=== PATIENT | female | born 2000 | race Caucasian/White ===

== ENCOUNTER → 2019-11-07 13:09 | Outpatient (CLI) | payer BC, SELFPAY ==
--- NOTE | 2019-11-07 13:45 | MRI_ITS ---
STUDY: MRI BRAIN WITH AND WITHOUT CONTRAST (ATTENTION INTERNAL AUDITORY CANALS - I.A.C.''s) REASON FOR EXAM: Female, 18 years old. L 6th nerve palsey, diplopia LEFT eye x 2 weeks TECHNIQUE: Standardized multiplanar fat and water weighted pulse sequences were obtained. 22ml Dotarem via IV was administered for the contrast portion of the examination. COMPARISON: None. FINDINGS: Normal bilateral temporal bones. Normal bilateral internal auditory canals. There is no demonstrated intracanalicular or cisternal vestibular schwannoma (acoustic neuroma). There is no enhancement of the bilateral VIIth or VIIIth cranial nerves. Normal bilateral cochlea, vestibules and semicircular canals. Normal size of the ventricles and extra-axial spaces for the patient''s age. There are 3 areas of hyperintensity of the periventricular white matter, 2 in the posterior right parietal lobe and one in the left frontal lobe. There is no evidence for recent intracranial ischemia or other cause of cytotoxic edema on diffusion weighted imaging (DWI). Normal T2* images of the brain without demonstrated susceptibility artifact. There is no demonstrated hemosiderin stain. Normal bilateral basal ganglia. Normal thalami. Normal flow voids within the major intracranial circulation suggesting patency by spin echo criteria. Normal venous enhancement. There is no enhancing intra-axial or extra-axial abnormality. There is no extra-axial fluid accumulation. Normal sella turcica, pituitary gland, infundibular stalk, optic chiasm and hypothalamus. Normal tectal plate and pineal gland. Focal hyperintensity of the anterior aspect of the left side of the brainstem at the level the cerebral peduncle. Findings are worrisome for demyelinating disease (multiple sclerosis). No contrast-enhancing plaque. Normal cerebellum. Normal basal cisterns. No demonstrated orbital abnormality, within the constraints of a routine brain study. Normal visualized paranasal sinuses. Normal calvarium and skull base. Normal visualized soft tissue structures. Normal visualized upper cervical spine. MRI/Brain W/WO Contrast IMPRESSION: Suspect demyelinating disease (multiple sclerosis), no contrast enhancing plaque. Other possibilities include hypercoagulable state including antiphospholipid antibody syndrome, vasculitis, migraine headaches, or Lyme disease. Electronically Signed: Domo Umana MD at 16:53 EDT Tel , Service support ,
[2019-11-11 23:57] LABS: Acetylcholine Receptor Binding < 0.03 nmol/L (0.00-0.24)
[2019-11-13 14:29] LABS: ACHR Recep AB, Blocking 19 % (0-25)
== END ==
PROVIDERS: PCP Pediatrics; Referring Provider Ophthalmology; Visit Provider Ophthalmology
DX: H49.22 Sixth [abducent] nerve palsy, left eye (principal); H53.2 Diplopia; G70.00 Myasthenia gravis without (acute) exacerbation
CPT/HCPCS: 36415; 70553; 83519; 84238; A9575

== ENCOUNTER → 2021-05-13 09:15 | Outpatient (CLI) | payer BC, SELFPAY ==
[2021-05-13 11:29] LABS: Erythrocyte Sedimentation Rate 29 mm/hr (0-30)
[2021-05-13 11:52] LABS: CRP 6.53 mg/L (0.0-3.0)
[2021-05-14 09:45] LABS: CMV Acute Antibody IgM < 30.0 AU/mL (0.0-29.9); CMV Antibody IgG < 0.60 U/mL (0.00-0.59)
== END ==
PROVIDERS: PCP Internal Medicine; Referring Provider Internal Medicine Gastroenterology; Visit Provider Internal Medicine Gastroenterology
DX: G35 Multiple sclerosis (principal)
CPT/HCPCS: 36415; 85652; 86140; 86644; 86645

== ENCOUNTER 2021-05-25 09:24 | Day surgery (SDC) | payer BC, SELFPAY ==
--- NOTE | 2021-05-25 09:36 | PCM.HP.BLA ---
History and Physical Date of Admission: 05/25/21 Intake Visit Reasons: Stomach issues Allergies No Known Allergies Allergy (Unverified 05/13/21 08:12) Medications biotin 5 mg tablet mg PO 05/13/21 [History Confirmed 05/13/21] cholecalciferol (vitamin D3) 50 mcg (2,000 unit) tablet 50 mcg PO DAILY 05/13/21 [History Confirmed 05/13/21] famotidine 10 mg tablet 10 mg PO BID 05/13/21 [History Confirmed 05/13/21] ferrous sulfate 325 mg (65 mg iron) tablet 325 mg PO DAILY 05/13/21 [History Confirmed 05/13/21] ketoconazole 1 % shampoo 1 applic TOPICAL 2XW 05/13/21 [History Confirmed 05/13/21] ocrelizumab 30 mg/mL intravenous solution mg .ROUTE .6m ml 05/13/21 [History Confirmed 05/13/21] ondansetron HCl 4 mg tablet 4 mg PO Q8H PRN 05/13/21 [History Confirmed 05/13/21] pantoprazole 40 mg tablet,delayed release 40 mg PO DAILY #60 tab 05/13/21 [Rx Confirmed 05/13/21] PFSH Medical History (Updated 05/15/21 @ 13:[address] Plata Friend, DO) Abdominal pain Diarrhea Dysphagia Surgical History (Updated 05/13/21 @ 08:43 by Sarah Bull) History of wisdom tooth extraction Family History (Updated 05/13/21 @ 08:16 by Mile Banks) Mother Diabetes Grandmother Cancer melanoma Social History Smoking Status: Never smoker HPI HPI Details: FABIANO AGUILAR, is a 20 F who presents to the office today for Onset 4.5 weeks ago with nausea, diarrhea, difficulty swallowing and upset stomach. Urgent care did blood work and stool studies - reports WBC elevated and stool studies C. diff, bacteria and parasites were all negative; prescribed zofran which has been ineffective. History of multiple sclerosis. MS doctor looked at blood work and felt there was an infection who recommended PCP but visit was several weeks out. No antibiotic started. Returned to urgent care who repeated blood work and they came back as normal. PCP seen Sunday this week who prescribed pepcid once a day and minimally. Mother has a history of GERD. ROS Const Constitutional: Positive for fatigue and weight change ENT ENT: Positive for difficulty swallowing and hoarseness Gastro GI: Positive for bloating, change in bowel habits, diarrhea, heartburn, difficulty swallowing and nausea/dyspepsia Endo Endocrine: Positive for fatigue and weight change Exam Const General: cooperative and comfortable Nutritional Appearance: average body habitus and well nourished [facility] Head: normal to inspection Ears: hearing grossly normal bilaterally Nose: external nose normal Face and sinus: normal facial exam Mouth: oral mucosae normal Throat: posterior oropharynx normal Eyes General: appearance normal, both eyes and all related structures Neck Neck: normal visual inspection Chest Chest palpation & inspection: normal inspection of the chest and normal palpation of entire chest wall Resp Effort & Inspection: normal respiratory effort Auscultation: Bilateral: Clear to Auscultation Cardio Palpation: normal PMI Rate: regular rate Rhythm: regular rhythm GI Inspection: normal to inspection Auscultation: normal bowel sounds Percussion: normal to percussion Palpation: no hepatosplenomegaly Skin General: no rashes or lesions noted Neuro General: patient alert Extrem General: normal to inspection Psych Affect: normal affect Quality Reporting Tobacco Screening ([facility] 138) Smoking Status: Never smoker Assessment and Plan Assessment and Plan (1) MS (multiple sclerosis): Status: Acute Orders: Orders: CRP 05/13/21 Erythrocyte Sed Rate 05/13/21 CMV Antibody IgG 05/13/21 CMV Acute Antibody IgM 05/13/21 Plan - Dr. Plata Friend, DO: With her history of multiple sclerosis and being on immunosuppression I will order CMV IgG and IgM antibodies. I will also order an ESR and CRP. (2) Diarrhea: Status: Acute Plan - Dr. Plata Friend, DO: Diarrhea possibly secondary to unmasking inflammatory bowel disease. She will need to undergo EGD and colonoscopy to evaluate the upper and lower GI tract. (3) Dysphagia: Status: Acute Plan - Dr. Plata Friend, DO: Differential diagnosis for her dysphagia do include esophageal dysmotility, esophageal spasm, eosinophilic esophagitis, gastroesophageal reflux disease. We will perform an upper endoscopy evaluate her upper GI tract. (4) Abdominal pain: Status: Acute Plan - Dr. Boni Tilley, DO: The differential diagnosis for abdominal pain does clued IBS, gastritis, peptic ulcer disease, celiac disease. We will evaluate her upper GI tract and make recommendations accordingly Plan Details Other Medications: New: pantoprazole 40 mg PO DAILY 60 tabs 0RF I have re-examined the patient. There are no clinical changes since date of exam.
[2021-05-25 09:40] VITALS: BP 137/83; PULSE 106; RESP 18; TEMP 36.6; O2SAT 100; BMI 36.6
[2021-05-25] MEDS: Lactated Ringers 1,000 ML 15 ML IV (09:40)
[2021-05-25 09:43] LABS: Internal QC Validated? YES +Cl - CLEAR BKGD
[2021-05-25 09:46] LABS: Pregnancy, Urine Negative Negative
--- NOTE | 2021-05-25 10:30 | IMM_PTH ---
PATIENT: FABIANO ISAACS LOC: EN U#:[id number] AGE/SX: 20/ ROOM: RE05/25/[address]: Dr. Boni Tilley DO : 2000 BED: DIS: 05/25/2021 SPEC #: [id number] RECD: 05/25/21 15:23 STATUS: JOSE MANUEL REQ #: [id number] LIO: 05/25/21 10:[address]: Boni Tilley DEPT: IMMUNOHISTOCHEMISTRY RECD BY: Cookie Cardona ENTERED: 05/25/21 15:23 SP TYPE: IMMUNO OTHR DR: Dr. Tin Mccoy MD Tissues: B - Stomach, NOS Procedures: H Pylori (initial) PHYSICIAN & INSTITUTION [place] [id number] SPECIMEN INFORMATION: Tissue Source: C ? Gastric biopsy Clinical Info: Multiple sclerosis, diarrhea, dysphagia, abdominal pain Specimen Number: [id number] CPT code: 57279 METHODOLOGY: Deparaffinized sections of prefer/formalin-fixed tissue or PAP/DQ stained slides are incubated with monoclonal/polyclonal antibodies/oligonucleotide probes. Localization is made via biotin free immunoperoxidase method. Appropriate controls are performed and reacted as expected. Results on target cell population are indicated in the following table: RESULTS: ANTIBODY / CLONE RESULT Block C H Pylori (polyclonal) negative These tests were developed and their performance characteristics determined by [facility]. They may not have been cleared or approved by the U.S. Food and Drug Administration. The FDA has determined that such clearance or approval is not necessary. INTERPRETATION: C. Gastric, biopsy: Negative for Helicobacter pylori organisms. SJ:peña 05/26/2021
--- NOTE | 2021-05-25 10:30 | EGD_PTH ---
PATIENT: FABIANO ISAACS LOC: EN U#:[id number] AGE/SX: 20/F ROOM: RE05/25/[address]: Dr. Boni Tilley DO : 2000 BED: DIS: 05/25/2021 SPEC #: [id number] RECD: 05/25/21 13:30 STATUS: JOSE MANUEL REMedhat #: [id number] LIO: 05/25/21 10:[address]: Boni Tilley DEPT: SURGICAL PATHOLOGY RECD BY: Ana Lilia Moreau ENTERED: 05/25/21 13:46 SP TYPE: EGD BIOPSY OT DR: Dr. Tin Mccoy MD Tissues: A - Duodenum, NOS B - Gastric mucous membrane C - Gastric mucous membrane D - Esophagus, NOS Procedures: Special Stain Group II Surgery Specimen Level IV Alcian Blue/PAS (control) HEADER OPERATION: EGD PRE-OP DIAGNOSIS: Multiple sclerosis, diarrhea, dysphagia, abdominal pain TISSUE SUBMITTED: A ? Duodenum biopsy, B ? Antrum biopsy for H. pylori and path, C ? Gastric biopsy, D ? Distal esophagus biopsy MICROSCOPIC DIAGNOSIS A. Duodenum, biopsy: Fragments of duodenal mucosa with congestion, hemorrhage and Martine gland hyperplasia. B. Antrum, biopsy: No specimen is present in the container. C. Gastric biopsy: Mild gastritis. See microscopic description and comment. D. Distal esophagus, biopsy: Fragments of gastroesophageal mucosa with mild chronic inflammation. Intestinal metaplasia (goblet cell metaplasia) not identified. See comment. SJ:peña 05/26/2021 COMMENT C. The results of immunohistochemistry for Helicobacter pylori will be reported separately ([id number]). D. Alcian blue/PAS stain with matched control is used in the evaluation of the specimen. MICROSCOPIC DESCRIPTION Slides are reviewed. C. The specimen shows fragments of gastric mucosa with chronic inflammatory cell infiltrates in the lamina propria consisting of lymphocytes and plasma cells, consistent with mild chronic gastritis. GROSS DESCRIPTION A - Received in fixative is one container labeled with the patient's name and designated duodenum biopsy. The specimen consists of multiple irregular fragments of light hernández soft tissue that in aggregate measure 1 x 0.3 x 0.1 cm. The specimen is totally submitted in one cassette. B - Received in fixative is one container labeled with the patient's name and designated antrum biopsy. No specimen is present in the container. C - Received in fixative is one container labeled with the patient's name and designated gastric biopsy. The specimen consists of two irregular fragments of light hernández soft tissue that in aggregate measure 0.6 x 0.3 x 0.1 cm. The specimen is totally submitted in one cassette. D - Received in fixative is one container labeled with the patient's name and designated distal esophagus biopsy. The specimen consists of two irregular fragments of light hernández soft tissue that in aggregate measure 0.6 x 0.3 x 0.1 cm. The specimen is totally submitted in one cassette. / SJ:rg 05/25/21 TC:3 CPT: 42277 x3, 70403
--- NOTE | 2021-05-25 10:52 | OP.EGD_ITS ---
Patient Name: Leela Amos Procedure Date: 05/25/2021 10:24 AM Date of : 2000 Age: 20 Procedure: Upper GI endoscopy Indications: Epigastric abdominal pain, Heartburn Providers: Boni Tilley DO Medicines: See the Anesthesia note for documentation of the administered medications Patient Profile: This is a 20 year old female. Refer to note in patient chart for documentation of history and physical. Patient has symptoms of acute abdominal cramping and acute epigastric abdominal pain. The symptoms first began April. Complications: No immediate complications. Procedure: Pre-Anesthesia Assessment: - Prior to the procedure, a History and Physical was performed, and patient medications and allergies were reviewed. The patient is competent. The risks and benefits of the procedure and the sedation options and risks were discussed with the patient. All questions were answered and informed consent was obtained. Patient identification and proposed procedure were verified by the physician in the pre-procedure area. Mental Status Examination: alert and oriented. Airway Examination: normal oropharyngeal airway and neck mobility. Respiratory Examination: clear to auscultation. CV Examination: normal. Prophylactic Antibiotics: The patient does not require prophylactic antibiotics. Prior Anticoagulants: The patient has taken no previous anticoagulant or antiplatelet agents. ASA Grade Assessment: II - A patient with mild systemic disease. After reviewing the risks and benefits, the patient was deemed in satisfactory condition to undergo the procedure. The anesthesia plan was to use moderate sedation / analgesia (conscious sedation). Immediately prior to administration of medications, the patient was re-assessed for adequacy to receive sedatives. The heart rate, respiratory rate, oxygen saturations, blood pressure, adequacy of pulmonary ventilation, and response to care were monitored throughout the procedure. The physical status of the patient was re-assessed after the procedure. After obtaining informed consent, the endoscope was passed under direct vision. Throughout the procedure, the patient's blood pressure, pulse, and oxygen saturations were monitored continuously. The Endoscope was introduced through the and advanced to the. The gastroscope was introduced through the mouth, and advanced to the second part of duodenum. The upper GI endoscopy was accomplished without difficulty. The patient tolerated the procedure well. Moderate Sedation: Moderate (conscious) sedation was administered by the endoscopy nurse and supervised by the endoscopist. The patient's oxygen saturation, heart rate, blood pressure and response to care were monitored. Total physician intraservice time was 15 minutes. Scope In: 10:39:04 AM Scope Out: 10:47:28 AM Total Procedure Duration Time 0 hours 8 minutes 24 seconds Findings: LA Grade A (one or more mucosal breaks less than 5 mm, not extending between tops of 2 mucosal folds) esophagitis with no bleeding was found 34 to 35 cm from the incisors. Biopsies were taken with a cold forceps for histology. Verification of patient identification for the specimen was done. Estimated blood loss was minimal. Patchy mildly erythematous mucosa without bleeding was found in the gastric body. Biopsies were taken with a cold forceps for histology. Estimated blood loss was minimal. Patchy mildly erythematous mucosa without active bleeding and with no stigmata of bleeding was found in the second portion of the duodenum. Biopsies were taken with a cold forceps for histology. Estimated blood loss was minimal. Impression: - LA Grade A reflux esophagitis. Biopsied. - Erythematous mucosa in the gastric body. Biopsied. - Erythematous duodenopathy. Biopsied. Recommendation: - Discharge patient to home. - Resume previous diet. - Repeat upper endoscopy in 1 year for surveillance based on pathology results. - Return to GI office in 2 weeks. - Continue present medications. Procedure Code(s): --- Professional --- 99830, Esophagogastroduodenoscopy, flexible, transoral; with biopsy, single or multiple G0500, Moderate sedation services provided by the same physician or other qualified health director of career services performing a gastrointestinal endoscopic service that sedation supports, requiring the presence of an independent trained observer to assist in the monitoring of the patient's level of consciousness and physiological status; initial 15 minutes of intra-service time; patient age 5 years or older (additional time may be reported with 78264, as appropriate) CPT copyright 2017 [employer]. All rights reserved. The codes documented in this report are preliminary and upon flight engineer inspector review may be revised to meet current compliance requirements. Boni Tilley DO 05/25/2021 10:52:49 AM This report has been signed electronically. Number of Addenda: 1 Note Initiated On: 05/25/2021 10:24 AM Addendum Number: 1 Addendum Date: 03/01/2022 6:56:55 AM MAC was used instead of moderate sedation for the patient. Boni Tilley DO 03/01/2022 6:57:00 AM This report has been signed electronically.
[2021-05-25 10:55] VITALS: BP 114/67; BP 137/83; PULSE 90; RESP 16; TEMP 36.4; O2SAT 99
[2021-05-25 11:00] VITALS: BP 102/71; BP 137/83; PULSE 87; RESP 16; O2SAT 100
[2021-05-25 11:05] VITALS: BP 108/70; BP 137/83; PULSE 83; RESP 16; O2SAT 99
[2021-05-25 11:12] VITALS: BP 110/74; BP 137/83; PULSE 76; RESP 16; TEMP 36.9; O2SAT 99
[2021-05-25 11:34] VITALS: BP 137/83
== END 2021-05-25 11:36 ==
LOC: EN 09:26 → AC 09:28
PROVIDERS: Anesthesiology; PCP Internal Medicine; Referring Provider Internal Medicine; Visit Provider Internal Medicine Gastroenterology
PROC: (CPT 43239; principal; 2021-05-25 10:25)
DX: K29.70 Gastritis, unspecified, without bleeding (principal); K21.00 Gastro-esophageal reflux disease with esophagitis, without bleeding; G35 Multiple sclerosis; G43.909 Migraine, unspecified, not intractable, without status migrainosus; Z79.899 Other long term (current) drug therapy
CPT/HCPCS: 43239; 81025; 87426; 88305; 88313; 88342; C9803; J7120; J2405

== ENCOUNTER → 2021-06-04 09:43 | Outpatient (CLI) | payer BC, SELFPAY ==
[2021-06-05 14:37] LABS: Immunoglobulin A 96 mg/dL (87-352)
[2021-06-06 14:09] LABS: Endomysial Antibody IgA Negative (Negative)
[2021-06-06 14:46] LABS: Deamidated Gliadin IgA 3 units (0-19); Deamidated Gliadin IgG 1 units (0-19); Immunoglobulin A 98 mg/dL (87-352); t-Transglutaminase IgA <2 U/mL (0-3)
== END ==
PROVIDERS: PCP Internal Medicine; Referring Provider Internal Medicine Gastroenterology; Visit Provider Internal Medicine Gastroenterology
DX: K29.60 Other gastritis without bleeding (principal)
CPT/HCPCS: 36415; 82784; 83516; 86255

== ENCOUNTER → 2021-06-10 | Outpatient (CLI) | payer BC, SELFPAY ==
[2021-06-14 13:20] LABS: H. PYLORI STOOL AG Negative (Negative)
== END | disposition home or self-care (01) ==
LOC: LABSPEC 08:11
PROVIDERS: PCP Internal Medicine; Visit Provider Internal Medicine Gastroenterology
DX: K29.60 Other gastritis without bleeding (principal)

== ENCOUNTER → 2023-06-19 | Outpatient (CLI) | payer BC, SELFPAY | END | disposition home or self-care (01) | LOC: LABSPEC 15:05 | PROVIDERS: PCP Internal Medicine; Referring Provider Otolaryngology Otolaryngology/Facial Plastic Surgery; Visit Provider Otolaryngology Otolaryngology/Facial Plastic Surgery | DX: J01.90 Acute sinusitis, unspecified (principal) | CPT/HCPCS: 87070; 87077; 87205 ==

== ENCOUNTER → 2023-08-06 | Outpatient (CLI) | payer BC, SELFPAY | END | disposition home or self-care (01) | PROVIDERS: PCP Internal Medicine; Visit Provider Otolaryngology Otolaryngology/Facial Plastic Surgery | DX: J32.9 Chronic sinusitis, unspecified (principal) | CPT/HCPCS: 87070; 87077; 87205 ==

== ENCOUNTER 2023-08-19 18:50 | Inpatient (IN) | payer BC, SELFPAY ==
--- OUTSIDE RECORDS SUMMARY | 2023-08-19 18:55 | XMS RPT_ITS | CCD ---
Author Name Unknown Address [address] [place] [address] Organization [facility] Care Team Providers Care Aquarium Tank Attendant Name Role Phone Amilcar MELISSA, Devin Diego Primary Care Provider Abi MELISSA, Tin Diego Primary Care Provider [phone] Abi MELISSA, Tin Diego Primary Care Provider [phone] Unavailable Primary Care Provider UnavailROMERO Townsend Referring Unavailable ALEX, RAMONA Primary Care Unavailable ROMERO CHEEK Referring Unavailable ALEX, RAMONA Primary Care Unavailable TEGAN DELGADO Attending Unavailable ALEX, RAMONA Primary Care Unavailable ROMERO CHEEK Referring Unavailable ROMERO CHEEK Attending Unavailable ALEX, RAMONA Primary Care Unavailable FADI ALEXANDER Attending Unavailable ROMERO CHEEK Referring Unavailable FADI ALVAREZ Attending Unavailable TEGAN DELGADO Attending Unavailable ROMERO CHEEK Attending Unavailable ALEX, RAMONA Primary Care Unavailable LORENZA WHEATLEY Attending Unavailable ROMERO CHEEK Referring Unavailable ROMERO CHEEK Attending Unavailable FADI ALVAREZ Attending Unavailable TEGAN DELGADO Attending Unavailable SINAI SOLIS Referring Unavailable SINAI SOLIS Attending Unavailable ALEX, RAMONA Primary Care Unavailable ROSEANNA WATTS Attending Unavailable FADI ALVAREZ Attending Unavailable ALXE, RAMONA Primary Care Unavailable ROMERO CHEEK Referring Unavailable SINAI SOLIS Attending Unavailable FADI ALVAREZ Attending Unavailable TEGAN DELGADO Attending Unavailable FADI ALVAREZ Attending Unavailable TEGAN DELGADO Referring Unavailable ROSEANNA WATTS Attending Unavailable ABI, RAMONA Primary Care Unavailable ROSEANNA WATTS Attending Unavailable ROSEANNA WATTS Referring Unavailable ALEX, RAMONA Primary Care Unavailable ROMERO CHEEK Attending Unavailable TIN ALEX Primary Care Unavailable ROMERO CHEEK Attending Unavailable TIN ALEX Primary Care Unavailable KIMBERLY CASTRO Attending Unavailable TIN ALEX Primary Care Unavailable Medications Current Medications Medication Drug Class(es) Dates Sig (Normalized) Sig (Original) amoxicillin 875 mg / clavulanate 125 mg oral tablet (4 sources) Penicillin-class Antibacterial Start: 05-28-2023 End: 06-07-2023 take 1 tablet by mouth twice daily amoxicillin-clav ulanate potassium (AUGMENTIN) 875-125 mg per tablet Take 1 tablet by mouth two times a day for 10 days. 20 tablet 0 05/28/2023 06/07/2023 Active Completed/Discontinued Medications Medication Drug Class(es) Dates Sig (Normalized) Sig (Original) amoxicillin 500 mg oral capsule (3 sources) Penicillin-class Antibacterial Start: 08-08-2023 take 1 capsule by mouth three times daily amoxicillin (AMOXIL) 500 mg capsule Take 500 mg by mouth three times a day. 0 08/08/2023 Active Problems Active Problems Problem Classification Problem Date Documented Da te Episodic/Chronic Bacterial infection; unspecified site (3 sources) Bacteria present; Translations: [Streptococcus, group B, as the cause of diseases classified elsewhere] Onset: 07-31-2023 07-31-2023 Episodic Diabetes or abnormal glucose tolerance complicating ; childbirth; or the puerperium (11 sources) Abnormal glucose level; Translations: [Abnormal glucose complicating ] Onset: 05-28-2023 05-28-2023 Episodic Headache; including migraine (20 sources) Migraine without aura, not refractory ; Translations: [Migraine without aura, not intractable, without status migrainosus] Onset: 04-22-2015 04-22-2015 Chronic Multiple sclerosis (20 sources) Multiple sclerosis; Translations: [Multiple sclerosis] Onset: 10-24-2019 Chronic Nutritional deficiencies (1 source) Vitamin D deficiency; Translations: [Vitamin D deficiency, unspecified] Chronic Other aftercare (6 sources) Patient encounter status; Translations: [Other shelter (current) drug therapy] Episodic Other circulatory disease (1 source) Elevated blood-pressure reading without diagnosis of hypertension; Translations: [Elevated blood-pressure reading, without diagnosis of hypertension] 08-03-2023 Episodic Other circulatory disease (1 source) Elevated blood-pressure reading, without diagnosis of hypertension; Translations: [Elevated blood pressure reading without diagnosis of hypertension] Onset: 08-03-2023 Episodic Other complications of (20 sources) Obesity; Translations: [Obesity complicating , unspecified trimester] Onset: 12-28-2022 Chronic Other complications of (4 sources) Maternal obesity complicating , childbirth and the puerperium, antepartum; Translations: [Obesity complicating , second trimester] 03-29-2023 Chronic Other complications of (1 source) Obesity complicating , unspecified trimester; Translations: [Obesity during ] Onset: 12-28-2022 Chronic Other complications of (1 source) Multiple sclerosis; Translations: [Diseases of the nervous system complicating , unspecified trimester] Episodic Other complications of (1 source) Heartburn; Translations: [Other specified related conditions, unspecified trimester] 05-24-2023 Episodic Other complications of (11 sources) High risk ; Translations: [Supervision of high risk , unspecified, second trimester] Onset: 05-25-2023 05-25-2023 Episodic Other lower respiratory disease (2 sources) Postviral cough; Translations: [Post-viral cough syndrome] 04-17-2023 Episodic Other nutritional; endocrine; and metabolic disorders (20 sources) Body mass index 40+ - severely obese; Translations: [Morbid (severe) obesity due to excess calories] Onset: 11-11-2019 11-11-2019 Chronic Other upper respiratory disease (1 source) Seasonal allergy; Translations: [Other seasonal allergic rhinitis] 05-24-2023 Chronic Other upper respiratory infections (2 sources) Upper respiratory infection; Translations: [Acute upper respiratory infection, unspecified] 03-25-2023 Episodic Residual codes; unclassified (1 source) Gestation period, 10 weeks; Translations: [10 weeks gestation of ] 01-31-2023 Episodic Residual codes; unclassified (1 source) Gestation period, 14 weeks; Translations: [14 weeks gestation of ] 02-28-2023 Episodic Residual codes; unclassified (1 source) Gestation period, 19 weeks; Translations: [19 weeks gestation of ] 03-29-2023 Episodic Residual codes; unclassified (1 source) Gestation period, 27 weeks; Translations: [27 weeks gestation of ] 05-25-2023 Episodic Residual codes; unclassified (1 source) Gestation period, 35 weeks; Translations: [35 weeks gestation of ] 07-20-2023 Episodic Residual codes; unclassified (2 sources) Gestation period, 36 weeks; Translations: [36 weeks gestation of ] 07-27-2023 Episodic Residual codes; unclassified (1 source) Gestation period, 37 weeks; Translations: [37 weeks gestation of ] 08-03-2023 Episodic Residual codes; unclassified (1 source) Gestation period, 38 weeks; Translations: [38 weeks gestation of ] 08-13-2023 Episodic Residual codes; unclassified (1 source) 37 weeks gestation of ; Translations: [37 weeks gestation of ] Onset: 08-03-2023 Episodic Residual codes; unclassified (1 source) 27 weeks gestation of ; Translations: [27 weeks gestation of ] Onset: 06-29-2023 Episodic Residual codes; unclassified (1 source) 23 weeks gestation of ; Translations: [23 weeks gestation of ] Onset: 05-25-2023 Episodic Unclassified (1 source) Subacute cough; Translations: [Subacute cough] Onset: 04-24-2023 Past or Other Problems Problem Classification Problem Date Documented Da te Episodic/Chronic Other complications of (20 sources) Nausea and vomiting; Translations: [Vomiting of , unspecified] Onset: 12-28-2022 Episodic Other complications of (1 source) Vomiting of , unspecified; Translations: [Nausea and vomiting in ] Onset: 12-28-2022 Episodic Other complications of (1 source) with inconclusive viability, not applicable or unspecified; Translations: [ of unknown anatomic location] Onset: 01-03-2023 Episodic Other and delivery including normal (10 sources) with uncertain dates; Translations: [Encounter for supervision of normal , unspecified, first trimester] Onset: 01-03-2023 01-02-2023 Episodic Residual codes; unclassified (1 source) 14 weeks gestation of ; Translations: [14 weeks gestation of ] Onset: 03-29-2023 Episodic Results Test Name Value Interpretation Reference Range Facil ity Vital Signs Date Time Vital Sign Value Performing Clinician Teresa levi 08-13-2023 14:23-0500 Body weight 106.14 kg Fadi Alvarez [employer].CNM Work Phone: [facility] 08-13-2023 14:23-0500 Diastolic blood pressure 78 mm[Hg] Fadi Alvarez [employer]CNM Work Phone: [facility] 08-13-2023 14:23-0500 Systolic blood pressure 124 mm[Hg] Fadi Alvarez [employer].CNM Work Phone: [facility] 08-03-2023 09:41-0500 Diastolic blood pressure 81 mm[Hg] Tegan Plotts [employer].CNM Work Phone: [facility] 08-03-2023 09:41-0500 Systolic blood pressure 123 mm[Hg] Tegan Plotts [employer].CNM Work Phone: [facility] 08-03-2023 09:01-0500 Body weight 107.05 kg Tegan Plotts [employer].CNM Work Phone: [facility] 07-27-2023 10:47-0500 Diastolic blood pressure 72 mm[Hg] Tegan Plotts [employer].CNM Work Phone: [facility] 07-27-2023 10:47-0500 Systolic blood pressure 116 mm[Hg] Tegan Plotts [employer].CNM Work Phone: [facility] 07-20-2023 09:01-0500 Body weight 107.5 kg Fadi Alvarez [employer].CNM Work Phone: [facility] 07-20-2023 09:01-0500 Diastolic blood pressure 80 mm[Hg] Fadi Alvarez [employer].CNM Work Phone: [facility] 07-20-2023 09:01-0500 Systolic blood pressure 120 mm[Hg] Fadi Alvarez [employer].CNM Work Phone: [facility] 05-25-2023 09:00-0500 Body weight 102.97 kg Fadi Alvarez [employer].CNM Work Phone: [facility] 05-25-2023 09:00-0500 Diastolic blood pressure 76 mm[Hg] Fadi Alvarez [employer].CNM Work Phone: [facility] 05-25-2023 09:00-0500 Systolic blood pressure 122 mm[Hg] Fadi Alvarez [employer].CNM Work Phone: [facility] 05-24-2023 07:29-0500 Body temperature 98.1 [degF] Roseanna Older [employer] Work Phone: [facility] 05-24-2023 07:29-0500 Body weight 106.14 kg Roseanna Older [employer]ER.[employer] Work Phone: [facility] 05-24-2023 07:29-0500 Diastolic blood pressure 72 mm[Hg] Roseanna Older [employer] Work Phone: [facility] 05-24-2023 07:29-0500 Heart rate 97 /min Roseanna Older [employer] Work Phone: [facility] 05-24-2023 07:29-0500 Respiratory rate 14 /min Roseanna Older [employer] Work Phone: [facility] 05-24-2023 07:29-0500 SaO2% (BldA) [Mass fraction] 100 % Roseanna Older [employer] Work Phone: [facility] 05-24-2023 07:29-0500 Systolic blood pressure 106 mm[Hg] Roseanna Older [employer]ER.[employer] Work Phone: [facility] 03-25-2023 08:09-0400 Body temperature 97.9 [degF] Kimberly Castro [employer]ER.[employer] Work Phone: [facility] 03-25-2023 08:09-0400 Body weight 105.14 kg Kimberly Castro [employer]ER.[employer] Work Phone: [facility] 03-25-2023 08:09-0400 Diastolic blood pressure 75 mm[Hg] Kimberly Castro [employer]ER.[employer] Work Phone: [facility] 03-25-2023 08:09-0400 Heart rate 128 /min Kimberly Castro [employer]ER.[employer] Work Phone: [facility] 03-25-2023 08:09-0400 Respiratory rate 20 /min Kimberly Castro [employer]ER.[employer] Work Phone: [facility] 03-25-2023 08:09-0400 SaO2% (BldA) [Mass fraction] 99 % Kimberly Castro [employer]ER.[employer] Work Phone: [facility] 03-25-2023 08:09-0400 Systolic blood pressure 143 mm[Hg] Kimberly Castro [employer] Work Phone: [facility] 02-28-2023 16:11-0400 Body weight 106.59 kg Romero Cheek MD Work Phone: [facility] 02-28-2023 16:11-0400 Diastolic blood pressure 72 mm[Hg] Romero Cheek MD Work Phone: [facility] 02-28-2023 16:11-0400 Systolic blood pressure 126 mm[Hg] Romero Cheek MD Work Phone: [facility] 01-31-2023 15:31-0400 Body weight 109.32 kg Romero Cheek MD Work Phone: [facility] 01-31-2023 15:31-0400 Diastolic blood pressure 74 mm[Hg] Romero Cheek MD Work Phone: [facility] 01-31-2023 15:31-0400 Systolic blood pressure 136 mm[Hg] Romero Cheek MD Work Phone: [facility] 01-03-2023 12:54-0400 Body height 165.1 cm Romero Cheek MD Work Phone: [facility] 01-03-2023 12:54-0400 Body weight 112.04 kg Romero Cheek MD Work Phone: [facility] 07-12-2023 12:54-0400 Diastolic blood pressure 88 mm[Hg] Romero Cheek MD Work Phone: [facility] 01-03-2023 12:54-0400 Systolic blood pressure 136 mm[Hg] Romero Cheek MD Work Phone: [facility] 08-18-2022 13:30-0500 Body height 165.1 cm Sinai Solis APRN.[employer]ER Work Phone: [facility] 08-18-2022 13:30-0500 Body weight 113.4 kg Sinai Solis APRN.[employer] Work Phone: [facility] 08-18-2022 13:30-0500 Diastolic blood pressure 77 mm[Hg] Sinai Solis APRN.[employer] Work Phone: [facility] 08-18-2022 13:30-0500 Heart rate 100 /min Sinai Solis APRN.[employer] Work Phone: [facility] 08-18-2022 13:30-0500 Systolic blood pressure 134 mm[Hg] Sinai Solis APRN.[employer] Work Phone: [facility] 07-07-2022 10:00-0500 Diastolic blood pressure 75 mm[Hg] Treatment Wstr Work Phone: [facility] 07-07-2022 10:00-0500 Heart rate 80 /min Treatment Wstr Work Phone: [facility] 07-07-2022 10:00-0500 Systolic blood pressure 117 mm[Hg] Treatment Wstr Work Phone: [facility] 07-07-2022 08:27-0500 Body temperature 98.49 [degF] Treatment Wstr Work Phone: [facility] 01-10-2022 07:56-0400 Body temperature 97.5 [degF] Treatment Wstr Work Phone: [facility] 01-10-2022 07:56-0400 Diastolic blood pressure 74 mm[Hg] Treatment Wstr Work Phone: [facility] 01-10-2022 07:56-0400 Heart rate 99 /min Treatment Wstr Work Phone: [facility] 01-10-2022 07:56-0400 Systolic blood pressure 131 mm[Hg] Treatment Wstr Work Phone: [facility] Encounters Encounter Date Encounter Type Care Provider Facility Start: 08-13-2023 End: 08-13-2023 ambulatory FADI ALVAREZ Facility:[facility] Start: 08-13-2023 End: 08-13-2023 Patient encounter procedure Fadierlin Alvarez [employer].CNM Work Phone: OB/Gynecology Procedures Date Procedure Procedure Detail Performing Clinician Start: 08-13-2023 URINE OB DIP B/O Krys Alvarez [employer].CNM Work Phone: Start: 07-27-2023 Us preg uterus after 1st trimest 06/25 gestation Romero Cheek MD Work Phone: Start: 07-20-2023 URINE OB DIP B/O Krys Alvarez [employer].CNM Work Phone: Start: 05-25-2023 URINE OB DIP B/O Krys Alvarez [employer].CNM Work Phone: Start: 03-29-2023 Us preg uterus after 1st trimest 06/25 gestation Romero Cheek MD Work Phone: Start: 02-28-2023 URINE OB DIP B/O Felicity Cheek MD Work Phone: Start: 01-03-2023 Antibody screen ROMERO CHEEK Plan of Treatment Date Care Activity Detail Author Start: 01-03-2026 PAP TESTING PAP TESTING [facility] Start: 01-03-2026 Screening for malign ant neoplasm of cervix Pap Testing [facility] Start: 08-03-2023 End: 11-02-2023 Protein/Creatinine [Mass Ratio] in Urine [facility] Work Phone: Immunizations Immunization Date Immunization Notes Care Provider Fa [facility] 12-18-2019 varicella virus vaccine Bia Solis [employer] Work Phone: [facility] 03-18-2015 meningococcal polysaccharide (groups A, C, Y and W-135) diphtheria toxoid conjugate vaccine (MCV4P) Sinai Solis APRN.[facility] Work Phone: [facility] 01-31-2011 Meningococcal, MCV4, unspecified conjugate formulation(groups A, C, Y and W-135) Sinai Solis APRN.[facility] Work Phone: [facility] Work Phone: 01-31-2011 tetanus toxoid, redu israel diphtheria toxoid, and acellular pertussis vaccine, adsorbed Sinai Solis APRN.[facility] Work Phone: [facility] Work Phone: 08-10-2003 diphtheria, tetanus toxoids and acellular pertussis vaccine Sinai Solis APRN.[facility] Work Phone: [facility] Work Phone: 08-10-2003 measles, mumps and rubella virus vaccine Sinai Solis APRN.[facility] Work Phone: [facility] Work Phone: 08-10-2003 poliovirus vaccine, inactivated Sinai Solis APRN.[facility] Work Phone: [facility] Work Phone: 07-18-2000 pneumococcal conjuga te vaccine, 7 valent Sinai Solis APRN.[facility] Work Phone: [facility] Work Phone: 07-18-2000 varicella virus vaccine Bia Solis APRN.[facility] Work Phone: [facility] Work Phone: 03-28-2000 diphtheria, tetanus toxoids and acellular pertussis vaccine Sinai Solis APRN.[facility] Work Phone: [facility] Work Phone: 03-28-2000 haemophilus influenz ae type b vaccine, HbOC conjugate Sinai Sedlak [employer] B[employer] LAB[employer]ER.[employer] Work Phone: [facility] Work Phone: 03-28-2000 pneumococcal conjuga te vaccine, 7 valent Sinai Morrisk [employer] BARN LABORER.[employer] Work Phone: [facility] Work Phone: 12-21-1999 measles, mumps and rubella virus vaccine Sinai Thienlak [employer]ER.[employer] Work Phone: [facility] Work Phone: 12-21-1999 poliovirus vaccine, inactivated Sinai Thienlak [employer] BARN LABORER.[facility] Work Phone: [facility] Work Phone: 10-12-1999 hepatitis B vaccine, pediatric or pediatric/adolescent dosage Sinai Morrisk [employer] BARN LABORER.[facility] Work Phone: [facility] Work Phone: 07-13-1999 diphtheria, tetanus toxoids and acellular pertussis vaccine Sinai Thienlak [employer] BARN LABORER.[facility] Work Phone: [facility] Work Phone: 07-13-1999 haemophilus influenz ae type b vaccine, HbOC conjugate Sinai Thienlak [employer] BARN LABORER.[facility] Work Phone: [facility] Work Phone: 04-27-1999 diphtheria, tetanus toxoids and acellular pertussis vaccine Sinai Thienlak [employer] B[employer]ER.[employer] Work Phone: [facility] Work Phone: 04-27-1999 haemophilus influenz ae type b vaccine, HbOC conjugate Sinai Thienlak [employer] BARN LABORER.[facility] Work Phone: [facility] Work Phone: 04-27-1999 poliovirus vaccine, inactivated Sinai Sedlak CAR BARN LABORER.[facility] Work Phone: [facility] Work Phone: 02-23-1999 diphtheria, tetanus toxoids and acellular pertussis vaccine Sinai Sedlak CAR BARN LABORER.[facility] Work Phone: [facility] Work Phone: 02-23-1999 haemophilus influenz ae type b vaccine, HbOC conjugate Sinai Irma MOYA.[employer] Work Phone: [facility] Work Phone: 02-23-1999 poliovirus vaccine, inactivated Sinai Solis APRN.[employer] Work Phone: [facility] Work Phone: 01-25-1999 hepatitis B vaccine, pediatric or pediatric/adolescent dosage Sinai Irma [employer] BARN LABORER.[employer] Work Phone: [facility] Work Phone: 1998 hepatitis B vaccine, pediatric or pediatric/adolescent dosage Sinai Irma JOHNSONN.[employer]ATER [employer] P[employer]ER Work Phone: [facility] Work Phone: Payers Date Payer Category Payer Unknown [employer] PPO OOS [id number] 2013-Present [phone] [address] [place] [address] PPO [id number] 2013 Unknown [employer] PPO OOS [id number] 2013-Present [phone] [address] [place] [address] [facility] [id number] 2013 Unknown [id number] Social History Date Type Detail Facility Start: 02-03-2016 End: 08-18-2022 Tobacco smoking status NHIS Never smoked tobacco [facility] Start: 05-09-2021 End: 08-03-2023 Alcohol intake Ex-drinker (finding) [facility] Start: 05-05-2021 History SDOH Alcohol Frequency 1 [facility] Start: 05-05-2021 History SDOH Alcohol Std Drinks 98 [facility] Start: 05-05-2021 History SDOH Social Connections Phone 4 [facility] Start: 05-05-2021 History SDOH Social Connections Get Together 2 [facility] Start: 05-05-2021 History SDOH Social Connections Faith 3 [facility] Start: 02-03-2021 Education 17 [facility] Start: 2000 Sex Assigned At Not on file C [facility] Start: 10-17-2021 End: 10-27-2021 Exposure to SARS-CoV-2 (event) Not sure [facility] Start: 02-03-2016 End: 08-18-2022 Tobacco use and exposure Smokeless tobacco non-user [facility] Start: 11-30-2022 [facility] Start: 05-05-2021 End: 12-28-2022 History of Social function [facility] Start: 05-05-2021 End: 12-28-2022 Social connection and isolation panel [facility] Do you belong to any clubs or organizations such as mu-ism groups, unions, fraternal or athletic groups, or school groups? Yes [facility] Are you now , , , , never or living with a partner? [facility] How often to you hav e a drink containing alcohol? Never [facility] How many standard dr inks containing alcohol do you have on a typical day? Patient refused [facility] How hard is it for y ou to pay for the very basics like food, housing, medical care, and heating Not very hard [facility] Do you feel stress - tense, restless, nervous, or anxious, or unable to sleep at night because your mind is troubled all the time - these days [OSQ] Not at all [facility] (I/We) worried emir er (my/our) food would run out before (I/we) got money to buy more. Never true [facility] In the past 12 month s, was there a time when you were not able to pay the mortgage or rent on time? No [facility] How often to you hav e a drink containing alcohol? Monthly or less [facility] How many standard dr inks containing alcohol do you have on a typical day? 1 or 2 [facility] Do you feel stress - tense, restless, nervous, or anxious, or unable to sleep at night because your mind is troubled all the time - these days [OSQ] Only a little [facility] Goals Date Patient Goal Desired Activity /State Personal health goal Clinical Notes 04-05-2009 to 08-13-2023 Fadi Alvarez APRN.CNM - 08/13/2023 3:08 PM ESTPrenatal Quick Notes - Fadi Alvarez APRN.CNM - 08/13/2023 2:33 PM ESTPatient InstructionsPlotTegan gutierrez APRN.CNM - 08/03/2023 9:38 AM EST Note Date & Type Note Facility 08-13-2023 Note HNO ID: [id number] Author: FADI ALVAREZ APRN.CNM Service: ? Author Type: Primary Care Pediatrician Type: Progress Notes Filed: 08/13/2023 15:10 Note Text: LIZETT-NST SUMMARY PROVIDER ASSESSMENT AND INTERPRETATION Fabiano Isaacs is a 22 year old female, , who is at 38w4d with an NIKA of 08/23/2023, by Last Menstrual Period dating method. Indications for NST: Obesity Baseline: 135 Variability: Moderate Accelerations: Present 15 X 15 Decelerations: None Contractions: TOCO: None Interpretation: Reactive SIGNATURE: Fadi Alvarez APRN.CNM [facility] 08-13-2023 History of Presen t illness Narrative LIZETT-NST SUMMARY PROVIDER ASSESSMENT AND INTERPRETATION Fabiano Isaacs is a 22 year old female, , who is at 38w4d with an NIKA of 08/23/2023, by Last Menstrual Period dating method. Indications for NST: Obesity Baseline: 135 Variability: Moderate Accelerations: Present 15 X 15 Decelerations: None Contractions: TOCO: None Interpretation: Reactive SIGNATURE: Fadi Alvarez APRN.CNM documented in this encounter [facility] 08-13-2023 Miscellaneous Notes LIZETT-S: Fabiano Isaacs is a 22 year old female who presents at 38w4d with NIKA:08/23/2023, by Last Menstrual Period for a routine visit. Denies headache, visual changes, chest pain, shortness of breath, vaginal bleeding, leakage of fluid, or dysuria. Feeling well, no complaints. O: See flow sheet Gen: No apparent distress Abd: Gravid, nontender NST reactive today ASSESSMENT/PLAN: 1. 38 weeks gestation of P: 1) PTL precautions reviewed and when to call 2) RTO for PP visit 3) Elective IOL for Obesity and AC>96th percentile. Consent form reviewed and signed. IOL on 08/16 at 1900, oliveros and cytotec. Fadi Alvarez APRN.CNM documented in this encounter [facility] 08-13-2023 Instructions Bella Plascencia Ma 08/13/2023 2:12 PM EST SEQUENTIAL SCREENINGS The [facility] offers sequential screenings for women who are interested in screenings for chromosomal abnormalities and certain defects during a . The sequential screen combines ultrasound and blood tests to determine the risk of chromosomal abnormalities, including Down's Syndrome (Trisomy 21) and Trisomy 18, as well as open neural tube defects including spina bifida. Ultrasound examination is performed between 11 weeks and 13 weeks gestational age. Blood tests are drawn after the ultrasound and again later in the between 15 and 21 weeks gestational age. Please let your physician know if you are interested in this testing. It will require an appointment with our chemical radiation technician. This is not an ultrasound performed by a physician in our office during a routine visit. SIGNS AND SYMPTOMS OF LABOR 1. Contractions every 10 minutes or more often 2. Clear, pink, or brownish fluid (water) leaking from vagina 3. Feeling that baby is pushing down, pressure 4. Low, dull backache 5. Cramps that feel like a period 6. Cramps with or without diarrhea If you notice any of the above symptoms, contact our office at [phone] and ask to speak with a nurse. After hours, you can call doctors registry at [phone] OR call [facility] at [phone] and ask to have the doctor international organizer paged. If you consider this an emergency, dial or go to your nearest emergency department. NEED HELP? Are you dealing with a violent or abusive relationship? Are you a victim of rape or sexual assult? Call [facility] ([place]) 24 hour Crisis Hotline: 246.590.6739 or 633-291-9011. MANUAL Your Guide to a Healthy manual is now on-line. Visit [email or web address] to download your free copy documented in this encounter [facility] 08-09-2023 Miscellaneous Notes Patient scheduled for visit tomorrow on 08/10/23. She will need this cancelled and rescheduled for Sunday or early next week to discuss induction of labor. Please assist with scheduling. Tegan Delgado APRN.CNM documented in this encounter [facility] 08-03-2023 Note HNO ID: [id number] Author: TEGAN DELGADO APRN.CNM Service: ? Author Type: Primary Care Pediatrician Type: Progress Notes Filed: 08/03/2023 10:05 Note Text: EDGAR BP A-123/81 1-135/81 2-122/81 3-127/82 4-116/80 5-119/81 6-119/81 NST SUMMARY PROVIDER ASSESSMENT AND INTERPRETATION Fabiano Isaacs is a 22 year old female, , who is at 37w1d with an NIKA of 08/23/2023, by Last Menstrual Period dating method. Indications for NST: Obesity Baseline: 130 Variability: Moderate Accelerations: Present 15 X 15 Decelerations: None Contractions: TOCO: None Interpretation: Category I and Non-Reactive SIGNATURE: Tegan Delgado APRN.CNM [facility] 08-03-2023 Miscellaneous Notes Fabiano Isaacs is a 22 year old female who presents at 37w1d for a routine visit with NST. NST reactive. Positive movement. Denies contractions or cramping. Denies headache, visual changes, chest pain, shortness of breath, vaginal bleeding, leakage of fluid, or dysuria. Feeling well, no complaints. Size equal to dates. 0 lbs TWG. Initial BP elevated at 126/84 True BP 123/81 ASSESSMENT/PLAN: 1. Encounter for supervision of normal first in third trimester - ICD9: V22.0, ICD10: Z34.03 (primary diagnosis) 2. Obesity affecting in third trimester, unspecified obesity type - ICD9: 649.13, ICD10: O99.213 3. 37 weeks gestation of - ICD9: V22.2, ICD10: Z3A.37 4. Elevated blood pressure reading without diagnosis of hypertension - ICD9: 796.2, ICD10: R03.0 5. Positive GBS - PCN IV during labor and delivery - Baseline Pre E labs today - Preeclampsia precautions reviewed and when to notify office - Pregravid BMI 41- Discussed recommendation of induction at 39 weeks gestation- patient would like to think about it and discuss at next week's visit - RTO- Next week for NST and JAYDA Delgado APRN.CNM documented in this encounter [facility] 08-03-2023 History of Presen t illness Narrative EDGAR BP A-123/81 1-135/81 2-122/81 3-127/82 4-116/80 5-119/81 6-119/81 NST SUMMARY PROVIDER ASSESSMENT AND INTERPRETATION Fabiano Isaacs is a 22 year old female, , who is at 37w1d with an NIKA of 08/23/2023, by Last Menstrual Period dating method. Indications for NST: Obesity Baseline: 130 Variability: Moderate Accelerations: Present 15 X 15 Decelerations: None Contractions: TOCO: None Interpretation: Category I and Non-Reactive SIGNATURE: Tegan Delgado APRN.CNM documented in this encounter [facility] 08-03-2023 Instructions Stella Wheeler Ma - 08/03/2023 9:02 AM EST SEQUENTIAL SCREENINGS The [facility] offers sequential screenings for women who are interested in screenings for chromosomal abnormalities and certain defects during a . The sequential screen combines ultrasound and blood tests to determine the risk of chromosomal abnormalities, including Down's Syndrome (Trisomy 21) and Trisomy 18, as well as open neural tube defects including spina bifida. Ultrasound examination is performed between 11 weeks and 13 weeks gestational age. Blood tests are drawn after the ultrasound and again later in the between 15 and 21 weeks gestational age. Please let your physician know if you are interested in this testing. It will require an appointment with our chemical radiation technician. This is not an ultrasound performed by a physician in our office during a routine visit. SIGNS AND SYMPTOMS OF LABOR 1. Contractions every 10 minutes or more often 2. Clear, pink, or brownish fluid (water) leaking from vagina 3. Feeling that baby is pushing down, pressure 4. Low, dull backache 5. Cramps that feel like a period 6. Cramps with or without diarrhea If you notice any of the above symptoms, contact our office at [phone] and ask to speak with a nurse. After hours, you can call doctors registry at [phone] OR call [facility] at [phone] and ask to have the doctor international organizer paged. If you consider this an emergency, dial 1-4-8 or go to your nearest emergency department. NEED HELP? Are you dealing with a violent or abusive relationship? Are you a victim of rape or sexual assult? Call [facility] ([place]) 24 hour Crisis Hotline: 808.975.7873 or 942-901-3720. MANUAL Your Guide to a Healthy manual is now on-line. Visit [email or web address] to download your free copy documented in this encounter [facility] 07-27-2023 Miscellaneous Notes Anatomy ultrasound reviewed. No abnormalities identified. Follow up as clinically indicated. Please place copy in ob chart. Romero Cheek MD documented in this encounter [facility] 07-27-2023 Miscellaneous Notes Fabiano Isaacs is a 22 year old female who presents at 36w1d Estimated Date of Delivery: 08/23/23 for a routine visit. Just completed BPP and growth US. BPP 8/8 and EFW 67%, MED 21. Good movement. Denies headache, visual changes, chest pain, shortness of breath, vaginal bleeding, leakage of fluid, or dysuria. Feeling well, no complaints. Size equal to dates. 0 TWG. TAUS confirms vertex ASSESSMENT/PLAN: 1. Obesity during - ICD9: 649.10, ICD10: O99.210 (primary diagnosis) 2. Encounter for supervision of normal first in third trimester - ICD9: V22.0, ICD10: Z34.03 3. 36 weeks gestation of - ICD9: V22.2, ICD10: Z3A.36 - URINE OB DIP B/O - ROUTINE, GROUP B STREP PCR - Pregravid BMI 41- Need to discuss induction of labor at 39 weeks gestation - PTL precautions reviewed. RTC in 1 week for NST/JAYDA Delgado APRN.CNM documented in this encounter [facility] 07-27-2023 Neeraj Azevedo Cma - 07/27/2023 10:46 AM EST SEQUENTIAL SCREENINGS The [facility] offers sequential screenings for women who are interested in screenings for chromosomal abnormalities and certain defects during a . The sequential screen combines ultrasound and blood tests to determine the risk of chromosomal abnormalities, including Down's Syndrome (Trisomy 21) and Trisomy 18, as well as open neural tube defects including spina bifida. Ultrasound examination is performed between 11 weeks and 13 weeks gestational age. Blood tests are drawn after the ultrasound and again later in the between 15 and 21 weeks gestational age. Please let your physician know if you are interested in this testing. It will require an appointment with our chemical radiation technician. This is not an ultrasound performed by a physician in our office during a routine visit. SIGNS AND SYMPTOMS OF LABOR 1. Contractions every 10 minutes or more often 2. Clear, pink, or brownish fluid (water) leaking from vagina 3. Feeling that baby is pushing down, pressure 4. Low, dull backache 5. Cramps that feel like a period 6. Cramps with or without diarrhea If you notice any of the above symptoms, contact our office at [phone] and ask to speak with a nurse. After hours, you can call doctors registry at [phone] OR call [facility] at [phone] and ask to have the doctor international organizer paged. If you consider this an emergency, dial 91-4 or go to your nearest emergency department. NEED HELP? Are you dealing with a violent or abusive relationship? Are you a victim of rape or sexual assult? Call [facility] ([place]) 24 hour Crisis Hotline: 781.420.8350 or 452-157-8540. MANUAL Your Guide to a Healthy manual is now on-line. Visit [email or web address] to download your free copy documented in this encounter [facility] 07-27-2023 Miscellaneous Notes Order linked. Grace Castorena RN Patient is scheduled for growth ultrasound today. Please approve order documented in this encounter [facility] 07-20-2023 Note HNO ID: [id number] Author: FADI ALVAREZ APRN.CNM Service: ? Author Type: Primary Care Pediatrician Type: Progress Notes Filed: 07/22/2023 11:52 Note Text: NST SUMMARY PROVIDER ASSESSMENT AND INTERPRETATION Fabiano Isaacs is a 22 year old female, , who is at 35w1d with an NIKA of 08/23/2023, by Last Menstrual Period dating method. Indications for NST: Obesity Baseline: 150 Variability: Moderate Accelerations: Present 15 X 15 Decelerations: None Contractions: TOCO: Irregular Interpretation: Reactive SIGNATURE: Fadi Alvarez APRN.CNM [facility] 07-20-2023 History of Presen t illness Narrative NST SUMMARY PROVIDER ASSESSMENT AND INTERPRETATION Fabiano Isaacs is a 22 year old female, , who is at 35w1d with an NIKA of 08/23/2023, by Last Menstrual Period dating method. Indications for NST: Obesity Baseline: 150 Variability: Moderate Accelerations: Present 15 X 15 Decelerations: None Contractions: TOCO: Irregular Interpretation: Reactive SIGNATURE: Fadi Alvarez APRN.CNM documented in this encounter [facility] 07-20-2023 Miscellaneous Notes LIZETT-NST only, see progress note. Fadi Alvarez APRN.CNM documented in this encounter [facility] 07-20-2023 Stella Carey Ma - 07/20/2023 9:07 AM EST SEQUENTIAL SCREENINGS The [facility] offers sequential screenings for women who are interested in screenings for chromosomal abnormalities and certain defects during a . The sequential screen combines ultrasound and blood tests to determine the risk of chromosomal abnormalities, including Down's Syndrome (Trisomy 21) and Trisomy 18, as well as open neural tube defects including spina bifida. Ultrasound examination is performed between 11 weeks and 13 weeks gestational age. Blood tests are drawn after the ultrasound and again later in the between 15 and 21 weeks gestational age. Please let your physician know if you are interested in this testing. It will require an appointment with our chemical radiation technician. This is not an ultrasound performed by a physician in our office during a routine visit. SIGNS AND SYMPTOMS OF LABOR 1. Contractions every 10 minutes or more often 2. Clear, pink, or brownish fluid (water) leaking from vagina 3. Feeling that baby is pushing down, pressure 4. Low, dull backache 5. Cramps that feel like a period 6. Cramps with or without diarrhea If you notice any of the above symptoms, contact our office at [phone] and ask to speak with a nurse. After hours, you can call doctors registry at [phone] OR call [facility] at [phone] and ask to have the doctor international organizer paged. If you consider this an emergency, dial 9-1-1 or go to your nearest emergency department. NEED HELP? Are you dealing with a violent or abusive relationship? Are you a victim of rape or sexual assult? Call [facility] ([place]) 24 hour Crisis Hotline: 761.637.1578 or 542-730-0035. MANUAL Your Guide to a Healthy manual is now on-line. Visit [email or web address] to download your free copy documented in this encounter [facility] 07-13-2023 Note HNO ID: [id number] Author: FADI ALEXANDER MD Service: ? Author Type: Physician Type: Progress Notes Filed: 07/13/2023 10:16 Note Text: NST SUMMARY PROVIDER ASSESSMENT AND INTERPRETATION Fabiano Isaacs is a 22 year old female, , who is at 34w1d with an NIKA of 08/23/2023, by Last Menstrual Period dating method. Indications for NST: Obesity Baseline: 145 Variability: Moderate Accelerations: Present 15 X 15 Decelerations: Variable Contractions: TOCO: None Interpretation: Reactive SIGNATURE: Fadi Alexander MD [facility] 07-12-2023 Note HNO ID: [id number] Author: REN GIBSON MD Service: ? Author Type: Physician Type: Progress Notes Filed: 07/12/2023 16:08 Note Text: NST SUMMARY PROVIDER ASSESSMENT AND INTERPRETATION Fabiano Isaacs is a 22 year old female, , who is at 34w0d with an NIKA of 08/23/2023, by Last Menstrual Period dating method. Indications for NST: Obesity Baseline: 135 Variability: Moderate Accelerations: Present 15 X 15 Decelerations: None Contractions: TOCO: None Interpretation: Reactive SIGNATURE: Ren Gibson DO [facility] 06-13-2023 Note HNO ID: [id number] Author: Sinai Solis APRN.CRATER [employer] PACKER Service: ? Author Type: Nurse Practitioner Type: Progress Notes Filed: 06/13/2023 11:19 AM Note Text: [facility] MULTIPLE SCLEROSIS FOLLOWUP/ESTABLISHED PATIENT VISIT VIRTUAL VISIT PRINCIPAL NEUROLOGIC DIAGNOSIS: Multiple sclerosis DISEASE SUMMARY Date of onset: Summer 2018 Date of diagnosis of MS: 11/11/2019 Disease course at onset: Relapsing-Remitting Current disease course: Relapsing-Remitting Previous disease therapies: NA Current disease therapy: Ocrevus started 02/13/2020 AND 02/27/2020. Last q6 month tx 07/07/2022 (cycle 6). Currently on hold for Most recent MRI brain: 11/30/2021 Most recent MRI cervical spine: 11/04/2020 CSF: NA JCV serology result and date: (+) index 2.14 (11/12/2019) VZV 11/12/2019 (-). Varivax pt 1 12/18/2019. CHIEF COMPLAINT: Follow-up on MS disease modifying therapy INTERVAL HISTORY Usual treating team: Larry/Irma The patient's appointment was conducted by virtual visit via [employer] with patient consent, unaccompanied. I have communicated my name and active licensure. The patient's identity and physical location were verified at the time of this visit. Either the patient or their legal sales training representative has been informed of the risks and benefits of -- and alternatives to -- treatment through a remote evaluation and consents to proceed with the evaluation remotely. The patient was last seen 08/18/2022, currently taking Ocrevus though this is on hold due to . Since the patient's last visit the patient reports overall feeling stable. Purpose of today's visit is to discuss plan. Patient with baby girl, NIKA 08/23/2023. has been uneventful, patient feels very well in general and from MS perspective. Denies new or worsening neurologic symptoms. SUBJECTIVE AND REVIEW OF SYSTEMS REVIEW OF SYSTEMS Refer to patient-entered data. Mood: PHQ9 responses reviewed and appear below Pain related to today's visit: None See HPI Neuro-Qol Functions (higher = better functioning) 08/17/2022 12/07/2021 Upper Extremity Domain T Score 57 57 08/17/2022 12/07/2021 Lower Extremity Domain T Score 62 62 08/17/2022 12/07/2021 Cognitive Function Domain T Score 67 63 08/17/2022 12/07/2021 Ability To Participate In Social Roles T Score 63 63 08/17/2022 12/07/2021 Satisfaction With Social Roles T Score 62 62 Neuro-Qol Symptoms (higher = worse symptoms) 08/17/2022 12/07/2021 Sleep Domain T Score 32 32 08/17/2022 12/07/2021 Fatigue Domain T Score 28 35 08/17/2022 12/07/2021 Anxiety Domain T Score 36 44 08/17/2022 12/07/2021 Depression Domain T Score 38 34 08/17/2022 12/07/2021 Stigma Domain T Score 41 40 *NeuroQoL is a multi-domain patient-reported quality of life questionnaire PHQ-9 Flowsheet Row Office Visit from 08[facility]18[facility]20[facility] from 12/08/[address] [facility] PHQ-9 Score 0 0 *PHQ-9 is a questionnaire for depressive symptoms, with scores 0-4 indicating none, 5-9 mild, 10-14 moderate, 15-19 moderately severe, and 20-27 severe symptoms. PROMIS-10 Flowsheet Row Office Visit from 04/11/2023 in [facility] [place] Most recent reading at 04/11/2023 6:16 AM Appointment from 04/11/2023 in [facility] [place] Most recent reading at 04/11/2023 12:33 AM Global Physical Health T Score 54.1 54.1 Global Mental Health T Score 53.3 53.3 0-10 Standard Pain Scale 5 5 *PROMIS-10 is a patient-reported quality of life measure, typically reported as physical and mental domains. Here scores are expressed as percentiles, where the lowest possible score is one, the highest possible score is 99, and 50 is average. PAST HISTORY was reviewed and updated PAST MEDICAL HISTORY Diagnosis Date Anemia Gastritis 2020 Leg fracture, right 2007 Menarche 06/2010 age [age] Years Old Migraine Multiple sclerosis (HCC) 10/2019 NEGATIVE HISTORY OF 2007 normal color vision Psoriasis PAST SURGICAL HISTORY Procedure Laterality Date EGD W/O BRSH SPEC VARICIES INJ EXTRACTION, ERUPTED TOOTH OR EXPOSED ROOT (ELEVATION AND/OR FORCEPS REMOVAL) 2014 NEXPLANON INSERTION 03/06/2016 removed 03/2019 MEDICATIONS and ALLERGIES were reviewed and updated. SOCIAL HISTORY was reviewed and updated: Social History Tobacco Use Smoking status: Never Smokeless tobacco: Never Living situation: Living at home without assistance Employment Status / Disability: Full-time EXAM General Appearance: Well appearing, alert, in no acute distress, well-hydrated, well nourished. Mental status evaluation during the interview and examination showed normal level of consciousness, orientation, language, memory, praxis, and higher intellectual function Affect: Normal Facial movements: Intact bilaterally Speech: normal RESULTS Monitoring labs: CBC + Diff Component Value Date WBC 11.78 (H) 05/25/2023 HB 11.2 (L) 05/25/2023 HC (more content not included)... [facility] 05-25-2023 Miscellaneous Notes LIZETT-S: Fabiano Isaacs is a 22 year old female who presents at 27w1d with NIKA: 08/23/2023, by Last Menstrual Period for a routine visit. Good FM. Denies headache, visual changes, chest pain, shortness of breath, vaginal bleeding, leakage of fluid, or dysuria. Feeling well, no complaints. O: See flow sheet Gen: No apparent distress Abd: Gravid, nontender ASSESSMENT/PLAN: 1. Encounter for supervision of normal first in second trimester 2. 27 weeks gestation of 3. Obesity during P: - 1 hour GCT, CBC, and RPR today - A positive - TDAP declines. Reviewed RSV, planning decline - LARC form reviewed and signed. Patient declines - Depression screen negative - Opioid screen negative - plan form discussed and given to patient. Planning to breastfeed. Planning to take CBE/BF classes - PTL precautions and kick counts reviewed - RTO- 2 weeks or sooner if needed - Weight loss of -20lb during , eating well, no meal skipping, making better choices. -Never started ASA -Protonix for GERD Fadi Alvarez APRN.CNM documented in this encounter [facility] 05-25-2023 Instructions Stella Wheeler Ma 05/25/2023 9:04 AM EST SEQUENTIAL SCREENINGS The [facility] offers sequential screenings for women who are interested in screenings for chromosomal abnormalities and certain defects during a . The sequential screen combines ultrasound and blood tests to determine the risk of chromosomal abnormalities, including Down's Syndrome (Trisomy 21) and Trisomy 18, as well as open neural tube defects including spina bifida. Ultrasound examination is performed between 11 weeks and 13 weeks gestational age. Blood tests are drawn after the ultrasound and again later in the between 15 and 21 weeks gestational age. Please let your physician know if you are interested in this testing. It will require an appointment with our chemical radiation technician. This is not an ultrasound performed by a physician in our office during a routine visit. SIGNS AND SYMPTOMS OF LABOR 1. Contractions every 10 minutes or more often 2. Clear, pink, or brownish fluid (water) leaking from vagina 3. Feeling that baby is pushing down, pressure 4. Low, dull backache 5. Cramps that feel like a period 6. Cramps with or without diarrhea If you notice any of the above symptoms, contact our office at [phone] and ask to speak with a nurse. After hours, you can call doctors registry at [phone] OR call [facility] at [phone] and ask to have the doctor international organizer paged. If you consider this an emergency, dial 9-1-9 or go to your nearest emergency department. NEED HELP? Are you dealing with a violent or abusive relationship? Are you a victim of rape or sexual assult? Call [facility] ([place]) 24 hour Crisis Hotline: 672.649.4191 or 889-861-9872. MANUAL Your Guide to a Healthy manual is now on-line. Visit [email or web address] to download your free copy documented in this encounter [facility] 05-24-2023 Note HNO ID: [id number] Author: Roseanna Nash APRN.CRATER [employer]ER Service: ? Author Type: Nurse Practitioner Type: Progress Notes Filed: 05/24/2023 7:59 AM Note Text: CC: Patient presents with: coughing up green mucus and sinus congestion: X 6 days HPI Fabiano Isaacs is a 22 year old female who presents today for above. Patient has been experiencing respiratory symptoms intermittently since late February. She was felt better for about a week after her most recent URI however cough and congestion became acutely worse again five days ago. Symptoms have actually been improving over the past couple days. 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 PMH: seasonal/environmental allergies OTC meds/remedies that patient has tried: Benardyl, Nasonex, and mucinex Exposures: Sick contacts? Numerous co-workers Family or close contacts with confirmed/probable COVID-19 in last 14 days? No Home COVID test: no She has also been dealing with frequent GERD symptoms despite taking Protonix. She is managing now by avoiding certain foods and symptoms have mostly resolved. Review of Systems See HPI PAST MEDICAL HISTORY Diagnosis Date Anemia Gastritis 2020 Leg fracture, right 2007 Menarche 06/2010 age [age] Years Old Migraine Multiple sclerosis (HCC) 10/2019 NEGATIVE HISTORY OF 2007 normal color vision Psoriasis PAST SURGICAL HISTORY Procedure Laterality Date EGD W/O BRSH SPEC VARICIES INJ EXTRACTION, ERUPTED TOOTH OR EXPOSED ROOT (ELEVATION AND/OR FORCEPS REMOVAL) 2014 NEXPLANON INSERTION 03/06/2016 removed 03/2019 ALLERGIES Patient has no known allergies. MEDICATIONS Ipratropium (ATROVENT HFA) 17 mcg/actuation inhaler Inhale 2 Puffs as instructed four times daily. (Patient not taking: Reported on 04/26/2023) dexAMETHasone 0.1 % ophthalmic solution INSTILL 1 DROP INTO RIGHT EYE FOUR TIMES DAILY sodium chloride (SALINE MIST) 0.65 % nasal spray Use 1 [place] in the nose as needed. pantoprazole DR (PROTONIX) 40 mg tablet Take 1 tablet by mouth once daily. prental multivitamin 27 mg iron- 800 mcg tablet Take 1 tablet by mouth once daily. cholecalciferol (VITAMIN D-3) 5,000 unit tab Take 1 tablet by mouth once daily. iron bisgly,ps-FA-B-C#12-succ 65 mg-65 mg -1,000 mcg (24) tab Take by mouth. FAMILY HISTORY Problem Relation Age of Onset Diabetes Mother Hypertension Mother No Known Problems Father No Known Problems Brother No Known Problems Maternal Grandmother No Known Problems Maternal Grandfather No Known Problems Paternal Grandmother No Known Problems Paternal Grandfather None Other Multiple Sclerosis No Family History Social History Tobacco Use Smoking status: Never Smokeless tobacco: Never Vaping Use Vaping Use: Never used Substance Use Topics Alcohol use: Not Currently Drug use: No BP 106/72 Pulse 97 Temp 36.7 ?C (98.1 ?F) (Temporal) Resp 14 Wt 106.1 kg (234 lb) LMP 11/16/2022 (Exact Date) SpO2 100% BMI 38.94 kg/m? Physical Exam Vitals reviewed. Constitutional: General: She is not in acute distress. Appearance: She is not ill-appearing. HENT: Right Ear: Tympanic membrane normal. Left Ear: Tympanic membrane normal. Nose: No nasal tenderness or mucosal edema. Mouth/Throat: Lips: [place]. Mouth: Mucous membranes are moist. Pharynx: Oropharynx is clear. Eyes: Conjunctiva/sclera: Conjunctivae normal. Cardiovascular: Rate and Rhythm: Normal rate and regular rhythm. Heart sounds: Normal heart sounds. No murmur heard. Pulmonary: Effort: Pulmonary effort is normal. Breath sounds: Normal breath sounds. No wheezing, rhonchi or rales. Musculoskeletal: Cervical back: Neck supple. Lymphadenopathy: Cervical: No cervical adenopathy. Skin: General: Skin is warm and dry. Neurological: Mental Status: She is alert. DATA REVIEWED: Most recent imaging ASSESSMENT/PLAN: 1. Viral URI with cough - ICD9: 465.9, ICD10: J06.9 (primary diagnosis) - Discussed viral etiology and rationale for treatment. - Symptomatic treatment with prn analgesia - Supportive care with fluids and rest - The patient may also continue to use approved OTC treatments. - Follow up in 5 to 7 days if symptoms persist or sooner if worsening of symptoms 2. Seasonal allergies - ICD9: 477.9, ICD10: J30.2 Contributing to ongoing respiratory symptoms. Recommend daily Nasonex since Flonase did not seem to help much 3. Heartburn during , antepartum - ICD9: 646.83, 787.1, ICD10: O26.899, R12 Contributing to cough and sore throat. Continue with (more content not included)... [facility] 05-24-2023 History of Presen t illness Narrative CC: Patient presents with: coughing up green mucus and sinus congestion: X 6 days HPI Fabiano Isaacs is a 22 year old female who presents today for above. Patient has been experiencing respiratory symptoms intermittently since late February. She was felt better for about a week after her most recent URI however cough and congestion became acutely worse again five days ago. Symptoms have actually been improving over the past couple days. 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 PMH: seasonal/environmental allergies OTC meds/remedies that patient has tried: Benardyl, Nasonex, and mucinex Exposures: Sick contacts? Numerous co-workers Family or close contacts with confirmed/probable COVID-19 in last 14 days? No Home COVID test: no She has also been dealing with frequent GERD symptoms despite taking Protonix. She is managing now by avoiding certain foods and symptoms have mostly resolved. Review of Systems See HPI PAST MEDICAL HISTORY Diagnosis Date Anemia Gastritis 2020 Leg fracture, right 2008 Menarche 06/2010 age [age] Years Old Migraine Multiple sclerosis (HCC) 10/2019 NEGATIVE HISTORY OF 2008 normal color vision Psoriasis PAST SURGICAL HISTORY Procedure Laterality Date EGD W/O BRSH SPEC VARICIES INJ EXTRACTION, ERUPTED TOOTH OR EXPOSED ROOT (ELEVATION AND/OR FORCEPS REMOVAL) 2014 NEXPLANON INSERTION 03/06/2016 removed 03/2019 ALLERGIES Patient has no known allergies. MEDICATIONS Ipratropium (ATROVENT HFA) 17 mcg/actuation inhaler Inhale 2 Puffs as instructed four times daily. (Patient not taking: Reported on 04/26/2023) dexAMETHasone 0.1 % ophthalmic solution INSTILL 1 DROP INTO RIGHT EYE FOUR TIMES DAILY sodium chloride (SALINE MIST) 0.65 % nasal spray Use 1 [place] in the nose as needed. pantoprazole DR (PROTONIX) 40 mg tablet Take 1 tablet by mouth once daily. prental multivitamin 27 mg iron- 800 mcg tablet Take 1 tablet by mouth once daily. cholecalciferol (VITAMIN D-3) 5,000 unit tab Take 1 tablet by mouth once daily. iron bisgly,ps-FA-B-C#12-succ 65 mg-65 mg -1,000 mcg (24) tab Take by mouth. FAMILY HISTORY Problem Relation Age of Onset Diabetes Mother Hypertension Mother No Known Problems Father No Known Problems Brother No Known Problems Maternal Grandmother No Known Problems Maternal Grandfather No Known Problems Paternal Grandmother No Known Problems Paternal Grandfather None Other Multiple Sclerosis No Family History Social History Tobacco Use Smoking status: Never Smokeless tobacco: Never Vaping Use Vaping Use: Never used Substance Use Topics Alcohol use: Not Currently Drug use: No BP 106/72 Pulse 97 Temp 36.7 C (98.1 F) (Temporal) Resp 14 Wt 106.1 kg (234 lb) LMP 11/16/2022 (Exact Date) SpO2 100% BMI 38.94 kg/m Physical Exam Vitals reviewed. Constitutional: General: She is not in acute distress. Appearance: She is not ill-appearing. HENT: Right Ear: Tympanic membrane normal. Left Ear: Tympanic membrane normal. Nose: No nasal tenderness or mucosal edema. Mouth/Throat: Lips: [place]. Mouth: Mucous membranes are moist. Pharynx: Oropharynx is clear. Eyes: Conjunctiva/sclera: Conjunctivae normal. Cardiovascular: Rate and Rhythm: Normal rate and regular rhythm. Heart sounds: Normal heart sounds. No murmur heard. Pulmonary: Effort: Pulmonary effort is normal. Breath sounds: Normal breath sounds. No wheezing, rhonchi or rales. Musculoskeletal: Cervical back: Neck supple. Lymphadenopathy: Cervical: No cervical adenopathy. Skin: General: Skin is warm and dry. Neurological: Mental Status: She is alert. DATA REVIEWED: Most recent imaging ASSESSMENT/PLAN: 1. Viral URI with cough - ICD9: 465.9, ICD10: J06.9 (primary diagnosis) - Discussed viral etiology and rationale for treatment. - Symptomatic treatment with prn analgesia - Supportive care with fluids and rest - The patient may also continue to use approved OTC treatments. - Follow up in 5 to 7 days if symptoms persist or sooner if worsening of symptoms 2. Seasonal allergies - ICD9: 477.9, ICD10: J30.2 Contributing to ongoing respiratory symptoms. Recommend daily Nasonex since Flonase did not seem to help much 3. Heartburn during , antepartum - ICD9: 646.83, 787.1, ICD10: O26.899, R12 Contributing to cough and sore throat. Continue with Protonix and avoiding triggers Prescription instructions reviewed with patient as applicable. Potential red flag symptoms discussed with the patient. Reviewed appropriate action plan to take if red flag symptoms occur. Patient agreeable to treatment plan. Roseanna Nash APRN.JONATHAN documented in this encounter [facility] 04-24-2023 Note HNO ID: [id number] Author: Roseanna Nash APRN.JONATHAN Service: ? Author Type: Nurse Practitioner Type: Progress Notes Filed: 04/24/2023 8:39 AM Note Text: CC: Patient presents with: Cough HPI Fabiano Isaacs is a 22 year old female who presents today for above. Patient developed URI symptoms approximately six weeks ago. Since then symptoms have resolved except for the cough. She was last seen for this on 04/11. Cough attributed to post viral cough syndrome, Flonase and Benadryl recommended. There was minimal improvement in cough however for the past 3-4 days cough has been worsening. Coughs very little during the day, significantly worse at night and unable to sleep. Associated with wheezing and post tussive vomiting. Occasionally coughs up clear sputum. She has runny nose with clear mucus. Denies SOB, chest pain, palpitations, edema, fever, chills, night sweats, facial pain/pressure. Previous treatments have included Augmentin, saline nasal spray, Robitussin. Medication options are limited due to patient being 22 weeks . Review of Systems See HPI PAST MEDICAL HISTORY Diagnosis Date Anemia Gastritis 2020 Leg fracture, right 2007 Menarche 06/2010 age [age] Years Old Migraine Multiple sclerosis (HCC) 10/2019 NEGATIVE HISTORY OF 2007 normal color vision Psoriasis PAST SURGICAL HISTORY Procedure Laterality Date EGD W/O [facility] SPEC VARICIES INJ EXTRACTION, ERUPTED TOOTH OR EXPOSED ROOT (ELEVATION AND/OR FORCEPS REMOVAL) 2014 NEXPLANON INSERTION 03/06/2016 removed 03/2019 ALLERGIES Patient has no known allergies. MEDICATIONS dexAMETHasone 0.1 % ophthalmic solution INSTILL 1 DROP INTO RIGHT EYE FOUR TIMES DAILY sodium chloride (SALINE MIST) 0.65 % nasal spray Use 1 [place] in the nose as needed. pantoprazole DR (PROTONIX) 40 mg tablet Take 1 tablet by mouth once daily. prental multivitamin 27 mg iron- 800 mcg tablet Take 1 tablet by mouth once daily. cholecalciferol (VITAMIN D-3) 5,000 unit tab Take 1 tablet by mouth once daily. iron bisgly,ps-FA-B-C#12-succ 65 mg-65 mg -1,000 mcg (24) tab Take by mouth. FAMILY HISTORY Problem Relation Age of Onset Diabetes Mother Hypertension Mother No Known Problems Father No Known Problems Brother No Known Problems Maternal Grandmother No Known Problems Maternal Grandfather No Known Problems Paternal Grandmother No Known Problems Paternal Grandfather None Other Multiple Sclerosis No Family History Social History Tobacco Use Smoking status: Never Smokeless tobacco: Never Vaping Use Vaping Use: Never used Substance Use Topics Alcohol use: Not Currently Drug use: No BP 116/76 Pulse 92 Temp 36.8 ?C (98.3 ?F) (Temporal) Resp 14 Wt 103.9 kg (229 lb) LMP 11/16/2022 (Exact Date) SpO2 99% BMI 38.11 kg/m? Physical Exam Vitals reviewed. Constitutional: General: She is not in acute distress. Appearance: Normal appearance. She is not ill-appearing. HENT: Right Ear: Tympanic membrane, ear canal and external ear normal. Left Ear: Tympanic membrane, ear canal and external ear normal. Nose: Nose normal. Right Sinus: No maxillary sinus tenderness or frontal sinus tenderness. Left Sinus: No maxillary sinus tenderness or frontal sinus tenderness. Mouth/Throat: Lips: [place]. Mouth: Mucous membranes are moist. Pharynx: Oropharynx is clear. Eyes: Conjunctiva/sclera: Conjunctivae normal. Cardiovascular: Rate and Rhythm: Normal rate and regular rhythm. Heart sounds: Normal heart sounds. No murmur heard. Pulmonary: Effort: Pulmonary effort is normal. Breath sounds: Normal breath sounds and air entry. No wheezing, rhonchi or rales. Musculoskeletal: Cervical back: Neck supple. Right lower leg: No edema. Left lower leg: No edema. Lymphadenopathy: Cervical: No cervical adenopathy. Upper Body: Right upper body: No supraclavicular adenopathy. Left upper body: No supraclavicular adenopathy. Neurological: Mental Status: She is alert. ASSESSMENT/PLAN: 1. Subacute cough - ICD9: 786.2, ICD10: R05.2 Post viral cough syndrome remains the most likely cause. - XR CHEST 2V FRONTAL/LAT to rule out pneumonia or acute pathology - if chest x-ray normal will start treatment with Atrovent inhaler - okay to continue with Flonase and Robitussin Prescription instructions reviewed with patient as applicable. Potential red flag symptoms discussed with the patient. Reviewed appropriate action plan to take if red flag symptoms occur. Patient agreeable to treatment plan. Roseanna Nash APRN.[facility] 04-24-2023 Note HNO ID: [id number] Author: Merry Perry RT(R) Service: Radiology Author Type: Technologist Type: Progress Notes Filed: 04/24/2023 8:28 AM Note Text: Radiology Service Progress Note PATIENT NAME: Fabiano Isaacs DATE OF SERVICE: April 24, 2023 TIME: 8:19AM PATIENT IDENTITY VERIFICATION COMPLETED USING TWO (2) IDENTIFIERS: Name and Date of confirmed by patient verbally. FALL SCREENING: Has the patient had 2 falls in the last year or 1 fall with injury or currently using an Ambulatory Assistive Device (Walker, Cane, Wheelchair, Crutches, etc.)? No PATIENT GENDER DATA: Female. status: : Yes. Radiologist notified: not needed per protocol status: NO. PATIENT RELEVANT IMPLANT DATA REVIEWED: Not Applicable RADIOLOGY DEPARTMENT: General X-ray: Exam(s) Completed: Chest X-Ray PERIPHERAL IV DATA: Not applicable SIGNED BY: RT Carmela(R) April 24, 2023 8:26 AM [facility] 04-17-2023 Miscellaneous Notes This patient gave consent to this Medical Advice Message and is aware that it may result in a bill to their insurance, as well as the possibility of receiving a bill for a copay and/or deductible. They are an established patient, but are not seeking information exclusively about a problem treated during an in person or video visit in the last seven days. I did not recommend an in person or video visit within seven days of my reply. See the [facility] message reply for my assessment and plan. I spent a total of 8 minutes reviewing the patient's prior medical records and current request for medical advice, prescribing medications or ordering tests (if applicable), replying to the patient, and documenting the encounter. Roseanna Nash APRN.CNP documented in this encounter [facility] 04-11-2023 Note HNO ID: [id number] Author: Roseanna Nash APRN.CNP Service: ? Author Type: Nurse Practitioner Type: Progress Notes Filed: 04/11/2023 9:02 AM Note Text: CC: Patient presents with: Cough HPI: Fabiano Isaacs is a 22 year old female who presents to the office with complaint of cough, nonproductive for a few weeks. She was seen in [facility] on 03/21 and 03/25 for URI symptoms. Treated with Augmentin on 03/25 and symptoms eventually improved except for the cough. It is now non-productive. Cough is much worse at night, having trouble sleeping. She is fine during the day, doesn't seem to cough much. Associated symptoms includes sore throat, nasal congestion, and rhinorrhea. Denies facial pain/pressure, headache, fever, ear pain, wheezing, dyspnea, fatigue, decreased appetite, vomiting , and diarrhea. Treatments tried include Guaifenesin/Mucinex with no relief of symptoms. She has also been pushing fluids, sleeping with humidifier in her room and using saline nasal spray. She is almost 21 weeks , limited on what she can take for symptom management Sick contacts: numerous co-workers have been ill recently. History of asthma, frequent episodes of bronchitis, chronic bronchitis, bronchiectasis or COPD: No Smoker: No Seasonal/environmental allergies: No The ROS is otherwise negative. The patient's pmh, medications, allergies, and past visits are reviewed. PHYSICAL EXAM: BP 124/80 Pulse 101 Temp 36.7 ?C (98 ?F) (Temporal) Resp 14 Wt 104.8 kg (231 lb) LMP 11/16/2022 (Exact Date) SpO2 98% BMI 38.44 kg/m? General appearance: alert, cooperative, pleasant, in no acute distress Head: Normocephalic Eyes: conjunctiva pink and moist, no icterus, sclera white, non-injected Ears: Right ear: External ear/canal- Normal, TM - clear with good landmarks. Left ear: External ear/canal- Normal, TM - clear with good landmarks Nose: clear, no sinus tenderness. Oropharynx:No erythema, exudates or tonsillar hypertrophy. Neck:supple and no adenopathy Heart: Negative. RRR without obvious murmur, gallop, or rubs. No ectopy. Lungs: clear to auscultation, without rales or wheeze, good air exchange. No coughing noted during exam. ASSESSMENT/PLAN: 1. Post-viral cough syndrome - ICD9: 786.2, ICD10: R05.8 Suspect secondary to post nasal drainage. No alarm symptoms or exam findings. Antibiotics are not indicated at this time. Symptom management recommendations include Benadryl at bedtime which is on the list of medications her OB gave her. Also recommend Flonase or Atrovent nasal spray but patient should check with OB first. Continue with all non-medication symptom management. Follow-up in one week if no improvement or sooner if worsening Prescription instructions reviewed with patient as applicable. Potential red flag symptoms discussed with the patient. Reviewed appropriate action plan to take if red flag symptoms occur. Patient agreeable to treatment plan. Roseanna Nash APRN.[employer] [facility] 03-25-2023 Note HNO ID: [id number] Author: Kimberly Castro APRN.JONATHAN Service: ? Author Type: Nurse Practitioner Type: Progress Notes Filed: 03/25/2023 8:23 AM Note Text: This note was created using Litebiriter. Subjective Fabiano Isaacs is a 22 year old female. HPI by patient: Fabiano Isaacs is a 22 year old presenting to the back to office with the complaint of viral symptoms. Was already seen last week for current viral symptoms. Is . Started approximately 10 days ago . Associated symptoms include cough, green congestion, and ear/facial pressure. Denies gi symptoms, fever, body aches, and fatigue. Covid Immunization Dates Overdue - Covid-19 Vaccine (1) Overdue - never done No completion, postpone, frequency change, or communication history exists for this topic. Sick contacts: none. Smoking history/second hand smoke: none. OTC not helping. No antibiotic use in the last 60 days. ALLERGIES No Known Allergies Family History Reviewed Including Cardiac Diseases, Psychiatric Diseases, AND Substance Abuse Problem: Diabetes Relation: Mother Age of Onset: (Not Specified) Problem: Hypertension Relation: Mother Age of Onset: (Not Specified) Problem: No Known Problems Relation: Father Age of Onset: (Not Specified) Problem: No Known Problems Relation: Brother Age of Onset: (Not Specified) Problem: No Known Problems Relation: Maternal Grandmother Age of Onset: (Not Specified) Problem: No Known Problems Relation: Maternal Grandfather Age of Onset: (Not Specified) Problem: No Known Problems Relation: Paternal Grandmother Age of Onset: (Not Specified) Problem: No Known Problems Relation: Paternal Grandfather Age of Onset: (Not Specified) Problem: None Relation: Other Age of Onset: (Not Specified) Problem: Multiple Sclerosis Relation: No Family History Age of Onset: (Not Specified) Social History Tobacco Use Smoking status: Never Smokeless tobacco: Never Vaping Use Vaping Use: Never used Alcohol use: Not Currently Drug use: No Active Ambulatory Problems Migraine without aura and without status migrainosus, not intractable Date Noted: 04/22/2015 Obesity, Class III, BMI >= 40 Date Noted: 11/11/2019 Multiple sclerosis (HCC) Date Noted: 10/2019 Obesity during Date Noted: 12/28/2022 Nausea in Date Noted: 12/28/2022 Resolved Ambulatory Problems Other joint derangement, not elsewhere classified, lower leg Date Noted: 04/05/2009 Past Medical History: No date: Anemia 2020: Gastritis 2008: Leg fracture, right 06/2010: Menarche No date: Migraine 2008: NEGATIVE HISTORY OF No date: Psoriasis Review of Systems Constitutional: Negative. HENT: Positive for congestion, ear pain and sinus pressure. Negative for sore throat. Eyes: Negative. Respiratory: Positive for cough. Cardiovascular: Negative. Gastrointestinal: Negative. Endocrine: Negative. Genitourinary: Negative. Musculoskeletal: Negative. Skin: Negative. Neurological: Negative. Hematological: Negative. Objective BP 143/75 Pulse (!) 128 Temp 36.6 ?C (97.9 ?F) (Tympanic) Resp 20 Wt 105.1 kg (231 lb 12.8 oz) LMP 11/16/2022 (Exact Date) SpO2 99% BMI 38.57 kg/m? Physical Exam Vitals reviewed. Constitutional: General: She is not in acute distress. Appearance: She is not ill-appearing, toxic-appearing or diaphoretic. HENT: Head: Normocephalic and atraumatic. Right Ear: Tympanic membrane, ear canal and external ear normal. Left Ear: Tympanic membrane, ear canal and external ear normal. Nose: No rhinorrhea. Right Sinus: Maxillary sinus tenderness present. No frontal sinus tenderness. Left Sinus: Maxillary sinus tenderness present. No frontal sinus tenderness. Mouth/Throat: Mouth: Mucous membranes are moist. Pharynx: Oropharynx is clear. No oropharyngeal exudate or posterior oropharyngeal erythema. Cardiovascular: Rate and Rhythm: Normal rate and regular rhythm. Pulmonary: Effort: Pulmonary effort is normal. Breath sounds: Normal breath sounds. Lymphadenopathy: Head: Right side of head: No submandibular or tonsillar adenopathy. Left side of head: No submandibular or tonsillar adenopathy. Cervical: No cervical adenopathy. Psychiatric: Behavior: Behavior is cooperative. Assessment and Plan The patie (J06.9) Upper respiratory infection with cough and congestion (primary encounter diagnosis) Plan: amoxicillin-clavulanic acid (AUGMENTIN) 875-125 mg per tablet, sodium chloride (SALINE MIST) 0.65 % nasal spray Education on viral vs bacterial infections. Most viral infections will last 10 days, sometimes 14. It is possible to have back to back viral infections. An antibiotic will not treat a virus. Again, declines viral testing. Send over Augmentin given reported 10 days of symptoms. -Drink lots of fluids and get plenty of rest. -Vaporizers, cool mist humidifiers, warm showers, an (more content not included)... [facility] 03-25-2023 History of Presen t illness Narrative This note was created using Litebiriter. Subjective Fabiano Isaacs is a 22 year old female. HPI by patient: Fabiano Isaacs is a 22 year old presenting to the back to office with the complaint of viral symptoms. Was already seen last week for current viral symptoms. Is . Started approximately 10 days ago . Associated symptoms include cough, green congestion, and ear/facial pressure. Denies gi symptoms, fever, body aches, and fatigue. Covid Immunization Dates Overdue - Covid-19 Vaccine (1) Overdue - never done No completion, postpone, frequency change, or communication history exists for this topic. Sick contacts: none. Smoking history/second hand smoke: none. OTC not helping. No antibiotic use in the last 60 days. ALLERGIES No Known Allergies Family History Reviewed Including Cardiac Diseases, Psychiatric Diseases, & Substance Abuse Problem: Diabetes Relation: Mother Age of Onset: (Not Specified) Problem: Hypertension Relation: Mother Age of Onset: (Not Specified) Problem: No Known Problems Relation: Father Age of Onset: (Not Specified) Problem: No Known Problems Relation: Brother Age of Onset: (Not Specified) Problem: No Known Problems Relation: Maternal Grandmother Age of Onset: (Not Specified) Problem: No Known Problems Relation: Maternal Grandfather Age of Onset: (Not Specified) Problem: No Known Problems Relation: Paternal Grandmother Age of Onset: (Not Specified) Problem: No Known Problems Relation: Paternal Grandfather Age of Onset: (Not Specified) Problem: None Relation: Other Age of Onset: (Not Specified) Problem: Multiple Sclerosis Relation: No Family History Age of Onset: (Not Specified) Social History Tobacco Use Smoking status: Never Smokeless tobacco: Never Vaping Use Vaping Use: Never used Alcohol use: Not Currently Drug use: No Active Ambulatory Problems Migraine without aura and without status migrainosus, not intractable Date Noted: 04/22/2015 Obesity, Class III, BMI >= 40 Date Noted: 11/11/2019 Multiple sclerosis (HCC) Date Noted: 10/2019 Obesity during Date Noted: 12/28/2022 Nausea in Date Noted: 12/28/2022 Resolved Ambulatory Problems Other joint derangement, not elsewhere classified, lower leg Date Noted: 04/05/2009 Past Medical History: No date: Anemia 2020: Gastritis 2007: Leg fracture, right 06/2010: Menarche No date: Migraine 2008: NEGATIVE HISTORY OF No date: Psoriasis Review of Systems Constitutional: Negative. HENT: Positive for congestion, ear pain and sinus pressure. Negative for sore throat. Eyes: Negative. Respiratory: Positive for cough. Cardiovascular: Negative. Gastrointestinal: Negative. Endocrine: Negative. Genitourinary: Negative. Musculoskeletal: Negative. Skin: Negative. Neurological: Negative. Hematological: Negative. Objective BP 143/75 Pulse (!) 128 Temp 36.6 C (97.9 F) (Tympanic) Resp 20 Wt 105.1 kg (231 lb 12.8 oz) LMP 11/16/2022 (Exact Date) SpO2 99% BMI 38.57 kg/m Physical Exam Vitals reviewed. Constitutional: General: She is not in acute distress. Appearance: She is not ill-appearing, toxic-appearing or diaphoretic. HENT: Head: Normocephalic and atraumatic. Right Ear: Tympanic membrane, ear canal and external ear normal. Left Ear: Tympanic membrane, ear canal and external ear normal. Nose: No rhinorrhea. Right Sinus: Maxillary sinus tenderness present. No frontal sinus tenderness. Left Sinus: Maxillary sinus tenderness present. No frontal sinus tenderness. Mouth/Throat: Mouth: Mucous membranes are moist. Pharynx: Oropharynx is clear. No oropharyngeal exudate or posterior oropharyngeal erythema. Cardiovascular: Rate and Rhythm: Normal rate and regular rhythm. Pulmonary: Effort: Pulmonary effort is normal. Breath sounds: Normal breath sounds. Lymphadenopathy: Head: Right side of head: No submandibular or tonsillar adenopathy. Left side of head: No submandibular or tonsillar adenopathy. Cervical: No cervical adenopathy. Psychiatric: Behavior: Behavior is cooperative. Assessment and Plan The patie (J06.9) Upper respiratory infection with cough and congestion (primary encounter diagnosis) Plan: amoxicillin-clavulanic acid (AUGMENTIN) 875-125 mg per tablet, sodium chloride (SALINE MIST) 0.65 % nasal spray Education on viral vs bacterial infections. Most viral infections will last 10 days, sometimes 14. It is possible to have back to back viral infections. An antibiotic will not treat a virus. Again, declines viral testing. Send over Augmentin given reported 10 days of symptoms. -Drink lots of fluids and get plenty of rest. -Vaporizers, cool mist humidifiers, warm showers, and warm fluids help open respiratory and sinus passages. Clean humidifiers daily. -OTC tylenol as directed on the bottle. -Saline nasal spray as needed. -Cough/deep breathing education, promote clearing of the airways and good lung expansion. -Make follow up with primary care for monitoring and resolution in symptoms. -Signs that warrant an ER evaluation: Sudden change/worsening in condition, lethargy, signs of dehydration, fever greater than 102 F that is not responding to Tylenol or ibuprofen (Motrin, Advil), drooling, difficulty swallowing, difficulty breathing, shortness of breath, chest pain, evidence of airway compromise (tripod position, neck extension, retractions), seizures, changes in mental status, or other concerns.nt will pursue further outpatient evaluation with the primary care physician or another Urgent Care/Express Care as outlined in the after visit summary. The patient is agreeable to this plan of care and follow-up instructions have been explained in detail. The patient has received these instructions in written format and have expressed an understanding of the after visit summary. Medical Decision Making: Level: 4 - Moderate I spent a total of 20 minutes on the date of the service which included preparing to see the patient, [id number] patient care, completing clinical documentation, obtaining and/or reviewing separately obtained history, performing a medically appropriate examination, counseling and educating the patient/family/caregiver, and ordering medications, tests, or procedures. This patient encounter involved the screening or treatment of novel coronavirus infection (COVID-19). documented in this encounter [facility] 03-25-2023 Instructions Kimberly Castro APRN.CNP - 03/25/2023 8:00 AM EDT (J06.9) Upper respiratory infection with cough and congestion (primary encounter diagnosis) Plan: amoxicillin-clavulanic acid (AUGMENTIN) 875-125 mg per tablet, sodium chloride (SALINE MIST) 0.65 % nasal spray Education on viral vs bacterial infections. Most viral infections will last 10 days, sometimes 14. It is possible to have back to back viral infections. An antibiotic will not treat a virus. -Drink lots of fluids and get plenty of rest. -Vaporizers, cool mist humidifiers, warm showers, and warm fluids help open respiratory and sinus passages. Clean humidifiers daily. -OTC tylenol as directed on the bottle. -Saline nasal spray as needed. -Cough/deep breathing education, promote clearing of the airways and good lung expansion. -Make follow up with primary care for monitoring and resolution in symptoms. -Signs that warrant an ER evaluation: Sudden change/worsening in condition, lethargy, signs of dehydration, fever greater than 102 F that is not responding to Tylenol or ibuprofen (Motrin, Advil), drooling, difficulty swallowing, difficulty breathing, shortness of breath, chest pain, evidence of airway compromise (tripod position, neck extension, retractions), seizures, changes in mental status, or other concerns. Clear. You re in the normal range. Straight mucus is mostly water, with proteins, antibodies and dissolved salts. Your nasal tissues produce it 24/. Most of it flows down the back of your throat to be dissolved in the stomach. White. You re congested. Swollen, inflamed tissues in your nose are slowing the flow of mucus, causing it to lose moisture and become thick and cloudy. This can be a sign of a nasal infection or cold. Yellow. Your cold or infection is progressing. Infection-fighting cells might be rushing to the site of the microbial infection. White blood cells are among them as well. Once exhausted, they re carried off on the mucosal tide, lending it a yellowish tinge. Colds inevitably last 10 to 14 days. [place] down and wait it out. Green. Your immune system is really fighting back. The mucus is thick with white cells and other wreckage from the herrera. If you re still sick after about 12 days, you may want to see a doctor. It could be sinusitis, a bacterial infection. If you re feverish or nauseated, see a doctor soon. [place] or red. This is blood. Your nasal tissue in the nose has somehow become broken -- perhaps because it s dry, irritated or suffered some kind of impact. Brown. This shade could be blood, but likely it s something inhaled, like dirt, snuff or paprika. MEDICATION LIST These medications may be taken during ; however, try to avoid taking any medications in general, especially in the first three (3) months of . The following medications are listed in alphabetical order, not in order of preference. Please call if you have any questions about these or any other medications. COUGH PREPARATIONS: Delsym, Robitussin, Robitussin CF, Robitussin PE LOZENGES: Cepecol, Ceptestat, [employer] Mdl, Robitussin Cough Calmer Lozenges NASAL SPRAYS: [place] Mist Nasal [place], Afrin (use no longer than three (3) days), Afrin Saline Mist HEADACHE/MILD PAIN RELIEVERS: Datril, Tylenol documented in this encounter [facility] 03-21-2023 Note HNO ID: [id number] Author: Kimberly Castro APRN.[employer] Service: ? Author Type: Nurse Practitioner Type: Progress Notes Filed: 03/21/2023 3:21 PM Note Text: This note was created using [employer]. Subjective Fabiano Isaacs is a 22 year old female. HPI by patient: Fabiano Isaacs is a 22 year old presenting to the office with the complaint of viral symptoms. Started approximately 5-6 days prior. Associated symptoms include cough, congestion, headache, and sore throat. Denies fever, chills, body aches, fatigue, and gi symptoms. Covid Immunization Dates Overdue - Covid-19 Vaccine (1) Overdue - never done No completion, postpone, frequency change, or communication history exists for this topic. Sick contacts: none. Smoking history/second hand smoke: none. OTC not helping. No antibiotic use in the last 60 days. ALLERGIES No Known Allergies Family History Reviewed Including Cardiac Diseases, Psychiatric Diseases, AND Substance Abuse Problem: Diabetes Relation: Mother Age of Onset: (Not Specified) Problem: Hypertension Relation: Mother Age of Onset: (Not Specified) Problem: No Known Problems Relation: Father Age of Onset: (Not Specified) Problem: No Known Problems Relation: Brother Age of Onset: (Not Specified) Problem: No Known Problems Relation: Maternal Grandmother Age of Onset: (Not Specified) Problem: No Known Problems Relation: Maternal Grandfather Age of Onset: (Not Specified) Problem: No Known Problems Relation: Paternal Grandmother Age of Onset: (Not Specified) Problem: No Known Problems Relation: Paternal Grandfather Age of Onset: (Not Specified) Problem: None Relation: Other Age of Onset: (Not Specified) Problem: Multiple Sclerosis Relation: No Family History Age of Onset: (Not Specified) Social History Tobacco Use Smoking status: Never Smokeless tobacco: Never Vaping Use Vaping Use: Never used Alcohol use: Not Currently Drug use: No Active Ambulatory Problems Migraine without aura and without status migrainosus, not intractable Date Noted: 04/22/2015 Obesity, Class III, BMI >= 40 Date Noted: 11/11/2019 Multiple sclerosis (HCC) Date Noted: 10/2019 Obesity during Date Noted: 12/28/2022 Nausea in Date Noted: 12/28/2022 Resolved Ambulatory Problems Other joint derangement, not elsewhere classified, lower leg Date Noted: 04/05/2009 Past Medical History: No date: Anemia 2020: Gastritis 2008: Leg fracture, right 06/2010: Menarche No date: Migraine 2007: NEGATIVE HISTORY OF No date: Psoriasis Review of Systems Constitutional: Negative. HENT: Positive for congestion and sore throat. Negative for ear pain. Eyes: Negative. Respiratory: Positive for cough. Cardiovascular: Negative. Gastrointestinal: Negative. Endocrine: Negative. Genitourinary: Negative. Musculoskeletal: Negative. Skin: Negative. Neurological: Positive for headaches. Hematological: Negative. Objective BP 132/84 (BP Site: Right Arm, BP Position: Sitting, BP Cuff Size: Regular Adult) Pulse 111 Temp 36.5 ?C (97.7 ?F) (Left Tympanic) Resp 18 Ht 165.1 cm (5' 5 ) Wt 105 kg (231 lb 6.4 oz) LMP 11/16/2022 (Exact Date) SpO2 99% BMI 38.51 kg/m? Physical Exam Vitals reviewed. Constitutional: General: She is not in acute distress. Appearance: She is not ill-appearing, toxic-appearing or diaphoretic. HENT: Head: Normocephalic and atraumatic. Right Ear: Tympanic membrane, ear canal and external ear normal. Left Ear: Tympanic membrane, ear canal and external ear normal. Nose: Nose normal. Right Sinus: No maxillary sinus tenderness or frontal sinus tenderness. Left Sinus: No maxillary sinus tenderness or frontal sinus tenderness. Mouth/Throat: Mouth: Mucous membranes are moist. Dentition: Abnormal dentition. Pharynx: Oropharynx is clear. No oropharyngeal exudate or posterior oropharyngeal erythema. Cardiovascular: Rate and Rhythm: Regular rhythm. Tachycardia present. Pulmonary: Effort: Pulmonary effort is normal. Breath sounds: Normal breath sounds. Lymphadenopathy: Head: Right side of head: No submandibular or tonsillar adenopathy. Left side of head: No submandibular or tonsillar adenopathy. Cervical: No cervical adenopathy. Psychiatric: Behavior: Behavior is cooperative. Assessment and Plan (J02.9) Pharyngitis, unspecified etiology (primary encounter diagnosis) Plan: STREP A MOLECULAR (POC) (J06.9) Viral upper respiratory tract infection with cough Plan: Education on viral vs bacterial infections. Most viral infections will last 10 days, sometimes 14. It is possible to have back to back viral infections. An antibiotic will not treat a virus. -Negative strep culture in office. Refused viral testing today. -May try an OTC antihistamine. -Drink lots of fluids and get plenty of rest. Gargle with salt water 3 times/day. -Vaporizers, cool mist humidifie (more content not included)... [facility] 02-28-2023 Miscellaneous Notes RR- No flutters yet. Still nausea but rare emesis. Heartburn better now. Anatomy US ordered. Romero Cheek MD documented in this encounter [facility] 02-28-2023 Instructions Stella Wheeler Ma - 02/28/2023 4:11 PM EDT SEQUENTIAL SCREENINGS The [facility] offers sequential screenings for women who are interested in screenings for chromosomal abnormalities and certain defects during a . The sequential screen combines ultrasound and blood tests to determine the risk of chromosomal abnormalities, including Down's Syndrome (Trisomy 21) and Trisomy 18, as well as open neural tube defects including spina bifida. Ultrasound examination is performed between 11 weeks and 13 weeks gestational age. Blood tests are drawn after the ultrasound and again later in the between 15 and 21 weeks gestational age. Please let your physician know if you are interested in this testing. It will require an appointment with our chemical radiation technician. This is not an ultrasound performed by a physician in our office during a routine visit. SIGNS AND SYMPTOMS OF LABOR 1. Contractions every 10 minutes or more often 2. Clear, pink, or brownish fluid (water) leaking from vagina 3. Feeling that baby is pushing down, pressure 4. Low, dull backache 5. Cramps that feel like a period 6. Cramps with or without diarrhea If you notice any of the above symptoms, contact our office at [phone] and ask to speak with a nurse. After hours, you can call doctors registry at [phone] OR call [facility] at [phone] and ask to have the doctor international organizer paged. If you consider this an emergency, dial 9--0 or go to your nearest emergency department. NEED HELP? Are you dealing with a violent or abusive relationship? Are you a victim of rape or sexual assult? Call [facility] ([place]) 24 hour Crisis Hotline: 977.852.2422 or 875-492-7429. MANUAL Your Guide to a Healthy manual is now on-line. Visit [email or web address] to download your free copy documented in this encounter [facility] 02-16-2023 Miscellaneous Notes Typically protonix is given once daily Fadi Alexander MD Please see pt's mychart message with medication question. Please advise in RR absence. Laura Carranza LPN documented in this encounter [facility] 01-31-2023 Miscellaneous Notes RR- VB No. LOF No. CTXS No. Movement: present. Other c/o: nauseated a lot and trouble eating b/c of it and lots of heartburn despite protonix. Medication list reviewed. Physical Exam See Flow Sheet Abd: soft, nontender, A/P 10w6d Estimated Date of Delivery: 08/23/23 declines aneupoidy screening nausea w/o vomiting and heartburn.-trial unisom and vit b 6 if not satisfactory contact office f/u in 4 weeks or prn labs reviewed Romero Cheek M.D. documented in this encounter [facility] 01-31-2023 Instructions Romero Cheek MD - 01/31/2023 3:32 PM EDT Unisom 1/2 tablet every 8 hours as needed for nausea, 1/2 to one tablet at bedtime as needed. Vitamin b 6 10-25 mg tablets one every 6 hours as needed for nausea. SEQUENTIAL SCREENINGS The [facility] offers sequential screenings for women who are interested in screenings for chromosomal abnormalities and certain defects during a . The sequential screen combines ultrasound and blood tests to determine the risk of chromosomal abnormalities, including Down's Syndrome (Trisomy 21) and Trisomy 18, as well as open neural tube defects including spina bifida. Ultrasound examination is performed between 11 weeks and 13 weeks gestational age. Blood tests are drawn after the ultrasound and again later in the between 15 and 21 weeks gestational age. Please let your physician know if you are interested in this testing. It will require an appointment with our chemical radiation technician. This is not an ultrasound performed by a physician in our office during a routine visit. SIGNS AND SYMPTOMS OF LABOR 1. Contractions every 10 minutes or more often 2. Clear, pink, or brownish fluid (water) leaking from vagina 3. Feeling that baby is pushing down, pressure 4. Low, dull backache 5. Cramps that feel like a period 6. Cramps with or without diarrhea If you notice any of the above symptoms, contact our office at [phone] and ask to speak with a nurse. After hours, you can call doctors registry at [phone] OR call [facility] at [phone] and ask to have the doctor international organizer paged. If you consider this an emergency, dial or go to your nearest emergency department. NEED HELP? Are you dealing with a violent or abusive relationship? Are you a victim of rape or sexual assult? Call [facility] ([place]) 24 hour Crisis Hotline: 154.938.3244 or 205-682-3767. MANUAL Your Guide to a Healthy manual is now on-line. Visit [email or web address] to download your free copy documented in this encounter [facility] 01-03-2023 Note HNO ID: [id number] Author: Romero Cheek MD Service: ? Author Type: Physician Type: Progress Notes Filed: 01/03/2023 1:29 PM Note Text: OB point of care ultrasound was performed. See imaging tab for details. Stella Wheeler Ma INITIAL OB ASSESSMENT OB Provider: Romero Cheek MD HPI: Fabiano is a 22 year old White here to establish Obstetrical Care. Patient's last menstrual period was 11/16/2022 (exact date). from OB Dating Form. Cycles regular was planned Complaints: nausea without vomiting and acid in her throat, protonix helping OB History T0 L0 SAB0 IAB0 Ectopic0 Multiple0 Live Births0 Patient's Risk Screening for delivery: MEDICAL/PSYCHOSOCIAL HISTORY: History of hemorrhage or bleeding concerns: No Thyroid Disease: No History of chronic hypertension: No History of pre-existing diabetes: No No results found for: ABORHD No weight on file for this encounter. History of abnormal pap: No Prior treatment for cervical dysplasia: none. History of STDs: None Tobacco use: No Caffeine use: No Drug use: No Alcohol use: No Multivitamin with Folic acid: No Pentecostal or heritage: No Would refuse blood transfusion if medically necessary: No Are you currently employed? Yes, Occupation: [email or web address] Do you have any history of depression, anxiety, PTSD, eating disorders or other mood problems: No Do you have any safety concerns or history of traumatic events that you would like to discuss with your provider: No How OB Depression and Anxiety Screening- This Encounter (since 01/02/2023) None GENETIC SCREENING: Partner present: Yes Patient verbalized knowledge of partner family health history: NA Do you or your partner have any personal or family history of defects not previously discussed: No Do you have history of a complicated by anomaly, genetic condition, or demise: No Marital Status: Partner: Name: Ray Age: 22 Occupation: [employer] employee, works for [employer] Gender: Male History of STDs: None PAST MEDICAL HISTORY Diagnosis Date Anemia Gastritis 2020 Leg fracture, right 2008 Menarche 06/2010 age [age] Years Old Migraine Multiple sclerosis (HCC) 10/2019 NEGATIVE HISTORY OF 2008 normal color vision Psoriasis PAST SURGICAL HISTORY Procedure Laterality Date EGD W/O [facility] SPEC VARICIES INJ EXTRACTION, ERUPTED TOOTH OR EXPOSED ROOT (ELEVATION AND/OR FORCEPS REMOVAL) 2014 NEXPLANON INSERTION 03/06/2016 removed 03/2019 Current Outpatient Medications Medication Sig Dispense Refill pantoprazole DR (PROTONIX) 20 mg tablet Take 1 tablet by mouth once daily. 30 tablet 1 cholecalciferol (VITAMIN D3) 5,000 unit tab DAILY prental multivitamin 27 mg iron- 800 mcg tablet Take 1 tablet by mouth once daily. cholecalciferol (VITAMIN D-3) 5,000 unit tab Take 1 tablet by mouth once daily. 30 tablet 11 ketoconazole (NIZORAL) 2 % shampoo iron bisgly,ps-FA-B-C#12-succ 65 mg-65 mg -1,000 mcg (24) tab Take by mouth. biotin 1 mg cap Take by mouth. No current facility-administered medications for this visit. Allergies As of Date: 01/03/2023 (No Known Allergies) Fully Assessed 12/28/2022 Does patient have penicillin allergy: No REVIEW OF SYSTEMS: GENERAL: Negative for: Fever or Chills HEENT: Negative for: Headache, Impaired Vision, Ringing in Ears, Nosebleeds NECK: Negative for: Swelling, Pain, Stiffness RESPIRATORY: Negative for: Cough, Shortness of breath, Wheezing GASTROINTESTINAL: Negative for: Heartburn, Constipation, Diarrhea, Blood in stool, Vomiting and Positive for: Heartburn MUSCULOSKELETAL: Negative for: Muscle or joint pain, stiffness, Joint swelling NEUROLOGIC/PSYCHIATRIC: Negative for: Weakness, Paralysis, Numbness, Tingling, Tremor, Anxiety, Depression, Memory loss SKIN: Negative for: Rash, Itching GENITOURINARY: Negative for: vaginal itching, vaginal discharge, hematuria or dysuria PHYSICAL EXAM: LMP 11/16/2022 GENERAL: pleasant in no apparent distress DERMATOLOGY: Normal, without lesions, non-icteric, and non-hirsute NECK: Supple, full range of motion, no adenopathy, and thyroid normal CHEST: Normal inspiratory effort BREAST: soft, non-tender, symmetric, no dominant mass, normal nipple-areolar complex, no lymphadenopathy, and no nipple discharge ABDOMEN: soft, non-tender, and no masses NEURO: alert and oriented x3,exam grossly non-focal PELVIS: External genitalia normal without lesions. Perineal body intact. No vaginal or cervical lesions. Cervix closed. Uterus 6 week size. No adnexal masses or tenderness. Clinical Pelvimetry: Pelvimetry clinically assessed as adequate Limited OB ultrasound exam: single intrauterine and positive cardiac activity OB Risk Screening: Completed, no positive findings documented. ASSESSMENT: 22 year old at 6w6d wks (more content not included)... [facility] 01-03-2023 History of Presen t illness Narrative OB point of care ultrasound was performed. See imaging tab for details. Stella Wheeler Ma INITIAL OB ASSESSMENT OB Provider: Romero Cheek MD HPI: Fabiano is a 22 year old White here to establish Obstetrical Care. Patient's last menstrual period was 11/16/2022 (exact date). from OB Dating Form. Cycles regular was planned Complaints: nausea without vomiting and acid in her throat, protonix helping OB History T0 L0 SAB0 IAB0 Ectopic0 Multiple0 Live Births0 Patient's Risk Screening for delivery: MEDICAL/PSYCHOSOCIAL HISTORY: History of hemorrhage or bleeding concerns: No Thyroid Disease: No History of chronic hypertension: No History of pre-existing diabetes: No No results found for: ABORHD No weight on file for this encounter. History of abnormal pap: No Prior treatment for cervical dysplasia: none. History of STDs: None Tobacco use: No Caffeine use: No Drug use: No Alcohol use: No Multivitamin with Folic acid: No Pentecostal or heritage: No Would refuse blood transfusion if medically necessary: No Are you currently employed? Yes, Occupation: [email or web address] Do you have any history of depression, anxiety, PTSD, eating disorders or other mood problems: No Do you have any safety concerns or history of traumatic events that you would like to discuss with your provider: No How OB Depression and Anxiety Screening- This Encounter (since 01/02/2023) None GENETIC SCREENING: Partner present: Yes Patient verbalized knowledge of partner family health history: NA Do you or your partner have any personal or family history of defects not previously discussed: No Do you have history of a complicated by anomaly, genetic condition, or demise: No Marital Status: Partner: Name: Ray Age: 24 Occupation: [employer] employee, works for [employer] Gender: Male History of STDs: None PAST MEDICAL HISTORY Diagnosis Date Anemia Gastritis 2020 Leg fracture, right 2007 Menarche 06/2010 age [age] Years Old Migraine Multiple sclerosis (HCC) 10/2019 NEGATIVE HISTORY OF 2007 normal color vision Psoriasis PAST SURGICAL HISTORY Procedure Laterality Date EGD W/O BRSH SPEC VARICIES INJ EXTRACTION, ERUPTED TOOTH OR EXPOSED ROOT (ELEVATION AND/OR FORCEPS REMOVAL) 2014 NEXPLANON INSERTION 03/06/2016 removed 03/2019 Current Outpatient Medications Medication Sig Dispense Refill pantoprazole DR (PROTONIX) 20 mg tablet Take 1 tablet by mouth once daily. 30 tablet 1 cholecalciferol (VITAMIN D3) 5,000 unit tab DAILY prental multivitamin 27 mg iron- 800 mcg tablet Take 1 tablet by mouth once daily. cholecalciferol (VITAMIN D-3) 5,000 unit tab Take 1 tablet by mouth once daily. 30 tablet 11 ketoconazole (NIZORAL) 2 % shampoo iron bisgly,ps-FA-B-C#12-succ 65 mg-65 mg -1,000 mcg (24) tab Take by mouth. biotin 1 mg cap Take by mouth. No current facility-administered medications for this visit. Allergies As of Date: 01/03/2023 (No Known Allergies) Fully Assessed 12/28/2022 Does patient have penicillin allergy: No REVIEW OF SYSTEMS: GENERAL: Negative for: Fever or Chills HEENT: Negative for: Headache, Impaired Vision, Ringing in Ears, Nosebleeds NECK: Negative for: Swelling, Pain, Stiffness RESPIRATORY: Negative for: Cough, Shortness of breath, Wheezing GASTROINTESTINAL: Negative for: Heartburn, Constipation, Diarrhea, Blood in stool, Vomiting and Positive for: Heartburn MUSCULOSKELETAL: Negative for: Muscle or joint pain, stiffness, Joint swelling NEUROLOGIC/PSYCHIATRIC: Negative for: Weakness, Paralysis, Numbness, Tingling, Tremor, Anxiety, Depression, Memory loss SKIN: Negative for: Rash, Itching GENITOURINARY: Negative for: vaginal itching, vaginal discharge, hematuria or dysuria PHYSICAL EXAM: LMP 11/16/2022 GENERAL: pleasant in no apparent distress DERMATOLOGY: Normal, without lesions, non-icteric, and non-hirsute NECK: Supple, full range of motion, no adenopathy, and thyroid normal CHEST: Normal inspiratory effort BREAST: soft, non-tender, symmetric, no dominant mass, normal nipple-areolar complex, no lymphadenopathy, and no nipple discharge ABDOMEN: soft, non-tender, and no masses NEURO: alert and oriented x3,exam grossly non-focal PELVIS: External genitalia normal without lesions. Perineal body intact. No vaginal or cervical lesions. Cervix closed. Uterus 6 week size. No adnexal masses or tenderness. Clinical Pelvimetry: Pelvimetry clinically assessed as adequate Limited OB ultrasound exam: single intrauterine and positive cardiac activity OB Risk Screening: Completed, no positive findings documented. ASSESSMENT: 22 year old at 6w6d wks gestational age PLAN: 1) Patient oriented to practice. Discussed nutrition, folic acid supplementation, dietary guidelines, exercise, smoking, alcohol, caffeine, and drug use. Discussed gestational weight gain guidelines. Discussed routine OB labs including STD/HIV. Discussed how to access Your guide to a health and the [employer]. Discussed aneuploidy and carrier screening. Regarding aneuploidy screening, nuchal translucency/first trimester early anatomy ultrasound and NIPT were discussed. Regarding carrier screening, the myriad screen was discussed. The risks/benefits and limitations of NIPT/aneuploidy screening were reviewed including the potential for false negative and false positive results. We discussed the availability of professional-society guided carrier screening and reviewed the conditions screened and limitations of screening. The availability of genetic counseling was reviewed. Information on aneuploidy/carrier screening was provided. The patient chooses: Aneuploidy screening: declines screening and Carrier screening: Declines Discussed hemoglobin electrophoresis. Patient: Declines 2) hgba1 c screen 3) ASA candidate 4) MS- did not get last infusion last week and had d/w her physician that she would not be on meds during the unless symptomatic then plans MRI after delivery. She will let neurology know she is . Follow up in 4 weeks or sooner prn. Romero Cheek MD documented in this encounter [facility] 01-03-2023 Instructions Stella Wheeler Ma 01/03/2023 12:43 PM EDT Please select the following link to access the [facility] Your Guide to a Healthy . [email or web address] documented in this encounter [facility] 01-01-2023 Miscellaneous Notes Patient is scheduled for new ob appointment on 01/03/2023 documented in this encounter [facility] 12-28-2022 Miscellaneous Notes DISTANCE HEALTH VISIT This Team Access Model visit is a phone encounter. It required patient-provider interaction for the medical decision making as documented below. I have communicated my name and active licensure. The patient's identity and physical location were verified at the time of this visit. Patient was diagnosed with multiple sclerosis in October 2019. Onset of her symptoms appeared in 2018. She last saw Sinai Solis in neurology on August 18, 2022. Last MRI November 30, 2021 patient is obese. We will plan on early hemoglobin A1c.Patient is complaining of nausea in . Denies any vomiting. Dietary considerations discussed . Vitamin B6 recommended. Advised patient to call/come in if she is unable to keep any food or fluids down in a 24-hour period. Patient declines aneuploidy screening. Considering genetic carrier screening testing.Merry Hayes RN documented in this encounter [facility] 12-15-2022 Miscellaneous Notes Patient scheduled Left message for patient to return phone call. Patient has an appointment with Dr Cheek for NOB appointment. Please schedule PNOB appointment for 60 minutes. documented in this encounter [facility] 09-29-2022 Miscellaneous Notes IRB [id number]. 7T Early Onset MS Performance Improvement Analyst: Dr. Russ Thibodeaux (phone: [phone] and pager: [phone]) Testing Projects Administrator: Ana Lilia Hsu (phone: [phone] and pager: [phone]) Called patient in regards to study eligibility. Left voicemail with coordinator contact information to call back if interested in learning more about the study. Ana Lilia Hsu, Research Coordinator documented in this encounter [facility] 09-08-2022 Miscellaneous Notes This is a 1st-time treatment report for this patient. The patient is active with [employer] and has a $ 500.00 deductible, with an Xjb-Mj-Euxica of $ 2000.00 OOP and has $ 2000.00 remaining. An estimate shows patient's financial responsibility is $ 0.00 for each treatment in 2022 until the Slj-Fi-Ybmllx max is reached. The reference number for this estimate is [id number]. This patient is receiveing treatment for a Non-Chemo treatment. I will look for assistance for Ocrevus from the Ocrevus Co-Pay Program. The patient currently has a self pay balance of $ 2508.00. EC Hardship letter sent not yet. documented in this encounter [facility] 08-18-2022 Note HNO ID: [id number] Author: Sinai Solis APRN.[employer] Service: ? Author Type: Nurse Practitioner Type: Progress Notes Filed: 08/18/2022 2:24 PM Note Text: [facility] MULTIPLE SCLEROSIS FOLLOWUP/ESTABLISHED PATIENT VISIT PRINCIPAL NEUROLOGIC DIAGNOSIS: Multiple sclerosis DISEASE SUMMARY Date of onset: Summer 2018 Date of diagnosis of MS: 11/11/2019 Disease course at onset: Relapsing-Remitting Current disease course: Relapsing-Remitting Previous disease therapies: NA Current disease therapy: Ocrevus started 02/13/2020 AND 02/27/2020. Last q6 month tx 07/07/2022 (cycle 6) Most recent MRI brain: 11/30/2021 Most recent MRI cervical spine: 11/04/2020 CSF: NA JCV serology result and date: (+) index 2.14 (11/12/2019) VZV 11/12/2019 (-). Varivax pt 1 12/18/2019. CHIEF COMPLAINT: Follow-up on MS disease modifying therapy INTERVAL HISTORY Usual treating team: Larry/Irma The patient is accompanied by spouse. The patient was last seen 12/08/2021 by virtual visit, currently taking Ocrevus. Since the patient's last visit the patient reports overall feeling stable. Issues with current MS therapy: Tolerating medication without side effects. Patient denies any new or worsening neurologic symptoms. No infections, no illness. No falls, no vision problems. Headaches remain resolved. Recently moved into home the renovated 03/2022. She would like to try to become 3 months after this Ocrevus cycle. SUBJECTIVE AND REVIEW OF SYSTEMS REVIEW OF SYSTEMS Refer to patient-entered data. Mood: PHQ9 responses reviewed and appear below Spasticity: None Bladder: Normal Bowel: Normal Pain related to today's visit:reviewed on nursing intake documentation Fatigue: None Sleep: No problem/well Memory/Concentration: Normal Neuro-Qol Functions (higher = better functioning) 08/17/2022 12/07/2021 Upper Extremity Domain T Score 57 57 08/17/2022 12/07/2021 Lower Extremity Domain T Score 62 62 08/17/2022 12/07/2021 Cognitive Function Domain T Score 67 63 08/17/2022 12/07/2021 Ability To Participate In Social Roles T Score 63 63 08/17/2022 12/07/2021 Satisfaction With Social Roles T Score 62 62 Neuro-Qol Symptoms (higher = worse symptoms) 08/17/2022 12/07/2021 Sleep Domain T Score 32 32 08/17/2022 12/07/2021 Fatigue Domain T Score 28 35 08/17/2022 12/07/2021 Anxiety Domain T Score 36 44 08/17/2022 12/07/2021 Depression Domain T Score 38 34 08/17/2022 12/07/2021 Stigma Domain T Score 41 40 *NeuroQoL is a multi-domain patient-reported quality of life questionnaire PHQ-9 Flowsheet Row Appointment from 08/18/2022 in [facility] from 12/08/[address] [facility] PHQ-9 Score 0 0 *PHQ-9 is a questionnaire for depressive symptoms, with scores 0-4 indicating none, 5-9 mild, 10-14 moderate, 15-19 moderately severe, and 20-27 severe symptoms. PROMIS-10 Flowsheet Row Appointment from 08/18/2022 in [facility] from 12/08/[address] [facility] Global Physical Health T Score 61.9 61.9 Global Mental Health T Score 67.6 62.5 0-10 Standard Pain Scale 5 5 *PROMIS-10 is a patient-reported quality of life measure, typically reported as physical and mental domains. Here scores are expressed as percentiles, where the lowest possible score is one, the highest possible score is 99, and 50 is average. PAST HISTORY was reviewed and updated PAST MEDICAL HISTORY Diagnosis Date Leg fracture, right 2008 Menarche 1-2010 age [age] Years Old Migraine Multiple sclerosis (HCC) 10/2019 NEGATIVE HISTORY OF 2007 normal color vision NEGATIVE MEDICAL HISTORY Psoriasis PAST SURGICAL HISTORY Procedure Laterality Date EXTRACTION, ERUPTED TOOTH OR EXPOSED ROOT (ELEVATION AND/OR FORCEPS REMOVAL) 2015 NEXPLANON INSERTION 03/06/2016 removed 03/2019 MEDICATIONS and ALLERGIES were reviewed and updated. SOCIAL HISTORY was reviewed and updated: Social History Tobacco Use Smoking status: Never Smokeless tobacco: Never No Data Recorded VITALS AND WELLNESS LMP 04/25/2021 (Exact Date) EXAM General Appearance: Well appearing, alert, in no acute distress, well-hydrated, well nourished. Mental status evaluation during the interview and examination showed normal level of consciousness, orientation, language, memory, praxis, and higher intellectual function Affect: Normal Visual acuity: OD 20/20 OS 20/20 Correction: Without Extraocular movements: full, without ELO Facial movements: Intact bilaterally Speech: normal Shoulder shru/5 b/l Muscle tone: Right arm spasticity: None Right leg spasticity: None Left arm spasticity: None Left leg spasticity: None Muscle strength (#/5): Right Left Upper Extremity: Deltoids 5 5 Biceps 5 5 Triceps 5 5 Cad Application Support Specialist 5 5 Dorsal interossei 5 5 Lower extremity: Iliopsoas 5 5 Quadriceps 5 5 Hamstrings 5 5 Tibialis anterior 5 5 Gastrocnemius 5 5 Coordination: Upper extremity dexterity and r (more content not included)... [facility] 08-18-2022 Instructions Sinai Solis APRN.JONATHAN - 08/18/2022 2:12 PM EST PLAN - Continue Ocrevus - MRI brain w/wo Gd 09/2022 documented in this encounter [facility] 08-18-2022 History of Presen t illness Narrative [facility] MULTIPLE SCLEROSIS FOLLOWUP/ESTABLISHED PATIENT VISIT PRINCIPAL NEUROLOGIC DIAGNOSIS: Multiple sclerosis DISEASE SUMMARY Date of onset: Summer 2018 Date of diagnosis of MS: 11/11/2019 Disease course at onset: Relapsing-Remitting Current disease course: Relapsing-Remitting Previous disease therapies: NA Current disease therapy: Ocrevus started 02/13/2020 & 02/27/2020. Last q6 month tx 07/07/2022 (cycle 6) Most recent MRI brain: 11/30/2021 Most recent MRI cervical spine: 11/04/2020 CSF: NA JCV serology result and date: (+) index 2.14 (11/12/2019) VZV 11/12/2019 (-). Varivax pt 1 12/18/2019. CHIEF COMPLAINT: Follow-up on MS disease modifying therapy INTERVAL HISTORY Usual treating team: Larry/Irma The patient is accompanied by spouse. The patient was last seen 12/08/2021 by virtual visit, currently taking Ocrevus. Since the patient's last visit the patient reports overall feeling stable. Issues with current MS therapy: Tolerating medication without side effects. Patient denies any new or worsening neurologic symptoms. No infections, no illness. No falls, no vision problems. Headaches remain resolved. Recently moved into home the renovated 03/2022. She would like to try to become 3 months after this Ocrevus cycle. SUBJECTIVE & REVIEW OF SYSTEMS REVIEW OF SYSTEMS Refer to patient-entered data. Mood: PHQ9 responses reviewed and appear below Spasticity: None Bladder: Normal Bowel: Normal Pain related to today's visit:reviewed on nursing intake documentation Fatigue: None Sleep: No problem/well Memory/Concentration: Normal Neuro-Qol Functions (higher = better functioning) 08/17/2022 12/07/2021 Upper Extremity Domain T Score 57 57 08/17/2022 12/07/2021 Lower Extremity Domain T Score 62 62 08/17/2022 12/07/2021 Cognitive Function Domain T Score 67 63 08/17/2022 12/07/2021 Ability To Participate In Social Roles T Score 63 63 08/17/2022 12/07/2021 Satisfaction With Social Roles T Score 62 62 Neuro-Qol Symptoms (higher = worse symptoms) 08/17/2022 12/07/2021 Sleep Domain T Score 32 32 08/17/2022 12/07/2021 Fatigue Domain T Score 28 35 08/17/2022 12/07/2021 Anxiety Domain T Score 36 44 08/17/2022 12/07/2021 Depression Domain T Score 38 34 08/17/2022 12/07/2021 Stigma Domain T Score 41 40 *NeuroQoL is a multi-domain patient-reported quality of life questionnaire PHQ-9 Flowsheet Row Appointment from 08/18/2022 in [facility] from 12/08/[address] [facility] PHQ-9 Score 0 0 *PHQ-9 is a questionnaire for depressive symptoms, with scores 0-4 indicating none, 5-9 mild, 10-14 moderate, 15-19 moderately severe, and 20-27 severe symptoms. PROMIS-10 Flowsheet Row Appointment from 08/18/2022 in [facility] from 12/08/[address] [facility] Global Physical Health T Score 61.9 61.9 Global Mental Health T Score 67.6 62.5 0-10 Standard Pain Scale 5 5 *PROMIS-10 is a patient-reported quality of life measure, typically reported as physical and mental domains. Here scores are expressed as percentiles, where the lowest possible score is one, the highest possible score is 99, and 50 is average. PAST HISTORY was reviewed and updated PAST MEDICAL HISTORY Diagnosis Date Leg fracture, right 2008 Menarche 1-2010 age [age] Years Old Migraine Multiple sclerosis (HCC) 10/2019 NEGATIVE HISTORY OF 2008 normal color vision NEGATIVE MEDICAL HISTORY Psoriasis PAST SURGICAL HISTORY Procedure Laterality Date EXTRACTION, ERUPTED TOOTH OR EXPOSED ROOT (ELEVATION AND/OR FORCEPS REMOVAL) 2015 NEXPLANON INSERTION 03/06/2016 removed 03/2019 MEDICATIONS and ALLERGIES were reviewed and updated. SOCIAL HISTORY was reviewed and updated: Social History Tobacco Use Smoking status: Never Smokeless tobacco: Never No Data Recorded VITALS & WELLNESS LMP 04/25/2021 (Exact Date) EXAM General Appearance: Well appearing, alert, in no acute distress, well-hydrated, well nourished. Mental status evaluation during the interview and examination showed normal level of consciousness, orientation, language, memory, praxis, and higher intellectual function Affect: Normal Visual acuity: OD 20/20 OS 20/20 Correction: Without Extraocular movements: full, without ELO Facial movements: Intact bilaterally Speech: normal Shoulder shru/5 b/l Muscle tone: Right arm spasticity: None Right leg spasticity: None Left arm spasticity: None Left leg spasticity: None Muscle strength (#/5): Right Left Upper Extremity: Deltoids 5 5 Biceps 5 5 Triceps 5 5 Cad Application Support Specialist 5 5 Dorsal interossei 5 5 Lower extremity: Iliopsoas 5 5 Quadriceps 5 5 Hamstrings 5 5 Tibialis anterior 5 5 Gastrocnemius 5 5 Coordination: Upper extremity dexterity and rapid movements: Normal bilaterally Finger-nose: no dysmetria; coordination intact Heel-yo: no dysmetria; coordination intact Standing balance: Normal Standard gait: normal. Assistive device: independent Tandem walking: Normal Toe walking: Normal Heel walking: Normal Balancing on 1 foot, right: Normal Balancing on 1 foot, left: Normal RESULTS Monitoring labs: CBC + Diff Component Value Date WBC 11.62 (H) 07/07/2022 HB 13.2 07/07/2022 HCT 40.4 07/07/2022 PLT 270 07/07/2022 ABSLYMPH 2.61 07/07/2022 No results found for: VITD25 CMP Component Value Date AST 14 07/07/2022 GLUC 97 07/07/2022 BUN 13 07/07/2022 CREAT 0.80 07/07/2022 NA 138 07/07/2022 K 3.7 07/07/2022 CHLOR 102 07/07/2022 ALT 17 07/07/2022 No results found for: JCVIND, JCVAB IgG Date Value Ref Range Status 07/07/2022 707 700 - 1,600 mg/dL Final IgM Date Value Ref Range Status 07/07/2022 74 40 - 230 mg/dL Final CD3-CD19+ B Cell # Date Value Ref Range Status 07/07/2022 0 (L) 75 - 660 cells/uL Final Discrete MRI Results Component Value Date Brain New T2 Lesions None 11/30/2021 Brain Enhancing Lesions None 11/30/2021 Cervical Spine New T2 Lesions None 11/04/2020 Cervical Spine New T2 Lesions None 11/04/2020 Cervical spine enhancing lesions None 11/04/2020 Cervical spine enhancing lesions None 11/04/2020 ASSESSMENT Fabiano Isaacs is a 21 year old woman with Multiple Sclerosis. Exam is Stable, continue with current IMDT. The prescribed disease modifying therapy for MS is having the expected benefit in this patient based on imaging and clinical criteria, and will be continued or refilled, with planned follow-up at approximately 6-month intervals to continue to assess response on an ongoing basis. No infections, no hypogammaglobulinemia. Patient would like to become 3 months after her last Ocrevus infusion which was infused 06/2022. Extensive discussion at last visit, no additional questions. Patient is taking vitamin. We will repeat imaging 09/2022 which will be just short of 1 year since last MRI and will serve as new baseline should she need to stop Ocrevus due to soon after. Few to no MS symptoms. Feels well. PLAN - Continue Ocrevus - MRI brain w/wo Gd 09/2022 Patient Health Education Discussed at Visit: Risks and Common side effects of MS medications Follow-up: In 6 months at [facility] I spent a total of 35 minutes on the date of the service which included preparing to see the patient, hjyw-gv-zvil patient care, completing clinical documentation, obtaining and/or reviewing separately obtained history, performing a medically appropriate examination, counseling and educating the patient/family/caregiver, and ordering medications, tests, or procedures. Sinai SOLIS APRN.JONATHAN documented in this encounter [facility] 06-27-2022 Miscellaneous Notes IGG, IGM, CMP, CBC diff, and CD19 count are signed for upcoming infusion, scheduled 07/07/22. Saritha Shipley APRN.CNP June 27, 2022 10:16 AM documented in this encounter [facility] 06-10-2022 Miscellaneous Notes LVM to inform patient about appointment per staff message documented in this encounter [facility] 01-03-2022 Miscellaneous Notes Spoke with patient and rescheduled. Sarah Rodriguez Patient wants to reschedule 01/06 appt @ 9:30am. Please assist with scheduling. documented in this encounter [facility] 12-08-2021 History of Presen t illness Narrative [facility] MULTIPLE SCLEROSIS FOLLOWUP/ESTABLISHED PATIENT VISIT VIRTUAL VISIT PRINCIPAL NEUROLOGIC DIAGNOSIS: Multiple sclerosis DISEASE SUMMARY Date of onset: Summer 2018 Date of diagnosis of MS: 11/11/2019 Disease course at onset: Relapsing-Remitting Current disease course: Relapsing-Remitting Previous disease therapies: NA Current disease therapy: Ocrevus started 02/13/2020 & 02/27/2020. Last q6 month tx 08/18/2020 (cycle 4) Most recent MRI brain: 11/30/2021 Most recent MRI cervical spine: 11/04/2020 CSF: NA JCV serology result and date: (+) index 2.14 (11/12/2019) VZV 11/12/2019 (-). Varivax pt 1 12/18/2019. CHIEF COMPLAINT: Follow-up on MS disease modifying therapy INTERVAL HISTORY Usual treating team: Larry/Irma The patient's appointment was conducted by virtual visit via [employer] with patient consent, unaccompanied. The patient was last seen 11/11/2020 by virtual visit, currently taking Ocrevus. Since the patient's last visit the patient reports overall feeling stable. Issues with current MS therapy: Tolerating medication without side effects. Patient denies any new or worsening neurologic symptoms. Hand shaking she was having previously have resolved. Feels very well, recently ran 5K. Had gastritis a few months ago. GI thought this was 2/2 virus initially, back to baseline now. Overall, headaches much better than a few years ago. Thinks heat tolerance a bit better than it used to be. SUBJECTIVE & REVIEW OF SYSTEMS REVIEW OF SYSTEMS Refer to patient-entered data. Mood: PHQ9 responses reviewed and appear below, Good/bright Spasticity: None Bladder: Normal Bowel: Normal Pain related to today's visit: No pain Fatigue: minimal Sleep: No problem/well Memory/Concentration: Normal Neuro-Qol Functions (higher = better functioning) 12/07/2021 11/11/2020 Upper Extremity Domain T Score 57 57 12/07/2021 11/11/2020 Lower Extremity Domain T Score 62 62 12/07/2021 11/11/2020 Cognitive Function Domain T Score 63 67 12/07/2021 11/11/2020 Ability To Participate In Social Roles T Score 63 54 12/07/2021 11/11/2020 Satisfaction With Social Roles T Score 62 62 Neuro-Qol Symptoms (higher = worse symptoms) 12/07/2021 11/11/2020 Sleep Domain T Score 32 32 12/07/2021 11/11/2020 Fatigue Domain T Score 35 28 12/07/2021 11/11/2020 Anxiety Domain T Score 44 32 12/07/2021 11/11/2020 Depression Domain T Score 34 34 12/07/2021 11/11/2020 Stigma Domain T Score 40 37 *NeuroQoL is a multi-domain patient-reported quality of life questionnaire PHQ-9 Appointment from 12/08/2021 in [facility] from 11/11/[address] [facility] PHQ-9 Score 0 0 *PHQ-9 is a questionnaire for depressive symptoms, with scores 0-4 indicating none, 5-9 mild, 10-14 moderate, 15-19 moderately severe, and 20-27 severe symptoms. PROMIS-10 Appointment from 12/08/[address] [facility] Appointment from 05/05/2021 in [facility] [place] [facility] Physical Health T Score 61.9 50.8 Global Mental Health T Score 62.5 53.3 0-10 Standard Pain Scale 5 5 *PROMIS-10 is a patient-reported quality of life measure, typically reported as physical and mental domains. Here scores are expressed as percentiles, where the lowest possible score is one, the highest possible score is 99, and 50 is average. PAST HISTORY was reviewed and updated PAST MEDICAL HISTORY Diagnosis Date Leg fracture, right 2007 Menarche 1-2010 age [age] Years Old Migraine Multiple sclerosis (HCC) 10/2019 NEGATIVE HISTORY OF 2007 normal color vision NEGATIVE MEDICAL HISTORY Psoriasis PAST SURGICAL HISTORY Procedure Laterality Date EXTRACTION, ERUPTED TOOTH OR EXPOSED ROOT (ELEVATION AND/OR FORCEPS REMOVAL) 2014 NEXPLANON INSERTION 03/06/2016 removed 03/2019 MEDICATIONS and ALLERGIES were reviewed and updated. SOCIAL HISTORY was reviewed and updated: Social History Tobacco Use Smoking status: Never Smoker Smokeless tobacco: Never Used No Data Recorded EXAM General Appearance: Well appearing, alert, in no acute distress, well-hydrated, well nourished. Mental status evaluation during the interview and examination showed normal level of consciousness, orientation, language, memory, praxis, and higher intellectual function Affect: Normal Facial movements: Intact bilaterally Speech: normal RESULTS Monitoring labs: CBC + Diff Component Value Date WBC 9.86 05/06/2021 HB 13.4 05/06/2021 HCT 42.9 05/06/2021 PLT 236 05/06/2021 ABSLYMPH 1.13 05/06/2021 No results found for: VITD25 CMP Component Value Date AST 16 04/27/2021 GLUC 89 04/27/2021 BUN 7 04/27/2021 CREAT 0.92 04/27/2021 NA 142 04/27/2021 K 4.0 04/27/2021 CHLOR 104 04/27/2021 ALT 26 04/27/2021 No results found for: JCVIND, JCVAB IgG Date Value Ref Range Status 12/25/2020 675 (L) 700 - 1,600 mg/dL Final IgM Date Value Ref Range Status 12/25/2020 78 40 - 230 mg/dL Final CD19+ B Cell # Date Value Ref Range Status 08/18/2020 17 (L) 75 - 660 Cells/uL Final Comment: This test was developed and its performance characteristics determined by [facility]'s [facility] [place] ( [facility]). It has not been cleared or approved by the FDA. [facility] is regulated under CLIA as qualified to perform high complexity testing. This test is used for clinical purposes. It should not be regarded as investigational or for research. Discrete MRI Results Component Value Date Brain New T2 Lesions None 11/30/2021 Brain Enhancing Lesions None 11/30/2021 Cervical Spine New T2 Lesions None 11/04/2020 Cervical Spine New T2 Lesions None 11/04/2020 Cervical spine enhancing lesions None 11/04/2020 Cervical spine enhancing lesions None 11/04/2020 Covid Immunization Dates Overdue - COVID-19 VACCINE (1) Overdue - never done No completion, postpone, frequency change, or communication history exists for this topic. ASSESSMENT Fabiano Isaacs is a 20 year old female with Multiple Sclerosis. Limited exam per virtual visit is stable, subjectively patient is stable, and imaging completed 11/30/2021 indicates MS is radiographically Stable, continue with current IMDT. The prescribed disease modifying therapy for MS is having the expected benefit in this patient based on imaging and clinical criteria, and will be continued or refilled, with planned follow-up at approximately 6-month intervals to continue to assess response on an ongoing basis. Feels very well with few to no sx 2/2 MS. One infection, gastritis, since last visit. IgG mildly low last year, will repeat with next tx plan. Recently stopped control, would like to get following next Ocrevus infusion (scheduled for mid-December). We discussed and multiple sclerosis. Reviewed there are lower rates of MS relapse during though relapse remains a risk as we do not continue MS treatment during . Discussed that there is an increased risk of relapse in the 3-month period so developing a post- plan for MRI monitoring, DMT resumption and general follow up are important. Reviewed we recommend not trying to conceive until 3 months after last Ocrevus cycle so if she wants to wait until after the following cycle, she should continue to use control through Mid-March. Patient voiced understanding. Advised her to start taking vitamin w/folic acid 400mcg now in order to prevent spina bifida. She is established with [facility] though [facility]. Discussed next visit should be in person. PLAN - Continue Ocrevus - Start vitamin w/folic acid - Labs: IgG, IgM, urine hCG added to infusion tx plan Patient Health Education Discussed at Visit: Risks and Common side effects of MS medications Follow-up: In 6 months at [facility] I spent a total of 30 minutes on the date of the service which included preparing to see the patient, [id number] patient care, completing clinical documentation, obtaining and/or reviewing separately obtained history, performing a medically appropriate examination, counseling and educating the patient/family/caregiver, ordering medications, tests, or procedures and communicating results to the patient/family/caregiver. Sinai SOLIS APRN.CNP documented in this encounter [facility] 11-30-2021 History of Presen t illness Narrative Radiology Service Progress Note DATE OF SERVICE: November 30, 2021 TIME: 12:59 PM PATIENT IDENTITY VERIFICATION COMPLETED USING TWO (2) STANDARD IDENTIFIERS: Name and Date of confirmed by patient verbally. FALL SCREENING: Has the patient had 2 falls in the last year or 1 fall with injury or currently using an Ambulatory Assistive Device (Walker, Cane, Wheelchair, Crutches, etc.)? No PATIENT GENDER DATA: Female. status: : No status: NO. PATIENT RELEVANT IMPLANT DATA REVIEWED: Yes ALLERGIES: Reviewed and unchanged CONTRAST ALLERGY: NO. EXAM: MRI - CONTRAST TYPE: GROUP II PERIPHERAL IV DATA: Ambulatory: A peripheral IV was started in the Right antecubital site with a Angio cath: 22 gauge. RADIOLOGY DEPARTMENT: MR; Exam(s) Completed: Head: Multiple Sclerosis SIGNATURE: RT Angela(R) PATIENT NAME: Fabiano Isaacs DATE: November 30, 2021 TIME: 12:59 PM documented in this encounter [facility] 11-09-2021 Miscellaneous Notes PaTiEnT cOnFiRmEd Left message for patient to confirm appointment. MyChart message also sent. Sarah Rodriguez Patient scheduled on 01/06 for next infusion. Please inform patient of date/time of treatment, document and close encounter. Left message for patient to return call. When she calls, please warm transfer to [facility] to schedule 5 hr Q6MO OCREVUS on or after 01/06 per [facility] Orders. Also send out Chemo Start email as [facility] Referral was not generated. Sarah Rodriguez Please call patient to schedule 6 mo Ocrevus transfussion. Patient states she is due in November, previous was 07/23/21. Patient aware she will be called. Thank you documented in this encounter [facility] 10-26-2021 Miscellaneous Notes Sent Twillionhart message to patient advising due for appt and MRI Advised would send to scheduling documented in this encounter [facility] documented as of this encounter (statuses as of 10/26/2021) [facility]10-[facility]2009 History of Past illness Narrative* Problem Noted Date Resolved Date Other joint derangement, not elsewhere classifie d, lower leg 04/05/2009 02/10/2013 documented as of this encounter (statuses as of 11/09/2021) [facility] History of Past illness Narrative* Problem Noted Date Resolved Date Other joint derangement, not elsewhere classifie d, lower leg 04/05/2009 02/10/2013 documented as of this encounter (statuses as of 12/01/2021) [facility] History of Past illness Narrative* Problem Noted Date Resolved Date Other joint derangement, not elsewhere classifie d, lower leg 04/05/2009 02/10/2013 documented as of this encounter (statuses as of 12/08/2021) [address]12-2009 History of Past illness Narrative* Problem Noted Date Resolved Date Other joint derangement, not elsewhere classifie d, lower leg 04/05/2009 02/10/2013 documented as of this encounter (statuses as of 01/03/2022) [address]12-2009 History of Past illness Narrative* Problem Noted Date Resolved Date Other joint derangement, not elsewhere classifie d, lower leg 04/05/2009 02/10/2013 documented as of this encounter (statuses as of 01/10/2022) [address]-2009 History of Past illness Narrative* Problem Noted Date Resolved Date Other joint derangement, not elsewhere classifie d, lower leg 04/05/2009 02/10/2013 documented as of this encounter (statuses as of 05/31/2022) [facility] History of Past illness Narrative* Problem Noted Date Resolved Date Other joint derangement, not elsewhere classifie d, lower leg 04/05/2009 02/10/2013 documented as of this encounter (statuses as of 06/10/2022) [facility] History of Past illness Narrative* Problem Noted Date Resolved Date Other joint derangement, not elsewhere classifie d, lower leg 04/05/2009 02/10/2013 documented as of this encounter (statuses as of 06/29/2022) [facility] History of Past illness Narrative* Problem Noted Date Resolved Date Other joint derangement, not elsewhere classifie d, lower leg 04/05/2009 02/10/2013 documented as of this encounter (statuses as of 07/07/2022) [facility] History of Past illness Narrative* Problem Noted Date Resolved Date Other joint derangement, not elsewhere classifie d, lower leg 04/05/2009 02/10/2013 documented as of this encounter (statuses as of 08/18/2022) [facility] History of Past illness Narrative* Problem Noted Date Resolved Date Other joint derangement, not elsewhere classifie d, lower leg 04/05/2009 02/10/2013 documented as of this encounter (statuses as of 09/08/2022) [facility] History of Past illness Narrative* Problem Noted Date Resolved Date Other joint derangement, not elsewhere classifie d, lower leg 04/05/2009 02/10/2013 documented as of this encounter (statuses as of 09/29/2022) [facility] History of Past illness Narrative* Problem Noted Date Resolved Date Other joint derangement, not elsewhere classifie d, lower leg 04/05/2009 02/10/2013 documented as of this encounter (statuses as of 12/15/2022) [facility] History of Past illness Narrative* Problem Noted Date Resolved Date Other joint derangement, not elsewhere classifie d, lower leg 04/05/2009 02/10/2013 documented as of this encounter (statuses as of 12/29/2022) [facility] History of Past illness Narrative* Problem Noted Date Diagnosed Date Resolved Date Other joint derangement, not elsewhere classified, lower leg 04/05/2009 02/10/2013 documented as of this encounter (statuses as of 01/01/2023) [facility] History of Past illness Narrative* Problem Noted Date Diagnosed Date Resolved Date Other joint derangement, not elsewhere classified, lower leg 04/05/2009 02/10/2013 documented as of this encounter (statuses as of 01/04/2023) [facility] History of Past illness Narrative* Problem Noted Date Diagnosed Date Resolved Date Other joint derangement, not elsewhere classified, lower leg 04/05/2009 02/10/2013 documented as of this encounter (statuses as of 02/01/2023) [facility] History of Past illness Narrative* Problem Noted Date Diagnosed Date Resolved Date Other joint derangement, not elsewhere classified, lower leg 04/05/2009 02/10/2013 documented as of this encounter (statuses as of 02/17/2023) [facility] History of Past illness Narrative* Problem Noted Date Diagnosed Date Resolved Date Other joint derangement, not elsewhere classified, lower leg 04/05/2009 02/10/2013 documented as of this encounter (statuses as of 03/01/2023) [facility] History of Past illness Narrative* Problem Noted Date Diagnosed Date Resolved Date Other joint derangement, not elsewhere classified, lower leg 04/05/2009 02/10/2013 documented as of this encounter (statuses as of 03/20/2023) [facility] History of Past illness Narrative* Problem Noted Date Diagnosed Date Resolved Date Other joint derangement, not elsewhere classified, lower leg 04/05/2009 02/10/2013 documented as of this encounter (statuses as of 03/25/2023) [facility] History of Past illness Narrative* Problem Noted Date Diagnosed Date Resolved Date Other joint derangement, not elsewhere classified, lower leg 04/05/2009 02/10/2013 documented as of this encounter (statuses as of 03/31/2023) [facility] History of Past illness Narrative* Problem Noted Date Diagnosed Date Resolved Date Other joint derangement, not elsewhere classified, lower leg 04/05/2009 02/10/2013 documented as of this encounter (statuses as of 04/11/2023) [facility] History of Past illness Narrative* Problem Noted Date Diagnosed Date Resolved Date Other joint derangement, not elsewhere classified, lower leg 04/05/2009 02/10/2013 documented as of this encounter (statuses as of 04/17/2023) [facility] History of Past illness Narrative* Problem Noted Date Diagnosed Date Resolved Date Other joint derangement, not elsewhere classified, lower leg 04/05/2009 02/10/2013 documented as of this encounter (statuses as of 04/24/2023) [facility] History of Past illness Narrative* Problem Noted Date Diagnosed Date Resolved Date Other joint derangement, not elsewhere classified, lower leg 04/05/2009 02/10/2013 documented as of this encounter (statuses as of 05/01/2023) [facility] History of Past illness Narrative* Problem Noted Date Diagnosed Date Resolved Date Other joint derangement, not elsewhere classified, lower leg 04/05/2009 02/10/2013 documented as of this encounter (statuses as of 05/09/2023) [facility] History of Past illness Narrative* Problem Noted Date Diagnosed Date Resolved Date Other joint derangement, not elsewhere classified, lower leg 04/05/2009 02/10/2013 documented as of this encounter (statuses as of 05/18/2023) [address] History of Past illness Narrative* Problem Noted Date Diagnosed Date Resolved Date Other joint derangement, not elsewhere classified, lower leg 04/05/2009 02/10/2013 documented as of this encounter (statuses as of 05/21/2023) [facility] History of Past illness Narrative* Problem Noted Date Diagnosed Date Resolved Date Other joint derangement, not elsewhere classified, lower leg 04/05/2009 02/10/2013 documented as of this encounter (statuses as of 05/23/2023) [facility] History of Past illness Narrative* Problem Noted Date Diagnosed Date Resolved Date Other joint derangement, not elsewhere classified, lower leg 04/05/2009 02/10/2013 documented as of this encounter (statuses as of 05/24/2023) [facility] History of Past illness Narrative* Problem Noted Date Diagnosed Date Resolved Date Other joint derangement, not elsewhere classified, lower leg 04/05/2009 02/10/2013 documented as of this encounter (statuses as of 05/25/2023) [facility] History of Past illness Narrative* Problem Noted Date Diagnosed Date Resolved Date Other joint derangement, not elsewhere classified, lower leg 04/05/2009 02/10/2013 documented as of this encounter (statuses as of 05/29/2023) [facility] History of Past illness Narrative* Problem Noted Date Diagnosed Date Resolved Date Other joint derangement, not elsewhere classified, lower leg 04/05/2009 02/10/2013 documented as of this encounter (statuses as of 06/05/2023) [facility] History of Past illness Narrative* Problem Noted Date Diagnosed Date Resolved Date Other joint derangement, not elsewhere classified, lower leg 04/05/2009 02/10/2013 documented as of this encounter (statuses as of 07/22/2023) [facility] History of Past illness Narrative* Problem Noted Date Diagnosed Date Resolved Date Other joint derangement, not elsewhere classified, lower leg 04/05/2009 02/10/2013 documented as of this encounter (statuses as of 07/27/2023) [facility] History of Past illness Narrative* Problem Noted Date Diagnosed Date Resolved Date Other joint derangement, not elsewhere classified, lower leg 04/05/2009 02/10/2013 documented as of this encounter (statuses as of 07/27/2023) [address] History of Past illness Narrative* Problem Noted Date Diagnosed Date Resolved Date Other joint derangement, not elsewhere classified, lower leg 04/05/2009 02/10/2013 documented as of this encounter (statuses as of 07/27/2023) [address] History of Past illness Narrative* Problem Noted Date Diagnosed Date Resolved Date Other joint derangement, not elsewhere classified, lower leg 04/05/2009 02/10/2013 documented as of this encounter (statuses as of 08/03/2023) [address]12-2009 History of Past illness Narrative* Problem Noted Date Diagnosed Date Resolved Date Other joint derangement, not elsewhere classified, lower leg 04/05/2009 02/10/2013 documented as of this encounter (statuses as of 08/09/2023) [address] History of Past illness Narrative* Problem Noted Date Diagnosed Date Resolved Date Other joint derangement, not elsewhere classified, lower leg 04/05/2009 02/10/2013 documented as of this encounter (statuses as of 08/13/2023) [facility]* Diagnosis Multiple sclerosis (HCC)- Primary Multiple sclerosis Encounter for long-term (current) use of medications Encounter for long-term (current) use of other medications [facility]* Diagnosis Multiple sclerosis (HCC) Multiple sclerosis Encounter for long-term (current) use of medications Encounter for long-term (current) use of other medications [facility]* Diagnosis Multiple sclerosis (HCC)- Primary Multiple sclerosis Encounter for long-term (current) use of medications Encounter for long-term (current) use of other medications documented [facility]* Diagnosis Multiple sclerosis (HCC)- Primary Multiple sclerosis [facility] Diagnosis Multiple sclerosis (HCC)- Primary Multiple sclerosis [facility]* Diagnosis Multiple sclerosis (HCC)- Primary Multiple sclerosis Vitamin D deficiency Unspecified vitamin D deficiency Encounter for long-term (current) use of medications Encounter for long-term (current) use of other medications documented [facility]* Diagnosis Multiple sclerosis affecting , antepartum (HCC)- Primary Multiple sclerosis (HCC) Multiple sclerosis Obesity during Nausea in Unspecified vomiting of , unspecified as to episode of care [facility]* Diagnosis Multiple sclerosis (HCC)- Primary Multiple sclerosis Obesity during Nausea and vomiting in Unspecified vomiting of , unspecified as to episode of care with uncertain dates in first trimester [facility]* Diagnosis 10 weeks gestation of - Primary state, incidental Encounter for supervision of normal first in first trimester Supervision of normal first [facility] Diagnosis 14 weeks gestation of - Primary state, incidental Encounter for supervision of normal first in second trimester Supervision of normal first [facility] Diagnosis Upper respiratory infection with cough and congestion- Primary Acute upper respiratory infections of unspecified site [facility] Diagnosis Encounter for anatomic survey- Primary Obesity affecting in second trimester, unspecified obesity type 19 weeks gestation of state, incidental [facility]* Diagnosis Post-viral cough syndrome- Primary Cough [facility]* Diagnosis Post-viral cough syndrome- Primary Cough [facility]* Diagnosis Viral URI with cough- Primary Acute upper respiratory infections of unspecified site Seasonal allergies Allergic rhinitis, cause unspecified Heartburn during , antepartum [facility]* Diagnosis Encounter for supervision of normal first in second trimester- Primary Supervision of normal first 27 weeks gestation of state, incidental Obesity during Supervision of high risk in second trimester Unspecified high-risk [facility]* Diagnosis Abnormal glucose affecting - Primary [facility]* Diagnosis Obesity during - Primary Encounter for supervision of normal first in third trimester Supervision of normal first 35 weeks gestation of state, incidental [facility]* Diagnosis Obesity affecting in third trimester, unspecified obesity type- Primary Encounter for supervision of normal first in third trimester Supervision of normal first [facility]* Diagnosis Obesity during - Primary Encounter for supervision of normal first in third trimester Supervision of normal first 36 weeks gestation of state, incidental [facility]* Diagnosis Encounter for ultrasound to check growth- Primary Encounter for routine screening for malformation using ultrasonics Obesity affecting in third trimester, unspecified obesity type 36 weeks gestation of state, incidental documented in this encounter [facility]* Diagnosis Encounter for supervision of normal first in third trimester- Primary Supervision of normal first Obesity affecting in third trimester, unspecified obesity type 37 weeks gestation of state, incidental Elevated blood pressure reading without diagnosis of hypertension documented in this encounter [facility]* Diagnosis 38 weeks gestation of - Primary state, incidental documented in this encounter [facility] for referral (narrative)* Diagnostic Procedure Only (Routine) - Pending Review Specialty Diagnoses / Procedures Referred By Magali canales Referred To Contact [facility] Diagnoses 14 weeks gestation of Encounter for supervision of normal first in second trimester Procedures OBSTETRIC ULTRASOUND WHI US PREG UTERUS AFTER 1ST TRIMEST GESTATION Romero Cheek MD [address] [place] [address] [facility]ly [facility] [address] [place] [address] Referral ID Status Reason Start Date Expiration Date Visits Requested Visits Authorized [id number] Pending Review Auto-Generat ed Referral 02/28/2023 02/28/2024 1 1 [facility] for referral (narrative)* Outpatient Procedure (Routine) - Pending Review Specialty Diagnoses / Procedures Referred By Magali canales Referred To Contact [facility] Diagnoses 27 weeks gestation of Obesity during Procedures NON-STRESS TEST NON-STRESS TEST Fadi Alvarez APRN.[facility] [address] [place] [address] [facility] [address] [place] [address] Referral ID Status Reason Start Date Expiration Date Visits Requested Visits Authorized [id number] Pending Review Auto-Generat ed Referral 05/25/2023 05/24/2024 1 1 * Diagnostic Procedure Only (Routine) - Pending Review Specialty Diagnoses / Procedures Referred By Magali canales Referred To Contact [facility] Diagnoses 27 weeks gestation of Obesity during Procedures OBSTETRIC ULTRASOUND WHI US PREG UTERUS AFTER 1ST TRIMEST GESTATION Fadi Alvarez APRN.CNM [address] [place] [address] [address] Referral ID Status Reason Start Date Expiration Date Visits Requested Visits Authorized [id number] Pending Review Auto-Generat ed Referral 05/25/2023 05/24/2024 1 1 [facility] Diagnostic Procedure Only (Routine) - Closed Specialty Diagnoses / Procedures Referred By Magali canales Referred To Contact [facility] Diagnoses Obesity affecting in third trimester, unspecified obesity type Encounter for supervision of normal first in third trimester Procedures OBSTETRIC ULTRASOUND WHI US PREG UTERUS AFTER 1ST TRIMEST GESTATION Romero Cheek MD [address] [place] [place] [address] [address] Referral ID Status Reason Start Date Expiration Date V isits Requested Visits Authorized [id number] Closed Auto-Generate d Referral 07/27/2023 07/27/2023 1 1 [facility] Reason for Referral Specialty Diagnoses / Procedures Referred By Magali canales Referred To Contact [facility] Diagnoses Multiple sclerosis (HCC) Encounter for long-term (current) use of medications Procedures MRI BRAIN WO/W IVCON MRI BRAIN BRAIN STEM W/O W/CONTRAST MATERIAL Sinai Solis APRN.CNP [address] [place] [id number] [facility] Referral ID Status Reason Start Date Expiration Date Visits Requested Visits Authorized [id number] Pending Review Auto-Generat ed Referral 10/26/2021 11/25/2022 1 1 Referral ID Status Reason Start Date Expiration Date V isits Requested Visits Authorized [id number] Closed Auto-Generate d Referral 10/26/2021 06/24/2022 1 1 Specialty Diagnoses / Procedures Referred By Contac t Referred To Contact [facility] Diagnoses Encounter for long-term (current) use of medications Multiple sclerosis (HCC) Procedures MRI BRAIN WO/W IVCON MRI BRAIN BRAIN STEM W/O W/CONTRAST MATERIAL Sinai Solis, [employer] [address] [facility] [address] [place] [address] Mr Imaging Referral ID Status Reason Start Date Expiration Date Visits Requested Visits Authorized [id number] Pending Review Auto-Generat ed Referral 08/18/2022 09/17/2023 1 1 Medications Administered Section Inactive Administered Medications - up to 3 most recent administrations Medication Order MAR Action Action Date Dose Rate Site acetaminophen 1,000 mg tab(s) (TYLENOL) 1,000 mg, ORAL, ONCE, 1 dose, On Sun01/10/22 at 0800, No more than 4000 mg of acetaminophen should be given per day (FROM ALL SOURCES) Given 01/10/2022 8:09 AM EDT 1,000 mg diphenhydrAMINE 50 mg (BENADRYL) 50 mg, ORAL, ONCE, 1 dose, On Sun01/10/22 at 0800 Given 01/10/2022 8:09 AM EDT 50 mg methylPREDNISolone sod succinate(PF) 100 mg injection (SOLU-Medrol) 100 mg, INTRAVENOUS, ONCE, 1 dose, On Sun01/10/22 at 0800 Given 01/10/2022 8:10 AM EDT 100 mg ocrelizumab 600 mg in NaCl 0.9% 500 mL (OCREVUS) 600 mg, INTRAVENOUS, ONCE, 1 dose, On Sun01/10/22 at 0800, Subsequent infusion. Start infusion at 100 mL/hour for 15 minutes, then increase to 200 mL/hour for 15 minutes, then increase to 250 mL/hour for 30 minutes, then increase to 300 mL/hour for remainder of infusion. Maximum rate = 300mL/hour. APPROXIMATE TOTAL VOLUME: 560 mL Administer with 0.2 micron filter. Refrigerate - Protect From Light. Exp: (24 HR) Rate/Dose Change 01/10/2022 9:08 AM EDT 300 mL/hr Inactive Administered Medications - up to 3 most recent administrations Medication Order MAR Action Action Date Dose Rate Site acetaminophen 1,000 mg tab(s) (TYLENOL) 1,000 mg, ORAL, ONCE, 1 dose, On Sun07/07/22 at 0830, No more than 4000 mg of acetaminophen should be given per day (FROM ALL SOURCES) Given 07/07/2022 8:38 AM EST 1,000 mg diphenhydrAMINE 50 mg (BENADRYL) 50 mg, ORAL, ONCE, 1 dose, On Sun07/07/22 at 0830 Given 07/07/2022 8:37 AM EST 50 mg methylPREDNISolone sod succinate(PF) 100 mg injection (SOLU-Medrol) 100 mg, INTRAVENOUS, ONCE, 1 dose, On Sun07/07/22 at 0830 Given 07/07/2022 8:38 AM EST 125 mg ocrelizumab 600 mg in NaCl 0.9% 500 mL (OCREVUS) 600 mg, INTRAVENOUS, ONCE, 1 dose, On Sun07/07/22 at 0830, Subsequent infusion. Start infusion at 100 mL/hour for 15 minutes, then increase to 200 mL/hour for 15 minutes, then increase to 250 mL/hour for 30 minutes, then increase to 300 mL/hour for remainder of infusion. Maximum rate = 300mL/hour. APPROXIMATE TOTAL VOLUME: 560 mL Administer with 0.2 micron filter. Refrigerate - Protect From Light. Exp: (24 HR) New Bag/Syringe/Bottle 07/07/2022 8:54 AM EST 600 mg Health Concerns Problem Noted Date Diagnosed Date [facility] - [facility] 01/03/2023 [facility] - [place] 01/03/2023 Problem Noted Date Diagnosed Date [facility] - [facility] 01/03/2023 [facility] - [place] 01/03/2023 Problem Noted Date Diagnosed Date [facility] - [facility] 01/03/2023 [facility] - [place] 01/03/2023 Problem Noted Date Diagnosed Date [facility] 01/03/2023 [facility] - [place] 01/03/2023 Problem Noted Date Diagnosed Date [facility] 01/03/2023 [facility] - [place] 01/03/2023 Problem Noted Date Diagnosed Date [facility] 01/03/2023 [facility] - [place] 01/03/2023 Problem Noted Date Diagnosed Date [facility] 01/03/2023 [facility] - [place] 01/03/2023 Problem Noted Date Diagnosed Date [facility] 01/03/2023 [facility] - [place] 01/03/2023 Problem Noted Date Diagnosed Date [facility] 01/03/2023 [facility] - [place] 01/03/2023 Problem Noted Date Diagnosed Date [facility] 01/03/2023 [facility] - [place] 01/03/2023 Problem Noted Date Diagnosed Date [facility] 01/03/2023 [facility] - [place] 01/03/2023 Problem Noted Date Diagnosed Date [facility] 01/03/2023 [facility] - [place] 01/03/2023 Problem Noted Date Diagnosed Date [facility] 01/03/2023 [facility] - [place] 01/03/2023 Problem Noted Date Diagnosed Date [facility] 01/03/2023 [facility] - [place] 01/03/2023 Problem Noted Date Diagnosed Date [facility] 01/03/2023 [facility] - [place] 01/03/2023 Problem Noted Date Diagnosed Date [facility] 01/03/2023 [facility] - [place] 01/03/2023 Problem Noted Date Diagnosed Date [facility] 01/03/2023 [facility] - [place] 01/03/2023 Problem Noted Date Diagnosed Date [facility] 01/03/2023 [facility] - [place] 01/03/2023 Problem Noted Date Diagnosed Date [facility] [place] 01/03/2023 [facility] - [place] 01/03/2023 Problem Noted Date Diagnosed Date [facility] 01/03/2023 [facility] - [place] 01/03/2023 Summary Purpose Family History No Family History Records Found Advance Directives No Advanced Directives Records Found Additional Source Comments Source Comments (unrecognize d section and content) In the event this informatio n is protected by the Federal Confidentiality of Alcohol and Drug Abuse Patient Records regulations: The Federal rules restrict any use of the information to criminally investigate or prosecute any alcohol or drug abuse patient.[facility] the event this information is protected by the Federal Confidentiality of Alcohol and Drug Abuse Patient Records regulations: The Federal rules restrict any use of the information to criminally investigate or prosecute any alcohol or drug abuse patient.[facility] the event this information is protected by the Federal Confidentiality of Alcohol and Drug Abuse Patient Records regulations: The Federal rules restrict any use of the information to criminally investigate or prosecute any alcohol or drug abuse patient.[facility] the event this information is protected by the Federal Confidentiality of Alcohol and Drug Abuse Patient Records regulations: The Federal rules restrict any use of the information to criminally investigate or prosecute any alcohol or drug abuse patient.[facility] the event this information is protected by the Federal Confidentiality of Alcohol and Drug Abuse Patient Records regulations: The Federal rules restrict any use of the information to criminally investigate or prosecute any alcohol or drug abuse patient.[facility] the event this information is protected by the Federal Confidentiality of Alcohol and Drug Abuse Patient Records regulations: The Federal rules restrict any use of the information to criminally investigate or prosecute any alcohol or drug abuse patient.[facility] the event this information is protected by the Federal Confidentiality of Alcohol and Drug Abuse Patient Records regulations: The Federal rules restrict any use of the information to criminally investigate or prosecute any alcohol or drug abuse patient.[facility] the event this information is protected by the Federal Confidentiality of Alcohol and Drug Abuse Patient Records regulations: The Federal rules restrict any use of the information to criminally investigate or prosecute any alcohol or drug abuse patient.[facility]In the event this information is protected by the Federal Confidentiality of Alcohol and Drug Abuse Patient Records regulations: The Federal rules restrict any use of the information to criminally investigate or prosecute any alcohol or drug abuse patient.[facility]In the event this information is protected by the Federal Confidentiality of Alcohol and Drug Abuse Patient Records regulations: The Federal rules restrict any use of the information to criminally investigate or prosecute any alcohol or drug abuse patient.[facility]In the event this information is protected by the Federal Confidentiality of Alcohol and Drug Abuse Patient Records regulations: The Federal rules restrict any use of the information to criminally investigate or prosecute any alcohol or drug abuse patient.[facility] the event this information is protected by the Federal Confidentiality of Alcohol and Drug Abuse Patient Records regulations: The Federal rules restrict any use of the information to criminally investigate or prosecute any alcohol or drug abuse patient.[facility] HospitalIn the event this information is protected by the Federal Confidentiality of Alcohol and Drug Abuse Patient Records regulations: The Federal rules restrict any use of the information to criminally investigate or prosecute any alcohol or drug abuse patient.[facility] HospitalIn the event this information is protected by the Federal Confidentiality of Alcohol and Drug Abuse Patient Records regulations: The Federal rules restrict any use of the information to criminally investigate or prosecute any alcohol or drug abuse patient.[facility] HospitalIn the event this information is protected by the Federal Confidentiality of Alcohol and Drug Abuse Patient Records regulations: The Federal rules restrict any use of the information to criminally investigate or prosecute any alcohol or drug abuse patient.[facility]In the event this information is protected by the Federal Confidentiality of Alcohol and Drug Abuse Patient Records regulations: The Federal rules restrict any use of the information to criminally investigate or prosecute any alcohol or drug abuse patient.[facility] HospitalIn the event this information is protected by the Federal Confidentiality of Alcohol and Drug Abuse Patient Records regulations: The Federal rules restrict any use of the information to criminally investigate or prosecute any alcohol or drug abuse patient.[facility]In the event this information is protected by the Federal Confidentiality of Alcohol and Drug Abuse Patient Records regulations: The Federal rules restrict any use of the information to criminally investigate or prosecute any alcohol or drug abuse patient.[facility] HospitalIn the event this information is protected by the Federal Confidentiality of Alcohol and Drug Abuse Patient Records regulations: The Federal rules restrict any use of the information to criminally investigate or prosecute any alcohol or drug abuse patient.[facility] HospitalIn the event this information is protected by the Federal Confidentiality of Alcohol and Drug Abuse Patient Records regulations: The Federal rules restrict any use of the information to criminally investigate or prosecute any alcohol or drug abuse patient.[facility] HospitalIn the event this information is protected by the Federal Confidentiality of Alcohol and Drug Abuse Patient Records regulations: The Federal rules restrict any use of the information to criminally investigate or prosecute any alcohol or drug abuse patient.[facility] HospitalIn the event this information is protected by the Federal Confidentiality of Alcohol and Drug Abuse Patient Records regulations: The Federal rules restrict any use of the information to criminally investigate or prosecute any alcohol or drug abuse patient.[facility] HospitalIn the event this information is protected by the Federal Confidentiality of Alcohol and Drug Abuse Patient Records regulations: The Federal rules restrict any use of the information to criminally investigate or prosecute any alcohol or drug abuse patient.[facility] HospitalIn the event this information is protected by the Federal Confidentiality of Alcohol and Drug Abuse Patient Records regulations: The Federal rules restrict any use of the information to criminally investigate or prosecute any alcohol or drug abuse patient.[facility] HospitalIn the event this information is protected by the Federal Confidentiality of Alcohol and Drug Abuse Patient Records regulations: The Federal rules restrict any use of the information to criminally investigate or prosecute any alcohol or drug abuse patient.[facility] HospitalIn the event this information is protected by the Federal Confidentiality of Alcohol and Drug Abuse Patient Records regulations: The Federal rules restrict any use of the information to criminally investigate or prosecute any alcohol or drug abuse patient.[facility] HospitalIn the event this information is protected by the Federal Confidentiality of Alcohol and Drug Abuse Patient Records regulations: The Federal rules restrict any use of the information to criminally investigate or prosecute any alcohol or drug abuse patient.[facility] HospitalIn the event this information is protected by the Federal Confidentiality of Alcohol and Drug Abuse Patient Records regulations: The Federal rules restrict any use of the information to criminally investigate or prosecute any alcohol or drug abuse patient.[facility] HospitalIn the event this information is protected by the Federal Confidentiality of Alcohol and Drug Abuse Patient Records regulations: The Federal rules restrict any use of the information to criminally investigate or prosecute any alcohol or drug abuse patient.[facility] HospitalIn the event this information is protected by the Federal Confidentiality of Alcohol and Drug Abuse Patient Records regulations: The Federal rules restrict any use of the information to criminally investigate or prosecute any alcohol or drug abuse patient.[facility] HospitalIn the event this information is protected by the Federal Confidentiality of Alcohol and Drug Abuse Patient Records regulations: The Federal rules restrict any use of the information to criminally investigate or prosecute any alcohol or drug abuse patient.[facility] HospitalIn the event this information is protected by the Federal Confidentiality of Alcohol and Drug Abuse Patient Records regulations: The Federal rules restrict any use of the information to criminally investigate or prosecute any alcohol or drug abuse patient.[facility] HospitalIn the event this information is protected by the Federal Confidentiality of Alcohol and Drug Abuse Patient Records regulations: The Federal rules restrict any use of the information to criminally investigate or prosecute any alcohol or drug abuse patient.[facility] HospitalIn the event this information is protected by the Federal Confidentiality of Alcohol and Drug Abuse Patient Records regulations: The Federal rules restrict any use of the information to criminally investigate or prosecute any alcohol or drug abuse patient.[facility] HospitalIn the event this information is protected by the Federal Confidentiality of Alcohol and Drug Abuse Patient Records regulations: The Federal rules restrict any use of the information to criminally investigate or prosecute any alcohol or drug abuse patient.[facility] HospitalIn the event this information is protected by the Federal Confidentiality of Alcohol and Drug Abuse Patient Records regulations: The Federal rules restrict any use of the information to criminally investigate or prosecute any alcohol or drug abuse patient.[facility] HospitalIn the event this information is protected by the Federal Confidentiality of Alcohol and Drug Abuse Patient Records regulations: The Federal rules restrict any use of the information to criminally investigate or prosecute any alcohol or drug abuse patient.[facility] HospitalIn the event this information is protected by the Federal Confidentiality of Alcohol and Drug Abuse Patient Records regulations: The Federal rules restrict any use of the information to criminally investigate or prosecute any alcohol or drug abuse patient.[facility] HospitalIn the event this information is protected by the Federal Confidentiality of Alcohol and Drug Abuse Patient Records regulations: The Federal rules restrict any use of the information to criminally investigate or prosecute any alcohol or drug abuse patient.[facility] HospitalIn the event this information is protected by the Federal Confidentiality of Alcohol and Drug Abuse Patient Records regulations: The Federal rules restrict any use of the information to criminally investigate or prosecute any alcohol or drug abuse patient.[facility] HospitalIn the event this information is protected by the Federal Confidentiality of Alcohol and Drug Abuse Patient Records regulations: The Federal rules restrict any use of the information to criminally investigate or prosecute any alcohol or drug abuse patient.[facility] HospitalIn the event this information is protected by the Federal Confidentiality of Alcohol and Drug Abuse Patient Records regulations: The Federal rules restrict any use of the information to criminally investigate or prosecute any alcohol or drug abuse patient.[facility] Care Teams (unrecognized sec tion and content) Aquarium Tank Attendant Relationship Specialty Start Date End Date Tin Alex MD [address] [place] [address] PCP - General Internal Medicine 10/27/21 Aquarium Tank Attendant Relationship Specialty Start Date End Date Tin Alex MD [address] [place] [address] PCP - General Internal Medicine 10/27/21 Aquarium Tank Attendant Relationship Specialty Start Date End Date Tin Alex MD [address] [place] [address] PCP - General Internal Medicine 10/27/21 Aquarium Tank Attendant Relationship Specialty Start Date End Date Tin Alex MD [address] [place] [address] PCP - General Internal Medicine 10/27/21 Aquarium Tank Attendant Relationship Specialty Start Date End Date Tin Alex MD [address] [place] [address] PCP - General Internal Medicine 10/27/21 Aquarium Tank Attendant Relationship Specialty Start Date End Date Tin Alex MD [address] [place] [address] PCP - General Internal Medicine 10/27/21 Aquarium Tank Attendant Relationship Specialty Start Date End Date Tin Alex MD [address] [place] [address] PCP - General Internal Medicine 10/27/21 Aquarium Tank Attendant Relationship Specialty Start Date End Date Tin Alex MD [address] [place] [address] PCP - General Internal Medicine 10/27/21 Aquarium Tank Attendant Relationship Specialty Start Date End Date Tin Alex MD [address] [place] [address] PCP - General Internal Medicine 10/27/21 Aquarium Tank Attendant Relationship Specialty Start Date End Date Tin Alex MD [address] [place] [address] PCP - General Internal Medicine 10/27/21 Aquarium Tank Attendant Relationship Specialty Start Date End Date Tin Alex MD [address] [place] [address] PCP - General Internal Medicine 10/27/21 Aquarium Tank Attendant Relationship Specialty Start Date End Date Tin Alex MD [address] [place] [address] PCP - General Internal Medicine 10/27/21 Aquarium Tank Attendant Relationship Specialty Start Date End Date Tin Alex MD [address] [place] [address] PCP - General Internal Medicine 10/27/21 Aquarium Tank Attendant Relationship Specialty Start Date End Date Tin Alex MD [address] [place] [address] PCP - General Internal Medicine 10/27/21 Aquarium Tank Attendant Relationship Specialty Start Date End Date Tin Alex MD [address] [place] [address] PCP - General Internal Medicine 10/27/21 Aquarium Tank Attendant Relationship Specialty Start Date End Date Tin Alex MD [address] [place] [address] PCP - General Internal Medicine 10/27/21 Aquarium Tank Attendant Relationship Specialty Start Date End Date Tin Alex MD [address] [facility], [place] [id number] PCP - General Internal Medicine 10/27/21 Reason for Visit (unrecogniz ed section and content) Specialty Diagnoses / Procedures Referred By Magali t Referred To Contact MR IMAGING Diagnoses Multiple sclerosis (HCC) Encounter for long-term (current) use of medications Procedures MRI BRAIN WO/W IVCON MRI BRAIN BRAIN STEM W/O W/CONTRAST MATERIAL Sinai Solis APRN.[employer] [address] [place] [address] Mr Imaging Referral ID Status Reason Start Date Expiration Date V isits Requested Visits Authorized [id number] Closed Auto-Generate d Referral 10/26/2021 06/24/2022 1 1 Reason Comments Established Patient Follow-Up Reason Comments Appointment Rescheduled Reason Comments Non-Chemotherapy Treatment Specialty Diagnoses / Procedures Referred By Magali canales Referred To Contact HEMATOLOGY/ONCOLOGY Diagnoses Multiple sclerosis (HCC) G35 (ICD-10-CM) - Multiple sclerosis (HCC) Procedures INJECTION, OCRELIZUMAB, 1 MG OCRELIZUMAB 300 MG D1,15 - THEN 600 MG D1 Q168D Marvin Juarez MD [address] [place] [address] [facility] [address] [place] [address] Referral ID Status Reason Start Date Expiration Date V isits Requested Visits Authorized [id number] Authorized 04/16/2020 12/23/2022 4 4 Reason Comments Appointment LVM to inform ramya t about appointment per staff message Referral ID Status Reason Start Date Expiration Date V isits Requested Visits Authorized [id number] Authorized 04/16/2020 12/23/2022 6 6 Reason Comments Established Patient Follow-Up Reason Comments Benefits Investigation Reason Comments Research F/U Reason Comments Future Appointment Reason Comments Care Reason Comments Initial OB Visit Reason Onset Date Comments Care 01/31/2023 Reason Onset Date Comments Care 02/28/2023 Reason Comments Sinus Infection,frequent/recurring Cold, sinus infection coughing green mucus Reason Comments US Specialty Diagnoses / Procedures Referred By Contac t Referred To Contact [facility] Diagnoses 14 weeks gestation of Encounter for supervision of normal first in second trimester Procedures OBSTETRIC ULTRASOUND WHI US PREG UTERUS AFTER 1ST TRIMEST GESTATION Romero Cheek MD [address] [place] [address] [address] Referral ID Status Reason Start Date Expiration Date Visits Requested Visits Authorized [id number] Authorized Auto-Generat ed Referral 03/14/2023 06/24/2023 20 20 Reason Comments coughing up green mucus and sinus conges tion X 6 days Reason Onset Date Comments Care 05/25/2023 Reason Onset Date Comments Care 07/20/2023 Reason Onset Date Comments Care 07/27/2023 Specialty Diagnoses / Procedures Referred By Contac t Referred To Contact [facility] Diagnoses Obesity affecting in third trimester, unspecified obesity type Encounter for supervision of normal first in third trimester Procedures OBSTETRIC ULTRASOUND WHI US PREG UTERUS AFTER 1ST TRIMEST GESTATION Romero Cheek MD [address] [place] [address] [address] Referral ID Status Reason Start Date Expiration Date V isits Requested Visits Authorized [id number] Closed Auto-Generate d Referral 07/27/2023 07/27/2023 1 1 Reason Onset Date Comments Care 08/03/2023 Reason Onset Date Comments Care 08/13/2023 INFORMATION SOURCE (unrecogn ized section and content) FOR RECORDS PERTAINING TO PATIENTS WHO ARE OR HAVE BEEN ENROLLED IN A CHEMICAL DEPENDENCY/SUBSTANCEABUSE PROGRAM, SOME INFORMATION MAY BE OMITTED. This clinical summary was aggregated from multiple sources. Caution should be exercised in using it in the provision of clinical care. This summary normalizes information from multiple sources, and as a consequence, information in this document may materially change the coding, format and clinical context of patient data. In addition, data may be omitted in some cases. CLINICAL DECISIONS SHOULD BE BASED ON THE PRIMARY CLINICAL RECORDS. [facility] [email or web address] [facility]. provides no warranty or guarantee of the accuracy or completeness of information in this document.
[2023-08-19 19:22] VITALS: BMI 38.9
[2023-08-19] MEDS: Lactated Ringers 1,000 ML 50 ML IV (19:25)
[2023-08-19 19:42] VITALS: TEMP 36.9
[2023-08-19 19:43] VITALS: PULSE 72; O2SAT 98
[2023-08-19 19:47] VITALS: BP 124/82; PULSE 71
[2023-08-19 19:50] LABS: Absolute Lymphocyte Count 2.39 X10^3/uL (0.83-4.51); Absolute Neutrophil Count 7.3 X10^3/uL (2.0-7.7); Basophil# 0.05 X10^3/uL; Basophil% 0.5 % (0-1); Eosinophil# 0.29 X10^3/uL; Eosinophils% 2.7 % (0-5); Hematocrit 35.2 % (37-47); Hemoglobin 11.1 g/dL (12.0-15.0); Lymphocyte # 2.39 X10^3/ul (0.83-4.51); Lymphocyte % 22.2 % (19-41); Mean Corp Hgb Conc 31.5 g/dL (32-36); Mean Corpuscular Hgb 26.3 pg (27.0-32.0); Mean Corpuscular Volume 83.4 fL (81-99); Mean Platelet Vol. 13.4 fl (6.2-12.0); Monocyte# 0.71 X10^3/uL; Monocyte% 6.6 % (0-10); NRBC Flagged by Analyzer 0 % (0-5); Neutrophil # 7.26 X10^3/uL (2.7-7.7); Neutrophil % 67.3 % (47-70); Platelet Count 212 K/mm3 (150-450); RBC Distribution Width CV 13.7 % (11.6-14.6); RBC Distribution Width SD 41.2 fl (35.1-43.9); Red Blood Count 4.22 M/mm3 (4.2-5.4); White Blood Count 10.8 K/mm3 (4.4-11.0)
[2023-08-19] MEDS: 0.9% Normal Saline Single 100 ML IV.SOLN. INTRA-UTER (20:02)
--- NOTE | 2023-08-19 20:14 | PCM.HP.OB ---
HPI - General General Date of Admission: 08/19/23 Date of Service: 08/19/23 Chief Complaint: induction of labor HPI Narrative FABIANO ISAACS, is a 22 F who presents at 39w3d for a scheduled induction of labor. No pain, vb, lof. Good FM. She offers no complaints. PFSH PFSH Medical History Gastric reflux Low iron Migraine headache Multiple sclerosis Non-smoker Home Medications biotin 5 mg tablet 5 mg PO DAILY hair loss 05/13/21 [History Last Taken Unknown] ferrous sulfate 325 mg (65 mg iron) tablet (Feosol) 325 mg PO DAILY hair loss 05/13/21 [History Last Taken Unknown] ketoconazole 1 % shampoo 1 applic topical 2XW psoriasis 05/13/21 [History Last Taken Unknown] ocrelizumab 30 mg/mL intravenous solution (Ocrevus) 30 mg .Route .6m Multiple sclerosis 05/13/21 [History Last Taken Unknown] cholecalciferol (vitamin D3) 125 mcg (5,000 unit) tablet (Vitamin D3) 125 mcg PO DAILY multiple sclerosis 05/23/21 [History Last Taken Unknown] pantoprazole 40 mg tablet,delayed release 40 mg PO DAILY acid reflux #60 tabs 06/01/21 [Rx Last Taken 08/19/23 07:00 40 mg] sucralfate 1 gram tablet (Carafate) 1 g PO BID #60 tabs 06/01/21 [Rx Last Taken Unknown] pantoprazole 40 mg tablet,delayed release 40 mg PO DAILY acid reflux #60 tabs 06/10/21 [Rx Last Taken Unknown] Allergy/AdvReac Type Severity Reaction Status Date / Time No Known Allergies Allergy Verified 08/19/23 19:23 Family History Mother Diabetes Grandmother Cancer melanoma Surgical History History of wisdom tooth extraction Social History Smoking Status: Never smoker History Elective abortions Hx Para 0 Spontaneous abortions Hx # Term Pregnancies Ectopic pregnancies Hx # Pregnancies Multiple births # of living children Addt'l History: History of MS diagnosed in 2019. History of abnormal 1 hour GTT with normal 3 hr GTT. Obesity in . NST FHR Rate Baby A Baseline: 130 Variability:: Moderate Accelerations:: 15 x 15 Decelerations:: None NST Reactive:: Yes FHR Category:: Category I Uterine Activity:: no ctx's Vital Signs Vital Signs Vital Signs: 08/19/23 19:42 08/19/23 19:43 08/19/23 19:43 Temperature Temperature Source Temporal Pulse Rate 72 Blood Pressure BP Systolic BP Diastolic Pulse Ox 98 08/19/23 19:42 08/19/23 19:47 08/19/23 19:47 Temperature 98.4 F Temperature Source Pulse Rate 71 Blood Pressure 124/82 H BP Systolic 124 BP Diastolic 82 Pulse Ox Weight Weight: 234 lb 6 oz Body Mass Index (BMI) 38.9 Physical Exam Const alert and no apparent distress General Appearance: comfortable HEENT normocephalic Resp normal respiratory effort GI GI Narrative: Gravid Narrative: Cvx 1/80/-2, vertex Labs Labs Labs: Blood Type Pending Antibody Screen Pending Hct 35.2 % (37-47) L Hgb 11.1 g/dL (12.0-15.0) L Syphilis Total Ab Pending Miscellaneous Test COMMENT Assessment & Plan (1) 39 weeks gestation of : PLAN: Patient presents for a scheduled elective IOL. Pre BMI was > 40. Reviewed induction process with patient and she desires to proceed. PCN for GBS positive. Epidural PRN. Intracervical oliveros placed in usual fashion and filled with 30 cc. Cytotec ordered. EFW 67% at 36 weeks and pelvis adequate. (2) Obesity affecting : (3) Abnormal glucose affecting : (4) Positive GBS test: (5) MS (multiple sclerosis):
[2023-08-19] MEDS: miSOPROStol 25 MCG TABLET PO (20:34)
[2023-08-19 20:45] VITALS: BP 117/66; PULSE 68; TEMP 36.6; O2SAT 98
[2023-08-19 21:13] LABS: Syphilis Antibodies Non-reactive
[2023-08-19 22:19] VITALS: BP 124/68; PULSE 69; TEMP 37; O2SAT 95
[2023-08-20] VITALS (49 sets, daily range): BP systolic 68–141; BP diastolic 49–84; PULSE 61–122; RESP 16–18; TEMP 36.2–37.4; O2SAT 83–100
[2023-08-20] MEDS: LACTATED RINGERS 500 ML 999 ML IV ×2 (00:09→12:31)
[2023-08-20] MEDS: fentaNYL-bupivacaine (epidural) 100 ML BAG EPIDURAL (01:21)
[2023-08-20] MEDS: Oxytocin 15 Units/NS 250ml 15 UNITS/250 ML IV.SOLN 2 UNITS IV (01:57)
[2023-08-20 02:03] LABS: ROM Internal Control Test YES-OK TO RESULT pt. (Internal QC)
[2023-08-20] MEDS: Penicillin G Pot 5,000,000 UNITS in 0.9% Normal Saline (100mL MB+) 100 ML 150 UNITS IV (02:03)
[2023-08-20 02:04] LABS: ROM Patient Test POSITIVE (Negative)
[2023-08-20] MEDS: Lactated Ringers 1,000 ML 200 ML IV (04:15)
[2023-08-20] MEDS: 0.9% Saline Lock 10 ML Syringe IV ×2 (04:36→09:27)
[2023-08-20] MEDS: Ondansetron 4 MG/2 ML Vial IV (04:36)
[2023-08-20] MEDS: Oxytocin 15 Units/NS 250ml 15 UNITS/250 ML IV.SOLN 83 UNITS IV (06:16)
--- NOTE | 2023-08-20 06:25 | PCM.OPRPT ---
Problems Associated Problem List Diagnoses (1) 39 weeks gestation of : (2) Positive GBS test: (3) Abnormal glucose affecting : (4) Obesity affecting : Report of Operation Date of Procedure: 08/20/23 Pre-Operative Diagnosis: 39 week gestation, single IUP, obesity in , elective IOL Post-Operative Diagnosis: As above Surgery/Procedure Performed:: Repair of second degree perineal laceration and left vaginal wall laceration Description of Surgical Findings:: VFI in JAMAR position with loose nuchal cord x 1. Apgars 9, 9. Surgeon: Reema Gibson tester wafer substrate: None Type of Anesthesia: Epidural Special Medications: None Specimen's removed: Placenta Drains: None Estimated Blood Loss (mL): 100 Fluids Replaced: N/A Description of Procedure: I was called for delivery. Within 5 minutes I received a second call reporting the baby was born, so upon walking into the room a VFI was on maternal abdomen and the cord was clamped and cut. Per nursing staff, a vigorous VFI delivered in JAMAR position with a loose nuchal cord x 1. I checked the patient and the placenta was in the upper vagina and Pitocin infusing. The placenta delivered spontaneously and was noted to be intact and normal appearing with a 3 VC. Upon inspection, a second degree perineal laceration was noted and a small left vaginal wall laceration. 3-0 [address] was used to place a figure of eight suture for hemostasis of the small left vaginal wall laceration that was briskly bleeding. 3-0 Vicryl was then used to repair the second degree perineal laceration in usual fashion. Fundus was firm and bleeding hemostatic. Sharp and sponge counts were correct. A vaginal sweep was performed. Grafts/Implants Used: None Complications None Admit VTE Documentation VTE Present on Admission: No
[2023-08-20] MEDS: Methylergonovine 0.2 MG/ML Ampul 0.200000000000000011 MG IM (12:24)
[2023-08-20] MEDS: Oxytocin 15 Units/NS 250ml 15 UNITS/250 ML IV.SOLN 334 UNITS IV (12:31)
[2023-08-20] MEDS: miSOPROStol 200 MCG Tablet 1000 MCG RC (12:35)
[2023-08-20 12:37] LABS: Absolute Lymphocyte Count 2.21 X10^3/uL (0.83-4.51); Absolute Neutrophil Count 14.1 X10^3/uL (2.0-7.7); Basophil# 0.05 X10^3/uL; Basophil% 0.3 % (0-1); Eosinophil# 0.09 X10^3/uL; Eosinophils% 0.5 % (0-5); Hematocrit 28.9 % (37-47); Hemoglobin 9.2 g/dL (12.0-15.0); Lymphocyte # 2.21 X10^3/ul (0.83-4.51); Lymphocyte % 12.3 % (19-41); Mean Corp Hgb Conc 31.8 g/dL (32-36); Mean Corpuscular Hgb 26.7 pg (27.0-32.0); Mean Corpuscular Volume 83.8 fL (81-99); Mean Platelet Vol. 12.9 fl (6.2-12.0); Monocyte% 7.3 % (0-10); NRBC Flagged by Analyzer 0 % (0-5); Neutrophil # 14.11 X10^3/uL (2.7-7.7); Neutrophil % 78.8 % (47-70); Platelet Count 269 K/mm3 (150-450); RBC Distribution Width CV 13.9 % (11.6-14.6); Red Blood Count 3.45 M/mm3 (4.2-5.4); White Blood Count 17.9 K/mm3 (4.4-11.0)
[2023-08-20] MEDS: Lidocaine 1% (20 ml mdv) 20 ML Vial INFILT (12:45)
[2023-08-20] MEDS: Lidocaine 1% (30 ml sdv) 30 ML Vial INFILT (12:45)
[2023-08-20 12:47] LABS: Partial Thromboplast Time 23.9 Seconds (24.1-36.2)
[2023-08-20] MEDS: Acetaminophen 500 MG Tablet 1000 MG PO ×2 (12:53→22:18)
[2023-08-20] MEDS: Lactated Ringers 1,000 ML 999 ML IV (13:04)
--- NOTE | 2023-08-20 13:34 | PCM.PN.BLA ---
Progress Note I was called by RN- pt with clots and hypotension. Upon my arrival BP 60s/40s, normal HR in 70s. bedside ultrasound reveals heterogenous appearing endometrium. Bladder was drained prior to my arrival for 350cc urine. I counseled patient about uterine exploration and removal of clots- at this time I was able to expel several large clots, lower uterine segment atony noted- total EBL 1713cc. second IV was started, 1 L IVF bolus was initiated and Anesthesia was notified.IV pitocin was continued along with giving- Methergine IM given and 1000mcg CYTOTEC given per rectum. Uterine fundal massage was continued. Uterus firmed slightly deviated to right. Bleeding slowed, pt color improving and reports she was feeling better. Las were drawn- hg down to 9.8. Will repeat labs at 3pm and again in the AM. 2nd degree laceration sutures were noted to be loose and may have been disrupted during exam, no active bleeding. decision to reapproximate. at this time 10cc of 1% lidocaine was injected and 2-0 Vicryl was used to reapproximate lacerate- pt tolerated well. Excellent hemostasis was noted.
--- NOTE | 2023-08-20 14:04 | NURSING ---
1215 RN to pt room for reports of heavy bleeding. Peripad noted to be saturated and blood on gown and bed pad. BP 100/73 FF but shifted up and to the right. Assisted to sitting position to attempt to go to bathroom to empty bladder but pt. c/o feeling lightheaded upon being upright. Assisted back into bed and hemorrhage cart to room. Pad weighed for [address] VE and no clots expelled but pt reports nausea at this time. BP rechecked and 64/38. Dr. Joyce called and requested to come to hospital at 1219. Additional staff to room. 1224 Methergine given IM and FOB holding baby at bedside. Emotional support given. 1228 Second IV inserted and straight cath for 350 ml. Pt. placed in trendelenberg and warm blanket given. 1230 Dr. Joyce in room and bedside ultrasound performed. St VE per her for pad full of large clots. Weighed for 1224 gm for total EBL 1713 ml. BP 68/59, hr 78, pulse ox 100%, uterus firming. [address] Joyce. Uterus remains firm. BP 89/59, 78, 100%. Pt. reports feeling less dizzy and nauseated. 1245 Repair of 2nd degree lac. stitches per Dr. Joyce with lidocaine. Pt. ariella. without difficulty. 1255 Dr. Joyce out of room. BP 104/62, 76, pulseox 100%.
[2023-08-20 15:25] LABS: Hematocrit 28.2 % (37-47); Mean Corp Hgb Conc 31.9 g/dL (32-36); Mean Corpuscular Hgb 26.2 pg (27.0-32.0); Mean Platelet Vol. 12.7 fl (6.2-12.0); Platelet Count 208 K/mm3 (150-450); RBC Distribution Width CV 13.8 % (11.6-14.6); Red Blood Count 3.44 M/mm3 (4.2-5.4); White Blood Count 19.4 K/mm3 (4.4-11.0)
[2023-08-21 00:54] VITALS: BP 106/65; PULSE 99; RESP 16; TEMP 36.6; O2SAT 99
[2023-08-21 03:40] VITALS: BP 110/45; PULSE 85; RESP 16; TEMP 36.5; O2SAT 98
[2023-08-21 05:35] LABS: Hematocrit 22.5 % (37-47); Mean Corp Hgb Conc 31.1 g/dL (32-36); Mean Corpuscular Volume 83.6 fL (81-99); Mean Platelet Vol. 12.7 fl (6.2-12.0); Platelet Count 193 K/mm3 (150-450); RBC Distribution Width CV 13.9 % (11.6-14.6); RBC Distribution Width SD 42.2 fl (35.1-43.9); Red Blood Count 2.69 M/mm3 (4.2-5.4); White Blood Count 11.1 K/mm3 (4.4-11.0)
[2023-08-21] MEDS: Acetaminophen 500 MG Tablet 1000 MG PO ×2 (06:57→22:27)
--- NOTE | 2023-08-21 08:20 | PN.OBGYN_ITS ---
Subjective Subjective Patient feels well. Denies dizziness, CP or SOB. Objective Data Objective Data Vital Signs: Vital Signs Temp Pulse Resp BP Pulse Ox O2 Del Method 97.7 F L 85 16 110/45 L 98 Room Air 08/21/23 03:40 08/21/23 03:40 08/21/23 03:40 08/21/23 03:40 08/21/23 03:40 08/21/23 03:40 Oxygen Delivery Method Room Air Weight: 234 lb 6 oz Body Mass Index (BMI) 38.9 Intake & Output: Intake and Output for Last 24 Hours 08/19/23 08/20/23 08/21/23 23:59 23:59 23:59 Intake Total 4114.17 / 4114.17 Output Total 2163 / 2163 Balance 195.17 / 1950.17 Lab / Micro Data 08/21/23 05:20 Labs: Laboratory Results - last 24 hr 08/20/23 12:28: WBC 17.9 H, RBC 3.45 L, Hgb 9.2 L, Hct 28.9 L, MCV 83.8, MCH 26.7 L, MCHC 31.8 L, RDW Std Deviation 42.0, RDW Coeff of Alexus 13.9, Plt Count 269, MPV 12.9 H, Immature Gran % (Auto) 0.800, Neut % (Auto) 78.8 H, Lymph % (Auto) 12.3 L, [place] % (Auto) 7.3, Eos % (Auto) 0.5, Baso % (Auto) 0.3, Absolute Neuts (auto) 14.1 H, Absolute Lymphs (auto) 2.21, Nucleated RBC % 0, PT 13.0, INR 1.0, APTT 23.9 L 08/20/23 15:10: WBC 19.4 H, RBC 3.44 L, Hgb 9.0 L, Hct 28.2 L, MCV 82.0, MCH 26.2 L, MCHC 31.9 L, RDW Std Deviation 41.0, RDW Coeff of Alexus 13.8, Plt Count 208, MPV 12.7 H 08/21/23 05:20: WBC 11.1 H, RBC 2.69 L, Hgb 7.0 L, Hct 22.5 L, MCV 83.6, MCH 26.0 L, MCHC 31.1 L, RDW Std Deviation 42.2, RDW Coeff of Alexus 13.9, Plt Count 193, MPV 12.7 H Physical Exam Const alert, oriented x3 and no apparent distress HEENT normocephalic GI soft to palpation, non-tender and non-distended GI Narrative: fundus firm, mid & below umbilicus Extremity normal to inspection and no calf tenderness Assessment & Plan (1) care following vaginal delivery: COMMENT: PPD#1 (2) Anemia due to blood loss, acute: PLAN: Plan Heme - patient is anemic. Plan for IV iron. Repeat CBC tomorrow AM. Routine care
[2023-08-21 08:40] VITALS: BP 102/62; PULSE 74; RESP 16; TEMP 36.2; O2SAT 98
[2023-08-21] MEDS: Iron Sucrose Complex 200 MG in 0.9% Normal Saline (100mL Bag) 100 ML 220 MG IV (09:21)
[2023-08-21] MEDS: 0.9% Saline Lock 10 ML Syringe IV ×2 (09:34→22:27)
[2023-08-21 14:00] VITALS: BP 113/70; PULSE 74; RESP 20; TEMP 36.1
[2023-08-21 20:00] VITALS: BP 118/78; PULSE 73; RESP 16; TEMP 36.3; O2SAT 100
[2023-08-22 02:00] VITALS: BP 115/78; PULSE 87; RESP 16; TEMP 36.4; O2SAT 100
[2023-08-22 06:30] LABS: Absolute Lymphocyte Count 2.22 X10^3/uL (0.83-4.51); Absolute Neutrophil Count 9.9 X10^3/uL (2.0-7.7); Basophil# 0.07 X10^3/uL; Basophil% 0.5 % (0-1); Hematocrit 25.5 % (37-47); Hemoglobin 7.8 g/dL (12.0-15.0); Lymphocyte # 2.22 X10^3/ul (0.83-4.51); Lymphocyte % 16.5 % (19-41); Mean Corp Hgb Conc 30.6 g/dL (32-36); Mean Corpuscular Hgb 25.9 pg (27.0-32.0); Mean Corpuscular Volume 84.7 fL (81-99); Mean Platelet Vol. 12.2 fl (6.2-12.0); Monocyte# 0.63 X10^3/uL; Monocyte% 4.7 % (0-10); NRBC Flagged by Analyzer 0 % (0-5); Neutrophil # 9.85 X10^3/uL (2.7-7.7); Neutrophil % 73.4 % (47-70); Platelet Count 254 K/mm3 (150-450); Red Blood Count 3.01 M/mm3 (4.2-5.4); White Blood Count 13.4 K/mm3 (4.4-11.0)
--- NOTE | 2023-08-22 09:02 | PCM.PN.OB ---
Subjective Subjective pain well controlled, average lochia. . Denies SOB/lightheaded or dizziness w/ ambulation and showering. Objective Data Objective Data Vital Signs: Vital Signs Temp Pulse Resp BP Pulse Ox O2 Del Method 97.6 F L 87 16 115/78 100 Room Air 08/22/23 02:00 08/22/23 02:00 08/22/23 02:00 08/22/23 02:00 08/22/23 02:00 08/22/23 02:00 Oxygen Delivery Method Room Air Weight: 106.311 kg Body Mass Index (BMI) 38.9 Intake & Output: Intake and Output for Last 24 Hours 08/20/23 08/21/23 08/22/23 23:59 23:59 23:59 Intake Total 4114.17 / 4114.17 110 / 110 Output Total 2163 / 2163 Balance 195.17 / 1950.17 110 / 110 Lab / Micro Data 08/22/23 06:11 Labs: Laboratory Results - last 24 hr 08/22/23 06:11: WBC 13.4 H, RBC 3.01 L, Hgb 7.8 L, Hct 25.5 L, MCV 84.7, MCH 25.9 L, MCHC 30.6 L, RDW Std Deviation 43.0, RDW Coeff of Alexus 14.0, Plt Count 254, MPV 12.2 H, Immature Gran % (Auto) 1.900 H, Neut % (Auto) 73.4 H, Lymph % (Auto) 16.5 L, [place] % (Auto) 4.7, Eos % (Auto) 3.0, Baso % (Auto) 0.5, Absolute Neuts (auto) 9.9 H, Absolute Lymphs (auto) 2.22, Nucleated RBC % 0 Physical Exam Narrative pale, skin warm, dry and intact Const alert and no apparent distress Narrative: Fundus firm, below umbilicus. Assessment & Plan (1) Anemia due to blood loss, acute: (2) care following vaginal delivery: COMMENT: PPD#2 PLAN: Blood count stable. Received 1 dose of IV iron. Discharged home with vitamins and p.o. iron and follow-up in the office as needed or as scheduled. Tolerating the anemia well, comfortable going home.
--- NOTE | 2023-08-22 09:07 | PCM.DC.SUM ---
Providers Date of Admission: 08/19/23 Primary Care Physician: Dr. Tin Mccoy MD Reason For Visit: INDUCTION Diagnosis Discharge Diagnosis (1) Anemia due to blood loss, acute: Status: Acute Code(s): D62 - Acute posthemorrhagic anemia (2) care following vaginal delivery: Status: Acute Code(s): Z39.2 - Encounter for routine follow-up Plan: Blood count stable. Received 1 dose of IV iron. Discharged home with vitamins and p.o. iron and follow-up in the office as needed or as scheduled. Tolerating the anemia well, comfortable going home. Medications at Discharge Home Medications ferrous sulfate 325 mg (65 mg iron) tablet (FeroSul) 325 mg PO QODAY 60 days #15 tabs 08/22/23 ibuprofen 600 mg tablet 600 mg PO Q6H PRN Pain 30 days #30 TABLETS 08/22/23 Hospital Course Operations - (Vaginal delivery with atony and PP hemorrhage on 08/20/23) Procedures None Summary of Care Provided Minutes Spent on Discharge: 18 Hospital Course: 23-year-old 1 para 0 admitted at 39+ weeks on 08/19/2023 for elective induction of labor. She has a history of MS and esophagitis and gastritis. She had a spontaneous vaginal delivery on the morning of 08/20/2023. Later that morning she had a delayed hemorrhage. She did not require transfusion. Hemorrhage was controlled with conservative measures. She was given a dose of IV iron on 08/21/2023. On 08/22/2023 she was ambulating, urinating tolerating regular diet without difficulty. She was breast-feeding her . She was discharged home to follow-up in the office in 1-2 in 6 weeks or as needed. She was given a prescription for oral iron and ibuprofen. Weight / BMI Weight Weight: 106.311 kg Body Mass Index (BMI) 38.9 ABG / Lab / Microbiology Data 08/22/23 06:11 Laboratory: Laboratory Results - last 24 hr 08/22/23 06:11: WBC 13.4 H, RBC 3.01 L, Hgb 7.8 L, Hct 25.5 L, MCV 84.7, MCH 25.9 L, MCHC 30.6 L, RDW Std Deviation 43.0, RDW Coeff of Alexus 14.0, Plt Count 254, MPV 12.2 H, Immature Gran % (Auto) 1.900 H, Neut % (Auto) 73.4 H, Lymph % (Auto) 16.5 L, [place] % (Auto) 4.7, Eos % (Auto) 3.0, Baso % (Auto) 0.5, Absolute Neuts (auto) 9.9 H, Absolute Lymphs (auto) 2.22, Nucleated RBC % 0 D/C Instructions May resume sexual activity in: 6 weeks Please Follow Up With: Reema Gibson DO When: Follow up with our office in 1-2 and 6 weeks or as needed. [phone] Meaningful Use Info Meaningful Use Diagnoses (Choose all that apply): None applicable Discharge Plan Admission Admit Date/Time: 08/19/23 18:50 Primary Reason for Your Visit: vaginal delivery Attending Provider: Reema Gibson Primary Care Provider: Tin Mccoy Discharge Orders/Prescriptions Prescriptions: New ferrous sulfate [FeroSul] 325 MG tablet 325 mg PO QODAY 60 Days Qty: 15 1RF ibuprofen [ibuprofen] 600 MG tablet 600 mg PO Q6H PRN (Reason: Pain) 30 Days Qty: 30 1RF Discontinued biotin 5 mg tablet 5 mg PO DAILY ferrous sulfate [Feosol] 325 mg (65 mg iron) tablet 325 mg PO DAILY ketoconazole 1 % shampoo 1 applic topical 2XW Ocrevus 30 mg/mL solution 30 mg .Route .6m Rx Instructions: every 6 months pantoprazole 40 mg tablet,delayed release (DR/EC) 40 mg PO DAILY Qty: 60 2RF Rx Instructions: take twice a day for 8 weeks total, then once a day for 8 weeks cholecalciferol (vitamin D3) [Vitamin D3] 125 mcg (5,000 unit) Tablet 125 mcg PO DAILY sucralfate [Carafate] 1 gram tablet 1 g PO BID Qty: 60 0RF Rx Instructions: take two times a day for thirty days pantoprazole 40 mg tablet,delayed release (DR/EC) 40 mg PO DAILY Qty: 60 0RF Rx Instructions: take two times a day for eight weeks then once a day for eight weeks Referrals / Follow Up: Tin Mccoy MD [Primary Care Provider] - Disposition Disposition (needs filled in before D/C Order can be placed): Home, Self Care
[2023-08-22 10:00] VITALS: BP 119/68; PULSE 102; RESP 18; TEMP 36.4; O2SAT 96
--- NOTE | 2023-08-27 13:33 | NURSING ---
08/27/23 0848: IBCLC calling patient to return voicemail left on line to schedule visit and ask follow up questions. Unit phone number given for patient to return call when able. 08/27/23 1254: Patient returned call to department. Telehealth visit scheduled for tomorrow at 1500. Patient did not report any s+s during phone call, and denied questions. States is going well so far.
== END 2023-08-22 12:05 | disposition home or self-care (01) | DRG 806 ==
PROVIDERS: Obstetrics & Gynecology; Admitting Provider Obstetrics & Gynecology; PCP Internal Medicine; Referring Provider Obstetrics & Gynecology; Visit Provider Obstetrics & Gynecology
DX: O99.214 Obesity complicating childbirth (principal); Z37.0 Single live birth; D62 Acute posthemorrhagic anemia; O99.354 Diseases of the nervous system complicating childbirth; E66.8 Other obesity; O99.814 Abnormal glucose complicating childbirth; G35 Multiple sclerosis; O72.1 Other immediate postpartum hemorrhage; O70.1 Second degree perineal laceration during delivery; O99.824 Streptococcus B carrier state complicating childbirth; O69.81X0 Labor and delivery complicated by cord around neck, without compression, not applicable or unspecified; Z3A.39 39 weeks gestation of pregnancy; B95.1 Streptococcus, group B, as the cause of diseases classified elsewhere; O90.81 Anemia of the puerperium
CPT/HCPCS: 59025; 59050; 84112; 85025; 85027; 85610; 85730; 86780; 86850; 86900; 86901; 99221; J1756; J7120; A4216; G0378; J2405

== ENCOUNTER → 2025-04-18 | Outpatient (CLI) | payer OTHER, SELFPAY ==
--- OUTSIDE RECORDS SUMMARY | 2025-04-18 09:53 | XMS RPT_ITS | CCD ---
Author Organization [facility] Care Team Providers Care Cellular Equipment Installer Name Role Phone Amilcar MELISSA, Devin Diego Primary Care Provider Darius MELISSA, Tin Diego Primary Care Provider [phone] Darius MELISSA, Tin Diego Primary Care Provider [phone] Unavailable Primary Care Provider Unavailabl e Unavailable Primary Care Provider Unavailabl e [facility] Referring Unavailable JACK GARCIA Attending Unavailable TEGAN HAMILTON Attending Unavailable JACK GARCIA Attending Unavailable SEDLAK, [facility] Hay Referring Unavailable SEDLAK, [facility] Hay Referring Unavailable SEDLAK, [facility] Hay Referring Unavailable LAMIN NEGRETE Attending Unavailable RIANNA ANNE Attending Unavail able JACK GARCIA Attending Unavailable Tin Mccoy Referring Unavailable Tin Mccoy Primary Care Unavailable Etta Mcclain Attending Unavailable Medications Current Medications Medication Drug Class(es) Dates Sig (Normalized) Sig (Original) amoxicillin 500 mg oral capsule (4 sources) Penicillin-class Antibacterial Start: 08-08-2023 End: 08-31-2023 take 1 capsule by mouth three times daily amoxicillin (AMOXIL) 500 mg capsule Take 500 mg by mouth three times a day. 0 08/08/2023 08/31/2023 Discontinued Start: 06-22-2023 End: 07-27-2023 take 1 capsule by mouth three times daily amoxicillin (AMOXIL) 500 mg capsule Take 500 mg by mouth three times a day. 0 06/22/2023 07/27/2023 Discontinued Comment on above: Take 500 mg by mouth three times a day. amoxicillin 875 mg / clavulanate 125 mg oral tablet (8 sources) Penicillin-class Antibacterial Start: 5 End: take 1 tablet by mouth twice daily at mealtime amoxicillin-clavu lanate potassium (AUGMENTIN) 875-125 mg per tablet Indications: Non-recurrent acute serous otitis media of left ear Take 1 tablet by mouth two times a day for 7 days. Take with food 14 tablet 01/06/2025 01/13/2025 Active Start: 07-28-2024 End: 08-07-2024 take 1 tablet by mouth twice daily amoxicillin-clavulanate potassium (AUGMENTIN) 875-125 mg per tablet Indications: Sinobronchitis Take 1 tablet by mouth two times a day for 10 days. 20 tablet 07/28/2024 08/07/2024 Active Start: 05-28-2023 End: 06-07-2023 take 1 tablet by mouth twice daily amoxicillin-clavulanate potassium (AUGMENTIN) 875-125 mg per tablet Take 1 tablet by mouth two times a day for 10 days. 20 tablet 0 05/28/2023 06/07/2023 Active Start: 03-25-2023 End: 04-01-2023 take 1 tablet by mouth twice daily amoxicillin-clavulanic acid (AUGMENTIN) 875-125 mg per tablet Indications: Upper respiratory infection with cough and congestion Take 1 tablet by mouth two times a day for 7 days. 14 tablet 0 03/25/2023 04/01/2023 Active Comment on above: Take 1 tablet by julio th two times a day for 7 days. Take 1 tablet by julio th two times a day for 10 days. azithromycin 250 mg oral tablet (2 sources) Macrolide Antimicrobial Start: 11-04-19 End: 11-09-19 take 2 tablets by mouth once daily, then take 1 tablet by mouth once daily azithromycin (ZITHROMAX) 250 mg tablet Indications: Sinobronchitis Take 2 tablets by mouth once daily for 1 day, THEN 1 tablet once daily for 4 days. 6 tablet 11/03/2024 11/08/2024 Active clobetasol propionate 0.5 mg/ml topical cream (20 sources) Corticosteroid Start: 10-15-19 clobetasol (TEMOVATE) 0.05 % cream Apply to affected area two times a day. 10/14/2024 Active Start: 01-11-2021 End: 01-01-2023 Clobetasol Propionate (TEMOV ATE) 0.05 % external solution ferrous sulfate 325 mg oral tablet (4 sources) Start: 08-22-2023 take 1 tablet by mouth every other day Ferrous Sulfate (Ferosul) 325 MG tablet Active 325 MG PO EVERY OTHER DAY 15 60 August 22, 2023 12:00am Start: 05-13-2021 End: 08-22-2023 take 1 tablet by mouth once daily Ferrous Sulfate (Feosol) 325 mg (65 mg iron) tablet Discontinued 325 MG PO DAILY May 13, 2021 12:00am August 22, 2023 9:04am fluticasone propionate 0.05 mg/actuat metered dose nasal spray (5 sources) Corticosteroid Start: 11-03-2024 take 2 spray(s) by mouth once daily fluticasone (FLONASE) 50 mcg/actuation nasal spray Indications: Sinobronchitis , Postnasal drip Use 2 sprays in each nostril once daily. Rinse mouth after use. 1 each 11/03/2024 Active ibuprofen 600 mg oral tablet (1 source) Nonsteroidal Anti-inflammatory Drug Start: 08-22-2023 take 600 mg by mouth every six hours Ibuprofen Active 600 MG PO EVERY 6 HOURS August 22, 2023 12:00am 200 actuat ipratropium bromide 0.017 mg/actuat metered dose inhaler (6 sources) Anticholinergic Start: 04-24-2023 End: 05-24-2023 take 2 puff(s) by inhalation four times daily Ipratropium (ATROVENT HFA) 17 mcg/actuation inhaler Indications: Post-viral cough syndrome Inhale 2 Puffs as instructed four times daily. 12.9 g 0 04/24/2023 05/24/2023 Discontinued (Discontinued by Patient) Comment on above: Inhale 2 Puffs as instructed four times daily. iv contrast (will be provided with radiology test) (20 sources) Start: 03-06-2024 End: 10-23-2024 inject 1 dose intravenously once iv contrast (will be provided with radiology test) MRI Brain Inject, intravenously, once for 1 dose.No IV access, insert saline lock prior to beginning of sedation, infusion, injection of imaging exam.Discontinue saline lock post exam. If Pt. has a central line or IVAD, may access for administration according to line specific nursing protocol.Once exam is complete flush line and de-access according to line specific nursing protocol in the MR contrast administration guidelines link 1 Each 03/06/2024 10/23/2024 Discontinued (Discontinued by Patient) Start: 03-06-2024 inject 1 dose intravenously on ce iv contrast (will be provided with radiology test) MRI Brain Inject, intravenously, once for 1 dose.No IV access, insert saline lock prior to beginning of sedation, infusion, injection of imaging exam.Discontinue saline lock post exam. If Pt. has a central line or IVAD, may access for administration according to line specific nursing protocol.Once exam is complete flush line and de-access according to line specific nursing protocol in the MR contrast administration guidelines link 1 Each 03/06/2024 Active Start: 10-29-2023 End: 03-06-2024 inject 1 dose intravenously once iv contrast (will be provided with radiology test) Indications: Multiple sclerosis (HCC) MRI Brain Inject, intravenously, once for 1 dose.No IV access, insert saline lock prior to beginning of sedation, infusion, injection of imaging exam.Discontinue saline lock post exam. If Pt. has a central line or IVAD, may access for administration according to line specific nursing protocol.Once exam is complete flush line and de-access according to line specific nursing protocol in the MR contrast administration guidelines link 1 Each 10/29/2023 03/06/2024 Discontinued (Course of therapy completed) Start: 10-29-2023 inject 1 dose intravenously on ce iv contrast (will be provided with radiology test) Indications: Multiple sclerosis (HCC) MRI Brain Inject, intravenously, once for 1 dose.No IV access, insert saline lock prior to beginning of sedation, infusion, injection of imaging exam.Discontinue saline lock post exam. If Pt. has a central line or IVAD, may access for administration according to line specific nursing protocol.Once exam is complete flush line and de-access according to line specific nursing protocol in the MR contrast administration guidelines link 1 Each 10/29/2023 Active Start: 10-29-2023 inject 1 dose intravenously on ce iv contrast (will be provided with radiology test) Indications: Multiple sclerosis (HCC) MRI Brain Inject, intravenously, once for 1 dose.No IV access, insert saline lock prior to beginning of sedation, infusion, injection of imaging exam.Discontinue saline lock post exam. If Pt. has a central line or IVAD, may access for administration according to line specific nursing protocol.Once exam is complete flush line and de-access according to line specific nursing protocol in the MR contrast administration guidelines link 1 Each 0 10/29/2023 Active Start: 06-13-2023 End: 03-06-2024 inject 1 dose intravenously once iv contrast (will be provided with radiology test) Indications: Multiple sclerosis (HCC) , Encounter for long-term (current) use of medications MRI Brain Inject, intravenously, once for 1 dose.No IV access, insert saline lock prior to beginning of sedation, infusion, injection of imaging exam.Discontinue saline lock post exam. If Pt. has a central line or IVAD, may access for administration according to line specific nursing protocol.Once exam is complete flush line and de-access according to line specific nursing protocol in the MR contrast administration guidelines link 1 Each 06/13/2023 03/06/2024 Discontinued (Course of therapy completed) Start: 06-13-2023 inject 1 dose intravenously on ce iv contrast (will be provided with radiology test) Indications: Multiple sclerosis (HCC) , Encounter for long-term (current) use of medications MRI Brain Inject, intravenously, once for 1 dose.No IV access, insert saline lock prior to beginning of sedation, infusion, injection of imaging exam.Discontinue saline lock post exam. If Pt. has a central line or IVAD, may access for administration according to line specific nursing protocol.Once exam is complete flush line and de-access according to line specific nursing protocol in the MR contrast administration guidelines link 1 Each 06/13/2023 Active Start: 06-13-2023 inject 1 dose intravenously on ce iv contrast (will be provided with radiology test) Indications: Multiple sclerosis (HCC) , Encounter for long-term (current) use of medications MRI Brain Inject, intravenously, once for 1 dose.No IV access, insert saline lock prior to beginning of sedation, infusion, injection of imaging exam.Discontinue saline lock post exam. If Pt. has a central line or IVAD, may access for administration according to line specific nursing protocol.Once exam is complete flush line and de-access according to line specific nursing protocol in the MR contrast administration guidelines link 1 Each 0 06/13/2023 Active Start: 08-18-2022 End: 01-01-2023 inject 1 dose intravenously once iv contrast (will be provided with radiology test) MRI Brain Inject, intravenously, once for 1 dose.No IV access, insert saline lock prior to beginning of sedation, infusion, injection of imaging exam.Discontinue saline lock post exam. If Pt. has a central line or IVAD, may access for administration according to line specific nursing protocol.Once exam is complete flush line and de-access according to line specific nursing protocol in the MR contrast administration guidelines link 1 Each 0 08/18/2022 01/01/2023 Discontinued Start: 08-18-2022 inject 1 dose intravenously on ce iv contrast (will be provided with radiology test) MRI Brain Inject, intravenously, once for 1 dose.No IV access, insert saline lock prior to beginning of sedation, infusion, injection of imaging exam.Discontinue saline lock post exam. If Pt. has a central line or IVAD, may access for administration according to line specific nursing protocol.Once exam is complete flush line and de-access according to line specific nursing protocol in the MR contrast administration guidelines link 1 Each 0 08/18/2022 Active Start: 10-26-2021 End: 12-08-2021 inject 1 dose intravenously once iv contrast (will be provided with radiology test) MRI Brain Inject, intravenously, once for 1 dose.No IV access, insert saline lock prior to beginning of sedation, infusion, injection of imaging exam.Discontinue saline lock post exam. If Pt. has a central line or IVAD, may access for administration according to line specific nursing protocol.Once exam is complete flush line and de-access according to line specific nursing protocol in the MR contrast administration guidelines link 1 Each 0 10/26/2021 12/08/2021 Discontinued (Course of therapy completed) Start: 10-26-2021 inject 1 dose intravenously on ce iv contrast (will be provided with radiology test) MRI Brain Inject, intravenously, once for 1 dose.No IV access, insert saline lock prior to beginning of sedation, infusion, injection of imaging exam.Discontinue saline lock post exam. If Pt. has a central line or IVAD, may access for administration according to line specific nursing protocol.Once exam is complete flush line and de-access according to line specific nursing protocol in the MR contrast administration guidelines link 1 Each 0 10/26/2021 Active Comment on above: MRI Brain Inject, in travenously, once for 1 dose.No IV access, insert saline lock prior to beginning of sedation, infusion, injection of imaging exam.Discontinue saline lock post exam. If Pt. has a central line or IVAD, may access for administration according to line specific nursing protocol.Once exam is complete flush line and de-access according to line specific nursing protocol in the MR contrast administration guidelines link ketoconazole 20 mg/ml medicated shampoo (20 sources) Azole Antifungal Start: 10-14-2024 ketoconazole (NIZORAL) 2 % shampoo Apply to affected area once daily as needed. 10/14/2024 Active Start: 05-13-2021 End: 08-22-2023 Ketoconazole Discontinued 1 APPLIC TOPICAL TWICE A WEEK May 13, 2021 12:00am August 22, 2023 9:04am Start: 01-11-2021 End: 01-03-2023 ketoconazole (NIZORAL) 2 % s hampoo NaCl 0.9% solp 500 mL with ocrelizumab 30 mg/mL soln 600 mg (7 sources) NaCl 0.9% solp 5 00 mL with ocrelizumab 30 mg/mL soln 600 mg Inject 600 mg intravenously one time only. Active predniSONE 20 mg oral tablet (4 sources) Start: 11-03-2024 End: 11-07-2024 take 1 tablet by mouth once daily at mealtime predniSONE (DELTASONE) 20 mg tablet Indications: Sinobronchitis Take 1 tablet by mouth once daily for 4 days. Take with food 4 tablet 11/03/2024 11/07/2024 Active Start: 07-28-2024 End: 08-01-2024 take 1 tablet by mouth once daily at mealtime predniSONE (DELTASONE) 20 mg tablet Indications: Sinobronchitis Take 1 tablet by mouth once daily for 4 days. Take with food 4 tablet 07/28/2024 07/28/2024 Discontinued prental multivitamin 27 mg iron- 800 mcg tablet (20 sources) End: 10-23-2024 take 1 tablet by mouth once daily prental multivitamin 27 mg iron- 800 mcg tablet Take 1 tablet by mouth once daily. 10/23/2024 Discontinued (Discontinued by Patient) take 1 tablet by mouth once carl y prental multivitamin 27 mg iron- 800 mcg tablet Take 1 tablet by mouth once daily. Active take 1 tablet by mouth once carl y prental multivitamin 27 mg iron- 800 mcg tablet Take 1 tablet by mouth once daily. 0 Active Comment on above: Take 1 tablet by julio th once daily. Completed/Discontinued Medications Medication Drug Class(es) Dates Sig (Normalized) Sig (Original) acetaminophen 500 mg oral tablet (2 sources) Start: 05-23-2024 End: 05-23-2024 take 1 dose by mouth once, then take 4000 mg by mouth once daily 1,000 mg, ORAL, ONCE, 1 dose, On 05/23/24 at 0900, No more than 4000 mg of acetaminophen should be given per day (FROM ALL SOURCES) Start: 05-15-2024 End: 05-15-2024 take 1 dose by mouth once, then take 4000 mg by mouth once daily 1,000 mg, ORAL, ONCE, 1 dose, On Crista 05/15/24 at 0900, No more than 4000 mg of acetaminophen should be given per day (FROM ALL SOURCES) ascorbic acid / biotin / ferrous bisglycinate / folic acid / formic acid / iron-dextran complex / niacin / pantothenate / pyridoxine / riboflavin / thiamine / vitamin B12 (20 sources) Nicotinic Acid, Vitamin B12, Vitamin C End: 03-06-2024 iron bisgly,ps-FA-B-C#12-suc c 65 mg-65 mg -1,000 mcg (24) tab Take by mouth. 03/06/2024 Discontinued (Course of therapy completed) iron bisgly,ps-F A-B-C#12-succ 65 mg-65 mg -1,000 mcg (24) tab Take by mouth. Active iron bisgly,ps-F A-B-C#12-succ 65 mg-65 mg -1,000 mcg (24) tab Take by mouth. 0 Active Comment on above: Take by mouth. benzonatate 100 mg oral capsule (5 sources) Non-narcotic Antitussive Start: 11-04-19 End: 12-31-19 take 1 capsule by mouth three times daily as needed benzonatate (TESSALON PERLE) 100 mg capsule Indications: Sinobronchitis Take 1-2 capsules by mouth three times a day as needed. 60 capsule 1 11/03/2024 12/30/2024 Discontinued Start: 07-28-2024 End: 10-23-2024 take 1 capsule by mouth three times daily as needed benzonatate (TESSALON PERLE) 100 mg capsule Indications: Sinobronchitis Take 1-2 capsules by mouth three times a day as needed. 60 capsule 1 07/28/2024 10/23/2024 Discontinued (Discontinued by Patient) biotin 5 mg oral tablet (20 sources) Start: 05-13-2021 End: 08-22-2023 take 5 mg by mouth once daily Biotin Discontinued 5 MG PO DAILY May 13, 2021 12:00am August 22, 2023 9:04am End: 01-03-2023 biotin 1 mg cap Take by mout h. 0 01/03/2023 Discontinued (Other) Comment on above: Take by mouth. cholecalciferol 0.125 mg oral tablet (20 sources) Vitamin D Start: End: take 1 tablet by mouth once daily Cholecalciferol (Vitamin D3) (Vitamin D3) 125 mcg (5,000 unit) Tablet Discontinued 125 MCG PO DAILY May 23, 2021 12:00am August 22, 2023 9:04am Start: 11-11-2020 End: 08-31-2023 take 1 tablet by mouth once daily cholecalciferol (VITAMIN D-3) 5,000 unit tab Indications: Vitamin D deficiency Take 1 tablet by mouth once daily. 30 tablet 11 08/18/2022 08/31/2023 Discontinued Comment on above: Take 1 tablet by julio once daily. DAILY dexamethasone phosphate 1 mg/ml ophthalmic solution (14 sources) Corticosteroid Start: 07-30-19 End: 08-13-19 take 1 drop(s) into the eye(s) three times daily dexAMETHasone 0.1 % ophthalmic solution instill 1 drop into both eyes three times a day for 1 week 0 07/30/2023 08/13/2023 Discontinued Start: 04-05-2023 End: 05-25-2023 take 1 drop(s) into the eye(s) four times daily dexAMETHasone 0.1 % ophthalmic solution INSTILL 1 DROP INTO RIGHT EYE FOUR TIMES DAILY 04/05/2023 05/25/2023 Discontinued (Course of therapy completed) Comment on above: INSTILL 1 DROP INTO RIGHT EYE FOUR TIMES DAILY instill 1 drop into both eyes three times a day for 1 week diphenhydrAMINE hydrochloride 25 mg oral capsule (2 sources) Histamine-1 Receptor Antagonist Start: 05-23-2024 End: 05-23-2024 take 1 dose by mouth once 50 mg, ORAL, ONCE, 1 dose, On Sun05/23/24 at 0900 Start: 05-15-2024 End: 05-15-2024 take 1 dose by mouth once 50 mg, ORAL, ONCE, 1 dose, O n Crista 05/15/24 at 0900 famotidine 20 mg oral tablet (4 sources) Histamine-2 Receptor Antagonist Start: 05-09-2021 End: 12-08-2021 take 1 tablet by mouth twice daily famotidine (PEPCID) 20 mg tablet Indications: Dyspepsia Take 1 tablet by mouth twice daily. 0 05/09/2021 12/08/2021 Discontinued (Course of therapy completed) Comment on above: Take 1 tablet by [facility] twice daily. methylPREDNISolone 125 mg injection (2 sources) Corticosteroid Start: 05-23-2024 End: 05-23-2024 100 mg, INTRAVENOUS, ONCE, 1 dose, On Sun05/23/24 at 0900 Start: 05-15-2024 End: 05-15-2024 100 mg, INTRAVENOUS, ONCE, 1 dose, On Crista 05/15/24 at 0900 10 ml ocrelizumab 30 mg/ml injection (19 sources) Start: 05-13-2021 End: 08-22-2023 Ocrelizumab (Ocrevus) 30 mg/ mL solution Discontinued 30 MG .Route .6m May 13, 2021 12:00am August 22, 2023 9:04am every 6 months End: 01-01-2023 inject 30 mg intravenously once ocrelizumab (OCREVUS) 30 mg/mL soln injection Inject intravenously one time only. 0 01/01/2023 Discontinued Comment on above: Inject intravenously one time only. ocrelizumab 300 mg in NaCl 0.9% 250 mL (OCREVUS) (2 sources) Start: 05-23-2024 End: 05-23-2024 300 mg, INTRAVENOUS, ONCE, 1 dose, On Sun05/23/24 at 0900, Initial infusion. Start infusion at 30 mL/hr, Increase by 30 mL/hr every 30 minutes. Maximum rate = 180 mL/hr APPROXIMATE TOTAL VOLUME: 285 mL Administer with 0.2 micron filter. Refrigerate - EXP: (24 HR) Start: 05-15-2024 End: 05-15-2024 300 mg, INTRAVENOUS, ONCE, 1 dose, On Crista 05/15/24 at 0900, Initial infusion. Start infusion at 30 mL/hr, Increase by 30 mL/hr every 30 minutes. Maximum rate = 180 mL/hr APPROXIMATE TOTAL VOLUME: 285 mL Administer with 0.2 micron filter. Refrigerate - EXP: (24 HR) ondansetron 4 mg disintegrating oral tablet (4 sources) Serotonin-3 Receptor Antagonist Start: 04-27-2021 End: 12-08-2021 take 1 tablet by mouth every eight hours as needed ondansetron orally disintegrating (ZOFRAN ODT) 4 mg disintegrating tablet Take 1 tablet by mouth every 8 hours as needed. 12 tablet 0 04/27/2021 12/08/2021 Discontinued (Course of therapy completed) Comment on above: Take 1 tablet by julio th every 8 hours as needed. pantoprazole 40 mg delayed release oral tablet (20 sources) Proton Pump Inhibitor Start: 01-16-2023 End: 08-31-2023 take 1 tablet by mouth once daily pantoprazole DR (PROTONIX) 40 mg tablet Take 1 tablet by mouth once daily. 30 tablet 6 01/16/2023 08/31/2023 Discontinued Start: 01-01-2023 take 1 tablet by julio th once daily pantoprazole DR (PROTONIX) 20 mg tablet Take 1 tablet by mouth once daily. 30 tablet 1 01/01/2023 Active Start: 06-01-2021 End: 08-22-2023 Pantoprazole Discontinued 40 MG PO DAILY 60 June 10, 2021 12:00am August 22, 2023 9:04am take twice a day for 8 weeks total, then once a day for 8 weeks Start: 05-13-2021 End: 06-01-2021 take 40 mg by mouth once daily Pantoprazole Discontinu ed 40 MG PO DAILY 60 May 13, 2021 12:00am June 01, 2021 3:31pm Comment on above: Take 40 mg by mouth twice daily. Take 1 tablet by julio once daily. sodium chloride 0.111 meq/ml nasal spray (20 sources) Start: 03-25-2023 End: 08-13-2023 sodium chloride (SALINE MIST) 0.65 % nasal spray Indications: Upper respiratory infection with cough and congestion Use 1 Primrose in the nose as needed. 15 mL 03/25/2023 08/13/2023 Discontinued (Course of therapy completed) Comment on above: Use 1 Primrose in the n ose as needed. sucralfate 1000 mg oral tablet (3 sources) Aluminum Complex Start: 06-01-2021 End: 08-22-2023 take 1 tablet by mouth twice daily Sucralfate (Carafate) 1 gram tablet Discontinued 1 GM PO TWICE A DAY 60 June 01, 2021 12:00am August 22, 2023 9:05am take two times a day for thirty days Problems Active Problems Problem Classification Problem Date Documented Da te Episodic/Chronic Abdominal pain (3 sources) Abdominal pain; Translations: [Unspecified abdominal pain] 05-15-2021 Episodic Acute posthemorrhagic anemia (2 sources) Acute posthemorrhagic anemia; Translations: [Acute posthemorrhagic anemia] 08-21-2023 Episodic Esophageal disorders (3 sources) Gastroesophageal reflux disease; Translations: [Gastro-esophageal reflux disease without esophagitis] 06-10-2021 Chronic Esophageal disorders (3 sources) Esophagitis; Translations: [Esophagitis determined by endoscopy] 06-10-2021 Episodic Gastritis and duodenitis (6 sources) Lymphocytic gastritis; Translations: [Other gastritis without bleeding] 06-01-2021 Episodic Headache; including migraine (20 sources) Migraine without aura, not refractory ; Translations: [Migraine without aura, not intractable, without status migrainosus] Onset: 5 04-22-2015 Chronic Immunizations and screening for infectious disease (1 source) Encounter for screening for infections with a predominantly sexual mode of transmission; Translations: [Screen for STD (sexually transmitted disease)] Onset: 5 Episodic Multiple sclerosis (20 sources) Multiple sclerosis; Translations: [Multiple sclerosis] Onset: 0 Chronic Nutritional deficiencies (1 source) Vitamin D deficiency; Translations: [Vitamin D deficiency, unspecified] Chronic Other aftercare (9 sources) Patient encounter status; Translations: [Other group home (current) drug therapy] Episodic Other aftercare (1 source) Long-term current use of drug therapy; Translations: [Other group home (current) drug therapy] 04-11-2024 Episodic Other circulatory disease (1 source) Elevated blood-pressure reading without diagnosis of hypertension; Translations: [Elevated blood-pressure reading, without diagnosis of hypertension] 08-03-2023 Episodic Other complications of (5 sources) Maternal obesity complicating , childbirth and the puerperium, antepartum; Translations: [Obesity complicating , second trimester] 03-29-2023 Chronic Other complications of (1 source) Obesity complicating , unspecified trimester; Translations: [Obesity complicating , childbirth, or the puerperium, unspecified as to episode of care or not applicable] 08-22-2023 Chronic Other complications of (1 source) Multiple sclerosis; Translations: [Diseases of the nervous system complicating , unspecified trimester] Episodic Other complications of (1 source) Heartburn; Translations: [Other specified related conditions, unspecified trimester] 05-24-2023 Episodic Other complications of (1 source) Supervision of high risk , unspecified, unspecified trimester; Translations: [Supervision of high risk , antepartum (HCC)] Onset: Episodic Other complications of (1 source) Spotting complicating , unspecified trimester; Translations: [Spotting in early (HCC)] Onset: Episodic Other ear and sense organ disorders (1 source) Bilateral earache; Translations: [Otalgia, bilateral] 12-30-2024 Episodic Other gastrointestinal disorders (3 sources) Dysphagia; Translations: [Dysphagia, unspecified] 05-15-2021 Episodic Other gastrointestinal disorders (3 sources) Diarrhea; Translations: [Diarrhea, unspecified] 05-15-2021 Episodic Other lower respiratory disease (2 sources) Postviral cough; Translations: [Post-viral cough syndrome] 04-17-2023 Episodic Other lower respiratory disease (1 source) Cough; Translations: [Subacute cough] 04-24-2023 Episodic Other nutritional; endocrine; and metabolic disorders (20 sources) Body mass index 40+ - severely obese; Translations: [Morbid (severe) obesity due to excess calories] Onset: 0 11-11-2019 Chronic Other nutritional; endocrine; and metabolic disorders (1 source) Body mass index (BMI) 40.0-44.9, adult; Translations: [BMI 40.0-44.9, adult ([facility])] Onset: Chronic Other and delivery including normal (10 sources) with uncertain dates; Translations: [Encounter for supervision of normal , unspecified, first trimester] 01-02-2023 Episodic Other upper respiratory disease (1 source) Seasonal allergy; Translations: [Other seasonal allergic rhinitis] 05-24-2023 Chronic Other upper respiratory infections (3 sources) Chronic sinusitis; Translations: [Chronic sinusitis, unspecified] Onset: 5 07-28-2024 Chronic Residual codes; unclassified (1 source) Gestation period, [...] 08-13-2023 Episodic Residual codes; unclassified (1 source) Gestation period, 39 weeks; Translations: [39 weeks gestation of ] 08-19-2023 Episodic Residual codes; unclassified (1 source) 39 weeks gestation of ; Translations: [ state, incidental] 08-22-2023 Episodic Residual codes; unclassified (1 source) Less than 8 weeks gestation of ; Translations: [7 weeks gestation of (HCC)] Onset: Episodic Past or Other Problems Problem Classification Problem Date Documented Da te Episodic/Chronic Bacterial infection; unspecified site (20 sources) Bacteria present; Translations: [Streptococcus, group B, as the cause of diseases classified elsewhere] Onset: 07-31-2023 Resolved: 08-31-2023 07-31-2023 Episodic Chronic obstructive pulmonary disease and bronchiectasis (1 source) Bronchitis, not specified as acute or chronic; Translations: [Sinobronchitis] Onset: 11-03-2024 Episodic Diabetes or abnormal glucose tolerance complicating ; childbirth; or the puerperium (20 sources) Abnormal glucose level; Translations: [Abnormal glucose complicating ] Onset: 05-28-2023 Resolved: 08-31-2023 05-28-2023 Episodic Joint disorders and dislocations; trauma-related (20 sources) Joint derangement; Translations: [Other internal derangements of unspecified knee] Onset: 04-05-2009 Resolved: 02-10-2013 02-10-2013 Chronic Other aftercare (1 source) Other group home (current) drug therapy; Translations: [Encounter for long-term (current) use of medications] Onset: 04-12-2024 Episodic Other complications of (20 sources) Obesity; Translations: [Obesity complicating , unspecified trimester] Onset: 12-28-2022 Resolved: 08-31-2023 Chronic Other complications of (20 sources) Nausea and vomiting; Translations: [Vomiting of , unspecified] Onset: 12-28-2022 Resolved: 08-31-2023 Episodic Other complications of (20 sources) High risk ; Translations: [Supervision of high risk , unspecified, second trimester] Onset: 05-25-2023 Resolved: 08-31-2023 05-25-2023 Episodic Other complications of (20 sources) Vomiting of , unspecified; Translations: [Unspecified vomiting of , unspecified as to episode of care or not applicable] Onset: 12-28-2022 Resolved: 08-31-2023 08-31-2023 Episodic Other ear and sense organ disorders (1 source) Otalgia, bilateral; Translations: [Otalgia of both ears] Onset: 12-30-2024 Episodic Other upper respiratory infections (4 sources) Upper respiratory infection; Translations: [Acute upper respiratory infection, unspecified] Onset: 11-03-2024 03-25-2023 Episodic Otitis media and related conditions (3 sources) Acute non-suppurative otitis media - serous; Translations: [Acute serous otitis media, left ear] Onset: 12-30-2024 12-30-2024 Episodic Results Test Name Value Interpretation Reference Range Facility Internal Medicine Office [facility] 04-13-2025 Internal Medicine Office Visit [facility] [address] [place] [address] [place] [address] OFFICE VISIT Date of Service: 04/13/25 MR#: [id number] Acct: [id number] Name: LEELA ISAACS Rep #: [id number] 20 : 2000 Provider: Dr. 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 Etta Mcclain MD) History of hemorrhage Encounter to establish care Preventative health care Psoriasis Head ache History of UTI Seasonal allergies Anemia due to blood loss, acute Gastritis and duodenitis GERD (gastroesophageal reflux disease) Lymphocytic gastritis Multiple sclerosis Low iron Migraine headache Gastric reflux Non-smoker MS (multiple sclerosis) Surgical History History of wisdom tooth extraction Family History Mother Diabetes Endometrial hyperplasia High cholesterol Hypertension Grandmother Cancer melanoma, uterine Anxiety Diabetes High cholesterol Grandfather Alcohol abuse Myocardial infarction, Onset Age: 60 Father Hypertension Cancer skin Aunt Cancer melanoma Brother Severe allergy Grandmother Cancer breast Social History (Updated 04/13/25 @ 13:37 by Patti Arora MA) household members: spouse and children housing: house current occupational status: employed Smoking Status: Never smoker alcohol intake: never substance use type: does not use what type of physical activity do you participate in: walking frequency: 3-4 times per week seatbelt use: always do you feel safe at home: Yes HPI HPI Chief Complaint: est care Details: LEELA ISAACS, is a 24-year-old female, , presenting for a new patient visit. She is currently 9 weeks with her second child. The patient is currently receiving care at [facility] and is rotating through different OB providers. Her first was 19 months ago, during which she experienced significant hemorrhage. She has not had any lab work done since her last delivery in July of last year. Her menstrual periods resumed 8-9 months and were described as normal, lasting about 5 days with a couple of sanitary pad changes per day. She was taking multivitamins at that time. She reports some nausea with this but notes it is much better than her previous . She denies hematochezia, melena, or urinary issues. She is staying active and sleeping well. She plans to use [facility] for her OB care again and states this will be her last . Blood pressure slightly elevated, initial and repeat. Family of hypertension but no known history of hypertension. No tobacco or alcohol use. She works at a [employer] in [facility] Constitutional: No body ache, chills, excessive sweating, fatigue, fever(s), frequent falls, headache(s), snoring, weakness, weight change or change in appetite Eyes Eyes: No blurry vision, change in vision, eye pain or Light sensitivity ENT ENT: No abnormal hearing, ear or mastoid pain, tinnitus, nasal congestion, headache(s), neck pain or sore throat Resp Respiratory: No cough, shortness of breath, snoring or wheezing Cardio Cardiology: No chest pain at rest, chest pain with exertion, excessive sweating, dyspnea on exertion, lightheadedness, orthopnea or palpitations Gastro GI: No abdominal pain, change in bowel habits, constipation, cramping, diarrhea, nausea/dyspepsia or vomiting Genitourinary-Female: No burning urination, painful urination, urinary incontinence or urinary frequency Musc Musculoskeletal: No abnormal gait, joint pain, back pain, limited range of motion, muscle weakness, neck pain or numbness Skin Skin: No dry skin, redness, lesions, itchy eyes, rash or wounds Neuro Neurology: No abnormal gait, abnormal hearing, weakness, frequent falls, headache(s), memory loss or numbness Psych Psychiatric: (more content not included)... Normal [facility] Bacteria Ur Culton Bacteria identified Cx Nom (U) ORGANISM ID: 1 50,000-<100,000 CFU/ml Mixed microbiota No further workup. Mixed microbiota can be due to???urine???contamin ation with skin bacteria at time of collection or presence of a long-term urinary catheter. If a new culture is needed, please consider re-education of the patient on proper midstream collection technique or straight catheterization for???urine???collect ion. Normal [facility] Comment on above: Performed By: #### 6 30-4 ####[facility] LABCLIA [id number] [place] [address] [place] C. trachomatis+N. gonorrhoea e DNA NAY+probe Ql (Unsp spec)on 03-31-2025 C. trachomatis rRNA NAY+probe Ql (Unsp spec) Not detected Normal Not detected [facility] Comment on above: Order Comment: Speci men Type: SWABOrdering Facility: [facility] Address: [address] [place] [address] Performed By: #### T RVAMP, 10935-6 ####[facility] LABIA [id number] [place] [address] [place] N. gonorrhoeae rRNA NAY+probe Ql (Unsp spec) Not detected Normal Not detected [facility] Comment on above: Order Comment: Speci men Type: SWABOrdering Facility: [facility] Address: [address] [place] [address] Performed By: #### T RVAMP, 71287-2 ####[facility] LABIA [id number] [address] [place] VAGINALIS NAATon 03-31-2025 T. vaginalis DNA NAY+probe Ql (Unsp spec) Not detected Normal Not detected [facility] Comment on above: Order Comment: Speci men Type: SWABOrdering Facility: [facility] Address: [address] [place] [address] Performed By: #### T RVAMP, 85770-7 ####[facility] LABIA [id number] [address] [place] CNPEmiliana 03-18-2025 CNPN Telephone (OBGYWM) LEELA ISAACS ([id number]) 2000 F Date Time Provider Department 03/18/25 RIANNA ANNE OBVIVEK During your visit today, we recorded the following information about you: Brittanie Caruso RN 03/18/2025 8:11 AM Signed LMP 01/28/2025 ega 7w Started spotting last evening only when wiping, whitish/pink/brown in color. Placed panty liner on. Woke up this morning, still noted mainly when wiping, but a little on panty liner/still oxewwuz-aelp-fwdol in color. Denies abdominal pain, denies vaginal itching/increased vaginal discharge. No recent sexual intercourse Advised Pt likely implantation bleeding,but to continue to monitor and if bleeding increases/changes to call office or if she begins with abdominal pain to call the office. Pt notified that message will be routed to o/c provider and if additional recommendations are to be given we will call her. Otherwise, continue to monitor at this time. NOB appt scheduled 03/31/25. DENISHA Don Deidre, MD 03/18/2025 8:36 AM Signed Agree with advice- if she is concerned I am happy to add her in today - 20min spot with POCUS. Valerie Prince RN 03/18/2025 8:50 AM Signed Patient notified. She does prefer to be seen today. Appointment scheduled. Valerie Prince RN Allergies As of Date: 03/18/2025 (No Known Allergies) Date Reviewed: 12/30/2024 Reviewed by: Mary Hernandez MA - Fully Assessed Reason for Visit: Spotting in early [Other] Prescriptions as of 03/18/2025 - fluticasone (FLONASE) 50 mcg/actuation nasal spray Use 2 sprays in each nostril once daily. Rinse mouth after use. - ketoconazole (NIZORAL) 2 % shampoo Apply to affected area once daily as needed. - clobetasol (TEMOVATE) 0.05 % cream Apply to affected area two times a day. - NaCl 0.9% solp 500 mL with ocrelizumab 30 mg/mL soln 600 mg Inject 600 mg intravenously one time only. Problem List As Of Date 03/18/2025 Noted Resolved Other joint derangement, not elsewhere classifi*04/05/2009 02/10/2013 Migraine without aura and without status migrai*04/22/2015 Obesity, Class III, BMI >= 40 [E66.813] 11/11/2019 Multiple sclerosis (HCC) [G35] 10/2019 Obesity during [O99.210] 12/28/2022 08/31/2023 Nausea in [O21.9] 12/28/2022 08/31/2023 Supervision of high risk in second tr*05/25/2023 08/31/2023 Abnormal glucose affecting [O99.810] 05/28/2023 08/31/2023 Positive GBS test [B95.1] 07/31/2023 08/31/2023 Encounter Status:Closed by VALERIE PRINCE on 03/18/25 [facility] CNOVon 12-30-2024 CNOV Office Visit (INTMWS ) ISAACSLEELA A ([id number]) 2000 F Date Time Provider Department 12/30/24 3:40 PM JACK GARCIA INTMWS During your visit today, we recorded the following information about you: Pulse Blood pressure Weight 98/minute 126/74 119 kg Jack Garcia, RELIEF DOCKING MASTER.AIR CONDITIONING ENGINEER 12/30/2024 4:11 PM Signed SUBJECTIVE Leela Almazan Dandre is a 24-year-old female presenting with bilateral otalgia, left greater than right, and URI symptoms. Otalgia: - Bilateral otalgia x2 days, left ear more affected than right. - Describes a painful kind of feeling without crackling. - Denies recent antibiotic use or allergies to antibiotics. URI Symptoms: - Recent URI symptoms x1.5 weeks. - Initially had significant nasal congestion and rhinorrhea, now improved. - Mild cough, also improved. - Denies sore throat, dyspnea, or fever. - Not using any OTC medications, including nasal drops or antihistamines. - Has used Flonase in the past and still has some available. She reports that she has never smoked. She has never used smokeless tobacco. ROS Constitutional: (-) fever Ears/Nose/Mouth/Throa t: (+) left greater than right ear pain, (+) ear fullness, (+) rhinorrhea, (-) ear crackling, (-) nasal congestion, (-) sore throat Respiratory: (+) cough, (-) dyspnea OBJECTIVE PHYSICAL EXAM: BP 126/74 Pulse 98 Wt 119 kg (262 lb 5.6 oz) LMP 09/29/2024 (Exact Date) BMI 43.66 kg/m? General appearance: alert, cooperative, pleasant, in no acute distress Head: Normocephalic Eyes: conjunctiva/corneas normal Ears: R TM - clear with good landmarks, nl light reflex, L TM - nl light reflex, erythematous Nose: clear rhinorrhea, mucosa erythematous and swollen Oropharynx: moist without lesions, no exudate Neck: supple and small, benign anterior cervical nodes bilaterally Heart: regular rate and rhythm, without murmur Lungs: clear to auscultation, without rales or wheeze, good air exchange 1. Non-recurrent acute serous otitis media of left ear (H65.02) 2. Otalgia of both ears (H92.03) - Left ear more affected than right; no fever, nasal congestion, or sore throat reported. Mild rhinorrhea and cough present, but improving. - Otoscopic examination reveals signs of infection in the left ear. - Prescribed Augmentin; advised to take with food to minimize gastrointestinal side effects. - Recommended resuming Flonase to alleviate eustachian tube congestion and reduce pressure. - Prescriptions sent to [facility] pharmacy. - Advised to monitor symptoms and report if no improvement within a few days. Jack Garcia APRN.AIR CONDITIONING ENGINEER Medical Decision Making: Problems: Low: Acute, uncomplicated illness or injury Risk: Moderate: Drug management Medical Decision Making Level: 3 - Low Allergies As of Date: 12/30/2024 (No Known Allergies) Date Reviewed: 12/30/2024 Reviewed by: Mary Hernandez MA - Fully Assessed Reason for Visit: Ear Problem [38] Cmt: Pain and pressure in ears X 2 days Primary Visit Diagnosis:Non-recurre nt acute serous otitis media of left ear [H65.02] Other Visit Diagnosis:Otalgia of both ears [H92.03] Order(s):amoxicillin- clavulanate potassium (AUGMENTIN) 875-125 mg per tabletTake 1 tablet by mouth two times a day for 7 days. Take with foodDisp: 14 tabletRfl: 0 Prescriptions as of 12/30/2024 - amoxicillin-clavulana te potassium (AUGMENTIN) 875-125 mg per tablet Take 1 tablet by mouth two times a day for 7 days. Take with food - fluticasone (FLONASE) 50 mcg/actuation nasal spray Use 2 sprays in each nostril once daily. Rinse mouth after use. - ketoconazole (NIZORAL) 2 % shampoo Apply to affected area once daily as needed. - clobetasol (TEMOVATE) 0.05 % cream Apply to affected area two times a day. - NaCl 0.9% solp 500 mL with ocrelizumab 30 mg/mL soln 600 mg Inject 600 mg intravenously one time only. Problem List As Of Date 12/30/2024 Noted Resolved Other joint derangement, not elsewhere classifi*04/05/2009 02/10/2013 Migraine without aura and without status migrai*04/22/2015 Obesity, Class III, BMI >= 40 [E66.813] 11/11/2019 Multiple sclerosis (HCC) [G35] 10/2019 Obesity during [O99.210] 12/28/2022 08/31/2023 Nausea in [O21.9] 12/28/2022 08/31/2023 Supervision of high risk in second tr*05/25/2023 08/31/2023 Abnormal glucose affecting [O99.810] 05/28/2023 08/31/2023 Positive GBS test [B95.1] 07/31/2023 08/31/2023 Prescriptions ordered this encounter Disp Refills Start End AMOXICILLIN 875 MG-POTASSIUM CLAVULA* 14 t* 0 12/30/2024 01/06/2025 Route: PO Sig: Take 1 tablet by mouth two times a day for 7 days. Take with food Medications Discontinued During This Encounter Prescriptions - benzonatate (TESSALON PERLE) 100 mg capsule (Discontinued) Take 1-2 capsules by mouth three times a day as needed. - amoxicillin-clavulana te potassium (AUGMENTIN) 875-1 (more content not included)... Normal [facility] CD19 ABSOLUTE COUNTon 2024 CD3-CD19+ cells (Bld) [#/Vol] 0 cells/uL Low 75-660 [facility] Comment on above: Order Comment: Speci men Type: BLOOD SPECIMENOrdering Facility: [facility] Address: [address] [place] [address] Performed By: #### A BS19 ####[facility] LABCLIA [id number] [place] [id number] [place] CD3-CD19+ cells/100 cells (Bld) 0 % Low 5-22 [facility] Comment on above: Order Comment: Speci men Type: BLOOD SPECIMENOrdering Facility: [facility] Address: [address] [place] [address] Performed By: #### A BS19 ####[facility] LABCLIA [id number] [place] [address] [place] Lymphocytes/100 WBC FC (Bld) Normal [facility] Comment on above: Order Comment: Speci men Type: BLOOD SPECIMENOrdering Facility: [facility] Address: [address] [place] [address] Performed By: #### A BS19 ####[facility] LABIA [id number] [place] [address] [place] IgG SerPl-mCncon 11-13-2024 IgG [Mass/Vol] 609 mg/dL Low 700-1600 [facility] Comment on above: Order Comment: Speci men Type: BLOOD SPECIMENOrdering Facility: [facility] Address: [address] [place] [address] Performed By: #### 2 472-9, 2465-3 ####[facility] LABIA [id number] [place] [id number] [place] IgM SerPl-mCncon 11-13-2024 IgM [Mass/Vol] 47 mg/dL Normal 40-230 [facility] Comment on above: Order Comment: Speci men Type: BLOOD SPECIMENOrdering Facility: [facility] Address: [address] [place] [address] Performed By: #### 2 472-9, 2465-3 ####[facility] DAGO [id number] [address] [place] CNOVon 11-03-2024 CNOV Office Visit (INTMWS ) LEELA ISAACS ([id number]) 2000 F Date Time Provider Department 11/03/24 7:20 AM JACK GARCIA INTMWS During your visit today, we recorded the following information about you: Temperature Pulse Respiration Blood pressure 98 degrees 100/minute 16/minute 118/80 Weight 116.3 kg Jack Garcia APRN.[facility] 11/03/2024 7:40 AM Signed SUBJECTIVE Leela Tha Dandre is a 23 year old female who presents with 7 days of symptoms that are stable. Symptoms include: Fever (>=100.4F): No or Chills: No Cough: Yes productive Shortness of breath: No or Difficulty breathing: No Fatigue: Yes Muscle aches: No Headache: No New loss of smell or taste: No Sore throat: Yes Nasal congestion: No or Rhinorrhea: Yes and PND Nausea: No or Vomiting: No Diarrhea: No Cough: - Onset: Over a week ago. - Progression: Worsening over time. - Character: Productive cough with phlegm. - Timing: More severe at night, disrupting sleep. - Associated symptoms: - Postnasal drip. - Sore throat from coughing. - Mild fatigue. - Denies fever, dyspnea, congestion, nausea, emesis, or diarrhea. - Tried Claritin for the past 2 days with slight improvement; has a history of mild allergies. - Took cough medicine a few days ago but not since. - No recent illness in close contacts. OTC meds/remedies that patient has tried: OTC cough syrup and OTC cold medicine. High risk category assessment No high risk factors Exposures: Sick contacts? No Family or close contacts with confirmed/probable COVID-19 in last 14 days? No She reports that she has never smoked. She has never used smokeless tobacco. OBJECTIVE VIDEO EXAM (if available) PHYSICAL EXAM: BP 118/80 (BP Site: Right Arm, BP Position: Sitting, BP Cuff Size: Large Adult) Pulse 100 Temp 36.7 ?C (98 ?F) (Tympanic) Resp 16 Wt 116.3 kg (256 lb 6.3 oz) LMP 09/29/2024 (Exact Date) BMI 42.67 kg/m? General appearance: tired/ill appearing, alert, cooperative, pleasant, in no acute distress Head: Normocephalic Eyes: conjunctiva/corneas normal Ears: R TM - clear with good landmarks, nl light reflex, L TM - clear with good landmarks, nl light reflex Nose: clear rhinorrhea, mucosa erythematous and swollen, no sinus tenderness Oropharynx: moist without lesions, mild erythema to GPA, no exudate Neck: supple and small, benign anterior cervical nodes bilaterally Heart: regular rate and rhythm, without murmur Lungs: clear to auscultation, without rales or wheeze, good air exchange ASSESSMENT/PLAN (J32.9, J40) Sinobronchitis (R09.82) Postnasal drip ASSESSMENT/PLAN: 1. Sinobronchitis - ICD9: 473.9, 490, ICD10: J32.9, J40 - Will begin treatment as written, see orders - Supportive care with plenty of fluids, rest, and analgesia prn. - Follow up in 2-5 days if symptoms persist or worsen. - FLUTICASONE PROPIONATE 50 MCG/ACTUATION NASAL SPRAY,SUSPENSION - PREDNISONE 20 MG TABLET - BENZONATATE 100 MG CAPSULE - AZITHROMYCIN 250 MG TABLET- start this in a couple daysif not improved on symptomatic treatment 2. Postnasal drip - ICD9: 784.91, ICD10: R09.82 - FLUTICASONE PROPIONATE 50 MCG/ACTUATION NASAL SPRAY,SUSPENSION Jack Garcia APRN.AIR CONDITIONING ENGINEER Medical Decision Making: Problems: Low: Acute, uncomplicated illness or injury Risk: Moderate: Drug management Medical Decision Making Level: 3 - Low Allergies As of Date: 11/03/2024 (No Known Allergies) Date Reviewed: 11/03/2024 Reviewed by: Jack Garcia APRN.AIR CONDITIONING ENGINEER - Fully Assessed Reason for Visit: Cough [28] Cmt: Post nasal drainage, scratchy throat. Hx of allergies Visit Diagnoses:Sinobronchi tis [J32.9, J40] Postnasal drip [R09.82] Order(s):fluticasone (FLONASE) 50 mcg/actuation nasal sprayUse 2 sprays in each nostril once daily. Rinse mouth after use.Disp: 1 eachRfl: 0 predniSONE (DELTASONE) 20 mg tabletTake 1 tablet by mouth once daily for 4 days. Take with foodDisp: 4 tabletRfl: 0 benzonatate (TESSALON PERLE) 100 mg capsuleTake 1-2 capsules by mouth three times a day as needed.Disp: 60 capsuleRfl: 1 azithromycin (ZITHROMAX) 250 mg tabletTake 2 tablets by mouth once daily for 1 day, THEN 1 tablet once daily for 4 days.Disp: 6 tabletRfl: 0 Prescriptions as of 11/03/2024 - fluticasone (FLONASE) 50 mcg/actuation nasal spray Use 2 sprays in each nostril once daily. Rinse mouth after use. - predniSONE (DELTASONE) 20 mg tablet Take 1 tablet by mouth once daily for 4 days. Take with food - benzonatate (TESSALON PERLE) 100 mg capsule Take 1-2 capsules by mouth three times a day as needed. - azithromycin (ZITHROMAX) 250 mg tablet Take 2 tablets by mouth once daily for 1 day, THEN 1 tablet once daily for 4 days. - ketoconazole (NIZORAL) 2 % shampoo Apply to affected area once daily as needed. - clobetasol (TEMOVATE) 0.05 % cream Apply to affected area two times a day. - NaCl (more content not included)... Normal [facility] CNOVon 10-23-2024 CNOV Office Visit (OBGYWM ) LEELA ISAACS ([id number]) 2000 F Date Time Provider Department 5/1/25 8:15 AM TEGAN HAMILTON OBGYWM During your visit today, we recorded the following information about you: Blood pressure Weight Height Last Period 120/74 117.5 kg 1.651 m 09/29/24 Tegan Hamilton APRN.CNM 10/23/2024 8:37 AM Signed Leela is a 23 year old who presents for an annual gynecologic exam without complaints. Still get period: Yes Bleeding amount bothersome: No Bleeding between periods: No Period symptoms: Acne; Breast tenderness; Cramps; Mood change Time with current partner: 8 years Number of lifetime partners: 2 control frequency: Always- condoms HPV vaccine: No HPV: N/A Last pap smear: 01/03/2023 normal History of abnormal pap: No, all prior PAP smears have been normal Bothersome pelvic pain: No Last mammogram: never OB History Gravida1 Para1 Term1 Preterm0 AB0 Living1 SAB0 IAB0 Ectopic0 Multiple0 Live Births1 Janitorial Supervisor History LMP: 09/29/2024 (Exact Date), Having periods Age at Menarche: 10 Age at First : Age at Menopause: Janitorial Supervisor History Comments: Sexual Activity: Yes; Male Contraception: Condom Menstrual Tracking History Flowsheet Row Office Visit from 10/23/2024 in OB/Gynecology Period Cycle (Days) 28 Period Duration (Days) 5 Menstrual Flow Moderate FAMILY HISTORY Problem Relation Age of Onset Diabetes Mother Hypertension Mother No Known Problems Father No Known Problems Brother No Known Problems Maternal Grandmother Uterine Cancer Maternal Grandfather No Known Problems Paternal Grandmother No Known Problems Paternal Grandfather None Other Multiple Sclerosis No Family History SOCIAL HISTORY Social History Tobacco Use Smoking status: Never Smokeless tobacco: Never Vaping Use Vaping status: Never Used Substance Use Topics Alcohol use: Not Currently Drug use: No REVIEW OF SYSTEMS Abdomen: No abdominal pain, nausea, vomiting, diarrhea, or constipation. No bloating, early satiety, indigestion, or increased flatulence. Bladder: No dysuria, gross hematuria, urinary frequency, urinary urgency, or incontinence. Breast: No breast lumps, nipple d/c, overlying skin changes, redness or skin retraction. Allergies and current medication updated:Yes SENSITIVE EXAM: The sensitive examination was discussed with the Patient or Patient's Authorized Shroudman. As applicable, any other physician, advance practice provider, medical student, or other health professional student that will be observing or involved in the sensitive examination for educational or training purposes was discussed with the Patient or Authorized Shroudman. The Patient or Authorized Shroudman has agreed to proceed with the sensitive examination. (Sensitive examination includes inspection and/or palpation of the breasts, pelvis, prostate and anorectal regions). EXAM: BP 120/74 Ht 5' 5 (1.65m) Wt 259 lb (117.5kg) LMP 09/29/2024 BMI 43.10 kg/(m2). GENERAL: pleasant, female in no apparent distress HEENT: Normocephalic, atraumatic, and mucus membranes moist NECK: Supple and full range of motion DERMATOLOGY: Normal and without lesions BREAST: soft, non-tender, symmetric, no dominant mass, normal nipple-areolar complex, no lymphadenopathy, and no nipple discharge CHEST: Normal inspiratory effort ABDOMEN: soft, non-tender, and no masses PELVIC: external genitalia normal, normal Bartholin's glands, urethra, Scotia's glands, no vulvar lesions, no cervical lesions, good vaginal support, physiologic discharge present, normal appearing perineal body and perianal region, Labia minora bilaterally erythematous BIMANUAL: uterus normal size, shape and consistency, no adnexal masses, and non-tender RECTOVAGINAL: deferred. NEURO: alert and oriented x3,exam grossly non-focal EXTREMITIES: normal ASSESSMENT/PLAN: 1) Health maintenance: Pap/HPV up to date. 2) Contraception: condoms. Contraceptive options reviewed and information provided. 3) STD screening: Declined STD check. 4) Vulvar hygiene reviewed- possible contract dermatitis vaginally- using goat soap to wash area- stated has very sensitive skin. Recommended Dove free and clear, cotton underwear, no yoga pants for long amounts of time Follow up one year or sooner as needed Tegan Hamilton APRN.CNM Allergies As of Date: 10/23/2024 (No Known Allergies) Date Reviewed: 10/23/2024 Reviewed by: Neeraj Lane MA - Fully Assessed Primary Visit Diagnosis:Encounter for gynecological examination (general) (routine) without abnormal findings [Z01.419] Prescriptions as of 10/23/2024 - ketoconazole (NIZORAL) 2 % shampoo Apply to affected area once daily as needed. - clobetasol (TEMOVATE) 0.05 % cream Apply to affected area two times a day. - NaCl 0.9% solp 500 mL with (more content not included)... Normal [facility] CNOVon 07-28-2024 CNOV Office Visit (INTMWS ) ISAACSLEELA PERSON ([id number]) 2000 F Date Time Provider Department 07/28/24 7:20 AM JACK GARCIA INTMWS During your visit today, we recorded the following information about you: Temperature Pulse Respiration Blood pressure 99.1 degrees 111/minute 16/minute 118/81 Weight 110 kg Jack Garcia, GRIFFIN.[facility] 07/28/2024 7:54 AM Signed SUBJECTIVE Leela Almazan Dandre is a 23 year old female who presents with 2.5 weeks of symptoms of symptoms that initially improved now recurred for 2-3 days. Body aches and GI upset initially with cough and sinus congestion and drainage. Now with cough and sinus congestion and drainaage. Symptoms include: Fever (>=100.4F): No or Chills: No Cough: Yes productive and purulent, difficult to control Shortness of breath: No or Difficulty breathing: No Fatigue: Yes Muscle aches: No Headache: No New loss of smell or taste: No Sore throat: Yes Nasal congestion: Yes or Rhinorrhea: Yes Nausea: No or Vomiting: No Diarrhea: No Bilateral ear discomfort No longer . Last ocrevus infusion was in April. OTC meds/remedies that patient has tried: nothing. She reports that she has never smoked. She has never used smokeless tobacco. OBJECTIVE PHYSICAL EXAM: BP 118/81 Pulse 111 Temp 37.3 ?C (99.1 ?F) Resp 16 Wt 110 kg (242 lb 8.1 oz) LMP 11/16/2022 (Exact Date) BMI 40.36 kg/m? General appearance: tired/ill appearing, alert, cooperative, pleasant, in no acute distress Head: Normocephalic Eyes: conjunctiva/corneas normal Ears: R TM - clear with good landmarks, nl light reflex, L TM - clear with good landmarks, nl light reflex Nose: purulent rhinorrhea, mucosa erythematous and swollen Oropharynx: moist without lesions, maxillary tender to palpation Neck: supple and small, benign anterior cervical nodes bilaterally Heart: regular rate and rhythm, without murmur Lungs: clear to auscultation, without rales or wheeze, good air exchange ASSESSMENT/PLAN (J32.9, J40) Sinobronchitis (primary encounter diagnosis) ASSESSMENT/PLAN: 1. Sinobronchitis - ICD9: 473.9, 490, ICD10: J32.9, J40 - Will begin treatment with as per antibiotic as written, see orders - Supportive care with plenty of fluids, rest, and analgesia prn. - Follow up in 3-5 days if symptoms persist or worsen. - AMOXICILLIN 875 MG-POTASSIUM CLAVULANATE 125 MG TABLET - BENZONATATE 100 MG CAPSULE - PREDNISONE 20 MG TABLET Jack Garcia APRN.AIR CONDITIONING ENGINEER Medical Decision Making: Problems: Low: Acute, uncomplicated illness or injury Risk: Moderate: Drug management Medical Decision Making Level: 3 - Low Allergies As of Date: 07/28/2024 (No Known Allergies) Date Reviewed: 07/28/2024 Reviewed by: Altagracia Mccain LPN - Fully Assessed Reason for Visit: Cough [28] Nasal Congestion [235] Primary Visit Diagnosis:Sinobronchi tis [J32.9, J40] Order(s):amoxicillin- clavulanate potassium (AUGMENTIN) 875-125 mg per tabletTake 1 tablet by mouth two times a day for 10 days.Disp: 20 tabletRfl: 0 benzonatate (TESSALON PERLE) 100 mg capsuleTake 1-2 capsules by mouth three times a day as needed.Disp: 60 capsuleRfl: 1 predniSONE (DELTASONE) 20 mg tabletTake 1 tablet by mouth once daily for 4 days. Take daily with food.Disp: 4 tabletRfl: 0 Prescriptions as of 07/28/2024 - NaCl 0.9% solp 500 mL with ocrelizumab 30 mg/mL soln 600 mg Inject 600 mg intravenously one time only. - amoxicillin-clavulana te potassium (AUGMENTIN) 875-125 mg per tablet Take 1 tablet by mouth two times a day for 10 days. - benzonatate (TESSALON PERLE) 100 mg capsule Take 1-2 capsules by mouth three times a day as needed. - predniSONE (DELTASONE) 20 mg tablet Take 1 tablet by mouth once daily for 4 days. Take daily with food. - iv contrast (will be provided with radiology test) MRI Brain Inject, intravenously, once for 1 dose.No IV access, insert saline lock prior to beginning of sedation, infusion, injection of imaging exam.Discontinue saline lock post exam. If Pt. has a central line or IVAD, may access for administration according to line specific nursing protocol.Once exam is complete flush line and de-access according to line specific nursing protocol in the MR contrast administration guidelines link - prental multivitamin 27 mg iron- 800 mcg tablet Take 1 tablet by mouth once daily. Problem List As Of Date 07/28/2024 Noted Resolved Other joint derangement, not elsewhere classifi*04/05/2009 02/10/2013 Migraine without aura and without status migrai*04/22/2015 Obesity, Class III, BMI >= 40 [E66.01] 11/11/2019 Multiple sclerosis (HCC) [G35] 10/2019 Obesity during [O99.210] 12/28/2022 08/31/2023 Nausea in [O21.9] 12/28/2022 08/31/2023 Supervision of high risk in second tr*05/25/2023 08/31/2023 Abnormal glucose affecting [O99.810] 05/28/2023more content not included)... 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 Solis referring. Please review and advise. Marylin Pérez 05/06/2024 9:21 AM Signed Scheduled with patient Start email sent Allergies As of Date: 05/05/2024 (No Known Allergies) Date Reviewed: 03/06/2024 Reviewed by: Sinai Solis APRN.SHIPPER/RECEIVER - Fully Assessed Reason for Visit: Appointment [186] Prescriptions as of 05/06/2024 - iv contrast (will be provided with radiology test) MRI Brain Inject, intravenously, once for 1 dose.No IV access, insert saline lock prior to beginning of sedation, infusion, injection of imaging exam.Discontinue saline lock post exam. If Pt. has a central line or IVAD, may access for administration according to line specific nursing protocol.Once exam is complete flush line and de-access according to line specific nursing protocol in the MR contrast administration guidelines link - prental multivitamin 27 mg iron- 800 mcg tablet Take 1 tablet by mouth once daily. Problem List As Of Date 05/05/2024 Noted Resolved Other joint derangement, not elsewhere classifi*04/05/2009 02/10/2013 Migraine without aura and without status migrai*04/22/2015 Obesity, Class III, BMI >= 40 [E66.01] 11/11/2019 Multiple sclerosis (HCC) [G35] 10/2019 Obesity during [O99.210] 12/28/2022 08/31/2023 Nausea in [O21.9] 12/28/2022 08/31/2023 Supervision of high risk in second tr*05/25/2023 08/31/2023 Abnormal glucose affecting [O99.810] 05/28/2023 08/31/2023 Positive GBS test [B95.1] 07/31/2023 08/31/2023 Encounter Status:Closed by [facility]F [facility] LEEL[facility] ([id number]) 2000 F Date Time Provider Department 05/05/24 SINAI SOLISDomingo During your visit today, we recorded the following information about you: Holley Milner 05/05/2024 2:03 PM Signed lvm for patient to call so we can get her scheduled for her start up dose of her infusiona= and a 3 month follow up Allergies As of Date: 05/05/2024 (No Known Allergies) Date Reviewed: 03/06/2024 Reviewed by: Sinai Solis APRN.SHIPPER/RECEIVER - Fully Assessed Reason for Visit: Appointment [186] Cmt: lvm for patient to call so we can get her scheduled for her start up dose of her infusiona= and a 3 month follow up Prescriptions as of 05/05/2024 - iv contrast (will be provided with radiology test) MRI Brain Inject, intravenously, once for 1 dose.No IV access, insert saline lock prior to beginning of sedation, infusion, injection of imaging exam.Discontinue saline lock post exam. If Pt. has a central line or IVAD, may access for administration according to line specific nursing protocol.Once exam is complete flush line and de-access according to line specific nursing protocol in the MR contrast administration guidelines link - prental multivitamin 27 mg iron- 800 mcg tablet Take 1 tablet by mouth once daily. Problem List As Of Date 05/05/2024 Noted Resolved Other joint derangement, not elsewhere classifi*04/05/2009 02/10/2013 Migraine without aura and without status migrai*04/22/2015 Obesity, Class III, BMI >= 40 [E66.01] 11/11/2019 Multiple sclerosis (HCC) [G35] 10/2019 Obesity during [O99.210] 12/28/2022 08/31/2023 Nausea in [O21.9] 12/28/2022 08/31/2023 Supervision of high risk in second tr*05/25/2023 08/31/2023 Abnormal glucose affecting [O99.810] 05/28/2023 08/31/2023 Positive GBS test [B95.1] 07/31/2023 08/31/2023 Encounter Status:Closed by HOLLEY MILNER on 05/05/24 Normal [facility] CBC W Auto Differential pane l (Bld)on 04-12-2024 Basophils (Bld) [#/Vol] 0.04 10*3/uL Normal <0.11 [facility] Comment on above: Order Comment: Speci men Type: BLOOD SPECIMENOrdering Facility: [facility] Address: [address] [place] [address] Performed By: #### 5 7021-8 ####[facility] LABIA [id number] [place] [address] [place] Basophils/100 WBC (Bld) 0.5 % Normal [facility] Comment on above: Order Comment: Speci men Type: BLOOD SPECIMENOrdering Facility: [facility] Address: [address] [place] [address] Performed By: #### 5 7021-8 ####[facility] LABIA [id number] [place] [address] [place] Differential cell count method Nom (Bld) Auto Normal [facility] Comment on above: Order Comment: Speci men Type: BLOOD SPECIMENOrdering Facility: [facility] Address: [address] [place] [address] Performed By: #### 5 7021-8 ####[facility] LABCLIA [id number] [place] [address] [place] Eosinophils (Bld) [#/Vol] 0.08 10*3/uL Normal <0.46 [facility] Comment on above: Order Comment: Speci men Type: BLOOD SPECIMENOrdering Facility: [facility] Address: [address] [place] [address] Performed By: #### 5 7021-8 ####[facility] LABCLIA [id number] [place] [address] [place] Eosinophils/100 WBC (Bld) 1.0 % Normal [facility] Comment on above: Order Comment: Speci men Type: BLOOD SPECIMENOrdering Facility: [facility] Address: [address] [place] [address] Performed By: #### 5 7021-8 ####[facility] LABCLIA [id number] [place] [address] [place] Erythrocyte distribution width (RBC) [Ratio] 13.3 % Normal 11.5-15.0 [facility] Comment on above: Order Comment: Speci men Type: BLOOD SPECIMENOrdering Facility: [facility] Address: [address] [place] [address] Performed By: #### 5 7021-8 ####[facility] LABCLIA [id number] [place] [address] [place] Hematocrit (Bld) [Volume fraction] 39.1 % Normal 36.0-46.0 [facility] Comment on above: Order Comment: Speci men Type: BLOOD SPECIMENOrdering Facility: [facility] Address: [address] [place] [address] Performed By: #### 5 7021-8 ####[facility] LABCLIA [id number] [place] [address] [place] Hemoglobin (Bld) [Mass/Vol] 12.1 g/dL Normal 11.5-15.5 [facility] Comment on above: Order Comment: Speci men Type: BLOOD SPECIMENOrdering Facility: [facility] Address: [address] [place] [address] Performed By: #### 5 7021-8 ####[facility] LABCLIA [id number] [place] [address] [place] Immature granulocytes (Bld) [#/Vol] 0.04 10*3/uL Normal <0.10 [facility] Comment on above: Order Comment: Speci men Type: BLOOD SPECIMENOrdering Facility: [facility] Address: [address] [place] [address] Performed By: #### 5 7021-8 ####[facility] LABCLIA [id number] [place] [address] [place] Immature granulocytes/100 WBC (Bld) 0.5 % Normal [facility] Comment on above: Order Comment: Speci men Type: BLOOD SPECIMENOrdering Facility: [facility] Address: [address] [place] [address] Performed By: #### 5 7021-8 ####[facility] LABCLIA [id number] [place] [address] [place] Lymphocytes (Bld) [#/Vol] 2.00 10*3/uL Normal 1.00-4.00 [facility] Comment on above: Order Comment: Speci men Type: BLOOD SPECIMENOrdering Facility: [facility] Address: [address] [place] [address] Performed By: #### 5 7021-8 ####[facility] LABCLIA [id number] [place] [address] [place] Lymphocytes/100 WBC (Bld) 26.0 % Normal [facility] Comment on above: Order Comment: Speci men Type: BLOOD SPECIMENOrdering Facility: [facility] Address: [address] [place] [address] Performed By: #### 5 7021-8 ####[facility] LABIA [id number] [address] [place] MCH (RBC) [Entitic mass] 26.4 pg Normal 26.0-34.0 [facility] Comment on above: Order Comment: Speci men Type: BLOOD SPECIMENOrdering Facility: [facility] Address: [address] [place] [address] Performed By: #### 5 7021-8 ####[facility] [id number] [place] [address] [place] MCHC (RBC) [Mass/Vol] 30.9 g/dL Normal 30.5-36.0 [facility] Comment on above: Order Comment: Speci men Type: BLOOD SPECIMENOrdering Facility: [facility] Address: [address] [place] [address] Performed By: #### 5 7021-8 ####[facility] [id number] [place] [address] [place] MCV (RBC) [Entitic vol] 85.4 fL Normal 80.0-100.0 [facility] Comment on above: Order Comment: Speci men Type: BLOOD SPECIMENOrdering Facility: [facility] Address: [address] [place] [address] Performed By: #### 5 7021-8 ####[facility] [id number] [place] [address] [place] Monocytes (Bld) [#/Vol] 0.48 10*3/uL Normal <0.87 [facility] Comment on above: Order Comment: Speci men Type: BLOOD SPECIMENOrdering Facility: [facility] Address: [address] [place] [address] Performed By: #### 5 7021-8 ####[facility] [id number] [place] [address] [place] Monocytes/100 WBC (Bld) 6.2 % Normal [facility] Comment on above: Order Comment: Speci men Type: BLOOD SPECIMENOrdering Facility: [facility] Address: [address] [place] [address] Performed By: #### 5 7021-8 ####[facility] LABCLIA [id number] [place] [address] [place] Neutrophils (Bld) [#/Vol] 5.05 10*3/uL Normal 1.45-7.50 [facility] Comment on above: Order Comment: Speci men Type: BLOOD SPECIMENOrdering Facility: [facility] Address: [address] [place] [address] Performed By: #### 5 7021-8 ####[facility] LABCLIA [id number] [place] [address] [place] Neutrophils/100 WBC (Bld) 65.8 % Normal [facility] Comment on above: Order Comment: Speci men Type: BLOOD SPECIMENOrdering Facility: [facility] Address: [address] [place] [address] Performed By: #### 5 7021-8 ####[facility] LABCLIA [id number] [place] [address] [place] Nucleated RBC (Bld) [#/Vol] 10*3/uL Normal <0.01 [facility] Comment on above: Order Comment: Speci men Type: BLOOD SPECIMENOrdering Facility: [facility] Address: [address] [place] [address] Performed By: #### 5 7021-8 ####[facility] LABCLIA [id number] [place] [address] [place] Nucleated RBC/100 WBC (Bld) [Ratio] 0.0 /100 WBC Normal [facility] Comment on above: Order Comment: Speci men Type: BLOOD SPECIMENOrdering Facility: [facility] Address: [address] [place] [address] Performed By: #### 5 7021-8 ####[facility] LABCLIA [id number] [place] [address] [place] Platelet mean volume (Bld) [Entitic vol] 12.9 fL High 9.0-12.7 [facility] Comment on above: Order Comment: Speci men Type: BLOOD SPECIMENOrdering Facility: [facility] Address: [address] [place] [address] Performed By: #### 5 7021-8 ####[facility] LABCLIA [id number] [place] [address] [place] Platelets (Bld) [#/Vol] 250 10*3/uL Normal 150-400 [facility] Comment on above: Order Comment: Speci men Type: BLOOD SPECIMENOrdering Facility: [facility] Address: [address] [place] [address] Performed By: #### 5 7021-8 ####[facility] LABCLIA [id number] [place] [address] [place] RBC (Bld) [#/Vol] 4.58 10*6/uL Normal 3.90-5.20 [facility] Comment on above: Order Comment: Speci men Type: BLOOD SPECIMENOrdering Facility: [facility] Address: [address] [place] [address] Performed By: #### 5 7021-8 ####[facility] LABCLIA [id number] [place] [address] [place] WBC (Bld) [#/Vol] 7.69 10*3/uL Normal 3.70-11.00 [facility] Comment on above: Order Comment: Speci men Type: BLOOD SPECIMENOrdering Facility: [facility] Address: [address] [place] [address] Performed By: #### 5 7021-8 ####[facility] LABCLIA [id number] [place] [address] [place] CD19 ABSOLUTE COUNTon 2023 CD3-CD19+ cells (Bld) [#/Vol] 75 cells/uL Normal 75-660 [facility] Comment on above: Order Comment: Speci men Type: BLOOD SPECIMENOrdering Facility: [facility] Address: [address] [place] [address] Performed By: #### A BS19 ####[facility] LABCLIA [id number] [place] [address] [place] CD3-CD19+ cells/100 cells (Bld) 3 % Low 5-22 [facility] Comment on above: Order Comment: Speci men Type: BLOOD SPECIMENOrdering Facility: [facility] Address: [address] [place] [address] Performed By: #### A BS19 ####[facility] LABCLIA [id number] [place] [address] [place] Lymphocytes/100 WBC FC (Bld) Normal [facility] Comment on above: Order Comment: Speci men Type: BLOOD SPECIMENOrdering Facility: [facility] Address: [address] [place] [address] Performed By: #### A BS19 ####[facility] LABCLIA [id number] [place] [address] [place] Comprehensive metabolic 2000 panelon 04-12-2024 Albumin [Mass/Vol] 4.3 g/dL Normal 3.9-4.9 [facility] Comment on above: Order Comment: Speci men Type: BLOOD SPECIMENOrdering Facility: [facility] Address: [address] [place] [address] Performed By: #### 2 4323-8 ####[facility] LABCLIA [id number] [place] [id number] [place] ALP [Catalytic activity/Vol] 129 U/L High 34-123 [facility] Comment on above: Order Comment: Speci men Type: BLOOD SPECIMENOrdering Facility: [facility] Address: [address] [place] [address] Performed By: #### 2 4323-8 ####[facility] LABCLIA [id number] [place] [address] [place] ALT [Catalytic activity/Vol] 14 U/L Normal 7-38 [facility] Comment on above: Order Comment: Speci men Type: BLOOD SPECIMENOrdering Facility: [facility] Address: [address] [place] [address] Performed By: #### 2 4323-8 ####[facility] LABCLIA [id number] [place] [address] [place] Anion gap [Moles/Vol] 11 mmol/L Normal 8-15 [facility] Comment on above: Order Comment: Speci men Type: BLOOD SPECIMENOrdering Facility: [facility] Address: [address] [place] [address] Performed By: #### 2 4323-8 ####[facility] LABCLIA [id number] [place] [address] [place] AST [Catalytic activity/Vol] 19 U/L Normal 13-35 [facility] Comment on above: Order Comment: Speci men Type: BLOOD SPECIMENOrdering Facility: [facility] Address: [address] [place] [address] Performed By: #### 2 4323-8 ####[facility] LABCLIA [id number] [place] [id number] [place] Bilirubin [Mass/Vol] 0.3 mg/dL Normal 0.2-1.3 [facility] Comment on above: Order Comment: Speci men Type: BLOOD SPECIMENOrdering Facility: [facility] Address: [address] [place], [place] [address] Performed By: #### 2 4323-8 ####[facility] LABCLIA [id number] [place] [address] [place] Calcium [Mass/Vol] 9.1 mg/dL Normal 8.5-10.2 [facility] Comment on above: Order Comment: Speci men Type: BLOOD SPECIMENOrdering Facility: [facility] Address: [address] [place] [address] Performed By: #### 2 4323-8 ####[facility] LABCLIA [id number] [place] [address] [place] Chloride [Moles/Vol] 103 mmol/L Normal 98-107 [facility] Comment on above: Order Comment: Speci men Type: BLOOD SPECIMENOrdering Facility: [facility] Address: [address] [place] [address] Performed By: #### 2 4323-8 ####[facility] LABCLIA [id number] [place] [address] [place] CO2 [Moles/Vol] 26 mmol/L Normal 22-30 [facility] Comment on above: Order Comment: Speci men Type: BLOOD SPECIMENOrdering Facility: [facility] Address: [address] [place] [address] Performed By: #### 2 4323-8 ####[facility] LABCLIA [id number] [place] [address] [place] Creatinine [Mass/Vol] 0.84 mg/dL Normal 0.58-0.96 [facility] Comment on above: Order Comment: Speci men Type: BLOOD SPECIMENOrdering Facility: [facility] Address: [address] [place], [place] [id number] Performed By: #### 2 4323-8 ####[facility] LABCLIA [id number] [place] [address] [place] Creatinine and Glomerular filtration rate.predicted panel (S/P/Bld) 99 mL/min/1.73m??? Normal >=60 [facility] Comment on above: Order Comment: Nathanael moore Type: BLOOD SPECIMENOrdering Facility: [facility] Address: [address] [place] [address] Result Comment: Jessica mated Glomerular Filtration Rate (eGFR) is calculated using the 2020 CKD-EPI creatinine equation. This equation utilizes serum creatinine, sex, and age as parameters. The creatinine assay has traceable calibration to isotope dilution-mass spectrometry. Refer to KDIGO guidelines for clinical interpretation. In patients with unstable renal function, e.g. those with acute kidney injury, the eGFR may not accurately reflect actual GFR. Performed By: #### 2 4323-8 ####[facility] LABIA [id number] [place] [address] [place] Glucose [Mass/Vol] 89 mg/dL Normal 74-99 [facility] Comment on above: Order Comment: Nathanael moore Type: BLOOD SPECIMENOrdering Facility: [facility] Address: [address] [place] [address] Result Comment: The [place] Diabetes [employer] (ADA) provides guidance for cutoff values for fasting glucose and random glucose. The ADA defines fasting as no caloric intake for at least 8 hours. Fasting plasma glucose results between 100 to 125 mg/dL indicate increased risk for diabetes (prediabetes). Fasting plasma glucose results greater than or equal to 126 mg/dL meet the criteria for diagnosis of diabetes. In the absence of unequivocal hyperglycemia, results should be confirmed by repeat testing. In a patient with classic symptoms of hyperglycemia or hyperglycemic crisis, random plasma glucose results greater than or equal to 200 mg/dL meet the criteria for diagnosis of diabetes. Reference: Standards of Medical Care in Diabetes 2016, [place] [employer]. Diabetes Care. 2016.39(Suppl 1). Performed By: #### 2 4323-8 ####[facility] [id number] [place] [address] [place] Potassium [Moles/Vol] 4.0 mmol/L Normal 3.7-5.1 [facility] Comment on above: Order Comment: Nathanael moore Type: BLOOD SPECIMENOrdering Facility: [facility] Address: [address] [place] [address] Performed By: #### 2 4323-8 ####[facility] LABCLIA [id number] [place] [address] [place] Protein [Mass/Vol] 6.7 g/dL Normal 6.3-8.0 [facility] Comment on above: Order Comment: Speci men Type: BLOOD SPECIMENOrdering Facility: [facility] Address: [address] [place] [address] Performed By: #### 2 4323-8 ####[facility] LABCLIA [id number] [place] [address] [place] Sodium [Moles/Vol] 140 mmol/L Normal 136-144 [facility] Comment on above: Order Comment: Speci men Type: BLOOD SPECIMENOrdering Facility: [facility] Address: [address] [place] [address] Performed By: #### 2 4323-8 ####[facility] LABCLIA [id number] [place] [address] [place] Urea nitrogen [Mass/Vol] 10 mg/dL Normal 7-21 [facility] Comment on above: Order Comment: Speci men Type: BLOOD SPECIMENOrdering Facility: [facility] Address: [address] [place] [address] Performed By: #### 2 4323-8 ####[facility] LABCLIA [id number] [place] [address] [place] HBV core Ab Ser Qlon -19-2 024 HBV core Ab Ql (S) Negative Normal Negative [facility] Comment on above: Order Comment: Speci men Type: BLOOD SPECIMENOrdering Facility: [facility] Address: [address] [place] [address] Result Comment: No e vidence of current or past infection with Hepatitis B virus. Should recent infection be suspected, repeat testing may be considered 3-4 weeks after this draw. Performed By: #### 5 195-3, 54013-0, ####[facility] LABCLIA [id number] [place] [address] [place] HBV surface Ab Ql (S)on 03-25 HBV surface Ab Qn (S) <8.00 Normal [facility] Comment on above: Order Comment: Speci men Type: BLOOD SPECIMENOrdering Facility: [facility] Address: [address] [place] [address] Result Comment: <8 m IU/mL: No serological evidence of immunity to Hepatitis B Virus. >/= 8 to <12 mIU/mL: No serological evidence of immunity to Hepatitis B Virus. >/= 12 mIU/mL: Consistent with serological evidence of immunity to Hepatitis B Virus. Performed By: #### 5 195-3, 06515-9, ####[facility] LABCLIA [id number] [address] [place] HBV surface Ab Ser Qlon 03-25 HBV surface Ab Ql (S) Negative Normal [facility] Comment on above: Order Comment: Speci men Type: BLOOD SPECIMENOrdering Facility: [facility] Address: [address] [place] [address] Result Comment: No s erological evidence of immunity to Hepatitis B Virus. Performed By: #### 5 195-3, 35897-1, 10174-8 ####[facility] LABCLIA [id number] [place] [address] [place] HBV surface Ag Ser Qlon 03-25 HBV surface Ag Ql (S) Negative Normal Negative [facility] Comment on above: Order Comment: Speci men Type: BLOOD SPECIMENOrdering Facility: [facility] Address: [address] [place] [address] Performed By: #### 5 195-3, 29378-7, 10541-1 ####[facility] LABCLIA [id number] [place] [address] [place] HCV Ab Ser Qlon 04-12-2024 HCV Ab Ql (S) Negative Normal Negative [facility] Comment on above: Order Comment: Speci men Type: BLOOD SPECIMENOrdering Facility: [facility] Address: [address] [place] [address] Result Comment: The result suggests no evidence of active infection with Hepatitis C virus. Should recent infection be suspected, repeat testing may be considered 4-6 weeks after this draw. Performed By: #### 1 6128-1 ####[facility] LABCLIA [id number] [facility] [address] [place] [facility] MR Brain WO and W contrast I Von 02-27-2024 IMPRESSION: No substantial interval change in size, number, or distribution of multiple T2 FLAIR hyperintense lesions throughout the bilateral cerebral white matter compatible with sequelae of demyelinating disease. No new or enhancing lesions are identified. Wire Hanger: MAHSA Transcribe Date/Time: Feb 27 2024 11:37A Dictated by : ROSALEE ESPINOZA MD This examination was interpreted and the report reviewed and electronically signed by: ROSALEE ESPINOZA MD on Feb 27 2024 11:43AM [facility] DIVISION OF RADIOLOGY * * *Final Report* * * DATE OF EXAM: Feb 27 2024 11:10AM [facility] 0295 - MRI BRAIN WO/W IVCON / PROCEDURE REASON: Multiple sclerosis (HCC) * * * * Physician Interpretation * * * * EXAMINATION: MRI BRAIN WO/W IVCON CLINICAL HISTORY: Multiple sclerosis TECHNIQUE: Routine brain MRI protocol without and with contrast including diffusion images. MQ: MRBWOW_2 Contrast: 20 mL Dotarem IV COMPARISON: MRI brain 10/29/2023 RESULT: Acute Change: There is no evidence of restricted diffusion to suggest an acute infarct. Hemorrhage: No evidence of space-occupying intracranial hemorrhage. Mass Lesion/ Mass Effect: No evidence of an intracranial mass or extra-axial fluid collection. No abnormal parenchymal or leptomeningeal enhancement is noted following contrast administration. No mass effect. Chronic Change: No substantial interval change in size, number, or distribution of multiple T2 FLAIR hyperintense lesions throughout the bilateral cerebral white matter. Parenchyma: No significant volume loss for age. Ventricles: Normal caliber and morphology. Skull Base: Hypothalamic and pituitary region are grossly normal. Craniocervical junction is normal. No significant marrow replacement process. Vasculature: Major intracranial arterial structures, and dural venous sinuses show typical flow void, suggesting patency by spin echo criteria. Other: Mucosal thickening is present in the right ethmoid and left maxillary sinuses. The orbits and extracranial soft tissues are unremarkable. DIVISION OF RADIOLOGY Provider, Mini Arguellojakob [facility] - 02/27/2024 * * *Final Report* * * DATE OF EXAM: Feb 27 2024 11:10AM [facility] 0295 - MRI BRAIN WO/W IVCON / PROCEDURE REASON: Multiple sclerosis (HCC) * * * * Physician Interpretation * * * * EXAMINATION: MRI BRAIN WO/W IVCON CLINICAL HISTORY: Multiple sclerosis TECHNIQUE: Routine brain MRI protocol without and with contrast including diffusion images. MQ: MRBWOW_2 Contrast: 20 mL Dotarem IV COMPARISON: MRI brain 10/29/2023 RESULT: Acute Change: There is no evidence of restricted diffusion to suggest an acute infarct. Hemorrhage: No evidence of space-occupying intracranial hemorrhage. Mass Lesion/ Mass Effect: No evidence of an intracranial mass or extra-axial fluid collection. No abnormal parenchymal or leptomeningeal enhancement is noted following contrast administration. No mass effect. Chronic Change: No substantial interval change in size, number, or distribution of multiple T2 FLAIR hyperintense lesions throughout the bilateral cerebral white matter. Parenchyma: No significant volume loss for age. Ventricles: Normal caliber and morphology. Skull Base: Hypothalamic and pituitary region are grossly normal. Craniocervical junction is normal. No significant marrow replacement process. Vasculature: Major intracranial arterial structures, and dural venous sinuses show typical flow void, suggesting patency by spin echo criteria. Other: Mucosal thickening is present in the right ethmoid and left maxillary sinuses. The orbits and extracranial soft tissues are unremarkable. IMPRESSION IMPRESSION: No substantial interval change in size, number, or distribution of multiple T2 FLAIR hyperintense lesions throughout the bilateral cerebral white matter compatible with sequelae of demyelinating disease. No new or enhancing lesions are identified. Wire Hanger: MAHSA Transcribe Date/Time: Feb 27 2024 11:37A Dictated by : ROSALEE ESPINOZA MD This examination was interpreted and the report reviewed and electronically signed by: ROSALEE ESPINOZA MD on Feb 27 2024 11:43AM [facility] Radiology Study observation (narrative) [facility] MR Brain WO and W contrast I VOrdered By: Mini Provider on 02-27-2024 [facility] MR Brain WO and W contrast I Von 10-29-2023 IMPRESSION: Allowing for differences in technique, there is no evidence of significant interval change in size, number, or distribution of multiple bilateral supratentorial and infratentorial T2 FLAIR hyperintense white matter lesions compatible with sequelae of demyelinating disease. No restricted diffusion or abnormal enhancement identified. Wire Hanger: MAHSA Transcribe Date/Time: Oct 29 2023 9:01A Dictated by : ROSALEE ESPINOZA MD This examination was interpreted and the report reviewed and electronically signed by: ROSALEE ESPINOZA MD on Oct 29 2023 9:07AM [facility] DIVISION OF RADIOLOGY * * *Final Report* * * DATE OF EXAM: Oct 29 2023 8:43AM [facility] 0295 - MRI BRAIN WO/W IVCON / PROCEDURE REASON: multiple diagnoses * * * * Physician Interpretation * * * * EXAMINATION: MRI BRAIN WO/W IVCON CLINICAL HISTORY: Multiple sclerosis TECHNIQUE: Routine brain MRI protocol without and with contrast including diffusion images. MQ: MRBWOW_2 Contrast: 20 mL IV COMPARISON: MRI brain 11/30/2021 RESULT: Acute Change: There is no evidence of restricted diffusion to suggest an acute infarct. Hemorrhage: No evidence of space-occupying intracranial hemorrhage. Mass Lesion/ Mass Effect: No evidence of an intracranial mass or extra-axial fluid collection. No abnormal parenchymal or leptomeningeal enhancement is noted following contrast administration. No mass effect. Chronic Change: Allowing for differences in technique, there is no evidence of significant interval change in size, number, or distribution of multiple bilateral supratentorial and infratentorial T2 FLAIR hyperintense white matter lesions. Parenchyma: No significant volume loss for age. Ventricles: Normal caliber and morphology. Skull Base: Hypothalamic and pituitary region are grossly normal. Craniocervical junction is normal. No significant marrow replacement process. Vasculature: Major intracranial arterial structures, and dural venous sinuses show typical flow void, suggesting patency by spin echo criteria. Other: Mucosal thickening is present in the left maxillary sinus. The orbits and extracranial soft tissues are unremarkable. Partially imaged T2 FLAIR hyperintense lesion in the right aspect of the cervical cord at the level of C1-C2 appears similar to prior MRI performed in 2020. DIVISION OF RADIOLOGY Provider, Mini Villaseñor - 10/29/2023 * * *Final Report* * * DATE OF EXAM: Oct 29 2023 8:43AM [facility] 0295 - MRI BRAIN WO/W IVCON / PROCEDURE REASON: multiple diagnoses * * * * Physician Interpretation * * * * EXAMINATION: MRI BRAIN WO/W IVCON CLINICAL HISTORY: Multiple sclerosis TECHNIQUE: Routine brain MRI protocol without and with contrast including diffusion images. MQ: MRBWOW_2 Contrast: 20 mL IV COMPARISON: MRI brain 11/30/2021 RESULT: Acute Change: There is no evidence of restricted diffusion to suggest an acute infarct. Hemorrhage: No evidence of space-occupying intracranial hemorrhage. Mass Lesion/ Mass Effect: No evidence of an intracranial mass or extra-axial fluid collection. No abnormal parenchymal or leptomeningeal enhancement is noted following contrast administration. No mass effect. Chronic Change: Allowing for differences in technique, there is no evidence of significant interval change in size, number, or distribution of multiple bilateral supratentorial and infratentorial T2 FLAIR hyperintense white matter lesions. Parenchyma: No significant volume loss for age. Ventricles: Normal caliber and morphology. Skull Base: Hypothalamic and pituitary region are grossly normal. Craniocervical junction is normal. No significant marrow replacement process. Vasculature: Major intracranial arterial structures, and dural venous sinuses show typical flow void, suggesting patency by spin echo criteria. Other: Mucosal thickening is present in the left maxillary sinus. The orbits and extracranial soft tissues are unremarkable. Partially imaged T2 FLAIR hyperintense lesion in the right aspect of the cervical cord at the level of C1-C2 appears similar to prior MRI performed in 2020. IMPRESSION IMPRESSION: Allowing for differences in technique, there is no evidence of significant interval change in size, number, or distribution of multiple bilateral supratentorial and infratentorial T2 FLAIR hyperintense white matter lesions compatible with sequelae of demyelinating disease. No restricted diffusion or abnormal enhancement identified. Wire Hanger: PSCB Transcribe Date/Time: Oct 29 2023 9:01A Dictated by : ROSALEE ESPINOZA MD This examination was interpreted and the report reviewed and electronically signed by: ROSALEE ESPINOZA MD on Oct 29 2023 9:07AM [facility] Radiology Study observation (narrative) Delicia page [facility] MR Brain WO and W contrast I VOrdered By: Ccf Provider on 10-29-2023 [facility] Absolute lymphocyte countOrd ered By: Mindy Mccormick on 08-22-2023 Lymphocytes Auto (Unsp spec) [#/Vol] 2.22 10*3/uL 0.83-4.51 [facility] Automated lymphocyte count a s percentage of total leukocytesOrdered By: Mindy Mccormick on 08-22-2023 Lymphocytes/100 WBC Auto (Unsp spec) 16.5 % 19-41 [facility] Basophil percentageOrdered B y: Mindy Mccormick on 08-22-2023 Basophils/100 WBC (Bld) 0.5 % 0-1 [facility] Eosinophils/100 WBC (Bld) 3.0 % 0-5 [facility] Hemoglobin (Bld) [Mass/Vol] 7.8 g/dL 12.0-15.0 [facility] Monocytes/100 WBC (Bld) 4.7 % 0-10 [facility] Neutrophils (Bld) [#/Vol] 9.9 10*3/uL 2.0-7.7 [facility] Neutrophils/100 WBC (Bld) 73.4 % 47-70 [facility] WBC (Bld) [#/Vol] 13.4 10*3/uL 4.4-11.0 [facility] Determination of erythrocyte mean corpuscular volume (MCV)Ordered By: Mindy Mccormick on 08-22-2023 MCV (RBC) [Entitic vol] 84.7 fL 81-99 [facility] Erythrocyte distribution wid th ratioOrdered By: Mindy Mccormick on 08-22-2023 Erythrocyte distribution width (RBC) [Ratio] 14.0 % 11.6-14.6 [facility] Erythrocyte distribution wid th standard deviationOrdered By: Mindy Mccormick on 08-22-2023 Erythrocyte distribution width (RBC) [Entitic vol] 43.0 fL 35.1-43.9 [facility] Hematocrit Auto (Bld) [Volum e fraction]Ordered By: Mindy Mccormick on 08-22-2023 Hematocrit (Bld) [Volume fraction] 25.5 % 37-47 [facility] Immature granulocytes/100 WB C Auto (Bld)Ordered By: Mindy Mccormick on 08-22-2023 Immature granulocytes/100 WBC (Bld) 1.900 % 0.0-0.9 [facility] Comment on above: IG% - Immature Granu locytes (promyelocytes, myelocytes and metamyelocytes) > 1% indicates that a LEFT SHIFT is Present. Laboratory - Hematology and Cell countsOrdered By: Mindy Mccormick on 08-22-2023 MCH (RBC) [Entitic mass] 25.9 pg 27.0-32.0 [facility] MCHC (RBC) [Mass/Vol] 30.6 g/dL 32-36 [facility] Nucleated RBC/100 WBC (Bld) [Ratio] 0 % 0-5 [facility] Platelet mean volume (Bld) [Entitic vol] 12.2 fL 6.2-12.0 [facility] Platelets (Bld) [#/Vol] 254 10*3/uL 150-450 [facility] RBC Auto (Bld) [#/Vol]Ordere d By: Mindy Mccormick on 08-22-2023 RBC (Bld) [#/Vol] 3.01 10*6/uL 4.2-5.4 [facility] Activated partial thrombopla stin time (aPTT) in platelet poor plasma by coagulation aOrdered By: Reema Gibson on 08-20-2023 aPTT Coag (PPP) [Time] 23.9 s 24.1-36.2 [facility] Laboratory - CoagulationOrde red By: Reema Gibson on 08-20-2023 INR Coag (Bld) [Relative time] 1.0 {INR} [facility] PT Coag (PPP) [Time] 13.0 s 11.7-14.9 [facility] No Panel InformationOrdered By: Reema Gibson on 08-20-2023 Vaginal Amniotic Fluid Detection Positive Negative [facility] Comment on above: Amniotic fluid prese nt indicates rupture of Membranes. RESULTS CALLED TO Calvin IVAN 08/20/23 0203 Sydney Duarte.REPORT READ BACK BY SAME . Serum Treponema species anti body detectionOrdered By: Reema Gibson on 08-19-2023 Treponema sp Ab Ql (S) Non-Reactive [facility] URINE OB DIP B/Oon Glucose Ql (U) Negative Neg mg/dL [facility] Protein.monoclonal (U) [Mass/Vol] Negative Neg mg/dL [facility] Gram stain for investigation of transfusion reactionOrdered By: Preston Leija on 08-06-2023 Microscopic observation Gram stain Nom (Unsp spec) [facility] No Panel InformationOrdered By: Preston Leija on 08-06-2023 Nasopharyngeal Culture Haemophilus influenzae [facility] CBC panel Auto (Bld)on 08-03 Erythrocyte distribution width (RBC) [Ratio] 13.6 % 11.5 - 15.0 % [facility] Hematocrit (Bld) [Volume fraction] 32.8 % Low 36.0 - 46.0 % [facility] Hemoglobin (Bld) [Mass/Vol] 10.8 g/dL Low 11.5 - 15.5 g/dL [facility] [facility] MCH (RBC) [Entitic mass] 27.5 pg 26.0 - 34.0 pg [facility] MCHC (RBC) [Mass/Vol] 32.9 g/dL 30.5 - 36.0 g/dL [facility] MCV (RBC) [Entitic vol] 83.5 fL 80.0 - 100.0 fL [facility] Nucleated RBC (Bld) [#/Vol] <0.01 k/uL [facility] Platelet mean volume (Bld) [Entitic vol] 12.3 fL 9.0 - 12.7 fL [facility] Platelets (Bld) [#/Vol] 189 10*3/uL 150 - 400 k/uL [facility] RBC (Bld) [#/Vol] 3.93 10*6/uL 3.90 - 5.2 0 m/uL [facility] WBC (Bld) [#/Vol] 10.57 10*3/uL 3.70 - 11 .00 k/uL [facility] Comprehensive metabolic 2000 panelon 08-03-2023 Albumin [Mass/Vol] 3.3 g/dL Low 3.9 - 4.9 g/dL [facility] ALP [Catalytic activity/Vol] 223 U/L High 34 - 123 U/L [facility] ALT [Catalytic activity/Vol] 8 U/L 7 - 38 U/L [facility] Anion gap [Moles/Vol] 9 mmol/L 9 - 18 mmol/L [facility] AST [Catalytic activity/Vol] 13 U/L 13 - 35 U/L [facility] Bilirubin [Mass/Vol] 0.3 mg/dL 0.2 - 1 .3 mg/dL [facility] Calcium [Mass/Vol] 9.4 mg/dL 8.5 - 10. 2 mg/dL [facility] Chloride [Moles/Vol] 104 mmol/L 97 - 10 5 mmol/L [facility] CO2 [Moles/Vol] 24 mmol/L 22 - 30 mmol/L [facility] Creatinine [Mass/Vol] 0.78 mg/dL 0.58 - 0.96 mg/dL [facility] Estimated Glomerular Filtration Rate 109 mL/min/1.73m >=60 mL/min/1.73m [facility] Glucose [Mass/Vol] 102 mg/dL High 74 - 99 mg/dL [facility] Potassium [Moles/Vol] 3.8 mmol/L 3.7 - 5.1 mmol/L [facility] Protein [Mass/Vol] 5.9 g/dL Low 6.3 - 8.0 g/dL [facility] Sodium [Moles/Vol] 137 mmol/L 136 - 144 mmol/L [facility] Urea nitrogen [Mass/Vol] 10 mg/dL 7 - 21 mg/dL [facility] URIC ACID BLOODon 08-03-2023 Urate [Mass/Vol] 4.8 mg/dL 2.5 - 6.6 mg/dL [facility] No Panel Informationon 07-27 [facility] URINE OB DIP B/Oon 4 Glucose Ql (U) Negative Neg mg/dL [facility] Protein.monoclonal (U) [Mass/Vol] Negative Neg mg/dL [facility] Gram stain for investigation of transfusion reactionOrdered By: Preston Leija on 06-19-2023 Microscopic observation Gram stain Nom (Unsp spec) [facility] No Panel InformationOrdered By: Preston Leija on 06-19-2023 Nasopharyngeal Culture Haemophilus influenzae [facility] URINE OB DIP B/Oon 3 Glucose Ql (U) Negative Neg mg/dL [facility] Protein.monoclonal (U) [Mass/Vol] Negative Neg mg/dL [facility] XR Chest PA and Lateralon IMPRESSION: No acute radiographic abnormality. Wire Hanger: MAHSA Transcribe Date/Time: Apr 24 2023 8:28A Dictated by : MAGGIE DUGGAN MD This examination was interpreted and the report reviewed and electronically signed by: MAGGIE DUGGAN MD on Apr 24 2023 8:29AM [facility] DIVISION OF RADIOLOGY * * *Final Report* * * DATE OF EXAM: Apr 24 2023 8:26AM WOX [id number] - XR CHEST 2V FRONTAL/LAT / PROCEDURE REASON: Subacute cough * * * * Physician Interpretation * * * * EXAMINATION: CHEST RADIOGRAPH (2 VIEW FRONTAL & LATERAL) CLINICAL HISTORY: Subacute cough MQ: XC2_6 EXAM DATE/TIME: 04/24/2023 8:26 AM COMPARISON: No relevant prior studies available. RESULT: Lines, tubes, and devices: None. Lungs and pleura: No consolidation. No lung mass. No pleural effusion. No pneumothorax. Cardiomediastinal silhouette: Normal cardiomediastinal silhouette. Bones and soft tissues: Unremarkable. DIVISION OF RADIOLOGY Provider, [facility] - 04/24/2023 * * *Final Report* * * DATE OF EXAM: Apr 24 2023 8:26AM WOX [id number] - XR CHEST 2V FRONTAL/LAT / PROCEDURE REASON: Subacute cough * * * * Physician Interpretation * * * * EXAMINATION: CHEST RADIOGRAPH (2 VIEW FRONTAL & LATERAL) CLINICAL HISTORY: Subacute cough MQ: XC2_6 EXAM DATE/TIME: 04/24/2023 8:26 AM COMPARISON: No relevant prior studies available. RESULT: Lines, tubes, and devices: None. Lungs and pleura: No consolidation. No lung mass. No pleural effusion. No pneumothorax. Cardiomediastinal silhouette: Normal cardiomediastinal silhouette. Bones and soft tissues: Unremarkable. IMPRESSION IMPRESSION: No acute radiographic abnormality. Wire Hanger: PSCB Transcribe Date/Time: Apr 24 2023 8:28A Dictated by : MAGGIE DUGGAN MD This examination was interpreted and the report reviewed and electronically signed by: MAGGIE DUGGAN MD on Apr 24 2023 8:29AM [facility] Radiology Study observation (narrative) Delicia page [facility] XR Chest PA and LateralOrder ed By: Cc Provider on 04-24-2023 [facility] OBSTETRIC ULTRASOUND WHIon 1 [facility] URINE OB DIP B/Oon 3 Glucose Ql (U) Negative Neg mg/dL [facility] Protein.monoclonal (U) [Mass/Vol] Negative Neg mg/dL [facility] CBC panel Auto (Bld)on 01-03 Erythrocyte distribution width (RBC) [Ratio] 14.0 % 11.5 - 15.0 % [facility] Hematocrit (Bld) [Volume fraction] 38.8 % 36.0 - 46.0 % [facility] Hemoglobin (Bld) [Mass/Vol] 12.5 g/dL 11.5 - 15.5 g/dL [facility] MCH (RBC) [Entitic mass] 27.5 pg 26.0 - 34.0 pg [facility] MCHC (RBC) [Mass/Vol] 32.2 g/dL 30.5 - 36.0 g/dL [facility] MCV (RBC) [Entitic vol] 85.5 fL 80.0 - 100.0 fL [facility] Nucleated RBC (Bld) [#/Vol] <0.01 k/uL [facility] Platelet mean volume (Bld) [Entitic vol] 13.0 fL High 9.0 - 12.7 fL [facility] Platelets (Bld) [#/Vol] 239 10*3/uL 150 - 400 k/uL [facility] RBC (Bld) [#/Vol] 4.54 10*6/uL 3.90 - 5.2 0 m/uL [facility] WBC (Bld) [#/Vol] 12.08 10*3/uL High 3.70 - 11 .00 k/uL [facility] HbA1c (Bld)on 01-03-2023 Average glucose Estimated from glycated hemoglobin (Bld) [Mass/Vol] 94 mg/dL [facility] HbA1c (Bld) [Mass fraction] 4.9 % 4.3 - 5.6 % [facility] POC REAL ESTATE DIRECTOR ULTRASOUNDon 01-04-20 [facility] CBC W Auto Differential pane l (Bld)on 07-07-2022 Basophils (Bld) [#/Vol] 0.04 10*3/uL <0.11 k/uL [facility] Basophils/100 WBC (Bld) 0.3 % C [facility] Differential cell count method Nom (Bld) Auto [facility] Eosinophils (Bld) [#/Vol] 0.10 10*3/uL <0.46 k/uL [facility] Eosinophils/100 WBC (Bld) 0.9 % [facility] Erythrocyte distribution width (RBC) [Ratio] 13.1 % 11.5 - 15.0 % [facility] Hematocrit (Bld) [Volume fraction] 40.4 % 36.0 - 46.0 % [facility] Hemoglobin (Bld) [Mass/Vol] 13.2 g/dL 11.5 - 15.5 g/dL [facility] Immature granulocytes (Bld) [#/Vol] 0.03 10*3/uL <0.10 k/uL [facility] Immature granulocytes/100 WBC (Bld) 0.3 % [facility] Lymphocytes (Bld) [#/Vol] 2.61 10*3/uL 1.00 - 4.00 k/uL [facility] Lymphocytes/100 WBC (Bld) 22.5 % [facility] MCH (RBC) [Entitic mass] 27.6 pg 26.0 - 34.0 pg [facility] MCHC (RBC) [Mass/Vol] 32.7 g/dL 30.5 - 36.0 g/dL [facility] MCV (RBC) [Entitic vol] 84.5 fL 80.0 - 100.0 fL [facility] Monocytes (Bld) [#/Vol] 0.93 10*3/uL High <0.87 k/uL [facility] Monocytes/100 WBC (Bld) 8.0 % [facility] Neutrophils (Bld) [#/Vol] 7.91 10*3/uL High 1.45 - 7.50 k/uL [facility] Neutrophils/100 WBC (Bld) 68.0 % [facility] Nucleated RBC (Bld) [#/Vol] <0.01 k/uL [facility] Nucleated RBC/100 WBC (Bld) [Ratio] 0.0 /100 WBC [facility] Platelet mean volume (Bld) [Entitic vol] 11.8 fL 9.0 - 12.7 fL [facility] Platelets (Bld) [#/Vol] 270 10*3/uL 150 - 400 k/uL [facility] RBC (Bld) [#/Vol] 4.78 10*6/uL 3.90 - 5.2 0 m/uL [facility] WBC (Bld) [#/Vol] 11.62 10*3/uL High 3.70 - 11 .00 k/uL [facility] Comprehensive metabolic 2000 panelon 07-07-2022 Albumin [Mass/Vol] 4.6 g/dL 3.9 - 4.9 g/dL [facility] ALP [Catalytic activity/Vol] 115 U/L 34 - 123 U/L [facility] ALT [Catalytic activity/Vol] 17 U/L 7 - 38 U/L [facility] Anion gap [Moles/Vol] 12 mmol/L 9 - 18 mmol/L [facility] AST [Catalytic activity/Vol] 14 U/L 13 - 35 U/L [facility] Bilirubin [Mass/Vol] 0.3 mg/dL 0.2 - 1 .3 mg/dL [facility] Calcium [Mass/Vol] 10.3 mg/dL High 8.5 - 10. 2 mg/dL [facility] Chloride [Moles/Vol] 102 mmol/L 97 - 10 5 mmol/L [facility] CO2 [Moles/Vol] 24 mmol/L 22 - 30 mmol/L [facility] Creatinine [Mass/Vol] 0.80 mg/dL 0.58 - 0.96 mg/dL [facility] Estimated Glomerular Filtration Rate 106 mL/min/1.73m >=60 mL/min/1.73m [facility] Glucose [Mass/Vol] 97 mg/dL 74 - 99 mg/dL [facility] Potassium [Moles/Vol] 3.7 mmol/L 3.7 - 5.1 mmol/L [facility] Protein [Mass/Vol] 7.1 g/dL 6.3 - 8.0 g/dL [facility] Sodium [Moles/Vol] 138 mmol/L 136 - 144 mmol/L [facility] Urea nitrogen [Mass/Vol] 13 mg/dL 7 - 21 mg/dL [facility] BRAIN & CERVICAL SPINE MRI D ISCRETE DATAon 11-30-2021 Brain Enhancing Lesions None C [facility] Brain Interval Improvement None [facility] Brain New T2 Lesions None [facility] Brain Other Significant MRI Findings None. [facility] Brain Parenchymal Volume Loss None [facility] Brain T2 Say[place] of Disease Mild [facility] MRI BRAIN WO/W IVCONon 11-30 [facility] Vital Signs Date Time Vital Sign Value Performing Clinician Facility 12-30-2024 15:16-0400 Body mass index (BMI) [Ratio] 43.66 kg/m2 Jack Garcia RELIEF DOCKING MASTER.AIR CONDITIONING ENGINEER Work Phone: [facility] 12-30-2024 15:16-0400 Body weight 119 kg Jack Garcia RELIEF DOCKING MASTER.AIR CONDITIONING ENGINEER Work Phone: [facility] 12-30-2024 15:16-0400 Diastolic blood pressure 74 mm[Hg] Jack Garcia RELIEF DOCKING MASTER.AIR CONDITIONING ENGINEER Work Phone: [facility] 12-30-2024 15:16-0400 Heart rate 98 /min Jack Garcia RELIEF DOCKING MASTER.AIR CONDITIONING ENGINEER Work Phone: [facility] 12-30-2024 15:16-0400 Systolic blood pressure 126 mm[Hg] Jack Garcia RELIEF DOCKING MASTER.AIR CONDITIONING ENGINEER Work Phone: [facility] 11-03-2024 07:11-0400 Body mass index (BMI) [Ratio] 42.67 kg/m2 Jack Garcia RELIEF DOCKING MASTER.AIR CONDITIONING ENGINEER Work Phone: [facility] 11-03-2024 07:11-0400 Body temperature 98.01 [degF] Jack Garcia RELIEF DOCKING MASTER.AIR CONDITIONING ENGINEER Work Phone: [facility] 11-03-2024 07:11-0400 Body weight 116.3 kg Jack Garcia RELIEF DOCKING MASTER.AIR CONDITIONING ENGINEER Work Phone: [facility] 11-03-2024 07:11-0400 Diastolic blood pressure 80 mm[Hg] Jack Garcia RELIEF DOCKING MASTER.AIR CONDITIONING ENGINEER Work Phone: [facility] 11-03-2024 07:11-0400 Heart rate 100 /min Jack Garcia RELIEF DOCKING MASTER.AIR CONDITIONING ENGINEER Work Phone: [facility] 11-03-2024 07:11-0400 Respiratory rate 16 /min Jack Garcia RELIEF DOCKING MASTER.AIR CONDITIONING ENGINEER Work Phone: [facility] 11-03-2024 07:11-0400 Systolic blood pressure 118 mm[Hg] Jack Garcia RELIEF DOCKING MASTER.AIR CONDITIONING ENGINEER Work Phone: [facility] 10-23-2024 08:07-0400 Body height 165.1 cm Tegan Plotts RELIEF DOCKING MASTER.CNM Work Phone: [facility] 10-23-2024 08:07-0400 Body mass index (BMI) [Ratio] 43.1 kg/m2 Tegan Plotts RELIEF DOCKING MASTER.CNM Work Phone: [facility] 10-23-2024 08:07-0400 Body weight 117.48 kg Tegan Plotts RELIEF DOCKING MASTER.CNM Work Phone: [facility] 10-23-2024 08:07-0400 Diastolic blood pressure 74 mm[Hg] Tegan Plotts RELIEF DOCKING MASTER.CNM Work Phone: [facility] 10-23-2024 08:07-0400 Systolic blood pressure 120 mm[Hg] Tegan Plotts RELIEF DOCKING MASTER.CNM Work Phone: [facility] 07-28-2024 07:21-0500 Body mass index (BMI) [Ratio] 40.36 kg/m2 Jack Garcia RELIEF DOCKING MASTER.AIR CONDITIONING ENGINEER Work Phone: [facility] 07-28-2024 07:21-0500 Body temperature 99.1 [degF] Jack Garcia RELIEF DOCKING MASTER.AIR CONDITIONING ENGINEER Work Phone: [facility] 07-28-2024 07:21-0500 Body weight 110 kg Jack Garcia RELIEF DOCKING MASTER.AIR CONDITIONING ENGINEER Work Phone: [facility] 07-28-2024 07:21-0500 Diastolic blood pressure 81 mm[Hg] Jack Garcia RELIEF DOCKING MASTER.AIR CONDITIONING ENGINEER Work Phone: [facility] 07-28-2024 07:21-0500 Heart rate 111 /min Jack Garcia RELIEF DOCKING MASTER.AIR CONDITIONING ENGINEER Work Phone: [facility] 07-28-2024 07:21-0500 Respiratory rate 16 /min Jack Garcia RELIEF DOCKING MASTER.AIR CONDITIONING ENGINEER Work Phone: [facility] 07-28-2024 07:21-0500 Systolic blood pressure 118 mm[Hg] Jack Garcia RELIEF DOCKING MASTER.AIR CONDITIONING ENGINEER Work Phone: [facility] 05-23-2024 08:47-0500 Body mass index (BMI) [Ratio] 39.25 kg/m2 Treatment Wstr Work Phone: [facility] 05-23-2024 08:47-0500 Body temperature 97.3 [degF] Treatment Wstr Work Phone: [facility] 05-23-2024 08:47-0500 Body weight 107 kg Treatment Wstr Work Phone: [facility] 05-23-2024 08:47-0500 Diastolic blood pressure 85 mm[Hg] Treatment Wstr Work Phone: [facility] 05-23-2024 08:47-0500 Heart rate 102 /min Treatment Wstr Work Phone: [facility] 05-23-2024 08:47-0500 Respiratory rate 18 /min Treatment Wstr Work Phone: [facility] 05-23-2024 08:47-0500 SaO2% (BldA) [Mass fraction] 99 % Treatment Wstr Work Phone: [facility] 05-23-2024 08:47-0500 Systolic blood pressure 129 mm[Hg] Treatment Wstr Work Phone: [facility] 05-15-2024 08:48-0500 Body temperature 97.7 [degF] Treatment Wstr Work Phone: [facility] 05-15-2024 08:48-0500 Diastolic blood pressure 78 mm[Hg] Treatment Wstr Work Phone: [facility] 05-15-2024 08:48-0500 Heart rate 89 /min Treatment Wstr Work Phone: [facility] 05-15-2024 08:48-0500 SaO2% (BldA) [Mass fraction] 100 % Treatment Wstr Work Phone: [facility] 05-15-2024 08:48-0500 Systolic blood pressure 118 mm[Hg] Treatment Wstr Work Phone: [facility] 10-05-2023 08:42-0400 Body weight 94.53 kg Radha Mcnamara APRN.SHIPPER/RECEIVER Work Phone: [facility] 10-05-2023 08:42-0400 Diastolic blood pressure 60 mm[Hg] Radha Mcnamara RELIEF DOCKING MASTER.SHIPPER/RECEIVER Work Phone: [facility] 10-05-2023 08:42-0400 Systolic blood pressure 110 mm[Hg] Radha Mcnamara RELIEF DOCKING MASTER.SHIPPER/RECEIVER Work Phone: [facility] 08-31-2023 09:13-0500 Body weight 96.16 kg Mindy Mccormick MD Work Phone: [facility] 08-31-2023 09:13-0500 Diastolic blood pressure 74 mm[Hg] Mindy Mccormick MD Work Phone: [facility] 08-31-2023 09:13-0500 Systolic blood pressure 120 mm[Hg] Mindy Mccormick MD Work Phone: [facility] 08-22-2023 10:00-0500 Body temperature 97.5 [degF] [facility] 08-22-2023 10:00-0500 Diastolic blood pressure 68 mm[Hg] [facility] 08-22-2023 10:00-0500 Heart rate 102 /min [facility] 08-22-2023 10:00-0500 Respiratory rate 18 /min [facility] 08-22-2023 10:00-0500 SaO2% (BldA) [Mass fraction] 96 % [facility] 08-22-2023 10:00-0500 Systolic blood pressure 119 mm[Hg] [facility] 08-19-2023 19:22-0500 Body height 165.1 cm [facility] 08-19-2023 19:22-0500 Body mass index (BMI) [Ratio] 38.9 kg/m2 [facility] 08-19-2023 19:22-0500 Body weight 106.31 kg [facility] 08-13-2023 14:23-0500 Body weight 106.14 kg Anayeli Alvarez RELIEF DOCKING MASTER.CNM Work Phone: [facility] 08-13-2023 14:23-0500 Diastolic blood pressure 78 mm[Hg] Anayeli Alvarez RELIEF DOCKING MASTER.CNM Work Phone: [facility] 08-13-2023 14:23-0500 Systolic blood pressure 124 mm[Hg] Anayeli Alvarez RELIEF DOCKING MASTER.CNM Work Phone: [facility] 08-03-2023 09:41-0500 Diastolic blood pressure 81 mm[Hg] Tegan Plotts RELIEF DOCKING MASTER.CNM Work Phone: [facility] 08-03-2023 09:41-0500 Systolic blood pressure 123 mm[Hg] Tegan Plotts RELIEF DOCKING MASTER.CNM Work Phone: [facility] 08-03-2023 09:01-0500 Body weight 107.05 kg Tegan Plotts RELIEF DOCKING MASTER.CNM Work Phone: [facility] 07-27-2023 10:47-0500 Diastolic blood pressure 72 mm[Hg] Tegan Plotts RELIEF DOCKING MASTER.CNM Work Phone: [facility] 07-27-2023 10:47-0500 Systolic blood pressure 116 mm[Hg] Tegan Plotts RELIEF DOCKING MASTER.CNM Work Phone: [facility] 07-20-2023 09:01-0500 Body weight 107.5 kg Anayeli Alvarez RELIEF DOCKING MASTER.CNM Work Phone: [facility] 07-20-2023 09:01-0500 Diastolic blood pressure 80 mm[Hg] Anayeli Alvarez RELIEF DOCKING MASTER.CNM Work Phone: [facility] 07-20-2023 09:01-0500 Systolic blood pressure 120 mm[Hg] Anayeli Alvarez RELIEF DOCKING MASTER.CNM Work Phone: [facility] 05-25-2023 09:00-0500 Body weight 102.97 kg Anayeli Alvarez RELIEF DOCKING MASTER.CNM Work Phone: [facility] 05-25-2023 09:00-0500 Diastolic blood pressure 76 mm[Hg] Anayeli Alvarez RELIEF DOCKING MASTER.CNM Work Phone: [facility] 05-25-2023 09:00-0500 Systolic blood pressure 122 mm[Hg] Anayeli Alvarez RELIEF DOCKING MASTER.CNM Work Phone: [facility] 05-24-2023 07:29-0500 Body temperature 98.1 [degF] Roseanna Older RELIEF DOCKING MASTER.SHIPPER/RECEIVER Work Phone: [facility] 05-24-2023 07:29-0500 Body weight 106.14 kg Roseanna Older RELIEF DOCKING MASTER.SHIPPER/RECEIVER Work Phone: [facility] 05-24-2023 07:29-0500 Diastolic blood pressure 72 mm[Hg] Roseanna Older RELIEF DOCKING MASTER.SHIPPER/RECEIVER Work Phone: [facility] 05-24-2023 07:29-0500 Heart rate 97 /min Roseanna Older RELIEF DOCKING MASTER.SHIPPER/RECEIVER Work Phone: [facility] 05-24-2023 07:29-0500 Respiratory rate 14 /min Roseanna Older RELIEF DOCKING MASTER.SHIPPER/RECEIVER Work Phone: [facility] 05-24-2023 07:29-0500 SaO2% (BldA) [Mass fraction] 100 % Roseanna Older RELIEF DOCKING MASTER.SHIPPER/RECEIVER Work Phone: [facility] 05-24-2023 07:29-0500 Systolic blood pressure 106 mm[Hg] Roseanna Older RELIEF DOCKING MASTER.SHIPPER/RECEIVER Work Phone: [facility] 03-25-2023 08:09-0400 Body temperature 97.9 [degF] Kimberly Castro RELIEF DOCKING MASTER.SHIPPER/RECEIVER Work Phone: [facility] 03-25-2023 08:09-0400 Body weight 105.14 kg Kimberly Castro RELIEF DOCKING MASTER.SHIPPER/RECEIVER Work Phone: [facility] 03-25-2023 08:09-0400 Diastolic blood pressure 75 mm[Hg] Kimberly Castro RELIEF DOCKING MASTER.SHIPPER/RECEIVER Work Phone: [facility] 03-25-2023 08:09-0400 Heart rate 128 /min Kimberly Castro RELIEF DOCKING MASTER.SHIPPER/RECEIVER Work Phone: [facility] 03-25-2023 08:09-0400 Respiratory rate 20 /min Kimberly Castro RELIEF DOCKING MASTER.SHIPPER/RECEIVER Work Phone: [facility] 03-25-2023 08:09-0400 SaO2% (BldA) [Mass fraction] 99 % Kimberly Castro RELIEF DOCKING MASTER.SHIPPER/RECEIVER Work Phone: [facility] 03-25-2023 08:09-0400 Systolic blood pressure 143 mm[Hg] Kimberly Castro RELIEF DOCKING MASTER.SHIPPER/RECEIVER Work Phone: [facility] 02-28-2023 16:11-0400 Body weight 106.59 kg Emma Palm MD Work Phone: [facility] 02-28-2023 16:11-0400 Diastolic blood pressure 72 mm[Hg] Emma Palm MD Work Phone: [facility] 02-28-2023 16:11-0400 Systolic blood pressure 126 mm[Hg] Emma Palm MD Work Phone: [facility] 01-31-2023 15:31-0400 Body weight 109.32 kg Emma Palm MD Work Phone: [facility] 01-31-2023 15:31-0400 Diastolic blood pressure 74 mm[Hg] Emma Palm MD Work Phone: [facility] 01-31-2023 15:31-0400 Systolic blood pressure 136 mm[Hg] Emma Palm MD Work Phone: [facility] 01-03-2023 12:54-0400 Body height 165.1 cm Emma Palm MD Work Phone: [facility] 01-03-2023 12:54-0400 Body weight 112.04 kg Emma Palm MD Work Phone: [facility] 01-03-2023 12:54-0400 Diastolic blood pressure 88 mm[Hg] Emma Palm MD Work Phone: [facility] 01-03-2023 12:54-0400 Systolic blood pressure 136 mm[Hg] Emma Palm MD Work Phone: [facility] 08-18-2022 13:30-0500 Body height 165.1 cm Sinai Solis APRN.SHIPPER/RECEIVER Work Phone: [facility] 08-18-2022 13:30-0500 Body weight 113.4 kg Sinai Solis APRN.SHIPPER/RECEIVER Work Phone: [facility] 08-18-2022 13:30-0500 Diastolic blood pressure 77 mm[Hg] Sinai Solis APRN.SHIPPER/RECEIVER Work Phone: [facility] 08-18-2022 13:30-0500 Heart rate 100 /min Sinai Solis APRN.SHIPPER/RECEIVER Work Phone: [facility] 08-18-2022 13:30-0500 Systolic blood pressure 134 mm[Hg] Sinai Solis APRN.SHIPPER/RECEIVER Work Phone: [facility] 07-07-2022 10:00-0500 Diastolic blood pressure 75 mm[Hg] Treatment Wstr Work Phone: [facility] 07-07-2022 10:00-0500 Heart rate 80 /min Treatment Wstr Work Phone: [facility] 07-07-2022 10:00-0500 Systolic blood pressure 117 mm[Hg] Treatment Wstr Work Phone: [facility] 07-07-2022 08:27-0500 Body temperature 98.49 [degF] Treatment Wstr Work Phone: [facility] 01-10-2022 07:56-0400 Body temperature 97.5 [degF] Treatment Wstr Work Phone: [facility] 01-10-2022 07:56-0400 Diastolic blood pressure 74 mm[Hg] Treatment Wstr Work Phone: [facility] 01-10-2022 07:56-0400 Heart rate 99 /min Treatment Wstr Work Phone: [facility] 01-10-2022 07:56-0400 Systolic blood pressure 131 mm[Hg] Treatment Wstr Work Phone: [facility] Encounters Encounter Date Encounter Type Care Provider Facility Start: 04-13-2025 Encounter for blade l adult medical examination without abnormal findings Etta Mcclain [facility] Start: 04-13-2025 End: 04-13-2025 ambulatory Tin Mccoy Facility[facility] Start: 03-31-2025 End: 03-31-2025 ambulatory LAMIN NEGRETE Facility:[facility] Start: 03-18-2025 End: 03-18-2025 ambulatory RIANNA MERCEDES REYNANTOSH Facility:[facility] Start: 01-05-2025 End: 01-06-2025 ambulatory Jack Garcia RELIEF DOCKING MASTER.AIR CONDITIONING ENGINEER Work Phone: [facility] [place] Comment on above: Ear Infection Start: 12-30-2024 End: 12-30-2024 Office outpatient visit 15 minutes Jack Garcia RELIEF DOCKING MASTER.AIR CONDITIONING ENGINEER Work Phone: [facility] [place] Comment on above: Non-recurrent acute serous otitis media of left ear (Primary Dx); Otalgia of both ears Start: 12-30-2024 End: 12-30-2024 [facility] Facility:[facility] Start: 11-14-2024 End: 01-14-2025 Follow-up encounter Sinai Solis APRN.SHIPPER/RECEIVER Work Phone: [facility] Start: 11-13-2024 End: 11-13-2024 ambulatory SINAI SOLIS Facility:[facility] Start: 11-06-2024 End: 11-06-2024 Orders Only Sinai Solis RELIEF DOCKING MASTER.SHIPPER/RECEIVER Work Phone: [facility] Start: 11-03-2024 End: 11-03-2024 Office outpatient visit 15 minutes Jack Garcia RELIEF DOCKING MASTER.AIR CONDITIONING ENGINEER Work Phone: [facility] [place] Comment on above: Sinobronchitis; Postnasal drip Start: 11-03-2024 End: 11-03-2024 ambulatory [facility] Facility:[facility] Start: 10-23-2024 End: 10-23-2024 Patient encounter procedure Tegan Hamilton RELIEF DOCKING MASTER.CNM Work Phone: OB/Gynecology Comment on above: Encounter for gyneco logical examination (general) (routine) without abnormal findings (Primary Dx) Start: 10-23-2024 End: 10-23-2024 Patient encounter status Tegan Hamilton RELIEF DOCKING MASTER.CNM Work Phone: [facility] Start: 10-23-2024 ambulatory TEGAN HAMILTON Facilit y:[facility] Start: 07-28-2024 End: 07-28-2024 ambulatory [facility] Facility:[facility] Start: 07-28-2024 End: 07-28-2024 Office outpatient visit 15 minutes Jack Garcia RELIEF DOCKING MASTER.AIR CONDITIONING ENGINEER Work Phone: [facility] Comment on above: Sinobronchitis (Prim eric Dx) Start: 05-23-2024 End: 05-23-2024 ambulatory Treatment Rm 18 Levar [facility] Work Phone: Hematology/Oncology Comment on above: Multiple sclerosis ( HCC) (Primary Dx) Start: 05-19-2024 End: 05-19-2024 Orders Only Sinai Solis APRN.SHIPPER/RECEIVER Work Phone: [facility] Start: 05-15-2024 End: 05-15-2024 ambulatory Treatment Rm 18 Levar [facility] Work Phone: Hematology/Oncology Comment on above: Multiple sclerosis ( HCC) (Primary Dx) Start: 05-05-2024 End: 05-06-2024 Orders Only Sinai Solis RELIEF DOCKING MASTER.SHIPPER/RECEIVER Work Phone: [facility] Comment on above: Appointment ([facility] for patient to call so we can get her scheduled for her start up dose of her infusiona= and a 3 month follow up) Appointment Start: 04-15-2024 End: 04-15-2024 Orders Only Sinai Solis RELIEF DOCKING MASTER.SHIPPER/RECEIVER Work Phone: [facility] Start: 04-14-2024 End: 04-15-2024 ambulatory Sinai Solis RELIEF DOCKING MASTER.SHIPPER/RECEIVER Work Phone: [facility] Comment on above: Labs Start: 04-14-2024 End: 04-15-2024 E-mail encounter from caregiver Sinai Solis APRN.SHIPPER/RECEIVER Work Phone: [facility] Start: 04-12-2024 End: 04-12-2024 ambulatory SINAI SOLIS Facility:[facility] Start: 04-10-2024 End: 04-11-2024 ambulatory Sinai Solis RELIEF DOCKING MASTER.SHIPPER/RECEIVER Work Phone: [facility] Comment on above: Ocrevus Start: 03-06-2024 End: 03-06-2024 ambulatory Sinai Solis RELIEF DOCKING MASTER.SHIPPER/RECEIVER Work Phone: [facility] Comment on above: Multiple sclerosis ( HCC) (Primary Dx) Start: 03-06-2024 End: 03-06-2024 Telemedicine consultation with patient Sinai Solis APRN.SHIPPER/RECEIVER Work Phone: [facility] Start: 02-27-2024 End: 02-27-2024 Subsequent hospital visit by physician Mri Radio [facility] (I-Stat/1.5t) Work Phone: Radiology Comment on above: Multiple sclerosis ( HCC) [G35] Start: 02-09-2024 End: 02-09-2024 Telephone encounter Sinai Solis GRIFFIN.SHIPPER/RECEIVER Work Phone: Neurology Comment on above: Appointment (02/09/24 - LVM / reminder mailed for Irma FU./- GL /) Start: 10-29-2023 ambulatory Sinai mcmahan GRIFFIN.SHIPPER/RECEIVER Work Phone: [facility] Comment on above: MRI stable Start: 10-29-2023 E-mail encounter fro m caregiver Sinai Solis GRIFFIN.SHIPPER/RECEIVER Work Phone: [facility] Start: 10-29-2023 End: 10-29-2023 Subsequent hospital visit by physician Mri Radio [facility] (I-Stat/1.5t) Work Phone: Radiology Comment on above: Multiple sclerosis ( HCC) [G35] Start: 10-24-2023 End: 10-24-2023 Subsequent hospital visit by physician Mri [facility] (I-Stat/1.5t) Work Phone: Radiology Comment on above: Canceled (CC cx: Equ ipment, Prep, Appropriateness) Start: 10-10-2023 ambulatory Radha CURIEL RN.SHIPPER/RECEIVER Work Phone: OB/Gynecology Comment on above: Cleared for work Start: 10-05-2023 End: 10-05-2023 Patient encounter procedure Radha Mcnamara APRN.SHIPPER/RECEIVER Work Phone: OB/Gynecology Comment on above: care and examination of lactating mother (Primary Dx) Start: 08-31-2023 End: 08-31-2023 Patient encounter procedure Mindy cMcormick MD Work Phone: OB/Gynecology Comment on above: care and examination of lactating mother (Primary Dx) Start: 08-19-2023 End: 08-22-2023 Evaluation and management of inpatient [facility] Work Phone: Start: 08-13-2023 End: 08-13-2023 Patient encounter procedure Anayeli Alvarez APRN.CNM Work Phone: OB/Gynecology Comment on above: 38 weeks gestation o f (Primary Dx) Start: 08-08-2023 ambulatory Tegan linares RELIEF DOCKING MASTER.CNM Work Phone: OB/Gynecology Comment on above: Induction Start: 08-06-2023 End: 08-06-2023 ambulatory [facility] Work Phone: Start: 08-06-2023 End: 08-06-2023 Patient encounter procedure [facility] Work Phone: Start: 08-03-2023 End: 08-03-2023 Patient encounter procedure Tegan Hamilton APRN.CNM Work Phone: OB/Gynecology Comment on above: Encounter for superv ision of normal first in third trimester (Primary Dx); Obesity affecting in third trimester, unspecified obesity type; 37 weeks gestation of ; Elevated blood pressure reading without diagnosis of hypertension Start: 07-27-2023 Telephone encounter Emma Palm MD Work Phone: OB/Gynecology Start: 07-27-2023 End: 07-27-2023 Patient encounter procedure Tegan Hamilton APRN.CNM Work Phone: OB/Gynecology Comment on above: Obesity during pregn ninoska (Primary Dx); Encounter for supervision of normal first in third trimester; 36 weeks gestation of Encounter for ultras ound to check growth (Primary Dx); Obesity affecting in third trimester, unspecified obesity type; 36 weeks gestation of Start: 07-20-2023 End: 07-20-2023 Patient encounter procedure Anayeli Alvarez APRN.CNM Work Phone: OB/Gynecology Comment on above: Obesity during pregn ninoska (Primary Dx); Encounter for supervision of normal first in third trimester; 35 weeks gestation of Start: 06-19-2023 End: 06-19-2023 ambulatory [facility] Work Phone: Start: 06-19-2023 End: 06-19-2023 Patient encounter procedure [facility] Work Phone: Start: 06-04-2023 ambulatory Emma lovett MD Work Phone: OB/Gynecology Comment on above: Antibiotics Start: 05-28-2023 Orders Only Emma lovett MD Work Phone: [place] Provider Adult Comment on above: Abnormal glucose aff ecting (Primary Dx) Start: 05-25-2023 End: 05-25-2023 Patient encounter procedure Anayeli Alvarez APRN.CNM Work Phone: OB/Gynecology Comment on above: Encounter for superv ision of normal first in second trimester (Primary Dx); 27 weeks gestation of ; Obesity during ; Supervision of high risk in second trimester Start: 05-24-2023 End: 05-24-2023 Patient encounter procedure Roseanna Older RELIEF DOCKING MASTER.SHIPPER/RECEIVER Work Phone: [facility] [place] Comment on above: Viral URI with cough (Primary Dx); Seasonal allergies; Heartburn during , antepartum Start: 05-22-2023 ambulatory Sinai mcmahan RELIEF DOCKING MASTER.SHIPPER/RECEIVER Work Phone: [facility] Comment on above: Start: 05-19-2023 ambulatory Emma lovett MD Work Phone: OB/Gynecology Comment on above: Acid Reflux Start: 05-17-2023 ambulatory Roseanna Older RELIEF DOCKING MASTER .SHIPPER/RECEIVER Work Phone: [facility] [place] Comment on above: Cough Start: 05-08-2023 ambulatory Emma lovett MD Work Phone: OB/Gynecology Comment on above: Mucus Start: 04-24-2023 ambulatory Roseanna Older RELIEF DOCKING MASTER .SHIPPER/RECEIVER Work Phone: [facility] [place] Comment on above: chest x-ray results Start: 04-24-2023 E-mail encounter fro m caregiver Roseanna Older RELIEF DOCKING MASTER.SHIPPER/RECEIVER Work Phone: [facility] Start: 04-24-2023 End: 04-24-2023 Subsequent hospital visit by physician Xr [facility] Work Phone: Radiology Comment on above: Subacute cough [R05. 2] Start: 04-23-2023 ambulatory Emma lovett MD Work Phone: OB/Gynecology Comment on above: Coughing Start: 04-16-2023 ambulatory Roseanna Older RELIEF DOCKING MASTER .SHIPPER/RECEIVER Work Phone: [facility] Start: 04-16-2023 Follow-up encounter Roseanna Older RELIEF DOCKING MASTER.SHIPPER/RECEIVER Work Phone: [facility] [place] Comment on above: Follow up Start: 04-11-2023 ambulatory Emma lovett MD Work Phone: OB/Gynecology Comment on above: Cold and Cough Start: 03-29-2023 End: 03-29-2023 Patient encounter procedure Vice Principal [facility] Ultrasound Work Phone: OB/Gynecology Comment on above: Encounter for anatomic survey (Primary Dx); Obesity affecting in second trimester, unspecified obesity type; 19 weeks gestation of Start: 03-25-2023 End: 03-25-2023 Patient encounter procedure Kimberly Gloria PRINCESHIPPER/RECEIVER Work Phone: [facility] Comment on above: Upper respiratory in fection with cough and congestion (Primary Dx) Start: 03-19-2023 ambulatory Emma lovett MD Work Phone: OB/Gynecology Comment on above: Feeling unwell Start: 02-28-2023 End: 02-28-2023 Patient encounter procedure Emma Palm MD Work Phone: OB/Gynecology Comment on above: 14 weeks gestation o f (Primary Dx); Encounter for supervision of normal first in second trimester Start: 02-16-2023 ambulatory Emma lovett MD Work Phone: OB/Gynecology Comment on above: Medication change Start: 01-31-2023 End: 01-31-2023 Patient encounter procedure Emma Palm MD Work Phone: OB/Gynecology Comment on above: 10 weeks gestation o f (Primary Dx); Encounter for supervision of normal first in first trimester Start: 01-03-2023 End: 01-03-2023 Patient encounter procedure Emma Palm MD Work Phone: OB/Gynecology Comment on above: Multiple sclerosis ( HCC) (Primary Dx); Obesity during ; Nausea and vomiting in ; with uncertain dates in first trimester Start: 01-01-2023 ambulatory Emma lovett MD Work Phone: [facility] Start: 01-01-2023 Patient encounter procedure Emma Palm MD Work Phone: OB/Gynecology Comment on above: Upcoming Appointment Start: 12-28-2022 End: 12-28-2022 Nursing evaluation of patient and report Nurse Pnob [facility] Work Phone: OB/Gynecology Comment on above: Multiple sclerosis a ffecting , antepartum (HCC) (Primary Dx); Multiple sclerosis (HCC); Obesity during ; Nausea in Start: 12-14-2022 Telephone encounter Emma Palm MD Work Phone: OB/Gynecology Comment on above: Future Appointment Start: 09-29-2022 Telephone encounter Ana Lilia lopez Research Coordinator [facility] Comment on above: Research F/U Start: 09-08-2022 Telephone encounter Financial Navigator Levar Work Phone: Financial Services Comment on above: Benefits Investigati on Start: 08-18-2022 End: 08-18-2022 Patient encounter procedure Sinai Solis APRN.SHIPPER/RECEIVER Work Phone: [facility] Comment on above: Multiple sclerosis ( HCC) (Primary Dx); Vitamin D deficiency; Encounter for long-term (current) use of medications Start: 07-07-2022 End: 07-07-2022 ambulatory Treatment Rm 4 Levar [facility] Work Phone: Hematology/Oncology Comment on above: Multiple sclerosis ( HCC) (Primary Dx) Start: 06-24-2022 ambulatory Sinai mcmahan RELIEF DOCKING MASTER.SHIPPER/RECEIVER Work Phone: [facility] Comment on above: Tests Start: 06-10-2022 Telephone encounter Shannon Funk [facility] Comment on above: Appointment (LVM to inform patient about appointment per staff message ) Start: 05-31-2022 Orders Only Marvin lane MD Work Phone: [facility] Start: 01-10-2022 End: 01-10-2022 ambulatory Treatment Rm 1 Levar [facility] Work Phone: Hematology/Oncology Comment on above: Multiple sclerosis ( HCC) (Primary Dx) Start: 01-03-2022 Telephone encounter Tin flores MD Work Phone: [facility] [place] Comment on above: Appointment Reschedu led Start: 12-08-2021 End: 12-08-2021 ambulatory Sinai Solis APRN.SHIPPER/RECEIVER Work Phone: [facility] Comment on above: Multiple sclerosis ( HCC) (Primary Dx); Encounter for long-term (current) use of medications Start: 12-08-2021 End: 12-08-2021 Telemedicine consultation with patient Sinai Solis APRN.CNP Work Phone: [facility] Start: 11-30-2021 End: 11-30-2021 Subsequent hospital visit by physician Mri Radio [facility] (I-Stat/1.5t) Work Phone: Radiology Comment on above: Multiple sclerosis ( HCC) [G35] Start: 10-27-2021 Telephone encounter Aldo jansen DO Work Phone: Hematology/Oncology Comment on above: Appointment Start: 10-25-2021 ambulatory Sinai mcmahan APRN.CNP Work Phone: [facility] Start: 10-25-2021 Patient encounter procedure Sinai Solis APRN.CNP Work Phone: [facility] Comment on above: Appointment Procedures Date Procedure Procedure Detail Performing Clinician Start: 05-23-2024 UA DIP,URINE HCG (POC) [facility] Provider Start: 02-27-2024 Mri brain brain stem w/o w/contrast material Sinai Solis APRN.CNP Work Phone: Start: 10-29-2023 Mri brain brain stem w/o w/contrast material Sinai Solis APRN.CNP Work Phone: Start: 08-13-2023 URINE OB DIP B/O Krys Alvarez APRN.CNM Work Phone: Start: 08-06-2023 Investigation of transfusion reaction Start: 08-06-2023 Nasopharyngeal Culture Start: 07-27-2023 Us preg uterus after 1st trimest 06/25 gestation Emma Palm MD Work Phone: Start: 07-20-2023 URINE OB DIP B/O Krys Alvarez APRN.CNMay Work Phone: Start: 06-19-2023 Investigation of transfusion reaction Start: 06-19-2023 Nasopharyngeal Culture Start: 05-25-2023 URINE OB DIP B/O Krys Alvarez RELIEF DOCKING MASTER.CNM Work Phone: Start: 04-24-2023 Radiologic exam ches t 2 views Roseanna Camacho RELIEF DOCKING MASTER.SHIPPER/RECEIVER Work Phone: Start: 03-29-2023 Us preg uterus after 1st trimest 1/ gestation Emma Palm MD Work Phone: Start: 02-28-2023 URINE OB DIP B/O Felicity Palm MD Work Phone: Start: 01-03-2023 Us uterus l imited 1/> fetuses Emma Palm MD Work Phone: Start: 12-07-2021 Adult depression scr eening assessment Sinai Solis APRN.SHIPPER/RECEIVER Work Phone: Start: 11-30-2021 Mri brain brain stem w/o w/contrast material Sinai Solis APRN.SHIPPER/RECEIVER Work Phone: Start: 11-30-2021 BRAIN & CERVICAL SPI NE MRI DISCRETE DATA [facility] Provider Start: 11-11-2020 Adult depression scr eening assessment Sinai Solis APRN.SHIPPER/RECEIVER Work Phone: Plan of Treatment Date Care Activity Detail Author Start: 01-03-2026 PAP TESTING PAP TESTING [facility] Start: 01-03-2026 Screening for malign ant neoplasm of cervix [facility] Start: 02-23-2025 Influenza vaccination C [facility] Start: 11-13-2024 End: 11-13-2024 ambulatory Hematology/Oncology Comment on above: 2ND pt canceled 10/30 d1 b y my chart Start: 10-30-2024 End: 10-30-2024 ambulatory 10/30/2024 10:00 AM EDT Infusion Center Hematology/Oncology [address] [place] [address] 2ND Hematology/Oncology Comment on above: 2ND Start: 05-23-2024 End: 08-22-2024 Choriogonadotropin ( test) [Presence] in Urine HCG, QUALITATIVE, URINE Lab STAT Multiple sclerosis (HCC) Expected: 05/23/2024, Expires: 08/22/2024 [facility] Work Phone: Comment on above: Expected: 05/23/2024 , Expires: 08/22/2024 Start: 05-23-2024 End: 05-23-2024 Infusion Center 05/23/2024 9:[address] [facility] Hematology/Oncology [address] [place] [address] 2ND -05/16 PT STATES ORDERING PROV INFORMED HER OK TO HAVE 1 WEEK EARLY Hematology/Oncology Comment on above: 2ND -05/16 PT STATES ORDERING PROV INFORMED HER OK TO HAVE 1 WEEK EARLY Start: 05-15-2024 End: 08-14-2024 Choriogonadotropin ( test) [Presence] in Urine HCG, QUALITATIVE, URINE Lab STAT Multiple sclerosis (HCC) Expected: 05/15/2024, Expires: 08/14/2024 [facility] Work Phone: Comment on above: Expected: 05/15/2024 , Expires: 08/14/2024 Start: 05-15-2024 End: 05-15-2024 ambulatory 05/15/2024 9:[address] [facility] Hematology/Oncology [address] [place] [id number] 2ND Hematology/Oncology Comment on above: 2ND Start: 04-11-2024 End: 07-11-2024 CBC W Auto Differential panel - Blood COMPLETE BLOOD COUNT AND DIFFERENTIAL Lab Routine Encounter for long-term (current) use of medications Expected: 04/11/2024, Expires: 07/11/2024 [facility] Comment on above: Expected: 04/11/2024 , Expires: 07/11/2024 Start: 04-11-2024 End: 07-11-2024 CD19 ABSOLUTE COUNT CD19 ABSOLUTE COUNT Lab Routine Encounter for long-term (current) use of medications Expected: 04/11/2024, Expires: 07/11/2024 [facility] Comment on above: Expected: 04/11/2024 , Expires: 07/11/2024 Start: 04-11-2024 End: 07-11-2024 Chronic hepatitis differentiation between hepatitis B and C virus panel - Serum or Plasma HEP REMOTE PANEL BL Lab Routine Encounter for long-term (current) use of medications Expected: 04/11/2024, Expires: 07/11/2024 [facility] Comment on above: Expected: 04/11/2024 , Expires: 07/11/2024 Start: 04-11-2024 End: 07-11-2024 Comprehensive metabolic 2000 panel - Serum or Plasma COMPREHENSIVE METABOLIC PANEL Lab Routine Encounter for long-term (current) use of medications Expected: 04/11/2024, Expires: 07/11/2024 [facility] Work Phone: Comment on above: Expected: 04/11/2024 , Expires: 07/11/2024 Start: 03-10-2024 End: 03-10-2024 Patient encounter procedure 03/10/2024 9:15 AM EDT Office Visit [address] [address] Sinai Solis, RELIEF DOCKING MASTER.SHIPPER/RECEIVER [address] [address] Multiple Sclerosis [facility] Comment on above: Multiple Sclerosis Start: 03-06-2024 End: 03-06-2024 ambulatory 03/06/2024 5:45 PM EDT [address] [address] Sinai Solis, RELIEF DOCKING MASTER.SHIPPER/RECEIVER [address] [address] /MRI [facility] Comment on above: /MRI Start: 02-27-2024 End: 02-27-2024 Patient encounter procedure 02/27/2024 10:40 AM EDT Appointment Radiology [address] [place] [id number] MRI BRAIN WO/W IVCON Radiology Comment on above: MRI BRAIN WO/W IVCON Start: 02-24-2024 Covid-19 Vaccine () Covid-19 Vaccine () [facility] Start: 02-24-2024 Covid-19 Vaccine ( season) Covid-19 Vaccine ( season) [facility] Start: 02-24-2024 Influenza vaccination C [facility] Start: 01-29-2024 End: 11-27-2024 MR Brain WO and W contrast IV MRI BRAIN WO/W IVCON Radiology Routine Multiple sclerosis (HCC) Expected: 01/29/2024 (Approximate), Expires: 11/27/2024 [facility] Work Phone: Comment on above: Expected: 01/29/2024 (Approximate), Expires: 11/27/2024 Start: 10-29-2023 Subsequent hospital visit by physician 10/29/2023 8:15 AM EDT Hospital Encounter Radiology [address] [address] Multiple sclerosis (HCC) [G35] Radiology Comment on above: Multiple sclerosis ( HCC) [G35] Start: 08-22-2023 Patient discharge [facility] Start: 08-20-2023 Administration of medication [facility] Start: 08-20-2023 Application of ice c ollar, cap or bag [facility] Start: 08-20-2023 Catheterization of vein [facility] Start: 08-20-2023 Introduction of urin eric catheter [facility] Start: 08-20-2023 Measuring intake and output [facility] Start: 08-20-2023 Notification of physician [facility] Start: 08-20-2023 Procedure discontinued [facility] Start: 08-20-2023 Provision of activit y privileges [facility] Start: 08-20-2023 Vital signs measurements [facility] Start: 08-20-2023 End: 08-20-2023 [facility] Start: 08-20-2023 Documentation procedure [facility] Start: 08-19-2023 Admission procedure [facility] Start: 08-19-2023 Verification routine [facility] Start: 08-03-2023 End: 11-02-2023 Protein/Creatinine [Mass Ratio] in Urine [facility] Work Phone: Comment on above: Expected: 08/03/2023 , Expires: 11/02/2023 Start: 06-28-2023 RSV Vaccine (1 - Ris k 1-dose series) RSV Vaccine (1 - Risk 1-dose series) [facility] Start: 06-25-2023 Behavioral Health Screening Be havioral Health Screening [facility] Start: 06-25-2023 Depression Assessment Depression Ass essment [facility] Start: 05-28-2023 End: 08-27-2023 GEST GLUC ADONIS, 3-HR, 100 GM, FASTING GEST GLUC ADONIS, 3-HR, 100 GM, FASTING Lab Routine Abnormal glucose affecting Expected: 05/28/2023, Expires: 08/27/2023 [facility] Work Phone: Comment on above: Expected: 05/28/2023 , Expires: 08/27/2023 Start: 05-25-2023 End: 05-25-2024 OBSTETRIC ULTRASOUND WHI OBSTETRIC ULTRASOUND I Anc Imaging Routine 27 weeks gestation of Obesity during Expected: 05/25/2023, Expires: 05/25/2024 [facility] Work Phone: Comment on above: Expected: 05/25/2023 , Expires: 05/25/2024 Start: 02-28-2023 End: 02-29-2024 OBSTETRIC ULTRASOUND WHI OBSTETRIC ULTRASOUND WHI Anc Imaging Routine 14 weeks gestation of Encounter for supervision of normal first in second trimester Expected: 02/28/2023, Expires: 02/29/2024 [facility] Work Phone: Comment on above: Expected: 02/28/2023 , Expires: 02/29/2024 Start: 02-23-2023 Covid-19 Vaccine ( season) Covid-19 Vaccine () [facility] Start: 02-23-2023 Influenza vaccination C [facility] Start: 01-11-2023 PAP TESTING PAP TESTING [facility] Start: 01-03-2023 End: 03-05-2023 Hepatitis B virus surface Ag [Presence] in Serum [facility] Work Phone: Comment on above: Expected: 01/03/2023 , Expires: 03/05/2023 Start: 01-03-2023 End: 03-05-2023 Hepatitis C virus Ab [Presence] in Serum [facility] Work Phone: Comment on above: Expected: 01/03/2023 , Expires: 03/05/2023 Start: 01-03-2023 End: 03-05-2023 HIV 1+2 Ab [Presence] in Serum or Plasma by Immunoassay [facility] Work Phone: Comment on above: Expected: 01/03/2023 , Expires: 03/05/2023 Start: 01-03-2023 End: 03-05-2023 RUBELLA IGG AB [facility] Work Phone: Comment on above: Expected: 01/03/2023 , Expires: 03/05/2023 Start: 01-03-2023 End: 03-05-2023 SYPHILIS TOTAL W/REFLEX [facility] Work Phone: Comment on above: Expected: 01/03/2023 , Expires: 03/05/2023 Start: 01-03-2023 End: 03-05-2023 TYPE + SCREEN [facility] Work Phone: Comment on above: Expected: 01/03/2023 , Expires: 03/05/2023 Start: 12-07-2022 Adult depression scr eening assessment DEPRESSION SCREENING [facility] Start: 07-07-2022 End: 09-06-2022 CD19 ABSOLUTE COUNT [facility] Work Phone: Comment on above: Expected: 07/07/2022 , Expires: 09/06/2022 Start: 07-07-2022 End: 09-06-2022 IMMUNOGLOBULINS ISA [facility] Work Phone: Comment on above: Expected: 07/07/2022 , Expires: 09/06/2022 Start: 06-25-2022 DEPRESSION ASSESSMENT DEPRESSION ASS ESSMENT [facility] Start: 02-23-2022 Influenza vaccination C [facility] Start: 01-10-2022 End: 03-12-2022 IgG [Mass/volume] in Serum or Plasma IGG Lab Routine Multiple sclerosis ([facility]) Expected: 01/10/2022, Expires: 03/12/2022 [facility] Work Phone: Comment on above: Expected: 01/10/2022 , Expires: 03/12/2022 Start: 01-10-2022 End: 03-12-2022 IgM [Mass/volume] in Serum or Plasma IGM Lab Routine Multiple sclerosis ([facility]) Expected: 01/10/2022, Expires: 03/12/2022 [facility] Work Phone: Comment on above: Expected: 01/10/2022 , Expires: 03/12/2022 Start: 11-11-2021 Adult depression scr eening assessment DEPRESSION SCREENING [facility] Start: 06-25-2021 DEPRESSION ASSESSMENT DEPRESSION ASS ESSMENT [facility] Start: 01-31-2021 Urine microalbumin profile [facility] Start: 2016 Anxiety Screening Anxiety Screening [facility] Start: 2016 CHLAMYDIA SCREENING () CH LAMYDIA SCREENING () [facility] Start: 2016 Depression Screening Depression Scre ening [facility] Start: 2016 GC (GONORRHEA) SCREE ROSMERY () GC (GONORRHEA) SCREENING () [facility] Start: 2014 Meningococcal B Vacc ine: Consider Based On Risk (1 of 2 - Patient Seeks Protection) Meningococcal B Vaccine: Consider Based On Risk (1 of 2 - Patient Seeks Protection) [facility] Start: 2014 MENINGOCOCCAL B: Con house father based on risk (1 of 2 - Patient Seeks Protection) MENINGOCOCCAL B: Consider based on risk (1 of 2 - Patient Seeks Protection) [facility] Start: 2013 HPV Vaccine (1 - 3-d ose series) HPV Vaccine (1 - 3-dose series) [facility] Start: 2012 PEDS TO ADULT TRANSI TION ANNUAL ASSESSMENT PEDS TO ADULT TRANSITION ANNUAL ASSESSMENT [facility] Start: 2010 PEDS TO ADULT TRANSI TION INITIAL DISCUSSION PEDS TO ADULT TRANSITION INITIAL DISCUSSION [facility] Start: 2009 HPV VACCINE (1 - 2-d ose series) HPV VACCINE (1 - 2-dose series) [facility] Start: 2008 MENINGOCOCCAL B: Con house father based on risk (1 of 2 - Risk Bexsero 2-dose series) MENINGOCOCCAL B: Consider based on risk (1 of 2 - Risk Bexsero 2-dose series) [facility] Start: 12-21-2007 HPV VACCINE (1 - 2-d ose series) HPV VACCINE (1 - 2-dose series) [facility] Start: 12-21-2003 COVID-19 VACCINE (#1) COVID-19 VACCI NE (#1) [facility] Start: 12-21-2003 COVID-19 VACCINE (1) COVID-19 VACCIN E (1) [facility] Start: 06-21-1999 COVID-19 VACCINE (#1) COVID-19 VACCI NE (#1) [facility] Bacteria identified in Urine by Culture URINE CULTURE Microbiology Routine Multiple sclerosis ([facility]) Obesity during Nausea and vomiting in with uncertain dates in first trimester 01/03/2023 1:40 PM EDT [facility] Work Phone: Chlamydia trachomatis+Neisseria gonorrhoeae DNA [Presence] in Unspecified specimen by NAY with probe detection GONORRHEA/CHLAMYDIA NAAT Lab Routine Multiple sclerosis ([facility]) Obesity during Nausea and vomiting in with uncertain dates in first trimester 01/03/2023 1:40 PM EDT [facility] Work Phone: nonstress test NON-S TRESS TEST Procedures Routine 27 weeks gestation of Obesity during Ordered: 05/25/2023 [facility] Work Phone: Comment on above: Ordered: 05/25/2023 End: 04-05-2025 MR Brain WO and W contrast IV MRI BRAIN WO/W IVCON Radiology Routine Multiple sclerosis (HCC) 1 Occurrences starting 03/06/2024 until 04/05/2025 [facility] Work Phone: Comment on above: 1 Occurrences starti ng 03/06/2024 until 04/05/2025 End: 11-25-2022 Mri brain brain stem w/o w/contrast material MRI BRAIN WO/W IVCON Radiology Routine Multiple sclerosis (HCC) Encounter for long-term (current) use of medications 1 Occurrences starting 10/26/2021 until 11/25/2022 [facility] Work Phone: Comment on above: 1 Occurrences starti ng 10/26/2021 until 11/25/2022 End: 09-17-2023 Mri brain brain stem w/o w/contrast material MRI BRAIN WO/W IVCON Radiology Routine Encounter for long-term (current) use of medications Multiple sclerosis (HCC) 1 Occurrences starting 08/18/2022 until 09/17/2023 [facility] Work Phone: Comment on above: 1 Occurrences starti ng 08/18/2022 until 09/17/2023 PAP TEST PAP TEST Lab Rou joe Multiple sclerosis (HCC) Obesity during Nausea and vomiting in with uncertain dates in first trimester 01/03/2023 1:40 PM EDT [facility] Work Phone: Patient referral [facility] Work Phone: ROUTINE, GR OUP B STREP PCR ROUTINE, GROUP B STREP PCR Microbiology Routine Obesity during Encounter for supervision of normal first in third trimester 36 weeks gestation of 07/27/2023 11:14 AM EST [facility] Work Phone: URINE OB DIP B/O URINE OB DIP B/ O Lab Routine 10 weeks gestation of Encounter for supervision of normal first in first trimester Ordered: 01/31/2023 [facility] Work Phone: Comment on above: Ordered: 01/31/2023 URINE OB DIP B/O URINE OB DIP B/ O Lab Routine Obesity during Encounter for supervision of normal first in third trimester 36 weeks gestation of Ordered: 07/27/2023 [facility] Work Phone: Comment on above: Ordered: 07/27/2023 URINE OB DIP B/O URINE OB DIP B/ O Lab Routine Obesity affecting in third trimester, unspecified obesity type Encounter for supervision of normal first in third trimester 37 weeks gestation of Ordered: 08/03/2023 [facility] Work Phone: Comment on above: Ordered: 08/03/2023 Urine test visual color cmprsn meths HCG QUAL UR B/O Lab Routine Multiple sclerosis (HCC) Ordered: 07/07/2022 [facility] Work Phone: Comment on above: Ordered: 07/07/2022 [facility] Immunizations Immunization Date Immunization Notes Care Provider [facility] 12-18-2019 varicella virus vaccine Bia Solis APRN.SHIPPER/RECEIVER Work Phone: [facility] 03-18-2015 meningococcal polysaccharide (groups A, C, Y and W-135) diphtheria toxoid conjugate vaccine (MCV4P) Sinai Solis APRN.SHIPPER/RECEIVER Work Phone: [facility] 01-31-2011 Meningococcal, MCV4, unspecified conjugate formulation(groups A, C, Y and W-135) Sinai Solis APRN.SHIPPER/RECEIVER Work Phone: [facility] Work Phone: 01-31-2011 tetanus toxoid, redu israel diphtheria toxoid, and acellular pertussis vaccine, adsorbed Sinai Solis APRN.SHIPPER/RECEIVER Work Phone: [facility] Work Phone: 08-10-2003 diphtheria, tetanus toxoids and acellular pertussis vaccine Sinai Solis APRN.SHIPPER/RECEIVER Work Phone: [facility] Work Phone: 08-10-2003 measles, mumps and rubella virus vaccine Sinai Solis APRN.SHIPPER/RECEIVER Work Phone: [facility] Work Phone: 08-10-2003 poliovirus vaccine, inactivated Sinai Thienlak RELIEF DOCKING MASTER.[facility] Work Phone: [facility] Work Phone: 07-18-2000 pneumococcal conjuga te vaccine, 7 valent Sinai Sedlak RELIEF DOCKING MASTER.[facility] Work Phone: [facility] Work Phone: 07-18-2000 varicella virus vaccine Bia Solis RELIEF DOCKING MASTER.[facility] Work Phone: [facility] Work Phone: 03-28-2000 diphtheria, tetanus toxoids and acellular pertussis vaccine Sinai Thienlak RELIEF DOCKING MASTER.[facility] Work Phone: [facility] Work Phone: 03-28-2000 haemophilus influenz ae type b vaccine, HbOC conjugate Sinai Solis RELIEF DOCKING MASTER.[facility] Work Phone: [facility] Work Phone: 03-28-2000 pneumococcal conjuga te vaccine, 7 valent Sinai Thienlak RELIEF DOCKING MASTER.[facility] Work Phone: [facility] Work Phone: 12-21-1999 measles, mumps and rubella virus vaccine Sinai Thienlak RELIEF DOCKING MASTER.[facility] Work Phone: [facility] Work Phone: 12-21-1999 poliovirus vaccine, inactivated Sinai Alexandrak RELIEF DOCKING MASTER.[facility] Work Phone: [facility] Work Phone: 10-12-1999 hepatitis B vaccine, pediatric or pediatric/adolescent dosage Sinai Thienlak RELIEF DOCKING MASTER.[facility] Work Phone: [facility] Work Phone: 07-13-1999 diphtheria, tetanus toxoids and acellular pertussis vaccine Sinai Thienlak RELIEF DOCKING MASTER.[facility] Work Phone: [facility] Work Phone: 07-13-1999 haemophilus influenz ae type b vaccine, HbOC conjugate Sinai Sedlak RELIEF DOCKING MASTER.[facility] Work Phone: [facility] Work Phone: 04-27-1999 diphtheria, tetanus toxoids and acellular pertussis vaccine Sinai Sedlak RELIEF DOCKING MASTER.[facility] Work Phone: [facility] Work Phone: 04-27-1999 haemophilus influenz ae type b vaccine, HbOC conjugate Sinai Sedlak RELIEF DOCKING MASTER.[facility] Work Phone: [facility] Work Phone: 04-27-1999 poliovirus vaccine, inactivated Sinai Sedlak RELIEF DOCKING MASTER.[facility] Work Phone: [facility] Work Phone: 02-23-1999 diphtheria, tetanus toxoids and acellular pertussis vaccine Sinai Sedlak RELIEF DOCKING MASTER.[facility] Work Phone: [facility] Work Phone: 02-23-1999 haemophilus influenz ae type b vaccine, HbOC conjugate Sinai Sedlak RELIEF DOCKING MASTER.[facility] Work Phone: [facility] Work Phone: 02-23-1999 poliovirus vaccine, inactivated Sinai Sedlak RELIEF DOCKING MASTER.[facility] Work Phone: [facility] Work Phone: 01-25-1999 hepatitis B vaccine, pediatric or pediatric/adolescent dosage Sinai Sedlak RELIEF DOCKING MASTER.[facility] Work Phone: [facility] Work Phone: 1998 hepatitis B vaccine, pediatric or pediatric/adolescent dosage Sinai Sedlak RELIEF DOCKING MASTER.[facility] Work Phone: [facility] Work Phone: Payers Date Payer Category Payer Self-pay [id number] 2024 Private Health Insurance MMO SUP [employer] PPO [id number] 2024 Unknown [id number] 2013 Blue [employer] Blue Shield [id number] 2013 Unknown [employer] BLUE CARD PPO OOS [id number] 2013-Present [phone] [address] [place] [address] PPO [id number] 2013 Unknown [employer] BL[employer] CARD PPO OOS [id number] 2013-Present [phone] [address] [place] [address] PPO [id number] 2013 Unknown [id number] Unknown [id number] Social History Date Type Detail Facility Start: 02-03-2016 End: 08-18-2022 Tobacco smoking status NHIS Never smoked tobacco [facility] Start: 05-09-2021 End: 11-03-2024 Alcohol intake Ex-drinker (finding) [facility] Start: 05-05-2021 History SDOH Alcohol Frequency 1 [facility] Start: 05-05-2021 History SDOH Alcohol Std Drinks 98 [facility] Start: 05-05-2021 History SDOH Social Connections Phone 4 [facility] Start: 05-05-2021 History SDOH Social Connections Get Together 2 [facility] Start: 05-05-2021 History SDOH Social Connections [facility] 3 [facility] Start: 02-03-2021 Education 17 [facility] Start: 1998 Sex Assigned At Not on file C [facility] Start: 10-17-2021 End: 10-27-2021 Exposure to SARS-CoV-2 (event) Not sure [facility] Start: 02-03-2016 End: 08-18-2022 Tobacco use and exposure Smokeless tobacco non-user [facility] Start: 11-30-2022 [facility] Start: 05-05-2021 End: 12-28-2022 History of Social function [facility] Start: 05-05-2021 End: 12-28-2022 Social connection and isolation panel [facility] Do you belong to any clubs or organizations such as pentecostalism groups, unions, fraternal or athletic groups, or school groups? Yes [facility] Are you now , , , , never or living with a partner? [facility] How often to you hav e a drink containing alcohol? Never [facility] How many standard dr inks containing alcohol do you have on a typical day? Patient refused [facility] How hard is it for y ou to pay for the very basics like food, housing, medical care, and heating Not very hard [facility] Do you feel stress - tense, restless, nervous, or anxious, or unable to sleep at night because your mind is troubled all the time - these days [OSQ] Not at all [facility] (I/We) worried emir er (my/our) food would run out before (I/we) got money to buy more. Never true [facility] In the past 12 month s, was there a time when you were not able to pay the mortgage or rent on time? No [facility] How often to you hav e a drink containing alcohol? Monthly or less [facility] How many standard dr inks containing alcohol do you have on a typical day? 1 or 2 [facility] Do you feel stress - tense, restless, nervous, or anxious, or unable to sleep at night because your mind is troubled all the time - these days [OSQ] Only a little [facility] Start: 08-19-2021 End: 08-19-2023 Tobacco smoking status NHIS Unknown if ever smoked [facility] Start: 2000 Sex Assigned At Female W [facility] Goals Date Patient Goal Desired Activity /State Personal health goal Functional Status Date Assessment Result Facility 08-31-2014 Are you deaf, or do you have serious difficulty hearing No 08/31/2014 2:18 PM EDT Lydia Bey LPN No [facility] 08-31-2014 Are you blind, or do you have serious difficulty seeing, even when wearing glasses No 08/31/2014 2:18 PM EDT Lydia Bey LPN No [facility] 08-31-2014 Do you have serious difficulty walking or climbing stairs No 08/31/2014 2:18 PM EDT Lydia Bey LPN No [facility] 08-31-2014 Do you have difficul ty dressing or bathing No 08/31/2014 2:18 PM EDT Lydia Bey LPN No [facility] 08-31-2014 Because of a physica l, mental, or emotional condition, do you have difficulty doing errands alone such as visiting a physician's office or shopping No 08/31/2014 2:18 PM EDT Lydia Bey LPN No [facility] Mental Status Date Assessment Result Facility 08-31-2014 Because of a physica l, mental, or emotional condition, do you have serious difficulty concentrating, remembering, or making decisions No 08/31/2014 2:18 PM EDT Lydia Bey LPN No [facility] Clinical Notes 04-05-2009 to 03-31-2025 Jack Garcia APRN.AIR CONDITIONING ENGINEER - 12/30/2024 3:40 PM Sinai Rapp APRN.SHIPPER/RECEIVER - 11/06/2024 12:46 PM Jack Jang APRN.AIR CONDITIONING ENGINEER - 11/03/2024 7:20 AM Jack Jang APRN.AIR CONDITIONING ENGINEER - 07/28/2024 7:20 AM EST Note Date & Type Note Facility 03-31-2025 Note HNO ID: [id number] Author: LAMIN NEGRETE APRN.SHIPPER/RECEIVER Service: ? 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 Patient reported x3 positive home test. INITIAL OB ASSESSMENT HPI: Leela is a 24 year old White here to establish Obstetrical Care. Patient's last menstrual period was 01/28/2025 (exact date). from OB Dating Form. was planned Complaints: intermittent nausea. OB History Gravida2 Para1 Term1 Preterm0 AB0 Living1 SAB0 IAB0 Ectopic0 Multiple0 Live Births1 Previous history: Prior : No History of 4th degree laceration: No History of shoulder dystocia: No History of Hypertensive disorders including pre-eclampsia or gestational hypertension: No History of gestational diabetes: No Patient's Risk Screening for delivery: Have you had a prior granger between 20w and 36w6d? No How many pregnancies have you had before? 1 Did you have a previous baby with a GBS Infection? No Please select all that apply for any prior : N/A MEDICAL/PSYCHOSOCIAL HISTORY: History of hemorrhage or bleeding concerns: Yes Thyroid Disease: No History of chronic hypertension: No History of pre-existing diabetes: No No results found for: ABORHD BMI 44.40 kg/(m2) Last Pap: 01/03/2023 normal History of abnormal pap: No Prior treatment for cervical dysplasia: none. Last HPV: History of STDs: N/A Partner History of STDs: None Did you have a partner with Herpes? No Tobacco use: No E-Cigarette/Vaping Use: No Caffeine use: No Drug use: No Alcohol use: No Multivitamin with Folic acid: Yes Would refuse blood transfusion if medically necessary: No Social Needs: How often does this describe you? I don't have enough money to pay my bills: Never Within the past 12 months, have you worried that your food would run out before you had money to buy more? Never In the past 12 months, has lack of reliable transportation kept you from going to medical appointments or work, or from getting things needed for daily living? Never In the past 12 months, have you had any concerns about having a place to live, or about the condition or quality of your housing? Never Would you like more information on any of the following (please check all that apply)? Not interested Social History: Do you have any history of depression, anxiety, PTSD, or other mood problems? No Do you have a history of abuse or trauma that may impact your experience? No Are you currently employed? Yes Depression/Anxiety Screening: denies symptoms of depression. OB Depression and Anxiety Screening- This Encounter Feeling down, depressed, or hopeless: Not at all Little interest or pleasure in doing things: Not at all Feeling nervous, anxious, or on edge Not at all Not being able to stop or control worrying Not at all Anxiety Pre-Screening Total (If >/= 3 additional questions will be reviewed) 0 Genetic Screening: Partner present: Yes Patient verbalized knowledge of partner family health history: Yes Do you or your partner have any personal or family history of defects not previously discussed: No Do you have history of a complicated by anomaly, genetic condition, or demise: No Preeclampsia Risk Screening: Screening for prevention of preeclampsia: High risk factors: None Moderate risk ractors: Obesity (body mass index greater than 30) OB Risk Screening: Completed, positive findings include: Patient answered 'Yes' to previous baby with a GBS Infection Marital Status: Partner: Name: Ray Age: 26 Occupation: [employer] Gender: Male PAST MEDICAL HISTORY Diagnosis Date Anemia Gastritis 2020 Leg fracture, right 2007 Menarche 06/2010 age [age] Years Old Migraine Multiple sclerosis 10/2019 NEGATIVE HISTORY OF 2007 normal color vision Psoriasis PAST SURGICAL HISTORY Procedure Laterality Date EGD W/O [facility] SPEC VARICIES INJ EXTRACTION, ERUPTED TOOTH OR EXPOSED ROOT (ELEVATION AND/OR FORCEPS REMOVAL) 2014 NEXPLANON INSERTION 03/06/2016 removed 03/2019 Current Outpatient Medications Medication Sig Dispense Refill vit 75/iron/folic/om3 (DAILY ORAL) Take by mouth. aspirin, enteric coated (ECOTRIN LOW STRENGTH) 81 mg EC tablet Take 1 tablet by mouth once daily. 90 tablet 3 No current facility-administered medications for this visit. Allergies As of Date: 03/31/2025 (No Known Allergies) Fully Assessed 03/31/2025 Does patient have penicillin allergy: No REVIEW OF SYSTEMS: GENERAL: Negative for: Fever or Chills HEENT: Negative for: Headache, Impaired Vision, Ringing in Ears, Nosebleeds NECK: Negative for: Swelling, Pain, Stiffness RESPIRATORY: Negative for: Cough, Shortness of breath, Wheezing GASTROINTESTINAL: Negative for: Hear (more content not included)... [facility] 03-18-2025 Note HNO ID: [id number] Author: RIANNA ANNE MD Service: ? Author Type: Physician Type: Progress Notes Filed: 03/18/2025 11:27 Note Text: Roustabout Pusher offered: Patient declines. Obstetrics and Gynecology [place] [employer] Visit Subjective Recording using ambient S[employer] software for draft documentation of the visit was discussed with the patient/authorized sales representative advertising; all questions welcomed and answered. Patient/authorized sales representative advertising agreed to proceed CHIEF COMPLAINT: The patient is a 24-year-old female, , with MS, presenting for evaluation of vaginal bleeding at approximately 7 weeks? gestation. HPI: The patient is a 24-year-old at approximately 7 weeks gestation, presenting with vaginal bleeding. Vaginal Bleeding - First noticed light brown spotting last night; described as pink brown in color. - Bleeding is minimal, only observed when wiping (takes 2-3 wipes to clear); no bleeding on pads. - No progression or resolution of bleeding since onset. - Denies recent sexual activity. - Denies signs of infection: no burning, odors, itching, or lesions. - Denies any gushes or leakage of fluids. - Denies any pain or radiating pain. - Denies any urinary symptoms: no increased frequency, burning, or hematuria. - Denies fever or recent exposure to illness. History - , currently at approximately 7 weeks gestation by LMP. - LMP: January 28. - Previous was uncomplicated, except for significant nausea. - No history of ectopic . - No history of STIs. - First child is 19 months old. - Current was planned; patient has MS and had to coordinate around her medication schedule. HISTORY: OB History Gravida1 Para1 Term1 Preterm0 AB0 Living1 SAB0 IAB0 Ectopic0 Multiple0 Live Births1 Janitorial Supervisor History LMP: 01/28/2025 (Exact Date), Having periods Age at Menarche: 10 Age at First : Age at Menopause: Janitorial Supervisor History Comments: Sexual Activity: Yes; Male Contraception: Condom Menstrual Tracking History Flowsheet Row Office Visit from 10/23/2024 in OB/Gynecology Period Cycle (Days) 28 Period Duration (Days) 5 Menstrual Flow Moderate PAST MEDICAL HISTORY Diagnosis Date Anemia Gastritis 2021 Leg fracture, right 2008 Menarche 06/2010 age [age] Years Old Migraine Multiple sclerosis (HCC) 10/2019 NEGATIVE HISTORY OF 2007 normal color vision Psoriasis PAST SURGICAL HISTORY Procedure Laterality Date [facility] VARIC[facility] INJ EXTRACTION, ERUPTED TOOTH OR EXPOSED ROOT (ELEVATION AND/OR FORCEPS REMOVAL) 2014 NEXPLANON INSERTION 03/06/2016 removed 03/2019 FAMILY HISTORY Problem Relation Age of Onset Diabetes Mother Hypertension Mother No Known Problems Father No Known Problems Brother No Known Problems Maternal Grandmother Uterine Cancer Maternal Grandfather No Known Problems Paternal Grandmother No Known Problems Paternal Grandfather None Other Multiple Sclerosis No Family History SOCIAL HISTORY[1] Current Outpatient Medications Medication Sig vit 75/iron/folic/om3 (DAILY ORAL) Take by mouth. fluticasone (FLONASE) 50 mcg/actuation nasal spray Use 2 sprays in each nostril once daily. Rinse mouth after use. ketoconazole (NIZORAL) 2 % shampoo Apply to affected area once daily as needed. clobetasol (TEMOVATE) 0.05 % cream Apply to affected area two times a day. NaCl 0.9% solp 500 mL with ocrelizumab 30 mg/mL soln 600 mg Inject 600 mg intravenously one time only. No current facility-administered medications for this visit. ALLERGIES No Known Allergies REVIEW OF SYSTEMS: Constitutional: (-) fever Genitourinary: (+) vaginal bleeding, (-) pelvic pain, (-) vaginal itching, (-) vaginal odor, (-) vaginal lesions, (-) vaginal discharge, (-) dysuria, (-) increased urinary frequency, (-) hematuria Musculoskeletal: (-) pain Objective SENSITIVE EXAM: The sensitive examination was discussed with the Patient or Patient's Authorized Shroudman. As applicable, any other physician, advance practice provider, medical student, or other health professional student that will be observing or involved in the sensitive examination for educational or training purposes was discussed with the Patient or Authorized Shroudman. The Patient or Authorized Shroudman has agreed to proceed with the sensitive examination. (Sensitive examination includes inspection and/or palpation of the breasts, pelvis, prostate and anorectal regions). PHYSICAL EXAM: BP 120/80 Wt 265 lb 3.2 oz (120.3kg) LMP 01/28/2025 GENERAL: Pleasant; in no acute distress : - PELVIC: external genitalia normal, normal Bartholin's glands, urethra, Scotia's glands, no vulvar lesions, cervix thick and closed, no lesions or signs of infection visible, light brown spotting present, good vaginal support, physiologic discharge present, normal appearing perineal body and perianal region - (more content not included)... [facility] 12-30-2024 History of Presen t illness Narrative SUBJECTIVE Leela Isaacs is a 24-year-old female presenting with bilateral otalgia, left greater than right, and URI symptoms. Otalgia: - Bilateral otalgia x2 days, left ear more affected than right. - Describes a painful kind of feeling without crackling. - Denies recent antibiotic use or allergies to antibiotics. URI Symptoms: - Recent URI symptoms x1.5 weeks. - Initially had significant nasal congestion and rhinorrhea, now improved. - Mild cough, also improved. - Denies sore throat, dyspnea, or fever. - Not using any OTC medications, including nasal drops or antihistamines. - Has used Flonase in the past and still has some available. She reports that she has never smoked. She has never used smokeless tobacco. ROS Constitutional: (-) fever Ears/Nose/Mouth/Throat: (+) left greater than right ear pain, (+) ear fullness, (+) rhinorrhea, (-) ear crackling, (-) nasal congestion, (-) sore throat Respiratory: (+) cough, (-) dyspnea OBJECTIVE PHYSICAL EXAM: BP 126/74 Pulse 98 Wt 119 kg (262 lb 5.6 oz) LMP 09/29/2024 (Exact Date) BMI 43.66 kg/m General appearance: alert, cooperative, pleasant, in no acute distress Head: Normocephalic Eyes: conjunctiva/corneas normal Ears: R TM - clear with good landmarks, nl light reflex, L TM - nl light reflex, erythematous Nose: clear rhinorrhea, mucosa erythematous and swollen Oropharynx: moist without lesions, no exudate Neck: supple and small, benign anterior cervical nodes bilaterally Heart: regular rate and rhythm, without murmur Lungs: clear to auscultation, without rales or wheeze, good air exchange 1. Non-recurrent acute serous otitis media of left ear (H65.02) 2. Otalgia of both ears (H92.03) - Left ear more affected than right; no fever, nasal congestion, or sore throat reported. Mild rhinorrhea and cough present, but improving. - Otoscopic examination reveals signs of infection in the left ear. - Prescribed Augmentin; advised to take with food to minimize gastrointestinal side effects. - Recommended resuming Flonase to alleviate eustachian tube congestion and reduce pressure. - Prescriptions sent to [facility] pharmacy. - Advised to monitor symptoms and report if no improvement within a few days. Jack Garcia APRN.CNS Medical Decision Making: Problems: Low: Acute, uncomplicated illness or injury Risk: Moderate: Drug management Medical Decision Making Level: 3 - Low documented in this encounter [facility] 12-30-2024 Note HNO ID: [id number] Author: JACK GARCIA APRN.AIR CONDITIONING ENGINEER Service: ? Author Type: Nurse Specialist Type: Progress Notes Filed: 12/30/2024 16:11 Note Text: SUBJECTIVE Leela Isaacs is a 24-year-old female presenting with bilateral otalgia, left greater than right, and URI symptoms. Otalgia: - Bilateral otalgia x2 days, left ear more affected than right. - Describes a painful kind of feeling without crackling. - Denies recent antibiotic use or allergies to antibiotics. URI Symptoms: - Recent URI symptoms x1.5 weeks. - Initially had significant nasal congestion and rhinorrhea, now improved. - Mild cough, also improved. - Denies sore throat, dyspnea, or fever. - Not using any OTC medications, including nasal drops or antihistamines. - Has used Flonase in the past and still has some available. She reports that she has never smoked. She has never used smokeless tobacco. ROS Constitutional: (-) fever Ears/Nose/Mouth/Throat: (+) left greater than right ear pain, (+) ear fullness, (+) rhinorrhea, (-) ear crackling, (-) nasal congestion, (-) sore throat Respiratory: (+) cough, (-) dyspnea OBJECTIVE PHYSICAL EXAM: BP 126/74 Pulse 98 Wt 119 kg (262 lb 5.6 oz) LMP 09/29/2024 (Exact Date) BMI 43.66 kg/m? General appearance: alert, cooperative, pleasant, in no acute distress Head: Normocephalic Eyes: conjunctiva/corneas normal Ears: R TM - clear with good landmarks, nl light reflex, L TM - nl light reflex, erythematous Nose: clear rhinorrhea, mucosa erythematous and swollen Oropharynx: moist without lesions, no exudate Neck: supple and small, benign anterior cervical nodes bilaterally Heart: regular rate and rhythm, without murmur Lungs: clear to auscultation, without rales or wheeze, good air exchange 1. Non-recurrent acute serous otitis media of left ear (H65.02) 2. Otalgia of both ears (H92.03) - Left ear more affected than right; no fever, nasal congestion, or sore throat reported. Mild rhinorrhea and cough present, but improving. - Otoscopic examination reveals signs of infection in the left ear. - Prescribed Augmentin; advised to take with food to minimize gastrointestinal side effects. - Recommended resuming Flonase to alleviate eustachian tube congestion and reduce pressure. - Prescriptions sent to [facility] pharmacy. - Advised to monitor symptoms and report if no improvement within a few days. Jack Garcia APRN.AIR CONDITIONING ENGINEER Medical Decision Making: Problems: Low: Acute, uncomplicated illness or injury Risk: Moderate: Drug management Medical Decision Making Level: 3 - Low [facility] 11-06-2024 Note HNO ID: [id number] Author: SINAI SOLIS APRN.SHIPPER/RECEIVER Service: ? Author Type: Nurse Practitioner Type: Progress Notes Filed: 11/06/2024 12:49 Note Text: [facility] office visit: 08/18/2022 [facility] virtual visit: 03/06/2024 [facility] appt: Visit date not found Discrete MRI Results Component Value Date Brain New T2 Lesions None 11/30/2021 Brain Enhancing Lesions None 11/30/2021 Cervical Spine New T2 Lesions None 11/04/2020 Cervical Spine New T2 Lesions None 11/04/2020 Cervical spine enhancing lesions None 11/04/2020 Cervical spine enhancing lesions None 11/04/2020 IgG Date Value Ref Range Status 07/07/2022 707 700 - 1,600 mg/dL Final IgM Date Value Ref Range Status 07/07/2022 74 40 - 230 mg/dL Final CD3-CD19+ B Cell # Date Value Ref Range Status 04/12/2024 75 75 - 660 cells/uL Final Creatinine Date Value Ref Range Status 04/12/2024 0.84 0.58 - 0.96 mg/dL Final 08/03/2023 0.78 0.58 - 0.96 mg/dL Final 07/07/2022 0.80 0.58 - 0.96 mg/dL Final 04/27/2021 0.92 0.58 - 0.96 mg/dL Final CrCl cannot be calculated (Patient's most recent lab result is older than the maximum 180 days allowed.). ALT Date Value Ref Range Status 04/12/2024 14 7 - 38 U/L Final AST Date Value Ref Range Status 04/12/2024 19 13 - 35 U/L Final WBC Date Value Ref Range Status 04/12/2024 7.69 3.70 - 11.00 k/uL Final Abs Lymph Date Value Ref Range Status 04/12/2024 2.00 1.00 - 4.00 k/uL Final Sinai SOLIS APRN.[facility] 11-06-2024 History of Presen t illness Narrative [facility] office visit: 08/18/2022 [facility] virtual visit: 03/06/2024 [facility] appt: Visit date not found Discrete MRI Results Component Value Date Brain New T2 Lesions None 11/30/2021 Brain Enhancing Lesions None 11/30/2021 Cervical Spine New T2 Lesions None 11/04/2020 Cervical Spine New T2 Lesions None 11/04/2020 Cervical spine enhancing lesions None 11/04/2020 Cervical spine enhancing lesions None 11/04/2020 IgG Date Value Ref Range Status 07/07/2022 707 700 - 1,600 mg/dL Final IgM Date Value Ref Range Status 07/07/2022 74 40 - 230 mg/dL Final CD3-CD19+ B Cell # Date Value Ref Range Status 04/12/2024 75 75 - 660 cells/uL Final Creatinine Date Value Ref Range Status 04/12/2024 0.84 0.58 - 0.96 mg/dL Final 08/03/2023 0.78 0.58 - 0.96 mg/dL Final 07/07/2022 0.80 0.58 - 0.96 mg/dL Final 04/27/2021 0.92 0.58 - 0.96 mg/dL Final CrCl cannot be calculated (Patient's most recent lab result is older than the maximum 180 days allowed.). ALT Date Value Ref Range Status 04/12/2024 14 7 - 38 U/L Final AST Date Value Ref Range Status 04/12/2024 19 13 - 35 U/L Final WBC Date Value Ref Range Status 04/12/2024 7.69 3.70 - 11.00 k/uL Final Abs Lymph Date Value Ref Range Status 04/12/2024 2.00 1.00 - 4.00 k/uL Final Sinai SOLIS APRN.SHIPPER/RECEIVER documented in this encounter [facility] 11-03-2024 History of Presen t illness Narrative SUBJECTIVE Leela Isaacs is a 23 year old female who presents with 7 days of symptoms that are stable. Symptoms include: Fever (>=100.4F): No or Chills: No Cough: Yes productive Shortness of breath: No or Difficulty breathing: No Fatigue: Yes Muscle aches: No Headache: No New loss of smell or taste: No Sore throat: Yes Nasal congestion: No or Rhinorrhea: Yes and PND Nausea: No or Vomiting: No Diarrhea: No Cough: - Onset: Over a week ago. - Progression: Worsening over time. - Character: Productive cough with phlegm. - Timing: More severe at night, disrupting sleep. - Associated symptoms: - Postnasal drip. - Sore throat from coughing. - Mild fatigue. - Denies fever, dyspnea, congestion, nausea, emesis, or diarrhea. - Tried Claritin for the past 2 days with slight improvement; has a history of mild allergies. - Took cough medicine a few days ago but not since. - No recent illness in close contacts. OTC meds/remedies that patient has tried: OTC cough syrup and OTC cold medicine. High risk category assessment No high risk factors Exposures: Sick contacts? No Family or close contacts with confirmed/probable COVID-19 in last 14 days? No She reports that she has never smoked. She has never used smokeless tobacco. OBJECTIVE VIDEO EXAM (if available) PHYSICAL EXAM: BP 118/80 (BP Site: Right Arm, BP Position: Sitting, BP Cuff Size: Large Adult) Pulse 100 Temp 36.7 C (98 F) (Tympanic) Resp 16 Wt 116.3 kg (256 lb 6.3 oz) LMP 09/29/2024 (Exact Date) BMI 42.67 kg/m General appearance: tired/ill appearing, alert, cooperative, pleasant, in no acute distress Head: Normocephalic Eyes: conjunctiva/corneas normal Ears: R TM - clear with good landmarks, nl light reflex, L TM - clear with good landmarks, nl light reflex Nose: clear rhinorrhea, mucosa erythematous and swollen, no sinus tenderness Oropharynx: moist without lesions, mild erythema to GPA, no exudate Neck: supple and small, benign anterior cervical nodes bilaterally Heart: regular rate and rhythm, without murmur Lungs: clear to auscultation, without rales or wheeze, good air exchange ASSESSMENT/PLAN (J32.9, J40) Sinobronchitis (R09.82) Postnasal drip ASSESSMENT/PLAN: 1. Sinobronchitis - ICD9: 473.9, 490, ICD10: J32.9, J40 - Will begin treatment as written, see orders - Supportive care with plenty of fluids, rest, and analgesia prn. - Follow up in 2-5 days if symptoms persist or worsen. - FLUTICASONE PROPIONATE 50 MCG/ACTUATION NASAL SPRAY,SUSPENSION - PREDNISONE 20 MG TABLET - BENZONATATE 100 MG CAPSULE - AZITHROMYCIN 250 MG TABLET- start this in a couple daysif not improved on symptomatic treatment 2. Postnasal drip - ICD9: 784.91, ICD10: R09.82 - FLUTICASONE PROPIONATE 50 MCG/ACTUATION NASAL SPRAY,SUSPENSION Jack Garcia APRN.AIR CONDITIONING ENGINEER Medical Decision Making: Problems: Low: Acute, uncomplicated illness or injury Risk: Moderate: Drug management Medical Decision Making Level: 3 - Low documented in this encounter [facility] 11-03-2024 Note HNO ID: [id number] Author: JACK GARCIA APRN.AIR CONDITIONING ENGINEER Service: ? Author Type: Nurse Specialist Type: Progress Notes Filed: 11/03/2024 07:40 Note Text: SUBJECTIVE Leela Isaacs is a 23 year old female who presents with 7 days of symptoms that are stable. Symptoms include: Fever (>=100.4F): No or Chills: No Cough: Yes productive Shortness of breath: No or Difficulty breathing: No Fatigue: Yes Muscle aches: No Headache: No New loss of smell or taste: No Sore throat: Yes Nasal congestion: No or Rhinorrhea: Yes and PND Nausea: No or Vomiting: No Diarrhea: No Cough: - Onset: Over a week ago. - Progression: Worsening over time. - Character: Productive cough with phlegm. - Timing: More severe at night, disrupting sleep. - Associated symptoms: - Postnasal drip. - Sore throat from coughing. - Mild fatigue. - Denies fever, dyspnea, congestion, nausea, emesis, or diarrhea. - Tried Claritin for the past 2 days with slight improvement; has a history of mild allergies. - Took cough medicine a few days ago but not since. - No recent illness in close contacts. OTC meds/remedies that patient has tried: OTC cough syrup and OTC cold medicine. High risk category assessment No high risk factors Exposures: Sick contacts? No Family or close contacts with confirmed/probable COVID-19 in last 14 days? No She reports that she has never smoked. She has never used smokeless tobacco. OBJECTIVE VIDEO EXAM (if available) PHYSICAL EXAM: BP 118/80 (BP Site: Right Arm, BP Position: Sitting, BP Cuff Size: Large Adult) Pulse 100 Temp 36.7 ?C (98 ?F) (Tympanic) Resp 16 Wt 116.3 kg (256 lb 6.3 oz) LMP 09/29/2024 (Exact Date) BMI 42.67 kg/m? General appearance: tired/ill appearing, alert, cooperative, pleasant, in no acute distress Head: Normocephalic Eyes: conjunctiva/corneas normal Ears: R TM - clear with good landmarks, nl light reflex, L TM - clear with good landmarks, nl light reflex Nose: clear rhinorrhea, mucosa erythematous and swollen, no sinus tenderness Oropharynx: moist without lesions, mild erythema to GPA, no exudate Neck: supple and small, benign anterior cervical nodes bilaterally Heart: regular rate and rhythm, without murmur Lungs: clear to auscultation, without rales or wheeze, good air exchange ASSESSMENT/PLAN (J32.9, J40) Sinobronchitis (R09.82) Postnasal drip ASSESSMENT/PLAN: 1. Sinobronchitis - ICD9: 473.9, 490, ICD10: J32.9, J40 - Will begin treatment as written, see orders - Supportive care with plenty of fluids, rest, and analgesia prn. - Follow up in 2-5 days if symptoms persist or worsen. - FLUTICASONE PROPIONATE 50 MCG/ACTUATION NASAL SPRAY,SUSPENSION - PREDNISONE 20 MG TABLET - BENZONATATE 100 MG CAPSULE - AZITHROMYCIN 250 MG TABLET- start this in a couple daysif not improved on symptomatic treatment 2. Postnasal drip - ICD9: 784.91, ICD10: R09.82 - FLUTICASONE PROPIONATE 50 MCG/ACTUATION NASAL SPRAY,SUSPENSION Jack Garcia APRN.AIR CONDITIONING ENGINEER Medical Decision Making: Problems: Low: Acute, uncomplicated illness or injury Risk: Moderate: Drug management Medical Decision Making Level: 3 - Low [facility] 10-23-2024 Note HNO ID: [id number] Author: TEGNA HAMILTON APRN.[facility] Service: ? Author Type: Financial Aid Administrator Type: Progress Notes Filed: 10/23/2024 08:37 Note Text: Leela is a 23 year old who presents for an annual gynecologic exam without complaints. Still get period: Yes Bleeding amount bothersome: No Bleeding between periods: No Period symptoms: Acne; Breast tenderness; Cramps; Mood change Time with current partner: 8 years Number of lifetime partners: 2 control frequency: Always- condoms HPV vaccine: No HPV: N/A Last pap smear: 01/03/2023 normal History of abnormal pap: No, all prior PAP smears have been normal Bothersome pelvic pain: No Last mammogram: never OB History Gravida1 Para1 Term1 Preterm0 AB0 Living1 SAB0 IAB0 Ectopic0 Multiple0 Live Births1 Janitorial Supervisor History LMP: 09/29/2024 (Exact Date), Having periods Age at Menarche: 10 Age at First : Age at Menopause: Janitorial Supervisor History Comments: Sexual Activity: Yes; Male Contraception: Condom Menstrual Tracking History Flowsheet Row Office Visit from 10/23/2024 in OB/Gynecology Period Cycle (Days) 28 Period Duration (Days) 5 Menstrual Flow Moderate FAMILY HISTORY Problem Relation Age of Onset Diabetes Mother Hypertension Mother No Known Problems Father No Known Problems Brother No Known Problems Maternal Grandmother Uterine Cancer Maternal Grandfather No Known Problems Paternal Grandmother No Known Problems Paternal Grandfather None Other Multiple Sclerosis No Family History SOCIAL HISTORY Social History Tobacco Use Smoking status: Never Smokeless tobacco: Never Vaping Use Vaping status: Never Used Substance Use Topics Alcohol use: Not Currently Drug use: No REVIEW OF SYSTEMS Abdomen: No abdominal pain, nausea, vomiting, diarrhea, or constipation. No bloating, early satiety, indigestion, or increased flatulence. Bladder: No dysuria, gross hematuria, urinary frequency, urinary urgency, or incontinence. Breast: No breast lumps, nipple d/c, overlying skin changes, redness or skin retraction. Allergies and current medication updated:Yes SENSITIVE EXAM: The sensitive examination was discussed with the Patient or Patient's Authorized Shroudman. As applicable, any other physician, advance practice provider, medical student, or other health professional student that will be observing or involved in the sensitive examination for educational or training purposes was discussed with the Patient or Authorized Shroudman. The Patient or Authorized Shroudman has agreed to proceed with the sensitive examination. (Sensitive examination includes inspection and/or palpation of the breasts, pelvis, prostate and anorectal regions). EXAM: BP 120/74 Ht 5' 5 (1.65m) Wt 259 lb (117.5kg) LMP 09/29/2024 BMI 43.10 kg/(m2). GENERAL: pleasant, female in no apparent distress HEENT: Normocephalic, atraumatic, and mucus membranes moist NECK: Supple and full range of motion DERMATOLOGY: Normal and without lesions BREAST: soft, non-tender, symmetric, no dominant mass, normal nipple-areolar complex, no lymphadenopathy, and no nipple discharge CHEST: Normal inspiratory effort ABDOMEN: soft, non-tender, and no masses PELVIC: external genitalia normal, normal Bartholin's glands, urethra, Scotia's glands, no vulvar lesions, no cervical lesions, good vaginal support, physiologic discharge present, normal appearing perineal body and perianal region, Labia minora bilaterally erythematous BIMANUAL: uterus normal size, shape and consistency, no adnexal masses, and non-tender RECTOVAGINAL: deferred. NEURO: alert and oriented x3,exam grossly non-focal EXTREMITIES: normal ASSESSMENT/PLAN: 1) Health maintenance: Pap/HPV up to date. 2) Contraception: condoms. Contraceptive options reviewed and information provided. 3) STD screening: Declined STD check. 4) Vulvar hygiene reviewed- possible contract dermatitis vaginally- using goat soap to wash area- stated has very sensitive skin. Recommended Dove free and clear, cotton underwear, no yoga pants for long amounts of time Follow up one year or sooner as needed Tegan Hamilton APRN.CNM [facility] 10-23-2024 History of Presen t illness Narrative Leela is a 23 year old who presents for an annual gynecologic exam without complaints. Still get period: Yes Bleeding amount bothersome: No Bleeding between periods: No Period symptoms: Acne; Breast tenderness; Cramps; Mood change Time with current partner: 8 years Number of lifetime partners: 2 control frequency: Always- condoms HPV vaccine: No HPV: N/A Last pap smear: 01/03/2023 normal History of abnormal pap: No, all prior PAP smears have been normal Bothersome pelvic pain: No Last mammogram: never OB History Gravida1 Para1 Term1 Preterm0 AB0 Living1 SAB0 IAB0 Ectopic0 Multiple0 Live Births1 Janitorial Supervisor History LMP: 09/29/2024 (Exact Date), Having periods Age at Menarche: 10 Age at First : Age at Menopause: Janitorial Supervisor History Comments: Sexual Activity: Yes; Male Contraception: Condom Menstrual Tracking History Flowsheet Row Office Visit from 10/23/2024 in OB/Gynecology Period Cycle (Days) 28 Period Duration (Days) 5 Menstrual Flow Moderate FAMILY HISTORY Problem Relation Age of Onset Diabetes Mother Hypertension Mother No Known Problems Father No Known Problems Brother No Known Problems Maternal Grandmother Uterine Cancer Maternal Grandfather No Known Problems Paternal Grandmother No Known Problems Paternal Grandfather None Other Multiple Sclerosis No Family History SOCIAL HISTORY Social History Tobacco Use Smoking status: Never Smokeless tobacco: Never Vaping Use Vaping status: Never Used Substance Use Topics Alcohol use: Not Currently Drug use: No REVIEW OF SYSTEMS Abdomen: No abdominal pain, nausea, vomiting, diarrhea, or constipation. No bloating, early satiety, indigestion, or increased flatulence. Bladder: No dysuria, gross hematuria, urinary frequency, urinary urgency, or incontinence. Breast: No breast lumps, nipple d/c, overlying skin changes, redness or skin retraction. Allergies and current medication updated:Yes SENSITIVE EXAM: The sensitive examination was discussed with the Patient or Patient's Authorized Shroudman. As applicable, any other physician, advance practice provider, medical student, or other health professional student that will be observing or involved in the sensitive examination for educational or training purposes was discussed with the Patient or Authorized Shroudman. The Patient or Authorized Shroudman has agreed to proceed with the sensitive examination. (Sensitive examination includes inspection and/or palpation of the breasts, pelvis, prostate and anorectal regions). EXAM: BP 120/74 Ht 5' 5 (1.65m) Wt 259 lb (117.5kg) LMP 09/29/2024 BMI 43.10 kg/(m^2). GENERAL: pleasant, female in no apparent distress HEENT: Normocephalic, atraumatic, and mucus membranes moist NECK: Supple and full range of motion DERMATOLOGY: Normal and without lesions BREAST: soft, non-tender, symmetric, no dominant mass, normal nipple-areolar complex, no lymphadenopathy, and no nipple discharge CHEST: Normal inspiratory effort ABDOMEN: soft, non-tender, and no masses PELVIC: external genitalia normal, normal Bartholin's glands, urethra, Scotia's glands, no vulvar lesions, no cervical lesions, good vaginal support, physiologic discharge present, normal appearing perineal body and perianal region, Labia minora bilaterally erythematous BIMANUAL: uterus normal size, shape and consistency, no adnexal masses, and non-tender RECTOVAGINAL: deferred. NEURO: alert and oriented x3,exam grossly non-focal EXTREMITIES: normal ASSESSMENT/PLAN: 1) Health maintenance: Pap/HPV up to date. 2) Contraception: condoms. Contraceptive options reviewed and information provided. 3) STD screening: Declined STD check. 4) Vulvar hygiene reviewed- possible contract dermatitis vaginally- using goat soap to wash area- stated has very sensitive skin. Recommended Dove free and clear, cotton underwear, no yoga pants for long amounts of time Follow up one year or sooner as needed Tegan Hamilton APRN.CNM documented in this encounter [facility] 07-28-2024 History of Presen t illness Narrative SUBJECTIVE Leela Isaacs is a 23 year old female who presents with 2.5 weeks of symptoms of symptoms that initially improved now recurred for 2-3 days. Body aches and GI upset initially with cough and sinus congestion and drainage. Now with cough and sinus congestion and drainaage. Symptoms include: Fever (>=100.4F): No or Chills: No Cough: Yes productive and purulent, difficult to control Shortness of breath: No or Difficulty breathing: No Fatigue: Yes Muscle aches: No Headache: No New loss of smell or taste: No Sore throat: Yes Nasal congestion: Yes or Rhinorrhea: Yes Nausea: No or Vomiting: No Diarrhea: No Bilateral ear discomfort No longer . Last ocrevus infusion was in April. OTC meds/remedies that patient has tried: nothing. She reports that she has never smoked. She has never used smokeless tobacco. OBJECTIVE PHYSICAL EXAM: BP 118/81 Pulse 111 Temp 37.3 C (99.1 F) Resp 16 Wt 110 kg (242 lb 8.1 oz) LMP 11/16/2022 (Exact Date) BMI 40.36 kg/m General appearance: tired/ill appearing, alert, cooperative, pleasant, in no acute distress Head: Normocephalic Eyes: conjunctiva/corneas normal Ears: R TM - clear with good landmarks, nl light reflex, L TM - clear with good landmarks, nl light reflex Nose: purulent rhinorrhea, mucosa erythematous and swollen Oropharynx: moist without lesions, maxillary tender to palpation Neck: supple and small, benign anterior cervical nodes bilaterally Heart: regular rate and rhythm, without murmur Lungs: clear to auscultation, without rales or wheeze, good air exchange ASSESSMENT/PLAN (J32.9, J40) Sinobronchitis (primary encounter diagnosis) ASSESSMENT/PLAN: 1. Sinobronchitis - ICD9: 473.9, 490, ICD10: J32.9, J40 - Will begin treatment with as per antibiotic as written, see orders - Supportive care with plenty of fluids, rest, and analgesia prn. - Follow up in 3-5 days if symptoms persist or worsen. - AMOXICILLIN 875 MG-POTASSIUM CLAVULANATE 125 MG TABLET - BENZONATATE 100 MG CAPSULE - PREDNISONE 20 MG TABLET Jack Garcia APRN.CNS Medical Decision Making: Problems: Low: Acute, uncomplicated illness or injury Risk: Moderate: Drug management Medical Decision Making Level: 3 - Low documented in this encounter [facility] 07-28-2024 Note HNO ID: [id number] Author: JACK GARCIA APRN.RADHA Service: ? Author Type: Nurse Specialist Type: Progress Notes Filed: 07/28/2024 07:54 Note Text: SUBJECTIVE Leela Isaacs is a 23 year old female who presents with 2.5 weeks of symptoms of symptoms that initially improved now recurred for 2-3 days. Body aches and GI upset initially with cough and sinus congestion and drainage. Now with cough and sinus congestion and drainaage. Symptoms include: Fever (>=100.4F): No or Chills: No Cough: Yes productive and purulent, difficult to control Shortness of breath: No or Difficulty breathing: No Fatigue: Yes Muscle aches: No Headache: No New loss of smell or taste: No Sore throat: Yes Nasal congestion: Yes or Rhinorrhea: Yes Nausea: No or Vomiting: No Diarrhea: No Bilateral ear discomfort No longer . Last ocrevus infusion was in April. OTC meds/remedies that patient has tried: nothing. She reports that she has never smoked. She has never used smokeless tobacco. OBJECTIVE PHYSICAL EXAM: BP 118/81 Pulse 111 Temp 37.3 ?C (99.1 ?F) Resp 16 Wt 110 kg (242 lb 8.1 oz) LMP 11/16/2022 (Exact Date) BMI 40.36 kg/m? General appearance: tired/ill appearing, alert, cooperative, pleasant, in no acute distress Head: Normocephalic Eyes: conjunctiva/corneas normal Ears: R TM - clear with good landmarks, nl light reflex, L TM - clear with good landmarks, nl light reflex Nose: purulent rhinorrhea, mucosa erythematous and swollen Oropharynx: moist without lesions, maxillary tender to palpation Neck: supple and small, benign anterior cervical nodes bilaterally Heart: regular rate and rhythm, without murmur Lungs: clear to auscultation, without rales or wheeze, good air exchange ASSESSMENT/PLAN (J32.9, J40) Sinobronchitis (primary encounter diagnosis) ASSESSMENT/PLAN: 1. Sinobronchitis - ICD9: 473.9, 490, ICD10: J32.9, J40 - Will begin treatment with as per antibiotic as written, see orders - Supportive care with plenty of fluids, rest, and analgesia prn. - Follow up in 3-5 days if symptoms persist or worsen. - AMOXICILLIN 875 MG-POTASSIUM CLAVULANATE 125 MG TABLET - BENZONATATE 100 MG CAPSULE - PREDNISONE 20 MG TABLET Jack Gacria, RELIEF DOCKING MASTER.AIR CONDITIONING ENGINEER Medical Decision Making: Problems: Low: Acute, uncomplicated illness or injury Risk: Moderate: Drug management Medical Decision Making Level: 3 - Low [facility] 05-06-2024 Telephone encounter Note Scheduled with patient Start email sent [facility] Work Phone: 05-06-2024 Miscellaneous Notes Scheduled with patient Start email sent Patient requesting to have Ocrevus at Dr. Irma Florez referring. Please review and advise. documented in this encounter [facility] 05-05-2024 Telephone encounter Note Patient requesting to have Ocrevus at Dr. Irma Florez referring. Please review and advise. [facility] 05-05-2024 Telephone encounter Note Summary: appointment lvm for patient to call so we can get her scheduled for her start up dose of her infusiona= and a 3 month follow up [facility] 05-05-2024 Miscellaneous Notes Summary: appointment lvm for patient to call so we can get her scheduled for her start up dose of her infusiona= and a 3 month follow up documented in this encounter [facility] 04-11-2024 Telephone encounter Note [facility] office visit: 08/18/2022 [facility] virtual visit: 03/06/2024 [facility] appt: Visit date not found @DISCRETEMRI@ IgG Date Value Ref Range Status 07/07/2022 707 700 - 1,600 mg/dL Final IgM Date Value Ref Range Status 07/07/2022 74 40 - 230 mg/dL Final CD3-CD19+ B Cell # Date Value Ref Range Status 07/07/2022 0 (L) 75 - 660 cells/uL Final Creatinine Date Value Ref Range Status 08/03/2023 0.78 0.58 - 0.96 mg/dL Final 07/07/2022 0.80 0.58 - 0.96 mg/dL Final 04/27/2021 0.92 0.58 - 0.96 mg/dL Final 03/23/2020 0.86 0.58 - 0.96 mg/dL Final CrCl cannot be calculated (Patient's most recent lab result is older than the maximum 14 days allowed.). ALT Date Value Ref Range Status 08/03/2023 8 7 - 38 U/L Final AST Date Value Ref Range Status 08/03/2023 13 13 - 35 U/L Final WBC Date Value Ref Range Status 08/03/2023 10.57 3.70 - 11.00 k/uL Final Abs Lymph Date Value Ref Range Status 05/25/2023 1.43 1.00 - 4.00 k/uL Final Sinai SOLIS APRN.SHIPPER/RECEIVER [facility] 04-11-2024 Miscellaneous Notes [facility] office visit: 08/18/2022 [facility] virtual visit: 03/06/2024 [facility] appt: Visit date not found @DISCRETEMRI@ IgG Date Value Ref Range Status 07/07/2022 707 700 - 1,600 mg/dL Final IgM Date Value Ref Range Status 07/07/2022 74 40 - 230 mg/dL Final CD3-CD19+ B Cell # Date Value Ref Range Status 07/07/2022 0 (L) 75 - 660 cells/uL Final Creatinine Date Value Ref Range Status 08/03/2023 0.78 0.58 - 0.96 mg/dL Final 07/07/2022 0.80 0.58 - 0.96 mg/dL Final 04/27/2021 0.92 0.58 - 0.96 mg/dL Final 03/23/2020 0.86 0.58 - 0.96 mg/dL Final CrCl cannot be calculated (Patient's most recent lab result is older than the maximum 14 days allowed.). ALT Date Value Ref Range Status 08/03/2023 8 7 - 38 U/L Final AST Date Value Ref Range Status 08/03/2023 13 13 - 35 U/L Final WBC Date Value Ref Range Status 08/03/2023 10.57 3.70 - 11.00 k/uL Final Abs Lymph Date Value Ref Range Status 05/25/2023 1.43 1.00 - 4.00 k/uL Final Sinai SOLIS APRN.SHIPPER/RECEIVER Patient is stopping breast feeding. Requesting to restart Ocrevus infusions. Please advise. 03/06/24 Irma ASSESSMENT Leela Isaacs is a 23 year old woman with Multiple Sclerosis. Exam per virtual visit stable, subjectively patient stable and imaging completed 02/27/2024 indicates MS radiologically stable. Patient has been monitored off Ocrevus since 06/2022 for . Delivered her daughter 07/2023, and delivery uncomplicated apart from vaginal hemorrhaging she experienced a few hours which was quickly addressed. No additional complications. Patient continues to breast-feed and overall feels very well. Will repeat imaging 05/2024. Patient will contact [facility] provider if she stops breast-feeding prior to this and we will resume Ocrevus following updated labs. Currently patient does not have plans to become again immediately, her preference is to resume DMT. We discussed we would split Ocrevus dose given time off treatment. PLAN - Hold Ocrevus until breast-feeding complete - MRI brain w/wo Gd 05/2024 Patient Health Education Discussed at Visit: Aerobic exercise, Emotional Health/Wellness, and Risks and Common side effects of MS medications Follow-up: In 6 months at [facility] documented in this encounter [facility] 04-11-2024 Telephone encounter Note Patient is stopping breast feeding. Requesting to restart Ocrevus infusions. Please advise. 03/06/24 [place] ASSESSMENT Leela Isaacs is a 23 year old woman with Multiple Sclerosis. Exam per virtual visit stable, subjectively patient stable and imaging completed 02/27/2024 indicates MS radiologically stable. Patient has been monitored off Ocrevus since 06/2022 for . Delivered her daughter 07/2023, and delivery uncomplicated apart from vaginal hemorrhaging she experienced a few hours which was quickly addressed. No additional complications. Patient continues to breast-feed and overall feels very well. Will repeat imaging 05/2024. Patient will contact [facility] provider if she stops breast-feeding prior to this and we will resume Ocrevus following updated labs. Currently patient does not have plans to become again immediately, her preference is to resume DMT. We discussed we would split Ocrevus dose given time off treatment. PLAN - Hold Ocrevus until breast-feeding complete - MRI brain w/wo Gd 05/2024 Patient Health Education Discussed at Visit: Aerobic exercise, Emotional Health/Wellness, and Risks and Common side effects of MS medications Follow-up: In 6 months at [facility] 03-06-2024 Instructions Sinai Solis APRN.SHIPPER/RECEIVER - 03/06/2024 6:01 PM EDT PLAN - Hold Ocrevus until breast-feeding complete - MRI brain w/wo Gd 05/2024 documented in this encounter [facility] 03-06-2024 History of Presen t illness Narrative [facility] MULTIPLE SCLEROSIS FOLLOWUP/ESTABLISHED PATIENT VISIT VIRTUAL VISIT PRINCIPAL NEUROLOGIC DIAGNOSIS: Multiple sclerosis DISEASE SUMMARY Date of onset: Summer 2018 Date of diagnosis of MS: 11/11/2019 Disease course at onset: Relapsing-Remitting Current disease course: Relapsing-Remitting Previous disease therapies: NA Current disease therapy: Ocrevus started 02/13/2020 & 02/27/2020. Last q6 month tx 07/07/2022 (cycle 6). Currently on hold for and breast-feeding Most recent MRI brain: 02/27/2024 Most recent MRI cervical spine: 11/04/2020 CSF: NA JCV serology result and date: (+) index 2.14 (11/12/2019) VZV 11/12/2019 (-). Varivax pt 1 12/18/2019. CHIEF COMPLAINT: Follow-up on MS disease modifying therapy INTERVAL HISTORY Usual treating team: Larry/Irma The patient's appointment was conducted by virtual visit via [employer] with patient consent, unaccompanied. I have communicated my name and active licensure. The patient's identity and physical location were verified at the time of this visit. Either the patient or their legal sales representative advertising has been informed of the risks and benefits of -- and alternatives to -- treatment through a remote evaluation and consents to proceed with the evaluation remotely. The patient was last seen 06/13/2023, currently taking Ocrevus. Since the patient's last visit the patient reports overall feeling stable. 08/20/2023, vaginal which was uncomplicated for the delivery but she started hemorrhaging a few hours post-. Hospital team able to manage this quickly but she had to stay an extra day and hospital and given iron infusion. Patient denies any new or worsening neurologic symptoms. Still but milk is less recently. Health has been good in general. Baby is healthy and happy. No weakness, no falls. Going on a lot of walks. SUBJECTIVE & REVIEW OF SYSTEMS REVIEW OF SYSTEMS Refer to patient-entered data. Mood: PHQ9 responses reviewed and appear below, Mood has been good. 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 Bladder: Normal Bowel: Normal Pain related to today's visit: no pain Sleep: No problem/well Memory/Concentration: Normal Neuro-Qol Functions (higher = better functioning) 08/17/2022 12/07/2021 -- Upper Extremity Domain T Score 57 57 08/17/2022 12/07/2021 -- Lower Extremity Domain T Score 62 62 08/17/2022 12/07/2021 -- Cognitive Function Domain T Score 67 63 08/17/2022 12/07/2021 -- Ability To Participate In Social Roles T Score 63 63 08/17/2022 12/07/2021 -- Satisfaction With Social Roles T Score 62 62 Neuro-Qol Symptoms (higher = worse symptoms) 08/17/2022 12/07/2021 -- Sleep Domain T Score 32 32 08/17/2022 12/07/2021 -- Fatigue Domain T Score 28 35 08/17/2022 12/07/2021 -- Anxiety Domain T Score 36 44 08/17/2022 12/07/2021 -- Depression Domain T Score 38 34 08/17/2022 12/07/2021 -- Stigma Domain T Score 41 40 *NeuroQoL is a multi-domain patient-reported quality of life questionnaire PHQ-9 Flowsheet Row Office Visit from 08/18/2022 in [facility] from 12/08/2021 in [facility] PHQ-9 Score 0 0 *PHQ-9 is a questionnaire for depressive symptoms, with scores 0-4 indicating none, 5-9 mild, 10-14 moderate, 15-19 moderately severe, and 20-27 severe symptoms. PROMIS-10 Flowsheet Row Office Visit from 04/11/2023 in [facility] Most recent reading at 04/11/2023 6:16 AM Appointment from 04/11/2023 in [facility] Most recent reading at 04/11/2023 12:33 AM [...] Status / Disability: Full-time EXAM General Appearance: well appearing, in no acute distress Mental status evaluation during the interview and examination showed normal level of consciousness, orientation, language, memory, praxis, and higher intellectual function Affect: Normal Facial movements: Intact bilaterally Speech: normal RESULTS Monitoring labs: CBC + Diff Component Value Date WBC 10.57 08/03/2023 HB 10.8 (L) 08/03/2023 HCT 32.8 (L) 08/03/2023 PLT 189 08/03/2023 ABSLYMPH 1.43 05/25/2023 No results found for: VITD25 CMP Component Value Date AST 13 08/03/2023 GLUC 102 (H) 08/03/2023 BUN 10 08/03/2023 CREAT 0.78 08/03/2023 NA 137 08/03/2023 K 3.8 08/03/2023 CHLOR 104 08/03/2023 ALT 8 08/03/2023 No results found for: JCVIND, JCVAB IgG [...] Cervical spine enhancing lesions None 11/04/2020 ASSESSMENT Leela Isaacs is a 23 year old woman with Multiple Sclerosis. Exam per virtual visit stable, subjectively patient stable and imaging completed 02/27/2024 indicates MS radiologically stable. Patient has been monitored off Ocrevus since 06/2022 for . Delivered her daughter 07/2023, and delivery uncomplicated apart from vaginal hemorrhaging she experienced a few hours which was quickly addressed. No additional complications. Patient continues to breast-feed and overall feels very well. Will repeat imaging 05/2024. Patient will contact [facility] provider if she stops breast-feeding prior to this and we will resume Ocrevus following updated labs. Currently patient does not have plans to become again immediately, her preference is to resume DMT. We discussed we would split Ocrevus dose given time off treatment. PLAN - Hold Ocrevus until breast-feeding complete - MRI brain w/wo Gd 05/2024 Patient Health Education Discussed at Visit: Aerobic exercise, Emotional Health/Wellness, and Risks and Common side effects of MS medications Follow-up: In 6 months at [facility] with [facility] I spent a total of 25 minutes on the date of the service which included preparing to see the patient, [id number] patient care, completing clinical documentation, obtaining and/or reviewing separately obtained history, performing a medically appropriate examination, counseling and educating the patient/family/caregiver, and ordering medications, tests, or procedures. Sinai SOLIS APRN.SHIPPER/RECEIVER documented in this encounter [facility] 02-27-2024 History of Presen t illness Narrative Radiology Service Progress Note DATE OF SERVICE: February 27, 2024 TIME: 10:51 AM PATIENT IDENTITY VERIFICATION COMPLETED USING TWO (2) STANDARD IDENTIFIERS: Name and Date of confirmed by patient verbally. FALL SCREENING: Has the patient had 2 falls in the last year or 1 fall with injury or currently using an Ambulatory Assistive Device (Walker, Cane, Wheelchair, Crutches, etc.)? No PATIENT GENDER DATA: Female. status: : No status: NO. PATIENT RELEVANT IMPLANT DATA REVIEWED: Yes PATIENT PRESENTS WITH AN IMPLANTABLE OR ATTACHED PLANNING OFFICIAL: No ALLERGIES: Reviewed and unchanged CONTRAST ALLERGY: NO. EXAM: MRI - CONTRAST TYPE: GROUP II PERIPHERAL IV DATA: Ambulatory: A peripheral IV was started in the Right antecubital site with a Angio cath: 22 gauge. RADIOLOGY DEPARTMENT: MR; Exam(s) Completed: Head: Multiple Sclerosis SIGNATURE: RT Angela(R) PATIENT NAME: Leela Isaacs DATE: February 27, 2024 TIME: 10:51 AM documented in this encounter [facility] 02-09-2024 Telephone encounter Note Summary: Appointment 02/09/24 - LVM / reminder mailed for [place] FU. - GL [facility] 02-09-2024 Miscellaneous Notes Summary: Appointment 02/09/24 - LVM / reminder mailed for [place] FU. - GL documented in this encounter [facility] 10-29-2023 History of Presen t illness Narrative Radiology Service Progress Note DATE OF SERVICE: October 29, 2023 TIME: 8:23 AM PATIENT IDENTITY VERIFICATION COMPLETED USING TWO (2) STANDARD IDENTIFIERS: Name and Date of confirmed by patient verbally. FALL SCREENING: Has the patient had 2 falls in the last year or 1 fall with injury or currently using an Ambulatory Assistive Device (Walker, Cane, Wheelchair, Crutches, etc.)? No PATIENT GENDER DATA: Female. status: : No status: NO. PATIENT RELEVANT IMPLANT DATA REVIEWED: Yes PATIENT PRESENTS WITH AN IMPLANTABLE OR ATTACHED PLANNING OFFICIAL: No ALLERGIES: Reviewed and unchanged CONTRAST ALLERGY: NO. EXAM: MRI - CONTRAST TYPE: GROUP II PERIPHERAL IV DATA: Ambulatory: A peripheral IV was started in the Right antecubital site with a Angio cath: 22 gauge. RADIOLOGY DEPARTMENT: MR; Exam(s) Completed: Head: Multiple Sclerosis SIGNATURE: RT Angela(R) PATIENT NAME: Leela Isaacs DATE: October 29, 2023 TIME: 8:23 AM documented in this encounter [facility] 10-10-2023 Miscellaneous Notes Ok to return to work. Radha Mcnamara APRN.JONATHAN Seen on 10/04 for exam. Ok for letter? Grace Castorena RN documented in this encounter [facility] 10-05-2023 Instructions Radha Mcnamara APRN.CNP - 10/05/2023 8:59 AM EDT Here are some links for wonderful Providers here in the community and surrounding areas. Do not hesitate to contact their offices, many are offering virtual visits during this time. 8-687-1-QEHY4SORA - [place] Maternal Mental Health Hotline If you are in suicidal crisis, please call or text 6-225-630-TALK ( ) or visit the National Suicide Prevention Lifeline website. mchb.hrsa.gov [facility] Psychology, Psychiatry, Counseling Connect with therapist/ can do virtual visits [phone] Referral to the [facility] To schedule an appointment, please call the [place] for Behavioral Health Appointment Line: [phone] option 1 [facility] [place] [address] [place] [place], [place] [id number] [address] [place] [address] [facility] [address] [place] [address] [facility] [address] [place] [address] Michael Hyde MD [address] [place] [address] [employer] [facility] [address] [facility], [address] [place] [address] [facility] [address] [place] [address] [facility] Counseling Services [place] / [place] [phone]/ [phone] Zeina Donavan [address] [facility] [phone] [facility] Mediation [place] / [place] [phone] [facility] [address] [place] [address]/ [facility] [place] [phone] NOAH Dobbins, [facility] Family Therapy Workshops, telehealth and at home visits. [phone] Humanistic counseling center 20 locations [place], [place], [place], [place], [place], [place], [place], [facility], [place], [place], [place], [place], [place], [place], [facility], [place], [place] ,[facility], [place], [place],[facility], [facility], [place], [facility], [facility], [place] www.[facility] specialty centerer.[facility] [phone] Psychotherapy resources outside of [facility] are listed below [employer] [facility] Web: https://www.GoldenSUN/ Support International Online Provider Directory https://AnTuTu/ [facility] https://Voyando.IndiPharm/ Partners for Behavioral Health and Wellness Web: https://FilterBoxx Water & Environmental/ Center for Effective Living Web: https://www.effectiveSekoialivingHOSTING / LifeStance Web: https://Velocent Systems.IndiPharm/location/ state/[place]/ [facility] Web: https://www.[facility]/ [facility] Web: https://Soane Energy.MENA PRESTIGE/ Recovery Resources Mental health and substance abuse help Web: https://www.MicroSolar & RESOURCES Support International Direct peer support and connection to professional resources Non-Emergency Helpline Phone: / Text: [phone] Web: https://www..net/ Online Provider Directory: https://AnTuTu/ Online Support Meetings: https://www..net/get-h elp/lyf-xfeghe-cjnbajv-meetings/ [facility] Baby and Milieu Therapist Services Web: https://Reaching Our Outdoor Friends (ROOF)/ BitGo Expert information on medication use during and Text: [phone] Web: https://WestBridge/ NATIONAL REGISTRY FOR PSYCHIATRIC MEDICATIONS Currently studying the safety of antidepressants, ADHD medications and atypical antipsychotics taken during TO PARTICIPATE CALL TOLL-FREE: Web: https://womensmentalhealth.org/r esearch/pregnancyregistry/ Support Groups: [facility]- Follow on facebook Baby Bistro support group led by [facility] department Resilient Mamas - Support Group [facility].org The POEM support group [phone] Www.poemonline.org Follow on facebook - JACQUE dickerson Online support meetings PSI https://www..net/get-h elp/dfb-iipjap-fgtdjdp-meetings/ [facility] mommy and me virtual support group 11:30-1pm Support for mothers and new babies and toddlers [place] childbirth education: Childbirth @[email or web address] or call [phone] CRISIS: CRISIS HOTLINE [phone], 911 or go to the nearest ER. [facility] [phone] / [facility] [phone] [email or web address] Crisis text line text the word HOME to [id number] [facility] [address] [place] [address] [facility] [id number] www.[employer] Amelia Dick clinical counseling [address] [address] www.[employer] [phone] Holding space psychotherapy Lucille Giang [employer] B[employer]KE MECHANIC WELDING MANAGER-S [address] [facility] www.[employer] [phone]/ [place] [phone] They all offer virtual. All work with trauma Support groups Online support meetings PSI https://www..net/get-h elp/jxe-tdkxdf-apxogsc-meetings/ Here are the support groups they offer: Support of parents of 1 to 4 years old children POEM ( Outreach and Encouragement for Moms) offers free support for mothers experiencing depression, anxiety, and other mood and anxiety disorders. Masks are recommended but not required. No pre-registration required. Babies in arms welcome. meetings now take place on the and Sunday of each month Location: [facility] [address] [place] [address] Room 122 (library room) 7-8:00 p.m. When you enter the [employer] parking lot off of [address] the entrance door closest to our meeting room is on the front of the building toward the right. For those who are more comfortable with a virtual platform, POEM offers online support group options several days of the week. To register for an online group or to find out more about POEM, website at: [email or web address].org/get-help/carlota knappilxby-rmpzjb-xjowck/jacque-service s/ offer a confidential helpline: private Facebook group is called JACQUE Dickerson Here are the groups they offer: Traumatic childbirth resources: Http://pattch.org/ https://www.amando [email or web address]/ documented in this encounter [facility] 10-05-2023 History of Presen t illness Narrative Roustabout Pusher offered: Patient declines. VISIT Leela Isaacs is a 22 year old year old here for visit. Delivery Summary: 08/20/2023, elective induction, (7lb 6oz ZAHEER) delivered by Dr. Gibson 2nd degree and left vaginal lacterations ROS/ Recovery: Feeding: Breast feeding problems: none Menses since delivery: none Menstrual pattern prior to : Regular periods [place] since delivery: Not resumed Depression: denies symptoms of depression. OB Depression and Anxiety Screening- This Encounter (since 10/04/2023) Over the past 2 weeks have you felt down, depressed, or hopeless? Negative Over the past two weeks, have you felt little interest or pleasure in doing things? Negative Feeling nervous, anxious or on edge 0-Not at all Not being able to stop or control worrying 0-Not al all Anxiety Pre-Screening Total (If >/= 3 additional questions will be reviewed) 0 Emotional support: Yes Bowel symptoms: Negative for abdominal discomfort, blood in stools or black stools and change in bowel habits Abdomen: N/A Bladder symptoms: No dysuria, gross hematuria, urinary frequency, urinary urgency, or incontinence Other issues: None Last Pap: 2022 normal HPV: N/A PAST MEDICAL HISTORY Diagnosis Date Anemia Gastritis 2020 Leg fracture, right 2007 Menarche 06/2010 age [age] Years Old Migraine Multiple sclerosis (HCC) 10/2019 NEGATIVE HISTORY OF 2008 normal color vision Psoriasis PAST SURGICAL HISTORY Procedure Laterality Date EGD W/O BRSH SPEC VARICIES INJ EXTRACTION, ERUPTED TOOTH OR EXPOSED ROOT (ELEVATION AND/OR FORCEPS REMOVAL) 2014 NEXPLANON INSERTION 03/06/2016 removed 03/2019 FAMILY HISTORY Problem Relation Age of Onset [...] Alcohol use: Not Currently Drug use: No PHYSICAL EXAMINATION: BP 110/60 Wt 208 lb 6.4 oz (94.5kg) LMP 11/16/2022 GENERAL: pleasant, female in no apparent distress HEENT: Normocephalic, atraumatic, mucus membranes moist, and no lesions NECK: Supple, full range of motion, and no adenopathy DERMATOLOGY: Normal, without lesions, non-icteric, and non-hirsute BREAST: soft, non-tender, symmetric, no dominant mass, normal nipple-areolar complex, no lymphadenopathy, and no nipple discharge CHEST: Normal inspiratory effort ABDOMEN: soft, non-tender, and no masses. INCISION: N/A PELVIC: external genitalia normal, normal Bartholin's glands, urethra, Scotia's glands, no vulvar lesions, no cervical lesions, good vaginal support, physiologic discharge present, normal appearing perineal body and perianal region BIMANUAL: uterus normal size, shape and consistency, no adnexal masses, and non-tender NEURO: alert and oriented x3,exam grossly non-focal EXTREMITIES: normal ASSESSMENT AND PLAN: 22 year old status post with normal course. Pap negative 2022. Contraception plan: wants to discuss with MS doctor, to follow up Recommend spreading pregnancies out by 12-18 months. Condom use if not using control. Mental health resources provided. Denies concerns at this time, but to follow up if experiencing signs or symptoms or depression/anxiety. May resume sexual intercourse when physically, mentally, and emotionally ready. Discussed expectations with 1st year . Follow up: weight loss: Goal set for 10% of body weight over 6 months. Discussed diet and exercise., RTC for annual exams and PRN Radha Mcnamara APRN.SHIPPER/RECEIVER documented in this encounter [facility] 08-31-2023 History of Presen t illness Narrative EARLY VISIT Leela Isaacs is a 22 year old here for 1 week visit. Delivery Summary: 08/20/2023 ROS: General: Denies any fever or chills Hypertension Screening: Headache? No. Visual Changes? No Epigastric Pain? No Increased Swelling? No Taking any BP medications at home? No If applicable, monitoring BP at home? (If Yes, include results) NA Mood: normal Depression: denies symptoms of depression. OB Depression and Anxiety Screening- This Encounter (since 08/30/2023) Over the past 2 weeks have you felt down, depressed, or hopeless? Negative Over the past two weeks, have you felt little interest or pleasure in doing things? Negative Feeling nervous, anxious or on edge 0-Not at all Not being able to stop or control worrying 0-Not al all Anxiety Pre-Screening Total (If >/= 3 additional questions will be reviewed) 0 Feeding: Breast feeding problems: None Bladder: No dysuria, gross hematuria, urinary frequency, urinary urgency, or incontinence Bowel symptoms: Negative for abdominal discomfort, blood in stools or black stools and change in bowel habits Abdomen: N/A Bleeding: spotting Bottom and Perineum: Hemorrhoids Sleep: no sleep concerns and sleeps in bassinet/crib in parent's room, feels rested [place] since delivery: Not resumed Emotional support: Yes Exercise: N/A Other issues: None PHYSICAL EXAMINATION: BP 120/74 Wt 212 lb (96.2 kg) LMP 11/16/2022 (Exact Date) Yes BMI 35.28 kg/m General: pleasant,female in no apparent distress, A&O x 3. Skin warm and intact. Breast: Deferred Abdomen: Deferred /Incision: N/A Pelvic: Deferred Bimanual: Deferred ASSESSMENT AND PLAN: 22 year old status post with normal course. Contraception plan: undecided . Reinforced 6-week pelvic rest. Encouraged condom usage should patient deviate. Education: resources provided - see MA/RN note Follow up: Follow-up with provider for 6 week visit and as needed Mindy Mccormick MD documented in this encounter [facility] 08-22-2023 Discharge summary Note Date/Time August 22, 2023 9:09am [facility] Medical Records Department [address] [place] [address] [place] [address] Discharge Summary 08/22/23 0907 MR#: [id number] Acct: [id number] Name: LEELA ISAACS Rep #:[id number] : 2000 22 From: Emma Palm MD PCP: Dr. Tin Mccoy MD Status:A DM IN Location: FF867-1 Providers Date of Admission: 08/19/23 Primary Care Physician: Dr. Tin Mccoy MD Reason For Visit: INDUCTION Diagnosis Discharge Diagnosis (1) Anemia due to blood loss, acute: Status: Acute Code(s): D62 - Acute posthemorrhagic anemia (2) care following vaginal delivery: Status: Acute Code(s): Z39.2 - Encounter for routine follow-up Plan: Blood count stable. Received 1 dose of IV iron. Discharged home with vitamins and p.o. iron and follow-up in the office as needed or as scheduled. Tolerating the anemia well, comfortable going home. Medications at Discharge Home Medications ferrous sulfate 325 mg (65 mg iron) tablet (FeroSul) 325 mg PO QODAY 60 days #15tabs 08/22/23 ibuprofen 600 mg tablet 600 mg PO Q6H PRN Pain 30 days #30 TABLETS 08/22/23 Hospital Course Operations - (Vaginal delivery with atony and PP hemorrhage on 08/20/23) Procedures None Summary of Care Provided Minutes Spent on Discharge: 18 Hospital Course: 23-year-old 1 para 0 admitted at 39+ weeks on 08/19/2023 for elective induction of labor. She has a history of MS and esophagitis and gastritis. Shehad a spontaneous vaginal delivery on the morning of 08/20/2023. Later that morning she had a delayed hemorrhage. She did not require transfusion. Hemorrhage was controlled with conservative measures. She was given a dose of IV iron on 08/21/2023. On 08/22/2023 she was ambulating, urinating tolerating regular diet without difficulty. She was breast-feeding her . She was discharged home to follow-up in the office in 1-2 in 6 weeks or as needed. She was given a prescription for oral iron and ibuprofen. Weight / BMI Weight Weight: 106.311 kg Body Mass Index (BMI) 38.9 ABG / Lab / Microbiology Data 08/22/23 06:11 Laboratory: Laboratory Results - last 24 hr 08/22/23 06:11: WBC 13.4 H, RBC 3.01 L, Hgb 7.8 L, Hct 25.5 L, MCV 84.7, MCH 25.9 L, MCHC 30.6 L, RDW Std Deviation 43.0, RDW Coeff of Alexus 14.0, Plt Count 254, MPV 12.2 H, Immature Gran % (Auto) 1.900 H, Neut % (Auto) 73.4 H, Lymph % (Auto) 16.5 L, [place] % (Auto) 4.7, Eos % (Auto) 3.0, Baso % (Auto) 0.5, Absolute Neuts (auto) 9.9 H, Absolute Lymphs (auto) 2.22, Nucleated RBC % 0 D/C Instructions May resume sexual activity in: 6 weeks Please Follow Up With: Reema Gibson DO When: Follow up with our office in 1-2 and 6 weeks or as needed. [phone] Meaningful Use Info Meaningful Use Diagnoses (Choose all that apply): None applicable Discharge Plan Admission Admit Date/Time: 08/19/23 18:50 Primary Reason for Your Visit: vaginal delivery Attending Provider: Reema Gibson Primary Care Provider: Tin Mccoy Discharge Orders/Prescriptions Prescriptions: New ferrous sulfate [FeroSul] 325 MG tablet 325 mg PO QODAY 60 Days Qty: 15 1RF ibuprofen [ibuprofen] 600 MG tablet 600 mg PO Q6H PRN (Reason: Pain) 30 Days Qty: 30 1RF Discontinued biotin 5 mg tablet 5 mg PO DAILY ferrous sulfate [Feosol] 325 mg (65 mg iron) tablet 325 mg PO DAILY ketoconazole 1 % shampoo 1 applic topical 2XW Ocrevus 30 mg/mL solution 30 mg .Route .6m Rx Instructions: every 6 months pantoprazole 40 mg tablet,delayed release (DR/EC) 40 mg PO DAILY Qty: 60 2RF Rx Instructions: take twice a day for 8 weeks total, then once a day for 8 weeks cholecalciferol (vitamin D3) [Vitamin D3] 125 mcg (5,000 unit) Tablet 125 mcg PO DAILY sucralfate [Carafate] 1 gram tablet 1 g PO BID Qty: 60 0RF Rx Instructions: take two times a day for thirty days pantoprazole 40 mg tablet,delayed release (DR/EC) 40 mg PO DAILY Qty: 60 0RF Rx Instructions: take two times a day for eight weeks then once a day for eight weeks Referrals / Follow Up: Tin Mccoy MD [Primary Care Provider] - Disposition Disposition (needs filled in before D/C Order can be placed): Home, Self Care 08/22/23 0910 <Electronically signed by Emma Palm MD> Cosigner Signature (if applicable): CC: Dr. Emma Palm MD; Dr. Tin Mccoy MD~ Signed [facility] Work Phone: 1(378) 573-620902-28-2024 Progress note Author Emma Palm [facility] August 22, 2023 9:04am Note Date/Time August 22, 2023 9:04am [facility] Medical Records Department [address] [place] [address] Progress Note - OBGYN 08/22/23 09 MR#: [id number] Acct: [id number] Name: LEELA ISAACS Rep #:[id number] : 2000 22 From: Emma Palm MD PCP: Dr. Tin Mccoy MD Status:A DM IN Location: VR190-7 Subjective Subjective pain well controlled, average lochia. . Denies SOB/lightheaded or dizziness w/ ambulation and showering. Objective Data Objective Data Vital Signs: Vital Signs Temp Pulse Resp BP Pulse Ox O2 Del Method 97.6 F L 87 16 115/78 100 Room Air 08/22/23 02:00 08/22/23 02:00 08/22/23 02:00 08/22/23 02:00 08/22/23 02:00 08/22/23 02:00 Oxygen Delivery Method Room Air Weight: 106.311 kg Body Mass Index (BMI) 38.9 Intake & Output: Intake and Output for Last 24 Hours 08/20/23 08/21/23 08/22/23 23:59 23:59 23:59 Intake Total 4114.17 / 4114.17 110 / 110 Output Total 2163 / 2163 Balance 1950.17 / 1950.17 110 / 110 Lab / Micro Data 08/22/23 06:11 Labs: Laboratory Results - last 24 hr 08/22/23 06:11: WBC 13.4 H, RBC 3.01 L, Hgb 7.8 L, Hct 25.5 L, MCV 84.7, MCH 25.9 L, MCHC 30.6 L, RDW Std Deviation 43.0, RDW Coeff of Alexus 14.0, Plt Count 254, MPV 12.2 H, Immature Gran % (Auto) 1.900 H, Neut % (Auto) 73.4 H, Lymph % (Auto) 16.5 L, [place] % (Auto) 4.7, Eos % (Auto) 3.0, Baso % (Auto) 0.5, Absolute Neuts (auto) 9.9 H, Absolute Lymphs (auto) 2.22, Nucleated RBC % 0 Physical Exam Narrative pale, skin warm, dry and intact Const alert and no apparent distress Narrative: Fundus firm, below umbilicus. Assessment & Plan (1) Anemia due to blood loss, acute: (2) care following vaginal delivery: COMMENT: PPD#2 PLAN: Blood count stable. Received 1 dose of IV iron. Discharged home with vitamins and p.o. iron and follow-up in the office as needed or as scheduled. Tolerating the anemia well, comfortable going home. 08/22/23 0904 <Electronically signed by Emma Palm MD> Cosigner Signature (if applicable): CC: ~ Signed [facility] Work Phone: 1(300) 269-343802-27-2024 Progress note Author Mindy Mccormick [facility] August 21, 2023 8:22am Note Date/Time August 21, 2023 8:22am [facility] Medical Records Department [address] [place] [address] Progress Note - OBGYN 08/21/23 0820 MR#: [id number] Acct: [id number] Name: LEELA ISAACS Rep #:[id number] : 2000 22 From: Mindy Mccormick MD PCP: Dr. Tin Mccoy MD Status:A DM IN Location: PW100-1 Subjective Subjective Patient feels well. Denies dizziness, CP or SOB. Objective Data Objective Data Vital Signs: Vital Signs Temp Pulse Resp BP Pulse Ox O2 Del Method 97.7 F L 85 16 110/45 L 98 Room Air 08/21/23 03:40 08/21/23 03:40 08/21/23 03:40 08/21/23 03:40 08/21/23 03:40 08/21/23 03:40 Oxygen Delivery Method Room Air Weight: 234 lb 6 oz Body Mass Index (BMI) 38.9 Intake & Output: Intake and Output for Last 24 Hours 08/19/23 08/20/23 08/21/23 23:59 23:59 23:59 Intake Total 4114.17 / 4114.17 Output Total 2163 / 2163 Balance 195.17 / 1950.17 Lab / Micro Data 08/21/23 05:20 Labs: Laboratory Results - last 24 hr 08/20/23 12:28: WBC 17.9 H, RBC 3.45 L, Hgb 9.2 L, Hct 28.9 L, MCV 83.8, MCH 26.7 L, MCHC 31.8 L, RDW Std Deviation 42.0, RDW Coeff of Alexus 13.9, Plt Count 269, MPV 12.9 H, Immature Gran % (Auto) 0.800, Neut % (Auto) 78.8 H, Lymph % (Auto) 12.3 L, [place] % (Auto) 7.3, Eos % (Auto) 0.5, Baso % (Auto) 0.3, Absolute Neuts (auto) 14.1 H, Absolute Lymphs (auto) 2.21, Nucleated RBC % 0, PT 13.0, INR 1.0, APTT 23.9 L 08/20/23 15:10: WBC 19.4 H, RBC 3.44 L, Hgb 9.0 L, Hct 28.2 L, MCV 82.0, MCH 26.2 L, MCHC 31.9 L, RDW Std Deviation 41.0, RDW Coeff of Alexus 13.8, Plt Count 208, MPV 12.7 H 08/21/23 05:20: WBC 11.1 H, RBC 2.69 L, Hgb 7.0 L, Hct 22.5 L, MCV 83.6, MCH 26.0 L, MCHC 31.1 L, RDW Std Deviation 42.2, RDW Coeff of Alexus 13.9, Plt Count 193, MPV 12.7 H Physical Exam Const alert, oriented x3 and no apparent distress HEENT normocephalic GI soft to palpation, non-tender and non-distended GI Narrative: fundus firm, mid & below umbilicus Extremity normal to inspection and no calf tenderness Assessment & Plan (1) care following vaginal delivery: COMMENT: PPD#1 (2) Anemia due to blood loss, acute: PLAN: Plan Heme - patient is anemic. Plan for IV iron. Repeat CBC tomorrow AM. Routine care 08/21/23 08 <Electronically signed by Mindy Mccormick MD> Cosigner Signature (if applicable): CC: ~ Signed [facility] Work Phone: 1(631) 687-200402-26-2024 Progress note Author Rianna Gama [facility] August 20, 2023 1:42pm Note Date/Time August 20, 2023 1:42pm [facility] Medical Records Department [address] [place] [address] Progress Note 08/20/23 1334 MR#: [id number] Acct: [id number] Name: LEELA ISAACS Rep #:[id number] : 2000 22 From: Rianna Becker MD PCP: Dr. Tin Mccoy MD Status:A DM IN Location: HF261-6 Progress Note I was called by RN- pt with clots and hypotension. Upon my arrival BP 60s/40s, normal HR in 70s. bedside ultrasound reveals heterogenous appearing endometrium.Bladder was drained prior to my arrival for 350cc urine. I counseled patient about uterine exploration and removal of clots- at this time I was able to expelseveral large clots, lower uterine segment atony noted- total EBL 1713cc. secondIV was started, 1 L IVF bolus was initiated and Anesthesia was notified.IV pitocin was continued along with giving- Methergine IM given and 1000mcg CYTOTECgiven per rectum. Uterine fundal massage was continued. Uterus firmed slightly deviated to right. Bleeding slowed, pt color improving and reports she was feeling better. Las were drawn- hg down to 9.8. Will repeat labs at 3pm and again in the AM. 2nd degree laceration sutures were noted to be loose and may have been disrupted during exam, no active bleeding. decision to reapproximate. at this time 10cc of 1% lidocaine was injected and 2-0 Vicryl was used to reapproximate lacerate- pt tolerated well. Excellent hemostasis was noted. 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 Tin Mccoy MD Status:A DM IN Location: AQ423-9 HPI - General General Date of Admission: 08/19/23 Date of Service: 08/19/23 Chief Complaint: induction of labor HPI Narrative LEELA ISAACS, is a 22 F who presents at 39w3d for a scheduled induction of labor. No pain, vb, lof. Good FM. She offers no complaints. PFSH PFSH Medical History Gastric reflux Low iron Migraine headache Multiple sclerosis Non-smoker Home Medications biotin 5 mg tablet 5 mg PO DAILY hair loss 05/13/21 [History Last Taken Unknown] ferrous sulfate 325 mg (65 mg iron) tablet (Feosol) 325 mg PO DAILY hair loss 05/13/21 [History Last Taken Unknown] ketoconazole 1 % shampoo 1 applic topical 2XW psoriasis 05/13/21 [History Last Taken Unknown] ocrelizumab 30 mg/mL intravenous solution (Ocrevus) 30 mg .Route .6m Multiple sclerosis 05/13/21 [History Last Taken Unknown] cholecalciferol (vitamin D3) 125 mcg (5,000 unit) tablet (Vitamin D3) 125 mcg PODAILY multiple sclerosis 05/23/21 [History Last Taken Unknown] pantoprazole 40 mg tablet,delayed release 40 mg PO DAILY acid reflux #60 tabs 06/01/21 [Rx Last Taken 08/19/23 07:00 40 mg] sucralfate 1 gram tablet (Carafate) 1 g PO BID #60 tabs 06/01/21 [Rx Last Taken Unknown] pantoprazole 40 mg tablet,delayed release 40 mg PO DAILY acid reflux #60 tabs 06/10/21 [Rx Last Taken Unknown] Allergy/AdvReac Type Severity Reaction Status Date / Time No Known Allergies Allergy Verified 08/19/23 19:23 Family History Mother Diabetes Grandmother Cancer melanoma Surgical History History of wisdom tooth extraction Social History Smoking Status: Never smoker History Elective abortions Hx Para 0 Spontaneous abortions Hx # Term Pregnancies Ectopic pregnancies Hx # Pregnancies Multiple births # of living children Addt'l History: History of MS diagnosed in 2019. History of abnormal 1 hour GTT with normal 3 hr GTT. Obesity in . NST FHR Rate Baby A Baseline: 130 Variability:: Moderate Accelerations:: 15 x 15 Decelerations:: None NST Reactive:: Yes FHR Category:: Category I Uterine Activity:: no ctx's Vital Signs Vital Signs Vital Signs: 08/19/23 19:42 08/19/23 19:43 08/19/23 19:43 Temperature Temperature Source Temporal Pulse Rate 72 Blood Pressure BP Systolic BP Diastolic Pulse Ox 98 08/19/23 19:42 08/19/23 19:47 08/19/23 19:47 Temperature 98.4 F Temperature Source Pulse Rate 71 Blood Pressure 124/82 H BP Systolic 124 BP Diastolic 82 Pulse Ox Weight Weight: 234 lb 6 oz Body Mass Index (BMI) 38.9 Physical Exam Const alert and no apparent distress General Appearance: comfortable HEENT normocephalic Resp normal respiratory effort GI GI Narrative: Gravid Narrative: Cvx 80/-2, vertex Labs Labs Labs: Blood Type Pending Antibody Screen Pending Hct 35.2 % (37-47) L Hgb 11.1 g/dL (12.0-15.0) L Syphilis Total Ab Pending Miscellaneous Test COMMENT Assessment & Plan (1) 39 weeks gestation of : PLAN: Patient presents for a scheduled elective IOL. Pre BMI was > 40.Reviewed induction process with patient and she desires to proceed. PCN for GBS positive. Epidural PRN. Intracervical oliveros placed in usual fashion and filled with 30 cc. Cytotec ordered. EFW 67% at 36 weeks and pelvis adequate. (2) Obesity affecting : (3) Abnormal glucose affecting : (4) Positive GBS test: (5) MS (multiple sclerosis): 08/19/232032 <Electronically signed by Reema Gibson DO> Cosigner Signature (if applicable): CC: Dr. Reema Gibson DO; Dr. Tin Mccoy MD~ Signed [facility] Work Phone: 1(945) 243-119002-19-2024 History of Present illness Narrative* Anayeli Alvarez APRN.CNM - 08/13/2023 3:08 PM EST LIZETT-NST SUMMARY PROVIDER ASSESSMENT AND INTERPRETATION Leela Isaacs is a 22 year old female, , who is at 38w4d with an NIKA of 08/23/2023, by Last Menstrual Period dating method. Indications for NST: Obesity Baseline: 135 Variability: Moderate Accelerations: Present 15 X 15 Decelerations: None Contractions: TOCO: None Interpretation: Reactive SIGNATURE: Anayeli Alvarez APRN.CNM [facility] Miscellaneous Notes* Quick Notes - Anayeli Alvarez APRN.CNM - 08/13/2023 2:33 PM EST LIZETT-S: Leela Isaacs is a 22 year old female [...] on 08/16 at 1900, oliveros and cytotec. Anayeli Alvarez APRN.CNM [facility] Instructions* Patient Instructions* Bella Plascencia Ma - 08/13/2023 2:12 PM EST SEQUENTIAL SCREENINGS [facility] offers sequential screenings for women who are interested in screenings for chromosomal abnormalities and certain defects during a . The sequential screen combinesultrasound and blood tests to determine the risk [...] this testing. It will require an appointment withour care technician. This is not an ultrasound performed [...] the above symptoms, contact our office at [phone] and ask to speak with anurse. After hours, you can call [employer] registry at [phone] OR call [facility] at [phone] ask to have the doctor home care consultant paged. If you consider this an emergency, dial 9-1-7 or go to your nearest emergency department. NEED HELP? Are you dealing with a violent or abusive relationship? Are you a victim of rape or sexual assult? Call [facility] ([place]) 24 hour Crisis Hotline: 505.382.6404 or 019-993-7713. MANUAL Your Guide to a Healthy manual is now on-line. Visit [email or web address] to download your free copy documented in [facility] Miscellaneous Notes* Telephone Encounter - Tegan Hamilton APRN.CNM - 08/09/2023 12:39 PM EST Patient scheduled for visit tomorrow on 08/10/23. She will need this cancelled and rescheduled for Sunday or early next week to discuss induction of labor. Please assist with scheduling. Tegan Hamilton APRN.CNM documented in this encounterMer[facility]-2024 Miscellaneous Notes* Quick Notes - Tegan Hamilton APRN.CNM - 08/03/2023 9:56 AM EST Leela Isaacs is a 22 year old female [...] induction at 39 weeks gestation- patient would liketo think about it and discuss at next week's visit - RTO- Next week for NST and JAYDA Tegan Hamilton APRN.CNM documented in this encounterMer[facility]02-09-2024 History of Present illness Narrative* Tegan Hamilton APRN.CNM - 08/03/2023 9:38 AM EST EDGAR BP A-123/81 1-135/81 2-122/81 3-127/82 4-116/80 5-119/81 6-119/81 NST SUMMARY PROVIDER ASSESSMENT AND INTERPRETATION Leela Isaacs is a 22 year old female, , who is at 37w1d with an NIKA of 08/23/2023, by Last Menstrual Period dating method. Indications for NST: Obesity Baseline: 130 Variability: Moderate Accelerations: Present 15 X 15 Decelerations: None Contractions: TOCO: None Interpretation: Category I and Non-Reactive SIGNATURE: Tegan Hamilton APRN.CNM documented in this encounterMercy Health [facility]02-09-2024 Instructions* Patient Instructions* Stella Wheeler Ma - 08/03/2023 9:02 AM EST SEQUENTIAL SCREENINGS [facility] offers sequential screenings for women who are interested in screenings for chromosomal abnormalities and certain defects during a . The sequential screen combinesultrasound and blood tests to determine the risk [...] this testing. It will require an appointment withour care technician. This is not an ultrasound performed [...] the above symptoms, contact our office at [phone] and ask to speak with anurse. After hours, you can call doctors registry at [phone] OR call [facility] at [phone] ask to have the doctor home care consultant paged. If you consider this an emergency, dial 91-6 or go to your nearest emergency department. NEED HELP? Are you dealing with a violent or abusive relationship? Are you a victim of rape or sexual assult? Call [facility] ([place]) 24 hour Crisis Hotline: 213.274.9089 or 036-203-2612. MANUAL Your Guide to a Healthy manual is now on-line. Visit [email or web address] to download your free copy documented in this encounterMercy Health [facility]02-06-2024 History of Past illness Narrative* Problem Noted Date Diagnosed Date Resolved Date Positive GBS test 07/31/2023 08/31/2023 Overview: 07/31/23- GBS positive. Tegan Hamilton APRN.CNM Abnormal glucose affecting 05/28/2023 08/31/2023 Overview: 3 hour WNL Radha Mcnamara APRN.SHIPPER/RECEIVER 3 hr ordered Emma Palm MD Supervision of high risk pre gnancy in second trimester 05/25/2023 08/31/2023 Overview: 05/25/23-Prepregnancy BMI 41. Growth US every 4 week and NSTs starting at 32 weeks. Anayeli Alvarez APRN.CNM Obesity during 12/28/202201/2024 Overview: 12/28/2022atient is obese. We will plan on early hemoglobin A1c.TKRN Nausea in 12/28/2022 08/31/19 Overview: 12/28/2022atient is complaining of nausea in . Denies any vomiting. Dietary considerations discussed . Vitamin B6 recommended. Advised patient to call/come in if she is unable to keep any food or fluids down in a 24-hour period. TKRN Other joint derangement, not elsewhere classified, lower leg 04/05/2009 02/10/2013 documented as of this encounter (statuses as of 08/31/2023) [facility] History of Past illness Narrative* Problem Noted Date Diagnosed Date Resolved Date Positive GBS test 07/31/2023 08/31/2023 Overview: 07/31/23- GBS positive. Tegan Hamilton APRN.CNM Abnormal glucose affecting 05/28/2023 08/31/2023 Overview: 3 hour WNL Radha Mcnamara APRN.SHIPPER/RECEIVER 3 hr ordered Emma Palm MD Supervision of high risk pre gnancy in second trimester 05/25/2023 08/31/2023 Overview: 05/25/23-Prepregnancy BMI 41. Growth US every 4 week and NSTs starting at 32 weeks. Anayeli Alvarez APRN.CNM Obesity during 12/28/202201/2024 Overview: 12/28/2022atient is obese. We will plan on early hemoglobin A1c.TKRN Nausea in 12/28/2022 08/31/19 Overview: 12/28/2022atient is complaining of nausea in . Denies any vomiting. Dietary considerations discussed . Vitamin B6 recommended. Advised patient to call/come in if she is unable to keep any food or fluids down in a 24-hour period. TKRN Other joint derangement, not elsewhere classified, lower leg 04/05/2009 02/10/2013 documented as of this encounter (statuses as of 10/05/2023) [facility] History of Past illness Narrative* Problem Noted Date Diagnosed Date Resolved Date Positive GBS test 07/31/2023 08/31/2023 Overview: 07/31/23- GBS positive. Tegan Hamilton APRN.CNM Abnormal glucose affecting 05/28/2023 08/31/2023 Overview: 3 hour WNL Radha Mcnamara APRN.SHIPPER/RECEIVER 3 hr ordered Emma Plam MD Supervision of high risk pre gnancy in second trimester 05/25/2023 08/31/2023 Overview: 05/25/23-Prepregnancy BMI 41. Growth US every 4 week and NSTs starting at 32 weeks. Anayeli Alvarez APRN.CNM Obesity during 12/28/202201/2024 Overview: 3Patient is obese. We will plan on early hemoglobin A1c.TKRN Nausea in 12/28/2022 08/31/19 Overview: 3Patient is complaining of nausea in . Denies any vomiting. Dietary considerations discussed . Vitamin B6 recommended. Advised patient to call/come in if she is unable to keep any food or fluids down in a 24-hour period. TKRN Other joint derangement, not elsewhere classified, lower leg 04/05/2009 02/10/2013 documented as of this encounter (statuses as of 10/10/2023) [facility] Miscellaneous Notes* Result Encounter Note - Emma Palm MD - 07/27/2023 1:03 PM EST Anatomy ultrasound reviewed. No abnormalities identified. Follow up as clinically indicated. Pleaseplace copy in ob chart. Emma Palm MD documented in this encounterMercy [facility]02-02-2024 Miscellaneous Notes* Quick Notes - Tegan Hamilton APRN.CNM - 07/27/2023 11:06 AM EST Leela Isaacs is a 22 year old female who presents at 36w1d Estimated Date of Delivery: 08/23/23 for a routine visit. Just completed BPP and growth US. BPP 01/30 and EFW 67%, MED 21. Good movement. [...] reviewed. RTC in 1 week for NST/JAYDA Hamilton APRN.CNM documented in this encounterMercy [facility]02-02-2024 Instructions* Patient Instructions* Neeraj Lane Cma - 07/27/2023 10:46 AM EST SEQUENTIAL SCREENINGS [facility] offers sequential screenings for women who are interested in screenings for chromosomal abnormalities and certain defects during a . The sequential screen combinesultrasound and blood tests to determine the risk [...] this testing. It will require an appointment withour care technician. This is not an ultrasound performed [...] the above symptoms, contact our office at [phone] and ask to speak with anurse. After hours, you can call doctors registry at [phone] OR call [facility] at [phone] ask to have the doctor home care consultant paged. If you consider this an emergency, dial 9-1-8 or go to your nearest emergency department. NEED HELP? Are you dealing with a violent or abusive relationship? Are you a victim of rape or sexual assult? Call [facility] ([place]) 24 hour Crisis Hotline: 102.495.7869 or 424-509-9501. MANUAL Your Guide to a Healthy manual is now on-line. Visit [email or web address] to download your free copy documented in this encounterMercy [facility]02-02-2024 Miscellaneous Notes* Telephone Encounter - Grace Castorena RN - 07/27/2023 10:14 AM EST Order linked. Grace Castorena RN * Telephone Encounter - Gale Juan LPN - 07/27/2023 7:26 AM EST Patient is scheduled for growth ultrasound today. Please approve order documented in this [facility]01-26-2024 History of Present illness Narrative* Anayeli Alvarez APRN.CNM - 07/20/2023 9:19 AM EST NST SUMMARY PROVIDER ASSESSMENT AND INTERPRETATION Leela Isaacs is a 22 year old female, , who is at 35w1d with an NIKA of 08/23/2023, by Last Menstrual Period dating method. Indications for NST: Obesity Baseline: 150 Variability: Moderate Accelerations: Present 15 X 15 Decelerations: None Contractions: TOCO: Irregular Interpretation: Reactive SIGNATURE: Anayeli Alvarez APRN.CNM documented in this [facility]01-26-2024 Miscellaneous Notes* Quick Notes - Anayeli Alvarez APRN.CNM - 07/20/2023 9:19 AM EST LIZETT-NST only, see progress note. Anayeli Alvarez APRN.CNM documented in this [facility]01-26-2024 Instructions* Patient Instructions* Stella Wheeler Ma - 07/20/2023 9:07 AM EST SEQUENTIAL SCREENINGS [facility] offers sequential screenings for women who are interested in screenings for chromosomal abnormalities and certain defects during a . The sequential screen combinesultrasound and blood tests to determine the risk [...] this testing. It will require an appointment withour care technician. This is not an ultrasound performed [...] the above symptoms, contact our office at [phone] and ask to speak with anurse. After hours, you can call doctors registry at [phone] OR call [facility] at [phone] ask to have the doctor home care consultant paged. If you consider this an emergency, dial 9-1-4 or go to your nearest emergency department. NEED HELP? Are you dealing with a violent or abusive relationship? Are you a victim of rape or sexual assult? Call [facility] ([place]) 24 hour Crisis Hotline: 531.117.5371 or 276-731-4341. MANUAL Your Guide to a Healthy manual is now on-line. Visit [email or web address] to download your free copy documented in this encounterMercy Health [facility]12-01-2023 Miscellaneous Notes* Quick Notes - Anayeli Alvarez APRN.RADHA - 05/25/2023 9:11 AM EST LIZETT-S: Leela Isaacs is a 22 year old female [...] choices. -Never started ASA -Protonix for GERD Anayeli Alvarez APRN.CNM documented in this encounterMercy Health [facility]12-01-2023 Instructions* Patient Instructions* Summer CamilaRomeliaa - 05/25/2023 9:04 AM EST SEQUENTIAL SCREENINGS [facility] offers sequential screenings for women who are interested in screenings for chromosomal abnormalities and certain defects during a . The sequential screen combinesultrasound and blood tests to determine the risk [...] this testing. It will require an appointment withour care technician. This is not an ultrasound performed [...] the above symptoms, contact our office at [phone] and ask to speak with anurse. After hours, you can call doctors registry at [phone] OR call [facility] at [phone] ask to have the doctor home care consultant paged. If you consider this an emergency, dial or go to your nearest emergency department. NEED HELP? Are you dealing with a violent or abusive relationship? Are you a victim of rape or sexual assult? Call [facility] ([place]) 24 hour Crisis Hotline: 672.712.6404 or 667-131-3359. MANUAL Your Guide to a Healthy manual is now on-line. 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 Patient has been experiencing respiratory symptoms intermittently since late February. She was felt better for about a week afterher most recent URI however cough and congestion became acutely worse again five days ago. Symptomshave actually been improving over the past couple days. Symptoms include: Temperature elevation: No Chills: No Cough: Yes productive with green sputum Shortness of breath: No Fatigue: No Muscle aches: No Headache: Yes New loss of smell or taste: No Sore throat: Yes Nasal congestion: No Rhinorrhea: Yes, green drainage that is getting supervisor finishing in color since yesterday Nausea and/or vomiting: [...] MIST) 0.65 % nasal spray Use 1 Primrose in the nose as needed. pantoprazole DR [...] nasal tenderness or mucosal edema. Mouth/Throat: Lips: [place]. Mouth: Mucous membranes are moist. Pharynx: Oropharynx [...] daily Nasonex since Flonase did not seem tohelp much 3. Heartburn during , antepartum - ICD9: 646.83, 787.1, ICD10: O26.899, R12 Contributing to cough and sore throat. Continue with Protonix and avoiding triggers Prescription instructions reviewed with patient as applicable. Potential red flag symptoms discussed with the patient. Reviewed appropriate action plan to take if red flag symptoms occur. Patient agreeable to treatment plan. Roseanna Nash APRN.CNP documented in this encounterMercy Health [facility]10-31-2023 History of Present illness Narrative* Merry Perry RT(R) - 04/24/2023 8:20 AM EDT Radiology Service Progress Note PATIENT NAME: Leela Isaacs DATE OF SERVICE: April 24, 2023 TIME: 8:19AM PATIENT IDENTITY VERIFICATION COMPLETED USING TWO (2) IDENTIFIERS: Name and Date of confirmedby patient verbally. FALL SCREENING: Has the patient [...] RT Carmela(R) April 24, 2023 8:26 AM documented in this encounterMercy Health [facility]10-24-2023 Miscellaneous Notes* Telephone Encounter - Roseanna Nash APRN.CNP - 04/17/2023 7:22 AM EDT This patient gave consent to this Medical [...] seven days of my reply. See the [facility] message reply for my assessment and plan. I spent a total of 8 minutes reviewing the patient's prior medical records and current request for medical advice, prescribing medications or ordering tests (if applicable), replying to the patient, and documenting the encounter. Roseanna Nash APRN.CNP documented in this encounterMercy Health [facility]10-01-2023 History of Present illness Narrative* Kimberly Castro APRN.CNP - 03/25/2023 8:01 AM EDT This note was created using Md7riter. Subjective Leela Isaacs is a 22 year old female. HPI by patient: Leela Isaacs is a 22 year old presenting to the back to office with the complaint of viral symptoms. Was already seen last week for current viral symptoms. Is . Started approximately 10 days ago. Associated symptoms include cough, green congestion, and [...] of dehydration, fever greater than 102 F thatis not responding to Tylenol or ibuprofen (Motrin, [...] to this plan of care and follow-up instruct ions have been explained in detail. The patient has received these instructions in written format and have expressed an understanding of the after visit summary. Medical Decision Making: Level: 4 - Moderate I spent a total of 20 minutes on the date of the service which included preparing to see the patient, aefg-gg-vhus patient care, completing clinical documentation, obtaining and/or reviewing separately obtained history, performing a medically appropriate examination, counseling and educating the pat ient/family/caregiver, and ordering medications, tests, or procedures. This patient encounter involved the screening or treatment of novel coronavirus infection (COVID-19). documented in this encounterMercy Health [facility]10-01-2023 Instructions* Patient Instructions* Kimberly Castro APRN.CNP - 03/25/2023 8:00 AM [...] of dehydration, fever greater than 102 F thatis not responding to Tylenol or ibuprofen (Motrin, [...] Colds inevitably last 10 to 14 days. [place] down and wait it out. Green. Your immune system is really fighting back. The mucus is thick with white cells and other wreckage from the herrera. If you re still sick after about 12 days, you may want to see a doctor.It could be sinusitis, a bacterial infection. If you re feverish or nauseated, see a doctor soon. [place] or red. This is blood. Your nasal [...] Robitussin CF, Robitussin PE LOZENGES: Cepecol, Ceptestat, [place], Robitussin Cough Calmer Lozenges NASAL SPRAYS: Lynn Mist Nasal Primrose, Afrin (use no longer than three (3) days), Afrin Saline Mist HEADACHE/MILD PAIN RELIEVERS: Datril, Tylenol documented in this encounterMercy Health [facility]09-06-2023 Miscellaneous Notes* Quick Notes - Emma Palm MD - 02/28/2023 4:25 PM EDT RR- No flutters yet. Still nausea but rare emesis. Heartburn better now. Anatomy US ordered. Emma Palm MD documented in this encounterMercy Health [facility]09-06-2023 Instructions* Patient Instructions* Stella Wheeler Ma - 02/28/2023 4:11 PM EDT SEQUENTIAL SCREENINGS The [facility] offers sequential screenings for women who are interested in screenings for chromosomal abnormalities and certain defects during a . The sequential screen combinesultrasound and blood tests to determine the risk [...] this testing. It will require an appointment withour care technician. This is not an ultrasound performed [...] the above symptoms, contact our office at [phone] and ask to speak with anurse. After hours, you can call doctors registry at [phone] OR call [facility] at [phone] ask to have the doctor home care consultant paged. If you consider this an emergency, dial 9-1-9 or go to your nearest emergency department. NEED HELP? Are you dealing with a violent or abusive relationship? Are you a victim of rape or sexual assult? Call [facility] ([facility] 24 hour Crisis Hotline: 462.420.9803 or 798-195-1456. MANUAL Your Guide to a Healthy manual is now on-line. Visit [email or web address] to download your free copy documented in this encounterMercy Health [facility]08-25-2023 Miscellaneous Notes* Telephone Encounter - Mindy Mccormick MD - 02/16/2023 4:01 PM EDT Typically protonix is given once daily Mindy Mccormick MD * Telephone Encounter - Laura Carranza LPN - 02/16/2023 9:45 AM EDT Please see pt's mychart message with medication question. Please advise in RR absence. Laura Carranza LPN documented in this encounterMercy Health [facility]08-09-2023 Miscellaneous Notes* Quick Notes - Emma Palm MD - 01/31/2023 3:55 PM EDT RR- VB No. LOF No. CTXS No. [...] in 4 weeks or prn labs reviewed Emma Palm M.D. documented in this encounterMercy Health – [facility]08-09-2023 Instructions* Patient Instructions* Emma Palm MD - 01/31/2023 3:32 PM EDT Unisom 1/2 tablet every 8 hours as needed for nausea, 1/2 to one tablet at bedtime as needed. Vitamin b 6 10-25 mg tablets one every 6 hours as needed for nausea. SEQUENTIAL SCREENINGS The [facility] offers sequential screenings for women who are interested in screenings for chromosomal abnormalities and certain defects during a . The sequential screen combinesultrasound and blood tests to determine the risk [...] this testing. It will require an appointment withour care technician. This is not an ultrasound performed [...] the above symptoms, contact our office at [phone] and ask to speak with anurse. After hours, you can call doctors registry at [phone] OR call [facility] at [phone] ask to have the doctor home care consultant paged. If you consider this an emergency, dial 9-3-5 or go to your nearest emergency department. NEED HELP? Are you dealing with a violent or abusive relationship? Are you a victim of rape or sexual assult? Call [facility] ([place]) 24 hour Crisis Hotline: 464.636.5297 or 729-024-3952. MANUAL Your Guide to a Healthy manual is now on-line. Visit [email or web address] to download your free copy documented in this encounterMercy Health [facility]07-12-2023 History of Present illness Narrative* Emma Palm MD - 01/03/2023 1:10 PM EDT OB point of care ultrasound was performed. See imaging tab for details. Stella Wheeler Ma INITIAL OB ASSESSMENT OB Provider: Emma Palm MD HPI: Leela is a 22 year old White here [...] use: No Multivitamin with Folic acid: No Quaker or heritage: No Would refuse blood transfusion if medically necessary: No Are you currently employed? Yes, Occupation: [employer] Do you have any history of depression, [...] 22 Occupation: [employer] employee, works for [employer] Gender: Male History of STDs: None PAST MEDICAL HISTORY Diagnosis Date Anemia Gastritis 2020 Leg fracture, right 2008 Menarche 06/2010 age [age] Years Old Migraine Multiple sclerosis (HCC) 10/2019 NEGATIVE HISTORY OF 2008 normal color vision Psoriasis PAST SURGICAL HISTORY Procedure Laterality Date EGD W/O [facility] SPEC VARICIES INJ EXTRACTION, ERUPTED TOOTH OR [...] Your guide to a health and the Electro Optical Engineer. Discussed aneuploidy and carrier screening. Regarding aneuploidy [...] up in 4 weeks or sooner prn. Emma Palm MD documented in this encounterMercy Health [facility]07-12-2023 Instructions* Patient Instructions* Stella Wheeler Ma - 01/03/2023 12:43 PM EDT Please select the following link to access the [facility] Your Guide to a Healthy . [email or web address] documented in this encounterMercy Health – [facility]07-10-2023 Miscellaneous Notes* Telephone Encounter - Gale Juan LPN - 01/01/2023 7:36 AM EDT Patient is scheduled for new ob appointment on 01/03/2023 documented in this encounterMercy Health – [facility]07-06-2023 Miscellaneous Notes* Quick Notes - Merry Hayes RN - 12/28/2022 3:55 PM EDT DISTANCE HEALTH VISIT This Team Access Model visit is a phone encounter. It required patient-provider interaction for themedical decision making as documented below. I have communicated my name and active licensure. The patient's identity and physical location wereverified at the time of this visit. Patient [...] screening testing.Merry Hayes RN documented in this encounterMercy Health – The [facility] Hospital06-23-2023 Miscellaneous Notes* Telephone Encounter - Gale Juan LPN - 12/15/2022 9:08 AM EDT Patient scheduled * Telephone Encounter - Merry Hayes RN - 12/14/2022 5:41 PM EDT Left message for patient to return phone call. Patient has an appointment with Dr Palm for NOB appointment. Please schedule PNOB appointment for 60 minutes. documented in this encounterMercy Health – [facility]04-07-2023 Miscellaneous Notes* Telephone Encounter - Ana Lilia Hsu, Research Coordinator - 09/29/2022 2:09 PM EDT IRB [id number]. 7T Early Onset MS Reconnaissance Crewmember: Dr. Russ Thibodeaux (phone: [phone] and pager: [phone]) Carport Erector: Ana Lilia Hsu (phone: [phone] and pager: [phone]) Called patient in regards to study eligibility. Left voicemail with coordinator contact informationto call back if interested in learning more about the study. Ana Lilia Hsu, Research Coordinator documented in this encounterMercy Health [facility]03-17-2023 Miscellaneous Notes* Telephone Encounter - Charles Rojo - 09/08/2022 3:14 PM EDT This is a 1st-time treatment report for this patient. The patient is active with [employer] and has a $ 500.00 deductible, with an Vyb-El-Hgpvzs of $ 2000.00 OOP and has $ 2000.00 remaining. Anestimate shows patient's financial responsibility is $ 0.00 for each treatment in 2022 until the Obx-Np-Teeioi max is reached. The reference number for this estimate is [id number]. This patient is receiveing treatment for a Non-Chemo treatment. I will look for assistance for Ocrevus from the Ocrevus Co-Pay Program. The patient currently has a self pay balance of $ 2508.00. EC Hardship letter sent not yet. documented in this encounterMercy Health [facility]02-24-2023 Instructions* Patient Instructions* Sinai Solis APRN.CNP - 08/18/2022 2:12 PM EST PLAN - Continue Ocrevus - MRI brain w/wo Gd 09/2022 documented in this encounterMercy Health – [facility]02-24-2023 History of Present illness Narrative* Sinai Solis APRN.CNP - 08/18/2022 2:00 PM EST [facility] MULTIPLE SCLEROSIS FOLLOWUP/ESTABLISHED PATIENT VISIT PRINCIPAL [...] visit the patient reports overall feeling stable. Issueswith current MS therapy: Tolerating medication without side [...] PHQ-9 Flowsheet Row Appointment from 08/18/[address] [facility] from 12/08/2021 in [facility] PHQ-9 Score 0 0 *PHQ-9 is a questionnaire for depressive symptoms, with scores 0-4 indicating none, 5-9 mild, 10-14moderate, 15-19 moderately severe, and 20-27 severe symptoms. PROMIS-10 Flowsheet Row Appointment from 08/18/[address] [facility] from 12/08/2021 in [facility] Global Physical Health T Score 61.9 61.9 Global Mental Health T Score 67.6 62.5 0-10 Standard Pain Scale 5 5 *PROMIS-10 is a patient-reported quality of life measure, typically reported as physical and mentaldomains. Here scores are expressed as percentiles, where the lowest possible score is one, the highest possible score is 99, and 50 is average. PAST HISTORY was reviewed and updated PAST MEDICAL HISTORY Diagnosis Date Leg fracture, right 2008 Menarche -2010 age [age] Years Old Migraine Multiple sclerosis [...] Never No Data Recorded [facility] 04/25/2021 (Exact Date) EXAM General Appearance: Well appearing, alert, in no acute distress, well-hydrated, well nourished. Mental status evaluation during the interview and examination showed normal level of consciousness,orientation, language, memory, praxis, and higher intellectual function [...] 5 Biceps 5 5 Triceps 5 5 Brand Marketing Intern 5 5 Dorsal interossei 5 5 Lower [...] Cervical spine enhancing lesions None 11/04/2020 ASSESSMENT Leela Isaacs is a 21 year old woman [...] MS medications Follow-up: In 6 months at [facility] I spent a total of 35 minutes on the date of the service which included preparing to see the patient, [id number] patient care, completing clinical documentation, obtaining and/or reviewing separately obtained history, performing a medically appropriate examination, counseling and educating the pat ient/family/caregiver, and ordering medications, tests, or procedures. Sinai SOLIS APRN.JONATHAN documented in this [facility]01-03-2023 Miscellaneous Notes* Telephone Encounter - Saritha Shipley APRN.CNP - 06/27/2022 10:09 AM EST IGG, IGM, CMP, CBC diff, and CD19 count are signed for upcoming infusion, scheduled 07/07/22. Saritha Shipley APRN.CNP June 27, 2022 10:16 AM documented in this [facility]12-17-2022 Miscellaneous Notes* Telephone Encounter - VON Díaz - 06/10/2022 8:44 AM EST LVM to inform patient about appointment per staff message documented in this [facility]07-12-2022 Miscellaneous Notes* Telephone Encounter - Sarah Rodriguez - 01/03/2022 10:57 AM EDT Spoke with patient and rescheduled. Sarah Rodriguez * Telephone Encounter - Irene Thurman - 01/03/2022 10:41 AM EDT Patient wants to reschedule 01/06 appt @ 9:30am. Please assist with scheduling. documented [facility] this [facility] History of Present illness Narrative* Sinai Solis, RELIEF DOCKING MASTER.SHIPPER/RECEIVER - 12/08/2021 5:45 PM EDT [facility] MULTIPLE SCLEROSIS FOLLOWUP/ESTABLISHED PATIENT VISIT VIRTUAL [...] appointment was conducted by virtual visit via [employer] with patient consent, unaccompanied. The patient was [...] life questionnaire PHQ-9 Appointment from 12/08/2021 in [facility] from 11/11/2020 in [facility] PHQ-9 Score 0 0 *PHQ-9 is a questionnaire for depressive symptoms, with scores 0-4 indicating none, 5-9 mild, 10-14moderate, 15-19 moderately severe, and 20-27 severe symptoms. PROMIS-10 Appointment from 12/08/2021 in [facility] Appointment from 05/05/2021 in [facility] [place] Global Physical Health T Score 61.9 50.8 Global Mental Health T Score 62.5 53.3 0-10 Standard Pain Scale 5 5 *PROMIS-10 is a patient-reported quality of life measure, typically reported as physical and mentaldomains. Here scores are expressed as percentiles, where [...] interview and examination showed normal level of consciousness,orientation, language, memory, praxis, and higher intellectual function [...] developed and its performance characteristics determined by [facility]'s [facility] [place] ( [facility]). It has not been cleared or approved by the FDA. [facility] is regulated under CLIA as qualified to [...] communication history exists for this topic. ASSESSMENT Leela Isaacs is a 20 year old female [...] DMT resumption and general follow up are important.Reviewed we recommend not trying to conceive until 3 months after last Ocrevus cycle so if she wants to wait until after the following cycle, she should continue to use control through Mid-March. Patient voiced understanding. Advised her to start taking vitamin w/folic acid 400mcg now in order to prevent spina bifida. She is established with [facility] though [facility]. Discussed next visit should be in person. PLAN - Continue Ocrevus - Start vitamin w/folic acid - Labs: IgG, IgM, urine hCG added to infusion tx plan Patient Health Education Discussed at Visit: Risks and Common side effects of MS medications Follow-up: In 6 months at [facility] I spent a total of 30 minutes on the date of the service which included preparing to see the patient, [id number] patient care, completing clinical documentation, obtaining and/or reviewing separately obtained history, performing a medically appropriate examination, counseling and educating the pat ient/family/caregiver, ordering medications, tests, or procedures and communicating results to the patient/family/caregiver. Sinai SOLIS APRN.SHIPPER/RECEIVER documented in this encounterMer[facility]06-08-2022 History of Present illness Narrative* RT Angela(R) - 11/30/2021 1:00 PM EDT Radiology Service Progress Note DATE OF SERVICE: [...] Multiple Sclerosis SIGNATURE: RT Angela(R) PATIENT NAME: Leela Isaacs DATE: November 30, 2021 TIME: 12:59 PM documented in this encounterMer[facility]05-18-2022 Miscellaneous Notes* Telephone Encounter - Marylin Honeycutt - 11/09/2021 12:11 PM EDT PaTiEnT cOnFiRmEd * Telephone Encounter - Sarah Rodriguez - 11/09/2021 10:17 AM EDT Left message for patient to confirm appointment. MyChart message also sent. Sarah Rodriguez * Telephone Encounter - Ana Lilia Tom Pss - 11/08/2021 11:01 AM EDT Patient scheduled on 01/06 for next infusion. Please inform patient of date/time of treatment, document and close encounter. * Telephone Encounter - Sarah Rodriguez - 10/27/2021 1:27 PM EDT Left message for patient to return call. When she calls, please warm transfer to [facility] to schedule 5 hr Q6MO OCREVUS on or after 01/06 per [place] Orders. Also send out Chemo Start email as BeaconReferral was not generated. Sarah Rodriguez * Telephone Encounter - Caroline Cox [facility] - 10/27/2021 12:54 PM EDT Please call patient to schedule 6 mo Ocrevus transfussion. Patient states she is due in November, previous was 07/23/21. Patient aware she will be called. Thank you documented in this encounterMer[facility]05-04-2022 Miscellaneous Notes* Telephone Encounter - Comfort Mena RN - 10/26/2021 9:33 AM EDT Sent [employer] message to patient advising due for appt and MRI Advised would send to scheduling documented in this encounterMer[facility]10[facility] History of Past illness Narrative* Problem Noted Date Resolved Date Other joint derangement, not elsewhere classifie d, lower leg 04/05/2009 02/10/2013 documented as of this encounter (statuses as of 10/26/2021) [facility] History of Past illness Narrative* Problem Noted Date Resolved Date Other joint derangement, not elsewhere classifie d, lower leg 04/05/2009 02/10/2013 documented as of this encounter (statuses as of 11/09/2021) [address]12-2009 History of Past illness Narrative* Problem Noted Date Resolved Date Other joint derangement, not elsewhere classifie d, lower leg 04/05/2009 02/10/2013 documented as of this encounter (statuses as of 12/01/2021) [address]12-2009 History of Past illness Narrative* Problem Noted Date Resolved Date Other joint derangement, not elsewhere classifie d, lower leg 04/05/2009 02/10/2013 documented as of this encounter (statuses as of 12/08/2021) [address]12-2009 History of Past illness Narrative* Problem Noted Date Resolved Date Other joint derangement, not elsewhere classifie d, lower leg 04/05/2009 02/10/2013 documented as of this encounter (statuses as of 01/03/2022) [facility] of Past illness Narrative* Problem Noted Date Resolved Date Other joint derangement, not elsewhere classifie d, lower leg 04/05/2009 02/10/2013 documented as of this encounter (statuses as of 01/10/2022) [facility] of Past illness Narrative* Problem Noted Date Resolved Date Other joint derangement, not elsewhere classifie d, lower leg 04/05/2009 02/10/2013 documented as of this encounter (statuses as of 05/31/2022) [facility] of Past illness Narrative* Problem Noted Date Resolved Date Other joint derangement, not elsewhere classifie d, lower leg 04/05/2009 02/10/2013 documented as of this encounter (statuses as of 06/10/2022) [facility] of Past illness Narrative* Problem Noted Date Resolved Date Other joint derangement, not elsewhere classifie d, lower leg 04/05/2009 02/10/2013 documented as of this encounter (statuses as of 06/29/2022) [facility] of Past illness Narrative* Problem Noted Date Resolved Date Other joint derangement, not elsewhere classifie d, lower leg 04/05/2009 02/10/2013 documented as of this encounter (statuses as of 07/07/2022) [address] History of Past illness Narrative* Problem Noted Date Resolved Date Other joint derangement, not elsewhere classifie d, lower leg 04/05/2009 02/10/2013 documented as of this encounter (statuses as of 08/18/2022) [facility] of Past illness Narrative* Problem Noted Date Resolved Date Other joint derangement, not elsewhere classifie d, lower leg 04/05/2009 02/10/2013 documented as of this encounter (statuses as of 09/08/2022) [facility] History of Past illness Narrative* Problem Noted Date Resolved Date Other joint derangement, not elsewhere classifie d, lower leg 04/05/2009 02/10/2013 documented as of this encounter (statuses as of 09/29/2022) [facility] of Past illness Narrative* Problem Noted Date Resolved Date Other joint derangement, not elsewhere classifie d, lower leg 04/05/2009 02/10/2013 documented as of this encounter (statuses as of 12/15/2022) [facility] History of Past illness Narrative* Problem Noted Date Resolved Date Other joint derangement, not elsewhere classifie d, lower leg 04/05/2009 02/10/2013 documented as of this encounter (statuses as of 12/29/2022) [facility] of Past illness Narrative* Problem Noted Date Diagnosed Date Resolved Date Other joint derangement, not elsewhere classified, lower leg 04/05/2009 02/10/2013 documented as of this encounter (statuses as of 01/01/2023) [facility] of Past illness Narrative* Problem Noted Date Diagnosed Date Resolved Date Other joint derangement, not elsewhere classified, lower leg 04/05/2009 02/10/2013 documented as of this encounter (statuses as of 01/04/2023) [facility] History of Past illness Narrative* Problem Noted Date Diagnosed Date Resolved Date Other joint derangement, not elsewhere classified, lower leg 04/05/2009 02/10/2013 documented as of this encounter (statuses as of 02/01/2023) [facility] History of Past illness Narrative* Problem Noted Date Diagnosed Date Resolved Date Other joint derangement, not elsewhere classified, lower leg 04/05/2009 02/10/2013 documented as of this encounter (statuses as of 02/17/2023) [facility] of Past illness Narrative* Problem Noted Date Diagnosed Date Resolved Date Other joint derangement, not elsewhere classified, lower leg 04/05/2009 02/10/2013 documented as of this encounter (statuses as of 03/01/2023) [facility] of Past illness Narrative* Problem Noted Date Diagnosed Date Resolved Date Other joint derangement, not elsewhere classified, lower leg 04/05/2009 02/10/2013 documented as of this encounter (statuses as of 03/20/2023) [facility] of Past illness Narrative* Problem Noted Date Diagnosed Date Resolved Date Other joint derangement, not elsewhere classified, lower leg 04/05/2009 02/10/2013 documented as of this encounter (statuses as of 03/25/2023) [facility] of Past illness Narrative* Problem Noted Date Diagnosed Date Resolved Date Other joint derangement, not elsewhere classified, lower leg 04/05/2009 02/10/2013 documented as of this encounter (statuses as of 03/31/2023) [facility] of Past illness Narrative* Problem Noted Date Diagnosed Date Resolved Date Other joint derangement, not elsewhere classified, lower leg 04/05/2009 02/10/2013 documented as of this encounter (statuses as of 04/11/2023) [facility] of Past illness Narrative* Problem Noted Date Diagnosed Date Resolved Date Other joint derangement, not elsewhere classified, lower leg 04/05/2009 02/10/2013 documented as of this encounter (statuses as of 04/17/2023) [facility] History of Past illness Narrative* Problem Noted Date Diagnosed Date Resolved Date Other joint derangement, not elsewhere classified, lower leg 04/05/2009 02/10/2013 documented as of this encounter (statuses as of 04/24/2023) [facility] of Past illness Narrative* Problem Noted Date Diagnosed Date Resolved Date Other joint derangement, not elsewhere classified, lower leg 04/05/2009 02/10/2013 documented as of this encounter (statuses as of 05/01/2023) [address]12-2009 History of Past illness Narrative* Problem Noted Date Diagnosed Date Resolved Date Other joint derangement, not elsewhere classified, lower leg 04/05/2009 02/10/2013 documented as of this encounter (statuses as of 05/09/2023) [address]12-2009 History of Past illness Narrative* Problem Noted Date Diagnosed Date Resolved Date Other joint derangement, not elsewhere classified, lower leg 04/05/2009 02/10/2013 documented as of this encounter (statuses as of 05/18/2023) [facility] Narrative* Problem Noted Date Diagnosed Date Resolved Date Other joint derangement, not elsewhere classified, lower leg 04/05/2009 02/10/2013 documented as of this encounter (statuses as of 05/21/2023) [facility] of Past illness Narrative* Problem Noted Date Diagnosed Date Resolved Date Other joint derangement, not elsewhere classified, lower leg 04/05/2009 02/10/2013 documented as of this encounter (statuses as of 05/23/2023) [facility] History of Past illness Narrative* Problem Noted Date Diagnosed Date Resolved Date Other joint derangement, not elsewhere classified, lower leg 04/05/2009 02/10/2013 documented as of this encounter (statuses as of 05/24/2023) [facility] History of Past illness Narrative* Problem Noted Date Diagnosed Date Resolved Date Other joint derangement, not elsewhere classified, lower leg 04/05/2009 02/10/2013 documented as of this encounter (statuses as of 05/25/2023) [facility] of Past illness Narrative* Problem Noted Date Diagnosed Date Resolved Date Other joint derangement, not elsewhere classified, lower leg 04/05/2009 02/10/2013 documented as of this encounter (statuses as of 05/29/2023) [facility] of Past illness Narrative* Problem Noted Date Diagnosed Date Resolved Date Other joint derangement, not elsewhere classified, lower leg 04/05/2009 02/10/2013 documented as of this encounter (statuses as of 06/05/2023) [facility] of Past [facility] Narrative* Problem Noted Date Diagnosed Date Resolved Date Other joint derangement, not elsewhere classified, lower leg 04/05/2009 02/10/2013 documented as of this encounter (statuses as of 07/22/2023) [address]12-2009 History of Past illness Narrative* Problem Noted Date Diagnosed Date Resolved Date Other joint derangement, not elsewhere classified, lower leg 04/05/2009 02/10/2013 documented as of this encounter (statuses as of 07/27/2023) [address]12-2009 History of Past illness Narrative* Problem Noted Date Diagnosed Date Resolved Date Other joint derangement, not elsewhere classified, lower leg 04/05/2009 02/10/2013 documented as of this encounter (statuses as of 07/27/2023) [address]12-2009 History of Past illness Narrative* Problem Noted Date Diagnosed Date Resolved Date Other joint derangement, not elsewhere classified, lower leg 04/05/2009 02/10/2013 documented as of this encounter (statuses as of 07/27/2023) [address]12-2009 History of Past illness Narrative* Problem Noted Date Diagnosed Date Resolved Date Other joint derangement, not elsewhere classified, lower leg 04/05/2009 02/10/2013 documented as of this encounter (statuses as of 08/03/2023) [address]12-2009 History of Past illness Narrative* Problem Noted Date Diagnosed Date Resolved Date Other joint derangement, not elsewhere classified, lower leg 04/05/2009 02/10/2013 documented as of this encounter (statuses as of 08/09/2023) [address]12[address]2009 History of Past illness Narrative* Problem Noted Date Diagnosed Date Resolved Date Other joint derangement, not elsewhere classified, lower leg 04/05/2009 02/10/2013 documented as of this encounter (statuses as of 08/13/2023) [facility] Diagnosis Multiple sclerosis (HCC)- Primary Multiple sclerosis Encounter for long-term (current) use of medications Encounter for long-term (current) use of other medications [facility] Diagnosis Multiple sclerosis (HCC) Multiple sclerosis Encounter for long-term (current) use of medications Encounter for long-term (current) use of other medications [facility] Diagnosis Multiple sclerosis (HCC)- Primary Multiple sclerosis Encounter for long-term (current) use of medications Encounter for long-term (current) use of other medications documented [facility]* Diagnosis Multiple sclerosis (HCC)- Primary Multiple sclerosis documented [facility]* Diagnosis Multiple sclerosis (HCC)- Primary Multiple sclerosis [facility]* Diagnosis Multiple sclerosis (HCC)- Primary Multiple sclerosis Vitamin D deficiency Unspecified vitamin D deficiency Encounter for long-term (current) use of medications Encounter for long-term (current) use of other medications [facility] Diagnosis Multiple sclerosis affecting , antepartum (HCC)- Primary Multiple sclerosis (HCC) Multiple sclerosis Obesity during Nausea in Unspecified vomiting of , unspecified as to episode of care documented [facility]* Diagnosis Multiple sclerosis (HCC)- Primary Multiple sclerosis Obesity during Nausea and vomiting in Unspecified vomiting of , unspecified as to episode of care with uncertain dates in first trimester documented [facility]* Diagnosis 10 weeks gestation of - Primary state, incidental Encounter for supervision of normal first in first trimester Supervision of normal first documented [facility]* Diagnosis 14 weeks gestation of - Primary state, incidental Encounter for supervision of normal first in second trimester Supervision of normal first documented [facility]* Diagnosis Upper respiratory infection with cough and congestion- Primary Acute upper respiratory infections of unspecified site documented [facility]* Diagnosis Encounter for anatomic survey- Primary Obesity affecting in second trimester, unspecified obesity type 19 weeks gestation of state, incidental documented [facility]* Diagnosis Post-viral cough syndrome- Primary Cough documented in [facility]* Diagnosis Post-viral cough syndrome- Primary Cough documented [facility]* Diagnosis Viral URI with cough- Primary Acute upper respiratory infections of unspecified site Seasonal allergies Allergic rhinitis, cause unspecified Heartburn during , antepartum documented [facility]* Diagnosis Encounter for supervision of normal first in second trimester- Primary Supervision of normal first 27 weeks gestation of state, incidental Obesity during Supervision of high risk in second trimester Unspecified high-risk documented [facility]* Diagnosis Abnormal glucose affecting - Primary [facility] noteNo assessment information availableKettering Health [facility] Work Phone: evaluation note* Diagnosis Obesity during - Primary Encounter for supervision of normal first in third trimester Supervision of normal first 35 weeks gestation of state, incidental documented [facility] this [facility]* Diagnosis Obesity affecting in third trimester, unspecified obesity type- Primary Encounter for supervision of normal first in third trimester Supervision of normal first documented [facility]* Diagnosis Obesity during - Primary Encounter for supervision of normal first in third trimester Supervision of normal first 36 weeks gestation of state, incidental documented [facility] this [facility]* Diagnosis Encounter for ultrasound to check growth- Primary Encounter for routine screening for malformation using ultrasonics Obesity affecting in third trimester, unspecified obesity type 36 weeks gestation of state, incidental documented in this encounter [facility] note* Diagnosis Encounter for supervision of normal first in third trimester- Primary Supervision of normal first Obesity affecting in third trimester, unspecified obesity type 37 weeks gestation of state, incidental Elevated blood pressure reading without diagnosis of hypertension documented [facility] [facility] Diagnosis 38 weeks gestation of - Primary state, incidental documented in this encounter [facility] note* Diagnosis Onset Date Resolution Status 39 weeks gestation of acute Abnormal glucose affecting acute Anemia due to blood loss, acute acute MS (multiple sclerosis) acut e Obesity affecting acute Positive GBS test acute care following vaginal delivery [facility] Work Phone: Evaluation note* Diagnosis care and examination of lactating mother- Primary [facility] Diagnosis care and examination of lactating mother- Primary [facility] Diagnosis Multiple sclerosis (HCC)- Primary Multiple sclerosis [facility] Diagnosis Multiple sclerosis (HCC) Multiple sclerosis Encounter for long-term (current) use of medications Encounter for long-term (current) use of other medications [facility] Diagnosis Multiple sclerosis (HCC) Multiple sclerosis [facility] Diagnosis Multiple sclerosis (HCC)- Primary Multiple sclerosis documented in this encounter [facility] Diagnosis Subacute cough Cough documented in this encounter [facility] note* Diagnosis Encounter for long-term (current) use of medications- Primary Encounter for long-term (current) use of other medications documented in this encounter [facility] note* Diagnosis Multiple sclerosis (HCC)- Primary Multiple sclerosis documented in this encounter [facility] note* Diagnosis Multiple sclerosis (HCC)- Primary Multiple sclerosis [facility] Diagnosis Sinobronchitis- Primary Unspecified sinusitis (chronic) documented in this encounter [facility] Diagnosis Encounter for gynecological examination (general) (routine) without abnormal findings- Primary documented in this encounter [facility] note* Diagnosis Sinobronchitis Unspecified sinusitis (chronic) Postnasal drip documented in this encounter [facility] note* Diagnosis Non-recurrent acute serous otitis media of left ear- Primary Otalgia of both ears Otalgia, unspecified documented in this encounter [facility] note* Diagnosis Non-recurrent acute serous otitis media of left ear documented in this encounter [facility] for referral (narrative)* Diagnostic Procedure Only (Routine) - Pending Review Specialty Diagnoses / Procedures Referred By Magali canales Referred To Contact [facility] Diagnoses 14 weeks gestation of Encounter for supervision of normal first in second trimester Procedures OBSTETRIC ULTRASOUND WHI US PREG UTERUS AFTER 1ST TRIMEST GESTATION Emma Palm MD [address] [place] [id number] [address] Referral ID Status Reason Start Date Expiration Date Visits Requested Visits Authorized [id number] Pending Review Auto-Generat ed Referral 02/28/2023 02/28/2024 1 1 [facility] Outpatient Procedure (Routine) - Pending Review Specialty Diagnoses / Procedures Referred By Magali canales Referred To Contact [facility] Diagnoses 27 weeks gestation of Obesity during Procedures NON-STRESS TEST NON-STRESS TEST Anayeli Alvarez APRN.CNM [address] [place] [address] [facility] [address] [place] [address] Referral ID Status Reason Start Date Expiration Date Visits Requested Visits Authorized [id number] Pending Review Auto-Generat ed Referral 05/25/2023 05/24/2024 1 1 * Diagnostic Procedure Only (Routine) - Pending Review Specialty Diagnoses / Procedures Referred By Magali canales Referred To Contact [facility] Diagnoses 27 weeks gestation of Obesity during Procedures OBSTETRIC ULTRASOUND WHI US PREG UTERUS AFTER 1ST TRIMEST GESTATION Anayeli Alvarez APRN.CNM [address] [place] [address] [facility] [address] [place] [address] Referral ID Status Reason Start Date Expiration Date Visits Requested Visits Authorized [id number] Pending Review Auto-Generat ed Referral 05/25/2023 05/24/2024 1 1 [facility] for referral (narrative)* Diagnostic Procedure Only (Routine) - Closed Specialty Diagnoses / Procedures Referred By Magali canales Referred To [facility] Diagnoses Obesity affecting in third trimester, unspecified obesity type Encounter for supervision of normal first in third trimester Procedures OBSTETRIC ULTRASOUND WHI US PREG UTERUS AFTER 1ST TRIMEST GESTATION Emma Palm MD [address] [place] [address] [facility] [address] [place] [address] Referral ID Status Reason Start Date Expiration Date V isits Requested Visits Authorized [id number] Closed Auto-Generate d Referral 07/27/2023 07/27/2023 1 1 [facility] Reason for Referral Specialty Diagnoses / Procedures Referred By Contac t Referred To Contact [facility] Diagnoses Multiple sclerosis (HCC) Encounter for long-term (current) use of medications Procedures MRI BRAIN WO/W IVCON MRI BRAIN BRAIN STEM W/O W/CONTRAST MATERIAL Sinai Solis, RELIEF DOCKING MASTER.SHIPPER/RECEIVER [address] [place] [address] Mr Imaging Referral ID Status Reason Start Date Expiration Date Visits Requested Visits Authorized [id number] Pending Review Auto-Generat ed Referral 10/26/2021 11/25/2022 1 1 Referral ID Status Reason Start Date Expiration Date V isits Requested Visits Authorized [id number] Closed Auto-Generate d Referral 10/26/2021 06/24/2022 1 1 Specialty Diagnoses / Procedures Referred By Contac t Referred To Contact [facility] Diagnoses Encounter for long-term (current) use of medications Multiple sclerosis (HCC) Procedures MRI BRAIN WO/W IVCON MRI BRAIN BRAIN STEM W/O W/CONTRAST MATERIAL Sinai Solis, RELIEF DOCKING MASTER.SHIPPER/RECEIVER [address] [place] [address] Mr Imaging Referral ID Status Reason Start Date Expiration Date Visits Requested Visits Authorized [id number] Pending Review Auto-Generat ed Referral 08/18/2022 09/17/2023 1 1 Specialty Diagnoses / Procedures Referred By Contac t Referred To Contact [facility] Diagnoses Multiple sclerosis (HCC) Procedures MRI BRAIN WO/W IVCON MRI BRAIN BRAIN STEM W/O W/CONTRAST MATERIAL Sinai Solis, RELIEF DOCKING MASTER.SHIPPER/RECEIVER [address] [place] [address] Mr Imaging [place] [address] Referral ID Status Reason Start Date Expiration Date Visits Requested Visits Authorized [id number] Pending Review Auto-Generat ed Referral 01/29/2024 11/27/2024 1 1 Specialty Diagnoses / Procedures Referred By Contac t Referred To Contact [facility] Diagnoses Multiple sclerosis (HCC) Encounter for long-term (current) use of medications Procedures MRI BRAIN WO/W IVCON MRI BRAIN BRAIN STEM W/O W/CONTRAST MATERIAL Sinai Solis, GRIFFIN.SHIPPER/RECEIVER [address] [place] [address] Mr Imaging [place] [address] Referral ID Status Reason Start Date Expiration Date V isits Requested Visits Authorized [id number] Closed Auto-Generate d Referral 10/24/2023 06/24/2024 1 1 Referral ID Status Reason Start Date Expiration Date V isits Requested Visits Authorized [id number] Closed Auto-Generate d Referral 02/13/2024 06/24/2024 1 1 Referral ID Status Reason Start Date Expiration Date Visits Requested Visits Authorized [id number] New Request Auto-Generat ed Referral 03/06/2024 04/05/2025 1 1 Medications Administered Section Inactive Administered [...] Change 01/10/2022 9:08 AM EDT 300 mL/hr Rate/Dose Change 01/10/2022 8:53 AM EDT 250 mL/ hr Rate/Dose Change 01/10/2022 8:38 AM EDT 200 mL/ hr Inactive Administered Medications - up to 3 [...] Date Diagnosed Date [facility] - [facility] 01/03/2023 [place] - [place] 01/03/2023 Problem Noted Date Diagnosed Date [facility] - [facility] 01/03/2023 [place] - [place] 01/03/2023 Problem Noted Date Diagnosed Date [facility] - [facility] 01/03/2023 [place] - [place] 01/03/2023 Problem Noted Date Diagnosed Date [facility] [...] CC Education - COMMON 01/03/2023 [place] - [place] 01/03/2023 Problem Noted Date Diagnosed Date [facility] [...] - COMMON 01/03/2023 Education - [place] 01/03/2023 Chief Complaint and Reason for Visit Chief Complaint SINUSITIS Chief Complaint SINUSITIS INDUCTION Reason for Visit 39 weeks gestation o f Abnormal glucose affecting Anemia due to blood loss, acute MS (multiple sclerosis) Obesity affecting Positive GBS test care following vaginal delivery Family History No Family History Records Found Relationship Condition Age at Onset Recorded Date/T jude mother Diabetes mellitus Unknown grandmother Malignant neoplasm Unknown Advance Directives No Advanced Directives Records Found Advance Directive Response Recorded Date/ Time Living Will No May 23, 021 1:52pm Power of Emergency Veterinary Assistant No May 23, 2021 1:52pm Advance Directive Response Recorded Date/ Time Living Will No August 19 024 7:27pm Power of Emergency Veterinary Assistant No August 19, 2023 7:27pm Summary Purpose Additional Source Comments Source Comments (unrecognize d section and content) In the event this informatio n is protected by the Federal Confidentiality of Alcohol and Drug Abuse Patient Records regulations: The Federal rules restrict any use of the information to criminally investigate or prosecute any alcohol or drug abuse patient.[facility] the event this information is protected by the Federal Confidentiality of Alcohol and Drug Abuse Patient Records regulations: The Federal rules restrict any use of the information to criminally investigate or prosecute any alcohol or drug abuse patient.[facility] the event this information is protected by the Federal Confidentiality of Alcohol and Drug Abuse Patient Records regulations: The Federal rules restrict any use of the information to criminally investigate or prosecute any alcohol or drug abuse patient.[facility] the event this information is protected by the Federal Confidentiality of Alcohol and Drug Abuse Patient Records regulations: The Federal rules restrict any use of the information to criminally investigate or prosecute any alcohol or drug abuse patient.[facility] the event this information is protected by the Federal Confidentiality of Alcohol and Drug Abuse Patient Records regulations: The Federal rules restrict any use of the information to criminally investigate or prosecute any alcohol or drug abuse patient.[facility] the event this information is protected by the Federal Confidentiality of Alcohol and Drug Abuse Patient Records regulations: The Federal rules restrict any use of the information to criminally investigate or prosecute any alcohol or drug abuse patient.[facility] the event this information is protected by the Federal Confidentiality of Alcohol and Drug Abuse Patient Records regulations: The Federal rules restrict any use of the information to criminally investigate or prosecute any alcohol or drug abuse patient.[facility] the event this information is protected by the Federal Confidentiality of Alcohol and Drug Abuse Patient Records regulations: The Federal rules restrict any use of the information to criminally investigate or prosecute any alcohol or drug abuse patient.[facility] the event this information is protected by the Federal Confidentiality of Alcohol and Drug Abuse Patient Records regulations: The Federal rules restrict any use of the information to criminally investigate or prosecute any alcohol or drug abuse patient.[facility] the event this information is protected by the Federal Confidentiality of Alcohol and Drug Abuse Patient Records regulations: The Federal rules restrict any use of the information to criminally investigate or prosecute any alcohol or drug abuse patient.[facility] the event this information is protected by the Federal Confidentiality of Alcohol and Drug Abuse Patient Records regulations: The Federal rules restrict any use of the information to criminally investigate or prosecute any alcohol or drug abuse patient.[facility] the event this information is protected by the Federal Confidentiality of Alcohol and Drug Abuse Patient Records regulations: The Federal rules restrict any use of the information to criminally investigate or prosecute any alcohol or drug abuse patient.[facility] the event this information is protected by the Federal Confidentiality of Alcohol and Drug Abuse Patient Records regulations: The Federal rules restrict any use of the information to criminally investigate or prosecute any alcohol or drug abuse patient.[facility] the event this information is protected by the Federal Confidentiality of Alcohol and Drug Abuse Patient Records regulations: The Federal rules restrict any use of the information to criminally investigate or prosecute any alcohol or drug abuse patient.[facility] the event this information is protected by the Federal Confidentiality of Alcohol and Drug Abuse Patient Records regulations: The Federal rules restrict any use of the information to criminally investigate or prosecute any alcohol or drug abuse patient.[facility] the event this information is protected by the Federal Confidentiality of Alcohol and Drug Abuse Patient Records regulations: The Federal rules restrict any use of the information to criminally investigate or prosecute any alcohol or drug abuse patient.[facility] the event this information is protected by the Federal Confidentiality of Alcohol and Drug Abuse Patient Records regulations: The Federal rules restrict any use of the information to criminally investigate or prosecute any alcohol or drug abuse patient.[facility] the event this information is protected by the Federal Confidentiality of Alcohol and Drug Abuse Patient Records regulations: The Federal rules restrict any use of the information to criminally investigate or prosecute any alcohol or drug abuse patient.[facility] the event this information is protected by the Federal Confidentiality of Alcohol and Drug Abuse Patient Records regulations: The Federal rules restrict any use of the information to criminally investigate or prosecute any alcohol or drug abuse patient.[facility] the event this information is protected by the Federal Confidentiality of Alcohol and Drug Abuse Patient Records regulations: The Federal rules restrict any use of the information to criminally investigate or prosecute any alcohol or drug abuse patient.[facility] the event this information is protected by the Federal Confidentiality of Alcohol and Drug Abuse Patient Records regulations: The Federal rules restrict any use of the information to criminally investigate or prosecute any alcohol or drug abuse patient.[facility] the event this information is protected by the Federal Confidentiality of Alcohol and Drug Abuse Patient Records regulations: The Federal rules restrict any use of the information to criminally investigate or prosecute any alcohol or drug abuse patient.[facility] the event this information is protected by the Federal Confidentiality of Alcohol and Drug Abuse Patient Records regulations: The Federal rules restrict any use of the information to criminally investigate or prosecute any alcohol or drug abuse patient.[facility] the event this information is protected by the Federal Confidentiality of Alcohol and Drug Abuse Patient Records regulations: The Federal rules restrict any use of the information to criminally investigate or prosecute any alcohol or drug abuse patient.[facility] the event this information is protected by the Federal Confidentiality of Alcohol and Drug Abuse Patient Records regulations: The Federal rules restrict any use of the information to criminally investigate or prosecute any alcohol or drug abuse patient.[facility] the event this information is protected by the Federal Confidentiality of Alcohol and Drug Abuse Patient Records regulations: The Federal rules restrict any use of the information to criminally investigate or prosecute any alcohol or drug abuse patient.[facility] the event this information is protected by the Federal Confidentiality of Alcohol and Drug Abuse Patient Records regulations: The Federal rules restrict any use of the information to criminally investigate or prosecute any alcohol or drug abuse patient.[facility] the event this information is protected by the Federal Confidentiality of Alcohol and Drug Abuse Patient Records regulations: The Federal rules restrict any use of the information to criminally investigate or prosecute any alcohol or drug abuse patient.[facility] the event this information is protected by the Federal Confidentiality of Alcohol and Drug Abuse Patient Records regulations: The Federal rules restrict any use of the information to criminally investigate or prosecute any alcohol or drug abuse patient.[facility] the event this information is protected by the Federal Confidentiality of Alcohol and Drug Abuse Patient Records regulations: The Federal rules restrict any use of the information to criminally investigate or prosecute any alcohol or drug abuse patient.[facility] the event this information is protected by the Federal Confidentiality of Alcohol and Drug Abuse Patient Records regulations: The Federal rules restrict any use of the information to criminally investigate or prosecute any alcohol or drug abuse patient.[facility] the event this information is protected by the Federal Confidentiality of Alcohol and Drug Abuse Patient Records regulations: The Federal rules restrict any use of the information to criminally investigate or prosecute any alcohol or drug abuse patient.[facility] the event this information is protected by the Federal Confidentiality of Alcohol and Drug Abuse Patient Records regulations: The Federal rules restrict any use of the information to criminally investigate or prosecute any alcohol or drug abuse patient.[facility] the event this information is protected by the Federal Confidentiality of Alcohol and Drug Abuse Patient Records regulations: The Federal rules restrict any use of the information to criminally investigate or prosecute any alcohol or drug abuse patient.[facility] the event this information is protected by the Federal Confidentiality of Alcohol and Drug Abuse Patient Records regulations: The Federal rules restrict any use of the information to criminally investigate or prosecute any alcohol or drug abuse patient.[facility] the event this information is protected by the Federal Confidentiality of Alcohol and Drug Abuse Patient Records regulations: The Federal rules restrict any use of the information to criminally investigate or prosecute any alcohol or drug abuse patient.[facility] the event this information is protected by the Federal Confidentiality of Alcohol and Drug Abuse Patient Records regulations: The Federal rules restrict any use of the information to criminally investigate or prosecute any alcohol or drug abuse patient.[facility] the event this information is protected by the Federal Confidentiality of Alcohol and Drug Abuse Patient Records regulations: The Federal rules restrict any use of the information to criminally investigate or prosecute any alcohol or drug abuse patient.[facility] the event this information is protected by the Federal Confidentiality of Alcohol and Drug Abuse Patient Records regulations: The Federal rules restrict any use of the information to criminally investigate or prosecute any alcohol or drug abuse patient.[facility] the event this information is protected by the Federal Confidentiality of Alcohol and Drug Abuse Patient Records regulations: The Federal rules restrict any use of the information to criminally investigate or prosecute any alcohol or drug abuse patient.[facility]In the event this information is protected by the Federal Confidentiality of Alcohol and Drug Abuse Patient Records regulations: The Federal rules restrict any use of the information to criminally investigate or prosecute any alcohol or drug abuse patient.[facility] the event this information is protected by the Federal Confidentiality of Alcohol and Drug Abuse Patient Records regulations: The Federal rules restrict any use of the information to criminally investigate or prosecute any alcohol or drug abuse patient.[facility] the event this information is protected by the Federal Confidentiality of Alcohol and Drug Abuse Patient Records regulations: The Federal rules restrict any use of the information to criminally investigate or prosecute any alcohol or drug abuse patient.[facility]In the event this information is protected by the Federal Confidentiality of Alcohol and Drug Abuse Patient Records regulations: The Federal rules restrict any use of the information to criminally investigate or prosecute any alcohol or drug abuse patient.[facility]In the event this information is protected by the Federal Confidentiality of Alcohol and Drug Abuse Patient Records regulations: The Federal rules restrict any use of the information to criminally investigate or prosecute any alcohol or drug abuse patient.[facility]In the event this information is protected by the Federal Confidentiality of Alcohol and Drug Abuse Patient Records regulations: The Federal rules restrict any use of the information to criminally investigate or prosecute any alcohol or drug abuse patient.[facility]In the event this information is protected by the Federal Confidentiality of Alcohol and Drug Abuse Patient Records regulations: The Federal rules restrict any use of the information to criminally investigate or prosecute any alcohol or drug abuse patient.[facility] the event this information is protected by the Federal Confidentiality of Alcohol and Drug Abuse Patient Records regulations: The Federal rules restrict any use of the information to criminally investigate or prosecute any alcohol or drug abuse patient.[facility]In the event this information is protected by the Federal Confidentiality of Alcohol and Drug Abuse Patient Records regulations: The Federal rules restrict any use of the information to criminally investigate or prosecute any alcohol or drug abuse patient.[facility] the event this information is protected by the Federal Confidentiality of Alcohol and Drug Abuse Patient Records regulations: The Federal rules restrict any use of the information to criminally investigate or prosecute any alcohol or drug abuse patient.[facility]In the event this information is protected by the Federal Confidentiality of Alcohol and Drug Abuse Patient Records regulations: The Federal rules restrict any use of the information to criminally investigate or prosecute any alcohol or drug abuse patient.[facility] the event this information is protected by the Federal Confidentiality of Alcohol and Drug Abuse Patient Records regulations: The Federal rules restrict any use of the information to criminally investigate or prosecute any alcohol or drug abuse patient.[facility] the event this information is protected by the Federal Confidentiality of Alcohol and Drug Abuse Patient Records regulations: The Federal rules restrict any use of the information to criminally investigate or prosecute any alcohol or drug abuse patient.[facility] the event this information is protected by the Federal Confidentiality of Alcohol and Drug Abuse Patient Records regulations: The Federal rules restrict any use of the information to criminally investigate or prosecute any alcohol or drug abuse patient.[facility]In the event this information is protected by the Federal Confidentiality of Alcohol and Drug Abuse Patient Records regulations: The Federal rules restrict any use of the information to criminally investigate or prosecute any alcohol or drug abuse patient.[facility]In the event this information is protected by the Federal Confidentiality of Alcohol and Drug Abuse Patient Records regulations: The Federal rules restrict any use of the information to criminally investigate or prosecute any alcohol or drug abuse patient.[facility]In the event this information is protected by the Federal Confidentiality of Alcohol and Drug Abuse Patient Records regulations: The Federal rules restrict any use of the information to criminally investigate or prosecute any alcohol or drug abuse patient.[facility]In the event this information is protected by the Federal Confidentiality of Alcohol and Drug Abuse Patient Records regulations: The Federal rules restrict any use of the information to criminally investigate or prosecute any alcohol or drug abuse patient.[facility]In the event this information is protected by the Federal Confidentiality of Alcohol and Drug Abuse Patient Records regulations: The Federal rules restrict any use of the information to criminally investigate or prosecute any alcohol or drug abuse patient.[facility] HospitalIn the event this information is protected by the Federal Confidentiality of Alcohol and Drug Abuse Patient Records regulations: The Federal rules restrict any use of the information to criminally investigate or prosecute any alcohol or drug abuse patient.[facility]In the event this information is protected by the Federal Confidentiality of Alcohol and Drug Abuse Patient Records regulations: The Federal rules restrict any use of the information to criminally investigate or prosecute any alcohol or drug abuse patient.[facility] HospitalIn the event this information is protected by the Federal Confidentiality of Alcohol and Drug Abuse Patient Records regulations: The Federal rules restrict any use of the information to criminally investigate or prosecute any alcohol or drug abuse patient.[facility] HospitalIn the event this information is protected by the Federal Confidentiality of Alcohol and Drug Abuse Patient Records regulations: The Federal rules restrict any use of the information to criminally investigate or prosecute any alcohol or drug abuse patient.[facility]In the event this information is protected by the Federal Confidentiality of Alcohol and Drug Abuse Patient Records regulations: The Federal rules restrict any use of the information to criminally investigate or prosecute any alcohol or drug abuse patient.[facility]In the event this information is protected by the Federal Confidentiality of Alcohol and Drug Abuse Patient Records regulations: The Federal rules restrict any use of the information to criminally investigate or prosecute any alcohol or drug abuse patient.[facility]In the event this information is protected by the Federal Confidentiality of Alcohol and Drug Abuse Patient Records regulations: The Federal rules restrict any use of the information to criminally investigate or prosecute any alcohol or drug abuse patient.[facility] HospitalIn the event this information is protected by the Federal Confidentiality of Alcohol and Drug Abuse Patient Records regulations: The Federal rules restrict any use of the information to criminally investigate or prosecute any alcohol or drug abuse patient.[facility] HospitalIn the event this information is protected by the Federal Confidentiality of Alcohol and Drug Abuse Patient Records regulations: The Federal rules restrict any use of the information to criminally investigate or prosecute any alcohol or drug abuse patient.[facility] Care Teams (unrecognized sec tion and content) Cellular Equipment Installer Relationship Specialty Start Date End Date Devin Fitzgerald MD [address] [facility] [place] [address] PCP - General 04/18/02 Cellular Equipment Installer Relationship Specialty Start Date End Date Tin Mccoy MD [address] [facility] [place] [address] PCP - General Internal Medicine 10/27/21 Cellular Equipment Installer Relationship Specialty Start Date End Date Tin Mccoy MD [address] [facility] [place] [address] PCP - General Internal Medicine 10/27/21 Cellular Equipment Installer Relationship Specialty Start Date End Date Tin Mccoy MD [address] [facility] [place] [address] PCP - General Internal Medicine 10/27/21 Cellular Equipment Installer Relationship Specialty Start Date End Date Tin Mccoy MD [address] [facility] [place] [address] PCP - General Internal Medicine 10/27/21 Cellular Equipment Installer Relationship Specialty Start Date End Date Tin Mccoy MD [address] [facility] [place] [address] PCP - General Internal Medicine 10/27/21 Cellular Equipment Installer Relationship Specialty Start Date End Date Tin Mccoy MD [address] [facility] [place] [address] PCP - General Internal Medicine 10/27/21 Cellular Equipment Installer Relationship Specialty Start Date End Date Tin Mccoy MD [address] [facility] [place] [address] PCP - General Internal Medicine 10/27/21 Cellular Equipment Installer Relationship Specialty Start Date End Date Tin Mccoy MD [address] [facility] [place] [address] PCP - General Internal Medicine 10/27/21 Cellular Equipment Installer Relationship Specialty Start Date End Date Tin Mccoy MD [address] [facility] [place] [address] PCP - General Internal Medicine 10/27/21 Cellular Equipment Installer Relationship Specialty Start Date End Date Tin Mccoy MD [address] [place] [address] PCP - General Internal Medicine 10/27/21 Cellular Equipment Installer Relationship Specialty Start Date End Date Tin Mccoy MD [address] [place] [address] PCP - General Internal Medicine 10/27/21 Cellular Equipment Installer Relationship Specialty Start Date End Date Tin Mccoy MD [address] [place] [address] PCP - General Internal Medicine 10/27/21 Cellular Equipment Installer Relationship Specialty Start Date End Date Tin Mccoy MD [address] [place] [address] PCP - General Internal Medicine 10/27/21 Cellular Equipment Installer Relationship Specialty Start Date End Date Tin Mccoy MD [address] [place] [address] PCP - General Internal Medicine 10/27/21 Cellular Equipment Installer Relationship Specialty Start Date End Date Tin Mccoy MD [address] [place] [address] PCP - General Internal Medicine 10/27/21 Cellular Equipment Installer Relationship Specialty Start Date End Date Tin Mccoy MD [address] [place] [address] PCP - General Internal Medicine 10/27/21 Cellular Equipment Installer Relationship Specialty Start Date End Date Tin Mccoy MD [address] [place] [address] PCP - General Internal Medicine 10/27/21 Team Status: Active Member Role Status Dates Dr. Devin Fitzgerald MD Family Provider Active Dr. Tin Mccoy MD Primary Care Provider Active Team Status: Inactive Member Role Status Dates Dr. Tin Mccoy MD Primary Care Provider Active Dr. Preston Leija MD Attending Provider, Referring P [email or web address] Active Team Status: Inactive Member Role Status Dates Dr. Tin Mccoy MD Primary Care Provider Active Dr. Preston Leija MD Attending Provider Active Team Status: Inactive Member Role Status Dates Dr. Tin Mccoy MD Primary Care Provider Active Dr. Reema Gibson , Admit Provider, At tending Provider, Referring Provider Active Reason for Visit (unrecogniz ed section and content) Reason Comments Appointment Specialty Diagnoses / Procedures Referred By Magali canales Referred To Contact MR IMAGING Diagnoses Multiple sclerosis (HCC) Encounter for long-term (current) use of medications Procedures MRI BRAIN WO/W IVCON MRI BRAIN BRAIN STEM W/O W/CONTRAST MATERIAL [facility] APRN.SHIPPER/RECEIVER [address] [place] [address] Mr Imaging Referral ID Status Reason Start Date Expiration Date V isits Requested Visits Authorized [id number] Closed Auto-Generate d Referral 10/26/2021 06/24/2022 1 1 Reason Comments Established Patient Follow-Up Reason Comments Appointment Rescheduled Reason Comments Non-Chemotherapy Treatment Specialty Diagnoses / Procedures Referred By Magali t Referred To Contact HEMATOLOGY/ONCOLOGY Diagnoses Multiple sclerosis (HCC) G35 (ICD-10-CM) - Multiple sclerosis (HCC) Procedures INJECTION, OCRELIZUMAB, 1 MG OCRELIZUMAB 300 MG D1,15 - THEN 600 MG D1 Q168D Marvin Juarez MD [address] [place] [address] [facility] [address] [place] [address] Referral ID Status Reason Start Date Expiration Date V isits Requested Visits Authorized [id number] Authorized 04/16/2020 12/23/2022 4 4 Reason Comments Appointment LVM to inform patien t about appointment per staff message Referral ID Status Reason Start Date Expiration Date V isits Requested Visits Authorized [id number] Authorized 04/16/2020 12/23/2022 6 6 Reason Comments [...] Referred By Contac t Referred To Contact [facility] Diagnoses 14 weeks gestation of Encounter for supervision of normal first in second trimester Procedures OBSTETRIC ULTRASOUND WHI US PREG UTERUS AFTER 1ST TRIMEST GESTATION Emma Palm MD [address] [place] [address] [place] [id number] [place] [address] Referral ID Status Reason Start Date Expiration Date Visits Requested Visits Authorized [id number] Authorized Auto-Generat ed Referral 03/14/2023 06/24/2023 20 20 Reason Comments coughing up green mucus and sinus conges tion X 6 days Reason Onset Date Comments Care 05/25/2023 Reason Onset Date Comments Care 07/20/2023 Reason Onset Date Comments Care 07/27/2023 Specialty Diagnoses / Procedures Referred By Contac t Referred To Contact [facility] Diagnoses Obesity affecting in third trimester, unspecified obesity type Encounter for supervision of normal first in third trimester Procedures OBSTETRIC ULTRASOUND WHI US PREG UTERUS AFTER 1ST TRIMEST GESTATION Emma Palm MD [address] [place] [address] [facility] [address] [place] [address] Referral ID Status Reason Start Date Expiration Date V isits Requested Visits Authorized [id number] Closed Auto-Generate d Referral 07/27/2023 07/27/2023 1 1 Reason Onset Date Comments Care 08/03/2023 Reason Onset Date Comments Care 08/13/2023 Reason Comments Early Reason Comments Care Specialty Diagnoses / Procedures Referred By Magali canales Referred To Contact MR IMAGING Diagnoses Multiple sclerosis (HCC) Encounter for long-term (current) use of medications Procedures MRI BRAIN WO/W IVCON MRI BRAIN BRAIN STEM W/O W/CONTRAST MATERIAL [facility] APRN.SHIPPER/RECEIVER [address] [place] [address] Mr Imaging [place] [address] Referral ID Status Reason Start Date Expiration Date V isits Requested Visits Authorized [id number] Closed Auto-Generate d Referral 10/24/2023 06/24/2024 1 1 Reason Comments Appointment 02/09/24 - LVM / agus nder mailed for Irma FU.- GL Specialty Diagnoses / Procedures Referred By Magali canales Referred To Contact MR IMAGING Diagnoses Multiple sclerosis (HCC) Procedures MRI BRAIN WO/W IVCON MRI BRAIN BRAIN STEM W/O W/CONTRAST MATERIAL [facility] APRN.SHIPPER/RECEIVER [address] [place] [id number] Mr Imaging [place] [address] Referral ID Status Reason Start Date Expiration Date V isits Requested Visits Authorized [id number] Closed Auto-Generate d Referral 02/13/2024 06/24/2024 1 1 Reason Comments Appointment lvm for patient to c all so we can get her scheduled for her start up dose of her infusiona= and a 3 month follow up Reason Comments Chemotherapy Treatment Specialty Diagnoses / Procedures Referred By Magali canales Referred To Contact Diagnoses Multiple sclerosis (HCC) Procedures INJECTION, OCRELIZUMAB, 1 MG [facility] APRN.SHIPPER/RECEIVER [address] [place] [id number] [facility] [address] [place] [address] Referral ID Status Reason Start Date Expiration Date V isits Requested Visits Authorized [id number] Authorized 05/13/2024 05/13/2025 4 4 Reason Comments Cough Nasal Congestion Reason Comments Cough Post nasal drainage, scratchy throat. Hx of allergies Reason Comments Ear Problem Pain and pressure in ears X 2 days Goals (unrecognized section and content) Goals may be documented in a n alternate sectionGoals may be documented in an alternate section INFORMATION SOURCE (unrecogn ized section and content) DATE CREATED AUTHOR 04/03/2025 [facility] DATE CREATED AUTHOR AUTHOR'S ORGANIZ ATION 04/14/2025 [facility] FOR RECORDS PERTAINING TO PATIENTS WHO ARE [...] BE BASED ON THE PRIMARY CLINICAL RECORDS. [employer] provides no warranty or guarantee of the accuracy or completeness of information in this document.
[2025-04-18 11:09] LABS: Hematocrit 36.9 % (37-47); Hemoglobin 11.7 g/dL (12.0-15.0); Immature Granulocytes Count 0.030 X10^3/uL (0.0-0.0); Mean Corp Hgb Conc 31.7 g/dL (32-36); Mean Corpuscular Volume 81.8 fL (81-99); Mean Platelet Vol. 12.9 fl (6.2-12.0); NRBC Flagged by Analyzer 0 % (0-5); Platelet Count 243 K/mm3 (150-450); RBC Distribution Width CV 14.7 % (11.6-14.6); RBC Distribution Width SD 43.8 fl (35.1-43.9); Red Blood Count 4.51 M/mm3 (4.2-5.4); White Blood Count 9.6 K/mm3 (4.4-11.0)
[2025-04-18 11:57] LABS: AST(SGOT) 18 U/L (<=31); Alanine Aminotransfer ALT/SGPT 28 U/L (<=34); Albumin, Serum 4.0 g/dL (3.5-5.0); Alkaline Phosphatase 121 U/L (35-104); Anion Gap 11 (5-15); BUN 6 mg/dL (4-19); BUN/Creat Ratio 9.3 RATIO (10-20); Calcium,Total 9.1 mg/dL (7.6-11.0); Carbon Dioxide 23.0 mmol/L (21.0-32.0); Chloride 104 mmol/L (98-108); Cholesterol 182 mg/dL (<=200); Globulin 3.0 g/dL (2.2-4.2); Glucose 88 mg/dL (70-99); Low Density Lipoprotein Calc. 91 mg/dL; Potassium 3.8 mmol/L (3.3-5.1); Triglycerides 147 mg/dL; Very Low Density Lipoprotein 29 mg/dL (5-40); cholesterol:hdl ratio screen 2.77
== END | disposition home or self-care (01) ==
LOC: LAB 09:50
PROVIDERS: PCP Internal Medicine; Referring Provider Internal Medicine; Visit Provider Internal Medicine
DX: Z00.00 Encounter for general adult medical examination without abnormal findings (principal)
CPT/HCPCS: 36415; 80053; 80061; 85025